=== PATIENT | female | born 1960 | race Caucasian/White ===

== ENCOUNTER 2024-02-11 21:33 | Inpatient (IN) | payer MEDICARE, MEDICAID, SELFPAY ==
--- NOTE | ~2024-02-11 | XR_ITS ---
EXAMINATION: XR HIP, RIGHT CLINICAL INFORMATION: Fall COMPARISON: None available. TECHNIQUE: Two views of the right hip. FINDINGS: Alignment is anatomic. Mild osteoarthritis of the the hips with subchondral sclerosis and marginal osteophytes. No visible fracture. Degenerative changes in the included lower lumbar spine. XR/XR hip RT min 2V IMPRESSION: No visible fracture.
--- NOTE | ~2024-02-11 | MR_ITS ---
EXAMINATION: MR BRAIN WITHOUT AND WITH CONTRAST CLINICAL INFORMATION: Multiple sclerosis flare. COMPARISON: None available. TECHNIQUE: MRI of the brain was obtained using routine sequences without and following the administration of 10 mL of Gadavist intravenous contrast. FINDINGS: No focal restricted diffusion is demonstrated to suggest acute or subacute cerebral ischemia. No evidence of acute or chronic hemorrhagic products on heme-sensitive imaging. There are multiple T2/FLAIR hyperintense lesions consistent with the reported underlying diagnosis of demyelination in the appropriate clinical setting. This includes lesions within the subcortical, deep white matter, periventricular, callosal, and cerebellar distributions. Proportional prominence of the ventricles and sulcal spaces without evidence of obstructive hydrocephalus. No abnormal mass effect. No midline shift. Normal appearance of the pituitary gland. Normal positioning of the cerebellar tonsils. Normal arterial and venous vascular flow voids are present. No abnormal contrast enhancement. Normal, homogeneous marrow signal. Mild mucosal thickening of the paranasal sinuses. No signal abnormalities within the mastoids. MR/MR head/brain wo/w con IMPRESSION: 1. Multiple supratentorial and infratentorial white matter lesions consistent with the reported underlying diagnosis of demyelination in the appropriate clinical setting. No abnormal intracranial enhancement or restricted diffusion to strongly suggest active inflammation/demyelination. 2. No acute intracranial abnormalities. No abnormal intracranial enhancement.
--- NOTE | ~2024-02-11 | CT_ITS ---
EXAMINATION: CT head/brain wo IV con CLINICAL INFORMATION: fall COMPARISON: MRI brain 02/17/2024 TECHNIQUE: Contiguous axial imaging was performed from the skull base to vertex without intravenous contrast. Sagittal and coronal reformatted images were obtained. This CT examination was performed using dose optimization techniques as appropriate, variously including the following: * Automated exposure control * Adjustment of mA and/or kV according to patient size (this includes techniques or standardized protocols for targeted exams where dose is matched to indication/reason for exam; i.e. extremities or head) Use of iterative reconstruction technique DLP: 628.5 mGy-cm FINDINGS: The ventricles and sulci are normal in size and configuration without significant volume loss or hydrocephalus. Moderate burden of predominantly supratentorial white matter disease related to known history of multiple sclerosis, better characterized on recent brain MRI. No territorial loss of collado-white differentiation. No acute intracranial hemorrhage or extra-axial fluid collection. No mass lesion, significant mass effect, or herniation pattern. The orbits are grossly normal. Partially imaged small retention cyst in the right maxillary sinus. Minor degenerative subchondral cyst/sclerosis along the left mandibular condyle head. Osseous structures are intact. CT/CT head/brain wo IV con IMPRESSION: 1. No CT evidence of acute intracranial injury. 2. Moderate burden of predominantly supratentorial white matter disease related to known history of multiple sclerosis, better characterized on recent brain MRI.
[2024-02-11 21:58] VITALS: BP 122/56; PULSE 73; RESP 18; TEMP 36.4; O2SAT 93
[2024-02-11 22:10] VITALS: BMI 40.9
[2024-02-12] MEDS: traZODone HCL 50 MG TABLET PO (01:51)
[2024-02-12] MEDS: hydrOXYzine HCL 50 MG TABLET PO (01:52)
[2024-02-12] MEDS: Melatonin 3 MG TABLET PO ×2 (01:52→21:08)
--- NOTE | 2024-02-12 04:23 | PC.NURSE ---
Patient is a 63 y/o female admitted via stretcher on 12b at 21:48 from [facility]. Patient presented at the emergency department on 02/10/2024 with history of increased agitation, combative behavior and making suicidal gestures. Patient has psychiatric history and is known to [facility] crisis Team. Patient was previously at [facility] in acute rehab for L TKR performed 2 weeks ago. Patient is alert and oriented x 3 upon arrival, calm, pleasant and cooperative, denies any current thoughts of self harm or suicidal ideation, is able to contract for safety. Able to follows commands during physical assessment, skin check is significant for 15 cm surgical wound in L knee area, well approximated and healing, fungal rash under R breast and R abdominal fold. Patient requested to defer mental assessment because fatigued and sleepy. body recall instructor provider Rangel Ramos notified, patient placed on 5 mins checks.
[2024-02-12 07:00] VITALS: BMI 39.4
[2024-02-12 08:08] VITALS: BP 131/66; PULSE 87; RESP 16; TEMP 36.1; O2SAT 92
[2024-02-12] MEDS: Ferrous Sulfate 324 MG TABLET.DR PO (08:10)
[2024-02-12] MEDS: Sennosides 8.6 MG TABLET 17.2 MG PO (08:10)
[2024-02-12] MEDS: modafiniL 100 MG TABLET PO (08:10)
[2024-02-12] MEDS: Baclofen 20 MG TABLET PO ×2 (08:11→21:08)
[2024-02-12] MEDS: Magnesium Oxide 400 MG TABLET PO (08:11)
[2024-02-12] MEDS: Docusate Sodium 100 MG CAPSULE PO ×2 (08:11→21:08)
[2024-02-12] MEDS: Acetaminophen 325 MG TABLET 975 MG PO ×3 (08:11→21:06)
[2024-02-12] MEDS: Celecoxib 200 MG CAPSULE PO (08:11)
[2024-02-12] MEDS: Omeprazole 20 MG CAPSULE.DR PO (08:11)
[2024-02-12] MEDS: Apixaban 2.5 MG TABLET PO ×2 (08:11→21:07)
[2024-02-12] MEDS: Multivitamin TABLET 1 TAB PO (08:11)
[2024-02-12 08:16] LABS: Estimated Average Glucose 94 mg/dL; Hemoglobin A1c % 4.9 % (<6.0)
[2024-02-12 08:27] LABS: Cholesterol 203 mg/dL (<200); HDL Cholesterol 45 mg/dL (>40); LDL Cholesterol Calculated 136 mg/dL (<100); Triglycerides 111 mg/dL (<150)
[2024-02-12] MEDS: LORazepam 1 MG TABLET PO (08:40)
[2024-02-12] MEDS: HaloperidoL 5 MG TABLET PO (08:40)
[2024-02-12 08:41] LABS: Free T4 (Free Thyroxine) 0.93 ng/dL (0.71-1.85); Thyroid Stimulating Hormone 2.41 uIU/mL (0.32-4.0)
[2024-02-12 08:58] LABS: Folate 12.8 ng/mL (> or = 4.0); Vitamin B12 904 pg/mL (200-900)
[2024-02-12] MEDS: Nystatin Powder 15 GM BOTTLE 1 APPL TOPICAL (09:15)
[2024-02-12] MEDS: Nystatin Oral Susp 500,000 UNIT/5 ML ORAL.SUSP 500000 UNIT BUCCAL ×2 (09:16→13:08)
[2024-02-12] MEDS: Calcium Carbonate 750 MG TAB.CHEW PO (11:29)
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
[2024-02-12 13:27] VITALS: BP 131/66; PULSE 87; O2SAT 92
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
--- NOTE | 2024-02-12 18:41 | PC.NURSE ---
Pt. A & O X 3. Poor insight into situation. Pleasant and cooperative in AM, when she was allowed to have breakfast in bed while awaiting OT/PT assmt. for mobility status. Initially she was reporting 8/10 L knee pain, but received scheduled medications, including APAP with good effect. She did report anxiety and requested and received her PRN lorazepam and haldol with good effect. Pt. completed admission assmt.s and signed CASSIA's. updated on her admission by telephone. Pt. cleared to be independent with mobility using a walker. Pt. began ringing her call adamson and demanding food and drink items from staff, for example Get me 2 chocolate milks, and I want them made with whole milk, not low fat. And you have to pour them over ice. Pt. reminded that food and drink would not be served in her room, but in the kitchen area. She was educated on the importance of ambulating for the proper healing of her knee, and that coming out to the milieu for meals was part of her treatment. Fine, then I'm on a hunger strike. Pt. did come to sensory room for visit with and ate several snacks and drank Ensure and coffee. She returned to her room after visit and began to repetitively ring her call adamson. When staff would answer the adamson she would make unreasonable demands that they bring her food to her room and call family members to bring her food. Staff splitting behavior observed, when she was telling one staff that another had said she could eat in her room. Pt. reminded she was free to make phone calls to make requests of her family, and that we had food for her in the kitchen area. She became increasingly verbally abusive and accusatory toward staff that they were abusing her. She also refused 5 PM APAP and nystatin swish and swallow. Pt. during admission asserted she is always continent, but in the evening demanding staff clean up her incontinence while she lays in bed.
[2024-02-12 20:00] VITALS: BP 117/65; PULSE 72; RESP 16; TEMP 36.6; O2SAT 97
[2024-02-12] MEDS: rOPINIRole HCL 1 MG TABLET PO (21:07)
[2024-02-12] MEDS: Sertraline HCL 100 MG TABLET 200 MG PO (21:08)
[2024-02-12] MEDS: Atorvastatin Calcium 10 MG TABLET PO (21:09)
[2024-02-13 08:34] VITALS: BP 144/64; PULSE 71; RESP 18; TEMP 37; O2SAT 96
[2024-02-13] MEDS: Acetaminophen 325 MG TABLET 975 MG PO ×3 (08:42→17:59)
[2024-02-13] MEDS: Ferrous Sulfate 324 MG TABLET.DR PO (08:42)
[2024-02-13] MEDS: Sennosides 8.6 MG TABLET 17.2 MG PO (08:42)
[2024-02-13] MEDS: Nystatin Oral Susp 500,000 UNIT/5 ML ORAL.SUSP 500000 UNIT BUCCAL ×3 (08:42→22:03)
[2024-02-13] MEDS: modafiniL 100 MG TABLET PO (08:42)
[2024-02-13] MEDS: Celecoxib 200 MG CAPSULE PO (08:43)
[2024-02-13] MEDS: Omeprazole 20 MG CAPSULE.DR PO (08:43)
[2024-02-13] MEDS: Multivitamin TABLET 1 TAB PO (08:43)
[2024-02-13] MEDS: Magnesium Oxide 400 MG TABLET PO (08:43)
[2024-02-13] MEDS: Apixaban 2.5 MG TABLET PO ×2 (08:43→22:00)
[2024-02-13] MEDS: Docusate Sodium 100 MG CAPSULE PO ×2 (08:43→22:02)
[2024-02-13] MEDS: Baclofen 20 MG TABLET PO ×2 (08:43→22:01)
[2024-02-13] MEDS: LORazepam 1 MG TABLET PO ×2 (13:11→17:58)
[2024-02-13] MEDS: HaloperidoL 5 MG TABLET PO ×2 (13:11→17:59)
--- NOTE | 2024-02-13 16:29 | HO.PSYCHPN ---
Subjective Subjective Date of Service: 02/13/24 Reason For Visit: Unspecified Schizophrenia Spectrum and other Psych Subjective Notes: Conditional Voluntary and 3 Day Interim History: The nursing staff reported the patient had being attention seeking, recently she had a total knee replacement. Today in the morning, the patient went to the sensory room and she vandalized it, she needed p.r.n. Haldol. On interview the patient was extremely friendly pleasant, inappropriate at times stating that she was hearing voices at times. I offer her Haldol and she stated that she loves it. We will start Haldol 5 mg p.o. t.i.d. to target psychosis. Mental Status Exam Mental Status Exam Patient Appearance: Appropriate Patient Orientation: Person and Situation Level of Consciousness: Awake Patient Behavior: Talkative Affect Description: Labile Patient Cognition Impaired: Yes Ability to Follow Directions: Fair Speech Pattern: Clear Hallucinations: Auditory Delusions: Paranoid Ideation, Thought Insert/Delete and Ideas of Reference Thought Process: Illogical and Slowed Thinking Thought Content: positive for [place] and positive for Poverty of Content Judgement: Poor Diagnostics Vital Signs (24Hr): Vital Signs - 24 hr 02/12/24 20:00 02/13/24 08:34 Temperature 97.9 F 98.6 F Pulse Rate 72 71 Respiratory Rate 16 18 Blood Pressure 117/65 144/64 H Pulse Oximetry 97 96 Oxygen Delivery Method Room Air Room Air BMI result Body Mass Index 39.4 Labs Labs: Laboratory Results - last 48 hr 02/12/24 08:00 Estimat Average Glucose 94 Hemoglobin A1c % 4.9 Triglycerides 111 Cholesterol 203 H LDL Cholesterol, Calc 136 H HDL Cholesterol 45 Vitamin B12 904 H Folate 12.8 TSH 2.41 Free T4 0.93 Medications Medications Current Medications Acetaminophen (Acetaminophen 325 Mg Tablet) 975 mg PO QID [facility] Last Admin: 02/13/24 12:26 Dose: 975 mg Al Hydroxide/Mg Hydroxide (Magnesium Hydrox/Alum Hydrox 30 Ml Oral.Susp) 30 ml PO Q6H PRN PRN Reason: Heartburn/Nausea Apixaban (Apixaban 2.5 Mg Tablet) 2.5 mg PO BID [facility] Stop: 02/27/24 23:59 Last Admin: 02/13/24 08:43 Dose: 2.5 mg Atorvastatin Calcium (Atorvastatin Calcium 10 Mg Tablet) 10 mg PO BEDTIME [facility] Last Admin: 02/12/24 21:09 Dose: 10 mg Baclofen (Baclofen 20 Mg Tablet) 20 mg PO BID [facility] Last Admin: 02/13/24 08:43 Dose: 20 mg Calcium Carbonate (Calcium Carbonate 750 Mg Tab.Chew) 750 mg PO QID PRN PRN Reason: Indigestion Last Admin: 02/12/24 11:29 Dose: 750 mg Celecoxib (Celecoxib 200 Mg Capsule) 200 mg PO DAILY [facility] Last Admin: 02/13/24 08:43 Dose: 200 mg Docusate Sodium (Docusate Sodium 100 Mg Capsule) 100 mg PO BID [facility] Last Admin: 02/13/24 08:43 Dose: 100 mg Ferrous Sulfate (Ferrous Sulfate 324 Mg Tablet.Dr) 324 mg PO DAILY [facility] Last Admin: 02/13/24 08:42 Dose: 324 mg Haloperidol (Haloperidol 5 Mg Tablet) 5 mg PO TID PRN PRN Reason: agitation Last Admin: 02/13/24 13:11 Dose: 5 mg Hydroxyzine HCl (Hydroxyzine Hcl 50 Mg Tablet) 50 mg PO TID PRN PRN Reason: Anxiety Last Admin: 02/12/24 01:52 Dose: 50 mg Lorazepam (Lorazepam 1 Mg Tablet) 1 mg PO TID PRN PRN Reason: agitation Last Admin: 02/13/24 13:11 Dose: 1 mg Magnesium Hydroxide (Milk Of Magnesia 30 Ml Oral.Susp) 30 ml PO DAILY PRN PRN Reason: Constipation Magnesium Oxide (Magnesium Oxide 400 Mg Tablet) 400 mg PO DAILY [facility] Last Admin: 02/13/24 08:43 Dose: 400 mg Melatonin (Melatonin 3 Mg Tablet) 3 mg PO BEDTIME [facility] Last Admin: 02/12/24 21:08 Dose: 3 mg Modafinil (Modafinil 100 Mg Tablet) 100 mg PO DAILY [facility] Last Admin: 02/13/24 08:42 Dose: 100 mg Multivitamins/Vitamin C (Multivitamin Tablet) 1 tab PO DAILY [facility] Last Admin: 02/13/24 08:43 Dose: 1 tab Nicotine Polacrilex (Nicotine Polacrilex 2 Mg Gum) 2 mg BUCCAL Q2H PRN PRN Reason: Nicotine Cravings Nystatin (Nystatin Oral Susp 500,000 Unit/5 Ml Oral.Susp) 500,000 unit BUCCAL QID [facility]; Protocol Stop: 02/19/24 08:59 Last Admin: 02/13/24 12:29 Dose: Not Given Omeprazole (Omeprazole 20 Mg Capsule.Dr) 20 mg PO DAILY [facility] Last Admin: 02/13/24 08:43 Dose: 20 mg Ondansetron HCl (Ondansetron Odt 4 Mg Tab.Rapdis) 4 mg TRANSLINGU Q8H PRN PRN Reason: Nausea And Vomiting Polyethylene Glycol (Polyethylene Glycol 3350 17 Gm Powd.Pack) 17 gm PO DAILY PRN PRN Reason: Constipation Ropinirole HCl (Ropinirole Hcl 1 Mg Tablet) 1 mg PO BEDTIME [facility] Last Admin: 02/12/24 21:07 Dose: 1 mg Senna (Sennosides 8.6 Mg Tablet) 17.2 mg PO DAILY [facility] Last Admin: 02/13/24 08:42 Dose: 17.2 mg Sertraline HCl (Sertraline Hcl 100 Mg Tablet) 200 mg PO BEDTIME [facility] Last Admin: 02/12/24 21:08 Dose: 200 mg Allergies Allergies Allergy/AdvReac Type Severity Reaction Status Date / Time aspirin Allergy Unknown Verified 02/11/24 22:12 citalopram [From Celexa] Allergy Unknown Verified 02/11/24 22:12 lamotrigine [From Lamictal] Allergy Unknown Verified 02/11/24 22:12 Penicillins Allergy Unknown Verified 02/11/24 22:12 Assessment & Plan Assessment & Plan (1) Multiple sclerosis: Status: Acute Code(s): G35 - Multiple sclerosis (2) Unspecified psychosis: Status: Acute Code(s): F29 - Unspecified psychosis not due to a substance or known physiological condition (3) Total knee replacement status: Status: Acute Code(s): Z96.659 - Presence of unspecified artificial knee joint Plan 02/11: continue medications as per at discharge from rehab facility. observe for clearing of mental status. likely delirium related to recent surgery. PT consult placed. 02/12 start Haldol 5 mg p.o. t.i.d. Reason for continued inpatient stay Substantial Risk for: inability to function, rapid decompensation and med/psych decompensation Time Spent With Patient Time: Total time managing care of this patient today __20__ minutes.
[2024-02-13 20:00] VITALS: BP 125/59; PULSE 82; RESP 16; TEMP 36.2; O2SAT 94
[2024-02-13] MEDS: rOPINIRole HCL 1 MG TABLET PO (21:59)
[2024-02-13] MEDS: Melatonin 3 MG TABLET PO (22:00)
[2024-02-13] MEDS: Sertraline HCL 100 MG TABLET 200 MG PO (22:01)
[2024-02-13] MEDS: Atorvastatin Calcium 10 MG TABLET PO (22:02)
[2024-02-13] MEDS: HaloperidoL 1 MG TABLET 2 MG PO (22:03)
--- NOTE | 2024-02-14 | PC.RT ---
RT called to place pt on noc cpap initially no order was put in nurse stated pt was placed on noc cpap yesterday upon review of the pts chart i did not see any orders for cpap or charting from RT that pt was placed on cpap yesterday. when cpap order was in I went down to place the pt on the machine i was told the machine was the same one the pt used yesterday after placing the pt on the machine she stated that she did not wear this machine last night and she does not feel like she can tolerate this mask. I removed the machine from the floor because i am not sure if this machine was initially set up for this specific pt.
[2024-02-14] MEDS: Acetaminophen 325 MG TABLET 975 MG PO ×3 (00:30→22:34)
[2024-02-14] MEDS: Nicotine Polacrilex 2 MG GUM BUCCAL (00:32)
[2024-02-14] MEDS: hydrOXYzine HCL 50 MG TABLET PO ×2 (00:32→20:58)
[2024-02-14] MEDS: Ondansetron ODT 4 MG TAB.RAPDIS TRANSLINGU ×2 (00:33→22:38)
[2024-02-14] MEDS: LORazepam 1 MG TABLET PO ×3 (00:33→22:39)
--- NOTE | 2024-02-14 04:42 | PC.NURSE ---
pt has been demanding/manipulative/labile. she requested to be placed on cpap. resp tx contacted and presented at bedside with cpap which pt promptly refused. pt stated that she wanted nasal cannula. pt is is grossly intact neurologically except offering multiple orthopedic and somatic complaints. resp effort is regular unlabored. sao2 94-96%. there is absolutely no indication for supplemental oxygen. pt is given tylenol for pain which she had refused earlier in the night. she is also given ativan and atarax for anxiety and restlessness. pt is noted to be somnolent and snoring 30 min post ativan/atarax/tylenol administration. resp effort is regular unlabored.
[2024-02-14 08:00] VITALS: BP 137/86; PULSE 84; RESP 18; TEMP 36.8; O2SAT 95
--- NOTE | 2024-02-14 08:10 | HO.PSYCHPN ---
Subjective Subjective Date of Service: 02/14/24 Reason For Visit: Unspecified Schizophrenia Spectrum and other Psych Interim History: nursing staff report patient has been challenging regarding behaviors, verbal outbursts, self care. Patient reports to designer/writer that she is doing great. Has no concerns regarding the care she is receiving. Reports looking forward to discharge back to living with her and grandson. Reports her psychiatric symptoms are at bay for now and my pain is well controlled . Medication Compliance: Yes Side effects from medications: No Attending Groups: No Review of Systems Acute medical concerns: No Review of Systems Review of Systems nothing acute Mental Status Exam Mental Status Exam Patient Appearance: Appropriate Patient Orientation: Person and Situation Level of Consciousness: Awake Patient Behavior: Talkative Mood Description: Calm Affect Description: Withdrawn and Blunted Patient Cognition Impaired: Yes Ability to Follow Directions: Fair Speech Pattern: Clear Diagnostics Vital Signs (24Hr): Vital Signs - 24 hr 02/13/24 08:34 02/13/24 20:00 Temperature 98.6 F 97.2 F Pulse Rate 71 82 Respiratory Rate 18 16 Blood Pressure 144/64 H 125/59 L Pulse Oximetry 96 94 Oxygen Delivery Method Room Air Room Air BMI result Body Mass Index 39.4 Labs Labs: Laboratory Results - last 48 hr 02/12/24 08:00 Estimat Average Glucose 94 Hemoglobin A1c % 4.9 Triglycerides 111 Cholesterol 203 H LDL Cholesterol, Calc 136 H HDL Cholesterol 45 Vitamin B12 904 H Folate 12.8 TSH 2.41 Free T4 0.93 Medications Medications Current Medications Acetaminophen (Acetaminophen 325 Mg Tablet) 975 mg PO QID [facility] Last Admin: 02/14/24 00:30 Dose: 975 mg Al Hydroxide/Mg Hydroxide (Magnesium Hydrox/Alum Hydrox 30 Ml Oral.Susp) 30 ml PO Q6H PRN PRN Reason: Heartburn/Nausea Apixaban (Apixaban 2.5 Mg Tablet) 2.5 mg PO BID [facility] Stop: 02/27/24 23:59 Last Admin: 02/13/24 22:00 Dose: 2.5 mg Atorvastatin Calcium (Atorvastatin Calcium 10 Mg Tablet) 10 mg PO BEDTIME [facility] Last Admin: 02/13/24 22:02 Dose: 10 mg Baclofen (Baclofen 20 Mg Tablet) 20 mg PO BID [facility] Last Admin: 02/13/24 22:01 Dose: 20 mg Calcium Carbonate (Calcium Carbonate 750 Mg Tab.Chew) 750 mg PO QID PRN PRN Reason: Indigestion Last Admin: 02/12/24 11:29 Dose: 750 mg Celecoxib (Celecoxib 200 Mg Capsule) 200 mg PO DAILY [facility] Last Admin: 02/13/24 08:43 Dose: 200 mg Docusate Sodium (Docusate Sodium 100 Mg Capsule) 100 mg PO BID [facility] Last Admin: 02/13/24 22:02 Dose: 100 mg Ferrous Sulfate (Ferrous Sulfate 324 Mg Tablet.) 324 mg PO DAILY [facility] Last Admin: 02/13/24 08:42 Dose: 324 mg Haloperidol (Haloperidol 5 Mg Tablet) 5 mg PO TID PRN PRN Reason: agitation Last Admin: 02/13/24 17:59 Dose: 5 mg Haloperidol (Haloperidol 1 Mg Tablet) 2 mg PO TID [facility] Last Admin: 02/13/24 22:03 Dose: 2 mg Hydroxyzine HCl (Hydroxyzine Hcl 50 Mg Tablet) 50 mg PO TID PRN PRN Reason: Anxiety Last Admin: 02/14/24 00:32 Dose: 50 mg Lorazepam (Lorazepam 1 Mg Tablet) 1 mg PO TID PRN PRN Reason: agitation Last Admin: 02/14/24 00:33 Dose: 1 mg Magnesium Hydroxide (Milk Of Magnesia 30 Ml Oral.Susp) 30 ml PO DAILY PRN PRN Reason: Constipation Magnesium Oxide (Magnesium Oxide 400 Mg Tablet) 400 mg PO DAILY [facility] Last Admin: 02/13/24 08:43 Dose: 400 mg Melatonin (Melatonin 3 Mg Tablet) 3 mg PO BEDTIME [facility] Last Admin: 02/13/24 22:00 Dose: 3 mg Modafinil (Modafinil 100 Mg Tablet) 100 mg PO DAILY [facility] Last Admin: 02/13/24 08:42 Dose: 100 mg Multivitamins/Vitamin C (Multivitamin Tablet) 1 tab PO DAILY [facility] Last Admin: 02/13/24 08:43 Dose: 1 tab Nicotine Polacrilex (Nicotine Polacrilex 2 Mg Gum) 2 mg BUCCAL Q2H PRN PRN Reason: Nicotine Cravings Last Admin: 02/14/24 00:32 Dose: 2 mg Nystatin (Nystatin Oral Susp 500,000 Unit/5 Ml Oral.Susp) 500,000 unit BUCCAL QID [facility]; Protocol Stop: 02/19/24 08:59 Last Admin: 02/13/24 22:03 Dose: 500,000 unit Omeprazole (Omeprazole 20 Mg Capsule.) 20 mg PO DAILY [facility] Last Admin: 02/13/24 08:43 Dose: 20 mg Ondansetron HCl (Ondansetron Odt 4 Mg Tab.Rapdis) 4 mg TRANSLINGU Q8H PRN PRN Reason: Nausea And Vomiting Last Admin: 02/14/24 00:33 Dose: 4 mg Polyethylene Glycol (Polyethylene Glycol 3350 17 Gm Powd.Pack) 17 gm PO DAILY PRN PRN Reason: Constipation Ropinirole HCl (Ropinirole Hcl 1 Mg Tablet) 1 mg PO BEDTIME [facility] Last Admin: 02/13/24 21:59 Dose: 1 mg Senna (Sennosides 8.6 Mg Tablet) 17.2 mg PO DAILY [facility] Last Admin: 02/13/24 08:42 Dose: 17.2 mg Sertraline HCl (Sertraline Hcl 100 Mg Tablet) 200 mg PO BEDTIME [facility] Last Admin: 02/13/24 22:01 Dose: 200 mg Allergies Allergies Allergy/AdvReac Type Severity Reaction Status Date / Time aspirin Allergy Unknown Verified 02/11/24 22:12 citalopram [From Celexa] Allergy Unknown Verified 02/11/24 22:12 lamotrigine [From Lamictal] Allergy Unknown Verified 02/11/24 22:12 Penicillins Allergy Unknown Verified 02/11/24 22:12 Assessment & Plan Assessment & Plan (1) Multiple sclerosis: Status: Acute Code(s): G35 - Multiple sclerosis (2) Unspecified psychosis: Status: Acute Code(s): F29 - Unspecified psychosis not due to a substance or known physiological condition (3) Total knee replacement status: Status: Acute Code(s): Z96.659 - Presence of unspecified artificial knee joint Plan 02/11: continue medications as per at discharge from rehab facility. observe for clearing of mental status. likely delirium related to recent surgery. PT consult placed. 02/12 start Haldol 5 mg p.o. t.i.d. 02/14/2024: No changes as Haldol just started Reason for continued inpatient stay Substantial Risk for: inability to function and rapid decompensation Time Spent With Patient Time: Total time managing care of this patient today ____ minutes.
[2024-02-14] MEDS: Nystatin Oral Susp 500,000 UNIT/5 ML ORAL.SUSP 500000 UNIT BUCCAL ×3 (08:23→20:59)
[2024-02-14] MEDS: Baclofen 20 MG TABLET PO ×2 (08:25→20:58)
[2024-02-14] MEDS: Celecoxib 200 MG CAPSULE PO (08:25)
[2024-02-14] MEDS: Apixaban 2.5 MG TABLET PO ×2 (08:25→20:57)
[2024-02-14] MEDS: HaloperidoL 1 MG TABLET 2 MG PO ×3 (08:25→20:53)
[2024-02-14] MEDS: Omeprazole 20 MG CAPSULE.DR PO (08:25)
[2024-02-14] MEDS: Magnesium Oxide 400 MG TABLET PO (08:25)
[2024-02-14] MEDS: Ferrous Sulfate 324 MG TABLET.DR PO (08:25)
[2024-02-14] MEDS: Sennosides 8.6 MG TABLET 17.2 MG PO (08:25)
[2024-02-14] MEDS: modafiniL 100 MG TABLET PO (08:25)
[2024-02-14] MEDS: Multivitamin TABLET 1 TAB PO (08:25)
[2024-02-14] MEDS: Docusate Sodium 100 MG CAPSULE PO (08:31)
--- NOTE | 2024-02-14 17:26 | HE.PHANOTE ---
RE ACETAMINOPHEN CHANGED HOME DOSE OF 975 MG QID TO TID WITH DR BERNAL PERMISSION BECAUSE NURSING GETTING FLAGS WITH EVERY OTHER DOSE REGARDING EXCEEDING SAFE LIMIT.
[2024-02-14 20:00] VITALS: BP 132/68; PULSE 82; RESP 18; TEMP 36.1; O2SAT 96
[2024-02-14] MEDS: Atorvastatin Calcium 10 MG TABLET PO (20:53)
[2024-02-14] MEDS: Sertraline HCL 100 MG TABLET 200 MG PO (20:56)
[2024-02-14] MEDS: Melatonin 3 MG TABLET PO (20:56)
[2024-02-14] MEDS: rOPINIRole HCL 1 MG TABLET PO (20:57)
[2024-02-14] MEDS: HaloperidoL 5 MG TABLET PO (22:39)
[2024-02-15 07:50] VITALS: BP 120/60; PULSE 75; RESP 18; TEMP 36.6; O2SAT 97
[2024-02-15] MEDS: modafiniL 100 MG TABLET PO (08:00)
[2024-02-15] MEDS: HaloperidoL 1 MG TABLET 2 MG PO ×3 (08:00→21:00)
[2024-02-15] MEDS: Docusate Sodium 100 MG CAPSULE PO ×2 (08:00→21:03)
[2024-02-15] MEDS: Multivitamin TABLET 1 TAB PO (08:00)
[2024-02-15] MEDS: Sennosides 8.6 MG TABLET 17.2 MG PO (08:00)
[2024-02-15] MEDS: Ferrous Sulfate 324 MG TABLET.DR PO (08:00)
[2024-02-15] MEDS: Nystatin Oral Susp 500,000 UNIT/5 ML ORAL.SUSP 500000 UNIT BUCCAL ×3 (08:00→21:00)
[2024-02-15] MEDS: Omeprazole 20 MG CAPSULE.DR PO (08:00)
[2024-02-15] MEDS: Celecoxib 200 MG CAPSULE PO (08:00)
[2024-02-15] MEDS: Acetaminophen 325 MG TABLET 975 MG PO ×2 (08:01→15:30)
[2024-02-15] MEDS: Magnesium Oxide 400 MG TABLET PO (08:01)
[2024-02-15] MEDS: Apixaban 2.5 MG TABLET PO ×2 (08:01→21:03)
[2024-02-15] MEDS: Baclofen 20 MG TABLET PO ×2 (08:01→21:03)
--- NOTE | 2024-02-15 10:26 | HO.PSYCHPN ---
Subjective Subjective Date of Service: 02/15/24 Reason For Visit: Unspecified Schizophrenia Spectrum and other Psych Interim History: nursing staff report patient has been challenging regarding behaviors, verbal outbursts, self care. Patient reports to database report writer that she is doing great but upset around behavioral limitations such as group (endorsed writing on [place]) and directed back to primary team to discus treatment planning. Inappropriate conversation content with peer in open space (sexual in nature). Still looking forward to discharge and 3 day notice. Medication Compliance: Yes Side effects from medications: No Attending Groups: No Review of Systems Acute medical concerns: No Review of Systems Review of Systems nothing acute Mental Status Exam Mental Status Exam Narrative: adequately dressed and groomed in [facility], in day area. some frustration. no PMA/PMR. speech incr in rate, amount. nml loudness, decr latency. thoughts vary from linear and logical in response to some questions and tangential spontaneously. affect flexible, normo-intense, non-labile. mood very good. denies SI/SIBI/HI/AVH. Diagnostics Vital Signs (24Hr): Vital Signs - 24 hr 02/14/24 20:00 02/15/24 07:50 Temperature 96.9 F 97.9 F Pulse Rate 82 75 Respiratory Rate 18 18 Blood Pressure 132/68 120/60 Pulse Oximetry 96 97 Oxygen Delivery Method Room Air Room Air BMI result Body Mass Index 39.4 Medications Medications Current Medications Acetaminophen (Acetaminophen 325 Mg Tablet) 975 mg PO TID [facility] Last Admin: 02/15/24 08:01 Dose: 975 mg Al Hydroxide/Mg Hydroxide (Magnesium Hydrox/Alum Hydrox 30 Ml Oral.Susp) 30 ml PO Q6H PRN PRN Reason: Heartburn/Nausea Apixaban (Apixaban 2.5 Mg Tablet) 2.5 mg PO BID [facility] Stop: 02/27/24 23:59 Last Admin: 02/15/24 08:01 Dose: 2.5 mg Atorvastatin Calcium (Atorvastatin Calcium 10 Mg Tablet) 10 mg PO BEDTIME [facility] Last Admin: 02/14/24 20:53 Dose: 10 mg Baclofen (Baclofen 20 Mg Tablet) 20 mg PO BID [facility] Last Admin: 02/15/24 08:01 Dose: 20 mg Calcium Carbonate (Calcium Carbonate 750 Mg Tab.Chew) 750 mg PO QID PRN PRN Reason: Indigestion Last Admin: 02/12/24 11:29 Dose: 750 mg Celecoxib (Celecoxib 200 Mg Capsule) 200 mg PO DAILY [facility] Last Admin: 02/15/24 08:00 Dose: 200 mg Docusate Sodium (Docusate Sodium 100 Mg Capsule) 100 mg PO BID [facility] Last Admin: 02/15/24 08:00 Dose: 100 mg Ferrous Sulfate (Ferrous Sulfate 324 Mg Tablet.) 324 mg PO DAILY [facility] Last Admin: 02/15/24 08:00 Dose: 324 mg Haloperidol (Haloperidol 5 Mg Tablet) 5 mg PO TID PRN PRN Reason: agitation Last Admin: 02/14/24 22:39 Dose: 5 mg Haloperidol (Haloperidol 1 Mg Tablet) 2 mg PO TID [facility] Last Admin: 02/15/24 08:00 Dose: 2 mg Hydroxyzine HCl (Hydroxyzine Hcl 50 Mg Tablet) 50 mg PO TID PRN PRN Reason: Anxiety Last Admin: 02/14/24 20:58 Dose: 50 mg Lorazepam (Lorazepam 1 Mg Tablet) 1 mg PO TID PRN PRN Reason: agitation Last Admin: 02/14/24 22:39 Dose: 1 mg Magnesium Hydroxide (Milk Of Magnesia 30 Ml Oral.Susp) 30 ml PO DAILY PRN PRN Reason: Constipation Magnesium Oxide (Magnesium Oxide 400 Mg Tablet) 400 mg PO DAILY [facility] Last Admin: 02/15/24 08:01 Dose: 400 mg Melatonin (Melatonin 3 Mg Tablet) 3 mg PO BEDTIME [facility] Last Admin: 02/14/24 20:56 Dose: 3 mg Modafinil (Modafinil 100 Mg Tablet) 100 mg PO DAILY [facility] Last Admin: 02/15/24 08:00 Dose: 100 mg Multivitamins/Vitamin C (Multivitamin Tablet) 1 tab PO DAILY [facility] Last Admin: 02/15/24 08:00 Dose: 1 tab Nicotine Polacrilex (Nicotine Polacrilex 2 Mg Gum) 2 mg BUCCAL Q2H PRN PRN Reason: Nicotine Cravings Last Admin: 02/14/24 00:32 Dose: 2 mg Nystatin (Nystatin Oral Susp 500,000 Unit/5 Ml Oral.Susp) 500,000 unit BUCCAL QID [facility]; Protocol Stop: 02/19/24 08:59 Last Admin: 02/15/24 08:00 Dose: 500,000 unit Omeprazole (Omeprazole 20 Mg Capsule.) 20 mg PO DAILY [facility] Last Admin: 02/15/24 08:00 Dose: 20 mg Ondansetron HCl (Ondansetron Odt 4 Mg Tab.Rapdis) 4 mg TRANSLINGU Q8H PRN PRN Reason: Nausea And Vomiting Last Admin: 02/14/24 22:38 Dose: 4 mg Polyethylene Glycol (Polyethylene Glycol 3350 17 Gm Powd.Pack) 17 gm PO DAILY PRN PRN Reason: Constipation Ropinirole HCl (Ropinirole Hcl 1 Mg Tablet) 1 mg PO BEDTIME [facility] Last Admin: 02/14/24 20:57 Dose: 1 mg Senna (Sennosides 8.6 Mg Tablet) 17.2 mg PO DAILY [facility] Last Admin: 02/15/24 08:00 Dose: 17.2 mg Sertraline HCl (Sertraline Hcl 100 Mg Tablet) 200 mg PO BEDTIME [facility] Last Admin: 02/14/24 20:56 Dose: 200 mg Allergies Allergies Allergy/AdvReac Type Severity Reaction Status Date / Time aspirin Allergy Unknown Verified 02/11/24 22:12 citalopram [From Celexa] Allergy Unknown Verified 02/11/24 22:12 lamotrigine [From Lamictal] Allergy Unknown Verified 02/11/24 22:12 Penicillins Allergy Unknown Verified 02/11/24 22:12 Assessment & Plan Assessment & Plan (1) Multiple sclerosis: Status: Acute Code(s): G35 - Multiple sclerosis (2) Unspecified psychosis: Status: Acute Code(s): F29 - Unspecified psychosis not due to a substance or known physiological condition (3) Total knee replacement status: Status: Acute Code(s): Z96.659 - Presence of unspecified artificial knee joint Plan 02/11: continue medications as per at discharge from rehab facility. observe for clearing of mental status. likely delirium related to recent surgery. PT consult placed. 02/12 start Haldol 5 mg p.o. t.i.d. 02/14/2024: No changes as Haldol just started 02/14: no changes. [address]- exp 02/16 Reason for continued inpatient stay Substantial Risk for: rapid decompensation Time Spent With Patient Time: Total time managing care of this patient today ____ minutes.
[2024-02-15] MEDS: LORazepam 1 MG TABLET PO ×2 (13:01→21:04)
[2024-02-15] MEDS: HaloperidoL 5 MG TABLET PO (13:01)
[2024-02-15 20:00] VITALS: BP 120/75; PULSE 76; RESP 16; TEMP 36.2; O2SAT 95
[2024-02-15] MEDS: Atorvastatin Calcium 10 MG TABLET PO (21:02)
[2024-02-15] MEDS: Sertraline HCL 100 MG TABLET 200 MG PO (21:02)
[2024-02-15] MEDS: rOPINIRole HCL 1 MG TABLET PO (21:04)
[2024-02-15] MEDS: Melatonin 3 MG TABLET PO (21:06)
[2024-02-16 08:06] VITALS: BP 127/72; PULSE 91; RESP 18; TEMP 36.4; O2SAT 96
[2024-02-16] MEDS: Acetaminophen 325 MG TABLET 975 MG PO ×3 (08:08→20:15)
[2024-02-16] MEDS: Multivitamin TABLET 1 TAB PO (08:09)
[2024-02-16] MEDS: Ferrous Sulfate 324 MG TABLET.DR PO (08:09)
[2024-02-16] MEDS: modafiniL 100 MG TABLET PO (08:09)
[2024-02-16] MEDS: Celecoxib 200 MG CAPSULE PO (08:09)
[2024-02-16] MEDS: Docusate Sodium 100 MG CAPSULE PO (08:09)
[2024-02-16] MEDS: HaloperidoL 1 MG TABLET 2 MG PO (08:09)
[2024-02-16] MEDS: Omeprazole 20 MG CAPSULE.DR PO (08:09)
[2024-02-16] MEDS: Sennosides 8.6 MG TABLET 17.2 MG PO (08:09)
[2024-02-16] MEDS: Baclofen 20 MG TABLET PO ×2 (08:09→20:17)
[2024-02-16] MEDS: Apixaban 2.5 MG TABLET PO ×2 (08:09→22:09)
[2024-02-16] MEDS: Magnesium Oxide 400 MG TABLET PO (08:13)
--- NOTE | 2024-02-16 09:58 | HO.PSYCHPN ---
Subjective Subjective Date of Service: 02/16/24 Reason For Visit: Unspecified Schizophrenia Spectrum and other Psych Subjective Notes: 3 Day Interim History: Pt slept about 8 hrs. Pt continues to talk about being a unicorn. 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 They are telling me that I am not an artist! This expert medical writer tried to clarify that problem is writing on the [place] not her artistic nature,which family reports is out of character for her. She does have some insight that for the past two weeks, there has been something off about her behavior but she also states she is fine now. she does agree to take haldol. She denies SI/HI. She states that she hears voices telling her that her name is Radha. Review of Systems Review of Systems nothing acute Diagnostics Vital Signs (24Hr): Vital Signs - 24 hr 02/15/24 20:00 02/16/24 08:06 Temperature 97.1 F 97.6 F Pulse Rate 76 91 Respiratory Rate 16 18 Blood Pressure 120/75 127/72 Pulse Oximetry 95 96 Oxygen Delivery Method Room Air Room Air BMI result Body Mass Index 39.4 Medications Medications Current Medications Acetaminophen (Acetaminophen 325 Mg Tablet) 975 mg PO TID [facility] Last Admin: 02/16/24 08:08 Dose: 975 mg Al Hydroxide/Mg Hydroxide (Magnesium Hydrox/Alum Hydrox 30 Ml Oral.Susp) 30 ml PO Q6H PRN PRN Reason: Heartburn/Nausea Apixaban (Apixaban 2.5 Mg Tablet) 2.5 mg PO BID [facility] Stop: 02/27/24 23:59 Last Admin: 02/16/24 08:09 Dose: 2.5 mg Atorvastatin Calcium (Atorvastatin Calcium 10 Mg Tablet) 10 mg PO BEDTIME [facility] Last Admin: 02/15/24 21:02 Dose: 10 mg Baclofen (Baclofen 20 Mg Tablet) 20 mg PO BID [facility] Last Admin: 02/16/24 08:09 Dose: 20 mg Calcium Carbonate (Calcium Carbonate 750 Mg Tab.Chew) 750 mg PO QID PRN PRN Reason: Indigestion Last Admin: 02/12/24 11:29 Dose: 750 mg Celecoxib (Celecoxib 200 Mg Capsule) 200 mg PO DAILY [facility] Last Admin: 02/16/24 08:09 Dose: 200 mg Docusate Sodium (Docusate Sodium 100 Mg Capsule) 100 mg PO BID [facility] Last Admin: 02/16/24 08:09 Dose: 100 mg Ferrous Sulfate (Ferrous Sulfate 324 Mg Tablet.) 324 mg PO DAILY [facility] Last Admin: 02/16/24 08:09 Dose: 324 mg Haloperidol (Haloperidol 5 Mg Tablet) 5 mg PO TID PRN PRN Reason: agitation Last Admin: 02/15/24 13:01 Dose: 5 mg Haloperidol (Haloperidol 1 Mg Tablet) 2 mg PO TID [facility] Last Admin: 02/16/24 08:09 Dose: 2 mg Hydroxyzine HCl (Hydroxyzine Hcl 50 Mg Tablet) 50 mg PO TID PRN PRN Reason: Anxiety Last Admin: 02/14/24 20:58 Dose: 50 mg Lorazepam (Lorazepam 1 Mg Tablet) 1 mg PO TID PRN PRN Reason: agitation Last Admin: 02/15/24 21:04 Dose: 1 mg Magnesium Hydroxide (Milk Of Magnesia 30 Ml Oral.Susp) 30 ml PO DAILY PRN PRN Reason: Constipation Magnesium Oxide (Magnesium Oxide 400 Mg Tablet) 400 mg PO DAILY [facility] Last Admin: 02/16/24 08:13 Dose: 400 mg Melatonin (Melatonin 3 Mg Tablet) 3 mg PO BEDTIME [facility] Last Admin: 02/15/24 21:06 Dose: 3 mg Modafinil (Modafinil 100 Mg Tablet) 100 mg PO DAILY [facility] Last Admin: 02/16/24 08:09 Dose: 100 mg Multivitamins/Vitamin C (Multivitamin Tablet) 1 tab PO DAILY [facility] Last Admin: 02/16/24 08:09 Dose: 1 tab Nicotine Polacrilex (Nicotine Polacrilex 2 Mg Gum) 2 mg BUCCAL Q2H PRN PRN Reason: Nicotine Cravings Last Admin: 02/14/24 00:32 Dose: 2 mg Nystatin (Nystatin Oral Susp 500,000 Unit/5 Ml Oral.Susp) 500,000 unit BUCCAL QID [facility]; Protocol Stop: 02/19/24 08:59 Last Admin: 02/15/24 21:00 Dose: 500,000 unit Omeprazole (Omeprazole 20 Mg Capsule.) 20 mg PO DAILY [facility] Last Admin: 02/16/24 08:09 Dose: 20 mg Ondansetron HCl (Ondansetron Odt 4 Mg Tab.Rapdis) 4 mg TRANSLINGU Q8H PRN PRN Reason: Nausea And Vomiting Last Admin: 02/14/24 22:38 Dose: 4 mg Polyethylene Glycol (Polyethylene Glycol 3350 17 Gm Powd.Pack) 17 gm PO DAILY PRN PRN Reason: Constipation Ropinirole HCl (Ropinirole Hcl 1 Mg Tablet) 1 mg PO BEDTIME [facility] Last Admin: 02/15/24 21:04 Dose: 1 mg Senna (Sennosides 8.6 Mg Tablet) 17.2 mg PO DAILY [facility] Last Admin: 02/16/24 08:09 Dose: 17.2 mg Sertraline HCl (Sertraline Hcl 100 Mg Tablet) 200 mg PO BEDTIME [facility] Last Admin: 02/15/24 21:02 Dose: 200 mg Allergies Allergies Allergy/AdvReac Type Severity Reaction Status Date / Time aspirin Allergy Unknown Verified 02/11/24 22:12 citalopram [From Celexa] Allergy Unknown Verified 02/11/24 22:12 lamotrigine [From Lamictal] Allergy Unknown Verified 02/11/24 22:12 Penicillins Allergy Unknown Verified 02/11/24 22:12 Assessment & Plan Assessment & Plan (1) Bipolar 1 disorder, manic, moderate: Status: Acute Code(s): F31.12 - Bipolar disorder, current episode manic without psychotic features, moderate (2) Multiple sclerosis: Status: Acute Code(s): G35 - Multiple sclerosis (3) Total knee replacement status: Status: Acute Code(s): Z96.659 - Presence of unspecified artificial knee joint Plan 02/11: continue medications as per at discharge from rehab facility. observe for clearing of mental status. likely delirium related to recent surgery. PT consult placed. 02/12 start Haldol 5 mg p.o. t.i.d. 02/14/2024: No changes as Haldol just started 02/14: no changes. [address]- exp 02/16 02/15- no signs of delirium. Pt with grandiose delusions and psychosis. Calmer, agreed to increase haldol 5mg po BID, lower sertraline to 100mg po daily (will change to day time instead of bedtime to promote sleep) so it wont exacerbate delusions and psychosis. Reason for continued inpatient stay Substantial Risk for: inability to function Time Spent With Patient Time: Total time managing care of this patient today ____ minutes.
[2024-02-16] MEDS: HaloperidoL 5 MG TABLET PO ×2 (16:04→20:17)
[2024-02-16 20:00] VITALS: BP 122/57; PULSE 76; RESP 16; TEMP 36.1; O2SAT 95
[2024-02-16] MEDS: Nystatin Oral Susp 500,000 UNIT/5 ML ORAL.SUSP 500000 UNIT BUCCAL (20:14)
[2024-02-16] MEDS: hydrOXYzine HCL 50 MG TABLET PO (20:16)
[2024-02-16] MEDS: rOPINIRole HCL 1 MG TABLET PO (20:16)
[2024-02-16] MEDS: Ondansetron ODT 4 MG TAB.RAPDIS TRANSLINGU (20:16)
[2024-02-16] MEDS: Melatonin 3 MG TABLET PO (20:17)
[2024-02-16] MEDS: LORazepam 1 MG TABLET PO (20:17)
[2024-02-16] MEDS: Atorvastatin Calcium 10 MG TABLET PO (20:17)
[2024-02-17 08:30] VITALS: BP 130/60; PULSE 84; RESP 18; TEMP 36.2; O2SAT 94
[2024-02-17] MEDS: HaloperidoL 5 MG TABLET PO ×2 (08:36→20:36)
[2024-02-17] MEDS: Sertraline HCL 100 MG TABLET PO (08:36)
[2024-02-17] MEDS: modafiniL 100 MG TABLET PO (08:36)
[2024-02-17] MEDS: Omeprazole 20 MG CAPSULE.DR PO (08:36)
[2024-02-17] MEDS: Sennosides 8.6 MG TABLET 17.2 MG PO (08:36)
[2024-02-17] MEDS: Baclofen 20 MG TABLET PO ×2 (08:37→20:36)
[2024-02-17] MEDS: Acetaminophen 325 MG TABLET 975 MG PO ×3 (08:38→20:36)
[2024-02-17] MEDS: Docusate Sodium 100 MG CAPSULE PO ×2 (08:38→20:36)
[2024-02-17] MEDS: Magnesium Oxide 400 MG TABLET PO (08:38)
[2024-02-17] MEDS: Ferrous Sulfate 324 MG TABLET.DR PO (08:38)
[2024-02-17] MEDS: Apixaban 2.5 MG TABLET PO ×2 (08:38→20:36)
[2024-02-17] MEDS: Multivitamin TABLET 1 TAB PO (08:38)
[2024-02-17] MEDS: Celecoxib 200 MG CAPSULE PO (08:38)
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
--- NOTE | 2024-02-17 16:54 | HO.PSYCHPN ---
Subjective Subjective Date of Service: 02/17/24 Reason For Visit: Unspecified Schizophrenia Spectrum and other Psych Subjective Notes: Conditional Voluntary Interim History: Pt slept 8 hrs. She agreed to retract 3 day notice. consult with neurology re: flare of MS presenting with manic symptoms. Pt less intense about being an artist, or a unicorn. No SI/HI. She is eating well. She does have profuse urinary incontinence. needs significant hands on care for adls. updated about plan. Mental Status Exam Mental Status Exam Narrative: adequately dressed and groomed in [facility], in day area. some frustration. no PMA/PMR. speech incr in rate, amount. nml loudness, decr latency. thoughts vary from linear and logical in response to some questions and tangential spontaneously. affect flexible, normo-intense, non-labile. mood very good. denies SI/HI. Reports hearing voices calling her chris Diagnostics Vital Signs (24Hr): Vital Signs - 24 hr 02/16/24 20:00 02/17/24 08:30 Temperature 97 F 97.2 F Pulse Rate 76 84 Respiratory Rate 16 18 Blood Pressure 122/57 L 130/60 Pulse Oximetry 95 94 Oxygen Delivery Method Room Air Room Air BMI result Body Mass Index 39.4 Medications Medications Current Medications Acetaminophen (Acetaminophen 325 Mg Tablet) 975 mg PO TID [facility] Last Admin: 02/17/24 16:19 Dose: 975 mg Al Hydroxide/Mg Hydroxide (Magnesium Hydrox/Alum Hydrox 30 Ml Oral.Susp) 30 ml PO Q6H PRN PRN Reason: Heartburn/Nausea Apixaban (Apixaban 2.5 Mg Tablet) 2.5 mg PO BID [facility] Stop: 02/27/24 23:59 Last Admin: 02/17/24 08:38 Dose: 2.5 mg Atorvastatin Calcium (Atorvastatin Calcium 10 Mg Tablet) 10 mg PO BEDTIME [facility] Last Admin: 02/16/24 20:17 Dose: 10 mg Baclofen (Baclofen 20 Mg Tablet) 20 mg PO BID [facility] Last Admin: 02/17/24 08:37 Dose: 20 mg Calcium Carbonate (Calcium Carbonate 750 Mg Tab.Chew) 750 mg PO QID PRN PRN Reason: Indigestion Last Admin: 02/12/24 11:29 Dose: 750 mg Celecoxib (Celecoxib 200 Mg Capsule) 200 mg PO DAILY [facility] Last Admin: 02/17/24 08:38 Dose: 200 mg Docusate Sodium (Docusate Sodium 100 Mg Capsule) 100 mg PO BID [facility] Last Admin: 02/17/24 08:38 Dose: 100 mg Ferrous Sulfate (Ferrous Sulfate 324 Mg Tablet.) 324 mg PO DAILY [facility] Last Admin: 02/17/24 08:38 Dose: 324 mg Haloperidol (Haloperidol 5 Mg Tablet) 5 mg PO TID PRN PRN Reason: agitation Last Admin: 02/15/24 13:01 Dose: 5 mg Haloperidol (Haloperidol 5 Mg Tablet) 5 mg PO BID [facility] Last Admin: 02/17/24 08:36 Dose: 5 mg Hydroxyzine HCl (Hydroxyzine Hcl 50 Mg Tablet) 50 mg PO TID PRN PRN Reason: Anxiety Last Admin: 02/16/24 20:16 Dose: 50 mg Lorazepam (Lorazepam 1 Mg Tablet) 1 mg PO TID PRN PRN Reason: agitation Last Admin: 02/16/24 20:17 Dose: 1 mg Magnesium Hydroxide (Milk Of Magnesia 30 Ml Oral.Susp) 30 ml PO DAILY PRN PRN Reason: Constipation Magnesium Oxide (Magnesium Oxide 400 Mg Tablet) 400 mg PO DAILY [facility] Last Admin: 02/17/24 08:38 Dose: 400 mg Melatonin (Melatonin 3 Mg Tablet) 3 mg PO BEDTIME [facility] Last Admin: 02/16/24 20:17 Dose: 3 mg Modafinil (Modafinil 100 Mg Tablet) 100 mg PO DAILY [facility] Last Admin: 02/17/24 08:36 Dose: 100 mg Multivitamins/Vitamin C (Multivitamin Tablet) 1 tab PO DAILY [facility] Last Admin: 02/17/24 08:38 Dose: 1 tab Nicotine Polacrilex (Nicotine Polacrilex 2 Mg Gum) 2 mg BUCCAL Q2H PRN PRN Reason: Nicotine Cravings Last Admin: 02/14/24 00:32 Dose: 2 mg Nystatin (Nystatin Oral Susp 500,000 Unit/5 Ml Oral.Susp) 500,000 unit BUCCAL QID [facility]; Protocol Stop: 02/19/24 08:59 Last Admin: 02/17/24 15:37 Dose: Not Given Omeprazole (Omeprazole 20 Mg Capsule.) 20 mg PO DAILY [facility] Last Admin: 02/17/24 08:36 Dose: 20 mg Ondansetron HCl (Ondansetron Odt 4 Mg Tab.Rapdis) 4 mg TRANSLINGU Q8H PRN PRN Reason: Nausea And Vomiting Last Admin: 02/16/24 20:16 Dose: 4 mg Polyethylene Glycol (Polyethylene Glycol 3350 17 Gm Powd.Pack) 17 gm PO DAILY PRN PRN Reason: Constipation Ropinirole HCl (Ropinirole Hcl 1 Mg Tablet) 1 mg PO BEDTIME [facility] Last Admin: 02/16/24 20:16 Dose: 1 mg Senna (Sennosides 8.6 Mg Tablet) 17.2 mg PO DAILY [facility] Last Admin: 02/17/24 08:36 Dose: 17.2 mg Sertraline HCl (Sertraline Hcl 100 Mg Tablet) 100 mg PO DAILY [facility] Last Admin: 02/17/24 08:36 Dose: 100 mg Allergies Allergies Allergy/AdvReac Type Severity Reaction Status Date / Time aspirin Allergy Unknown Verified 02/11/24 22:12 citalopram [From Celexa] Allergy Unknown Verified 02/11/24 22:12 lamotrigine [From Lamictal] Allergy Unknown Verified 02/11/24 22:12 Penicillins Allergy Unknown Verified 02/11/24 22:12 Assessment & Plan Assessment & Plan (1) Bipolar 1 disorder, manic, moderate: Status: Acute Code(s): F31.12 - Bipolar disorder, current episode manic without psychotic features, moderate (2) Multiple sclerosis: Status: Acute Code(s): G35 - Multiple sclerosis (3) Total knee replacement status: Status: Acute Code(s): Z96.659 - Presence of unspecified artificial knee joint Plan 02/11: continue medications as per at discharge from rehab facility. observe for clearing of mental status. likely delirium related to recent surgery. PT consult placed. 02/12 start Haldol 5 mg p.o. t.i.d. 02/14/2024: No changes as Haldol just started 02/14: no changes. [address]- exp 02/16 02/15- no signs of delirium. Pt with grandiose delusions and psychosis. Calmer, agreed to increase haldol 5mg po BID, lower sertraline to 100mg po daily (will change to day time instead of bedtime to promote sleep) so it wont exacerbate delusions and psychosis. 02/16 continue tx. neurology consult completed, recommend MRI w/wo contrast r/u flare MS. Reason for continued inpatient stay Substantial Risk for: inability to function Time Spent With Patient Time: Total time managing care of this patient today ____ minutes.
[2024-02-17] MEDS: Nystatin Oral Susp 500,000 UNIT/5 ML ORAL.SUSP 500000 UNIT BUCCAL ×2 (17:31→20:36)
[2024-02-17] MEDS: gadobutroL 10 ML VIAL IVPUSH (19:34)
[2024-02-17 20:00] VITALS: BP 140/66; PULSE 66; RESP 18; TEMP 36.6; O2SAT 95
[2024-02-17] MEDS: rOPINIRole HCL 1 MG TABLET PO (20:36)
[2024-02-17] MEDS: Melatonin 3 MG TABLET PO (20:36)
[2024-02-17] MEDS: Atorvastatin Calcium 10 MG TABLET PO (20:36)
[2024-02-18] MEDS: modafiniL 100 MG TABLET PO (08:14)
[2024-02-18] MEDS: Ferrous Sulfate 324 MG TABLET.DR PO (08:14)
[2024-02-18] MEDS: Celecoxib 200 MG CAPSULE PO (08:14)
[2024-02-18] MEDS: Baclofen 20 MG TABLET PO ×2 (08:14→21:13)
[2024-02-18] MEDS: Docusate Sodium 100 MG CAPSULE PO ×2 (08:14→21:13)
[2024-02-18 08:15] VITALS: BP 136/63; PULSE 76; RESP 17; TEMP 36.1; O2SAT 96
[2024-02-18] MEDS: Acetaminophen 325 MG TABLET 975 MG PO ×3 (08:15→21:13)
[2024-02-18] MEDS: Apixaban 2.5 MG TABLET PO ×2 (08:15→21:13)
[2024-02-18] MEDS: Sertraline HCL 100 MG TABLET PO (08:15)
[2024-02-18] MEDS: Multivitamin TABLET 1 TAB PO (08:15)
[2024-02-18] MEDS: Magnesium Oxide 400 MG TABLET PO (08:15)
[2024-02-18] MEDS: Sennosides 8.6 MG TABLET 17.2 MG PO (08:15)
[2024-02-18] MEDS: HaloperidoL 5 MG TABLET PO ×3 (08:15→21:13)
[2024-02-18] MEDS: Omeprazole 20 MG CAPSULE.DR PO (08:15)
[2024-02-18] MEDS: Nystatin Oral Susp 500,000 UNIT/5 ML ORAL.SUSP 500000 UNIT BUCCAL (08:16)
--- NOTE | 2024-02-18 09:06 | PC.RT ---
pt has refused to wear cpap for 3 nights. therefore the order will be dc'd
--- NOTE | 2024-02-18 09:14 | P.PNPSI_ITS ---
Subjective Subjective Date of Service: 02/18/24 Reason For Visit: Unspecified Schizophrenia Spectrum and other Psych Subjective Notes: Conditional Voluntary Interim History: Pt slept through the night. Pt demanding at times especially when she needs assistance with ADLs. 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 MOre organized when you talked with her on a one to one, but some lability still noted. No SI/HI. She was seen by neurology tomorrow- MRI did not strongly show new active inflammation or demyeliation Medication Compliance: Yes Diagnostics Vital Signs (24Hr): Vital Signs - 24 hr 02/17/24 20:00 02/18/24 08:15 Temperature 97.9 F 96.9 F Pulse Rate 66 76 Respiratory Rate 18 17 Blood Pressure 140/66 H 136/63 Pulse Oximetry 95 96 Oxygen Delivery Method Room Air Room Air BMI result Body Mass Index 39.4 Labs 02/18/24 17:25 Imaging Radiology Impressions: ITS Impressions Brain MRI 02/17/24 19:20 IMPRESSION: 1. Multiple supratentorial and infratentorial white matter lesions consistent with the reported underlying diagnosis of demyelination in the appropriate clinical setting. No abnormal intracranial enhancement or restricted diffusion to strongly suggest active inflammation/demyelination. 2. No acute intracranial abnormalities. No abnormal intracranial enhancement. Medications Medications Current Medications Acetaminophen (Acetaminophen 325 Mg Tablet) 975 mg PO TID [facility] Last Admin: 02/18/24 08:15 Dose: 975 mg Al Hydroxide/Mg Hydroxide (Magnesium Hydrox/Alum Hydrox 30 Ml Oral.Susp) 30 ml PO Q6H PRN PRN Reason: Heartburn/Nausea Apixaban (Apixaban 2.5 Mg Tablet) 2.5 mg PO BID [facility] Stop: 02/27/24 23:59 Last Admin: 02/18/24 08:15 Dose: 2.5 mg Atorvastatin Calcium (Atorvastatin Calcium 10 Mg Tablet) 10 mg PO BEDTIME [facility] Last Admin: 02/17/24 20:36 Dose: 10 mg Baclofen (Baclofen 20 Mg Tablet) 20 mg PO BID [facility] Last Admin: 02/18/24 08:14 Dose: 20 mg Calcium Carbonate (Calcium Carbonate 750 Mg Tab.Chew) 750 mg PO QID PRN PRN Reason: Indigestion Last Admin: 02/12/24 11:29 Dose: 750 mg Celecoxib (Celecoxib 200 Mg Capsule) 200 mg PO DAILY [facility] Last Admin: 02/18/24 08:14 Dose: 200 mg Docusate Sodium (Docusate Sodium 100 Mg Capsule) 100 mg PO BID [facility] Last Admin: 02/18/24 08:14 Dose: 100 mg Ferrous Sulfate (Ferrous Sulfate 324 Mg Tablet.) 324 mg PO DAILY [facility] Last Admin: 02/18/24 08:14 Dose: 324 mg Haloperidol (Haloperidol 5 Mg Tablet) 5 mg PO TID PRN PRN Reason: agitation Last Admin: 02/15/24 13:01 Dose: 5 mg Haloperidol (Haloperidol 5 Mg Tablet) 5 mg PO BID [facility] Last Admin: 02/18/24 08:15 Dose: 5 mg Hydroxyzine HCl (Hydroxyzine Hcl 50 Mg Tablet) 50 mg PO TID PRN PRN Reason: Anxiety Last Admin: 02/16/24 20:16 Dose: 50 mg Lorazepam (Lorazepam 1 Mg Tablet) 1 mg PO TID PRN PRN Reason: agitation Last Admin: 02/16/24 20:17 Dose: 1 mg Magnesium Hydroxide (Milk Of Magnesia 30 Ml Oral.Susp) 30 ml PO DAILY PRN PRN Reason: Constipation Magnesium Oxide (Magnesium Oxide 400 Mg Tablet) 400 mg PO DAILY [facility] Last Admin: 02/18/24 08:15 Dose: 400 mg Melatonin (Melatonin 3 Mg Tablet) 3 mg PO BEDTIME [facility] Last Admin: 02/17/24 20:36 Dose: 3 mg Modafinil (Modafinil 100 Mg Tablet) 100 mg PO DAILY [facility] Last Admin: 02/18/24 08:14 Dose: 100 mg Multivitamins/Vitamin C (Multivitamin Tablet) 1 tab PO DAILY [facility] Last Admin: 02/18/24 08:15 Dose: 1 tab Nicotine Polacrilex (Nicotine Polacrilex 2 Mg Gum) 2 mg BUCCAL Q2H PRN PRN Reason: Nicotine Cravings Last Admin: 02/14/24 00:32 Dose: 2 mg Nystatin (Nystatin Oral Susp 500,000 Unit/5 Ml Oral.Susp) 500,000 unit BUCCAL QID [facility]; Protocol Stop: 02/19/24 08:59 Last Admin: 02/18/24 08:16 Dose: 500,000 unit Omeprazole (Omeprazole 20 Mg Capsule.) 20 mg PO DAILY [facility] Last Admin: 02/18/24 08:15 Dose: 20 mg Ondansetron HCl (Ondansetron Odt 4 Mg Tab.Rapdis) 4 mg TRANSLINGU Q8H PRN PRN Reason: Nausea And Vomiting Last Admin: 02/16/24 20:16 Dose: 4 mg Polyethylene Glycol (Polyethylene Glycol 3350 17 Gm Powd.Pack) 17 gm PO DAILY PRN PRN Reason: Constipation Ropinirole HCl (Ropinirole Hcl 1 Mg Tablet) 1 mg PO BEDTIME [facility] Last Admin: 02/17/24 20:36 Dose: 1 mg Senna (Sennosides 8.6 Mg Tablet) 17.2 mg PO DAILY [facility] Last Admin: 02/18/24 08:15 Dose: 17.2 mg Sertraline HCl (Sertraline Hcl 100 Mg Tablet) 100 mg PO DAILY [facility] Last Admin: 02/18/24 08:15 Dose: 100 mg Allergies Allergies Allergy/AdvReac Type Severity Reaction Status Date / Time aspirin Allergy Unknown Verified 02/11/24 22:12 citalopram [From Celexa] Allergy Unknown Verified 02/11/24 22:12 lamotrigine [From Lamictal] Allergy Unknown Verified 02/11/24 22:12 Penicillins Allergy Unknown Verified 02/11/24 22:12 Assessment & Plan Assessment & Plan (1) Bipolar 1 disorder, manic, moderate: Status: Acute Code(s): F31.12 - Bipolar disorder, current episode manic without psychotic features, moderate (2) Multiple sclerosis: Status: Acute Code(s): G35 - Multiple sclerosis (3) Total knee replacement status: Status: Acute Code(s): Z96.659 - Presence of unspecified artificial knee joint Plan 02/11: continue medications as per at discharge from rehab facility. observe for clearing of mental status. likely delirium related to recent surgery. PT consult placed. 02/12 start Haldol 5 mg p.o. t.i.d. 02/14/2024: No changes as Haldol just started 02/14: no changes. [address]- exp 02/16 02/15- no signs of delirium. Pt with grandiose delusions and psychosis. Calmer, agreed to increase haldol 5mg po BID, lower sertraline to 100mg po daily (will change to day time instead of bedtime to promote sleep) so it wont exacerbate delusions and psychosis. 02/16 continue tx. neurology consult completed, recommend MRI w/wo contrast r/u flare MS. 02/17- discussed adding mood stabilizer for labile mood. pt agrees. will check renal function. Reason for continued inpatient stay Substantial Risk for: inability to function Time Spent With Patient Time: Total time managing care of this patient today ____ minutes.
[2024-02-18] MEDS: LORazepam 1 MG TABLET PO (15:21)
--- NOTE | 2024-02-18 17:37 | PC.NURSE ---
Patient was out in the milieu during dinner and was told by staff members that she could not sit in a certain seat due to altercations with another patient at that table. Patient was upset that she couldn't sit where she wanted, so she pushed her walker aside and attempted to pull out her chair which resulted in her throwing her body back and falling onto her bottom. When another nurse asked her what had happened, pt stated It's because they told me I couldn't sit there! . Staff assisted patient to roll over on her knees so a ksenia could be placed behind her, she was then lifted up with the ksenia and placed into a wheelchair. She denies any additional pain other than her typical pain she has in her left knee. Patient did not hit her head, no bruising/injuries noted and vitals that were taken shortly after the fall were stable (137/89, HR86, o2 96%, R17). Patient's notified of the incident via phone call along with patients provider (Marley Perez) via tiger text.
[2024-02-18 17:50] LABS: Alanine Aminotransferase 15 U/L (0-31); Alkaline Phosphatase 91 U/L (39-117); Anion Gap 16 (12-20); Aspartate Amino Transferase 19 U/L (5-31); Bilirubin Total 0.3 mg/dL (0.0-1.0); Blood Urea Nitrogen 15 mg/dL (9-16); Calcium 9.5 mg/dL (8.4-10.2); Carbon Dioxide 20 mmol/L (22-29); Chloride 108 mmol/L (96-108); Creatinine Clr Calc Pharmacy 83.5; Estimated Glomerular Filt Rate > 60; Glucose Random 119 mg/dL (60-115); Potassium 3.7 mmol/L (3.3-5.1); Sodium 140 mmol/L (135-145); Total Protein 6.5 g/dL (6.5-8.0)
[2024-02-18 20:00] VITALS: BP 130/59; PULSE 76; RESP 16; TEMP 36.4; O2SAT 96
[2024-02-18] MEDS: Atorvastatin Calcium 10 MG TABLET PO (21:13)
[2024-02-18] MEDS: rOPINIRole HCL 1 MG TABLET PO (21:13)
[2024-02-18] MEDS: Melatonin 3 MG TABLET PO (21:13)
[2024-02-18] MEDS: hydrOXYzine HCL 50 MG TABLET PO (22:45)
[2024-02-19] MEDS: LORazepam 0.5 MG TABLET PO (01:08)
[2024-02-19] MEDS: HaloperidoL 5 MG TABLET PO ×3 (01:08→21:09)
[2024-02-19 07:00] VITALS: BMI 36.6
[2024-02-19 08:28] VITALS: BP 120/64; PULSE 72; RESP 12; TEMP 36.7; O2SAT 96
[2024-02-19] MEDS: Acetaminophen 325 MG TABLET 975 MG PO ×3 (08:34→21:08)
[2024-02-19] MEDS: Celecoxib 200 MG CAPSULE PO (08:35)
[2024-02-19] MEDS: modafiniL 100 MG TABLET PO (08:35)
[2024-02-19] MEDS: Magnesium Oxide 400 MG TABLET PO (08:36)
[2024-02-19] MEDS: Docusate Sodium 100 MG CAPSULE PO (08:36)
[2024-02-19] MEDS: Omeprazole 20 MG CAPSULE.DR PO (08:36)
[2024-02-19] MEDS: Ferrous Sulfate 324 MG TABLET.DR PO (08:36)
[2024-02-19] MEDS: Sennosides 8.6 MG TABLET 17.2 MG PO (08:37)
[2024-02-19] MEDS: Apixaban 2.5 MG TABLET PO ×2 (08:37→21:09)
[2024-02-19] MEDS: Baclofen 20 MG TABLET PO ×2 (08:38→21:08)
[2024-02-19] MEDS: Multivitamin TABLET 1 TAB PO (08:38)
[2024-02-19] MEDS: Sertraline HCL 100 MG TABLET PO (08:41)
--- NOTE | 2024-02-19 09:54 | P.PNPSI_ITS ---
Subjective Subjective Date of Service: 02/19/24 Reason For Visit: Unspecified Schizophrenia Spectrum and other Psych Subjective Notes: Conditional Voluntary Interim History: Pt slept through the night. Pt presents as less labile, although still at times demanding with staff but to lesser extend. No SI/HI. Taking medications as prescribed. No side effects. reports having migraine- will give sumatriptan Review of Systems Review of Systems nothing acute Mental Status Exam Mental Status Exam Patient Appearance: Appropriate Patient Orientation: Person and Situation Level of Consciousness: Awake Patient Behavior: Talkative Mood Description: Calm Affect Description: Withdrawn and Blunted Patient Cognition Impaired: Yes Ability to Follow Directions: Fair Speech Pattern: Clear Diagnostics Vital Signs (24Hr): Vital Signs - 24 hr 02/18/24 20:00 02/19/24 08:28 Temperature 97.6 F 98.1 F Pulse Rate 76 72 Respiratory Rate 16 12 Blood Pressure 130/59 L 120/64 Pulse Oximetry 96 96 Oxygen Delivery Method Room Air Room Air BMI result Body Mass Index 36.6 Labs 02/18/24 17:25 Labs: Laboratory Results - last 48 hr 02/18/24 17:25 Sodium 140 Potassium 3.7 Chloride 108 Carbon Dioxide 20 L Anion Gap 16 BUN 15 Creatinine 0.84 Estim Creat Clear Calc 83.5 Estimated GFR > 60 Random Glucose 119 H Calcium 9.5 Total Bilirubin 0.3 AST 19 ALT 15 Alkaline Phosphatase 91 Total Protein 6.5 Albumin 4.0 Imaging Radiology Impressions: ITS Impressions Brain MRI 02/17/24 19:20 IMPRESSION: 1. Multiple supratentorial and infratentorial white matter lesions consistent with the reported underlying diagnosis of demyelination in the appropriate clinical setting. No abnormal intracranial enhancement or restricted diffusion to strongly suggest active inflammation/demyelination. 2. No acute intracranial abnormalities. No abnormal intracranial enhancement. Medications Medications Current Medications Acetaminophen (Acetaminophen 325 Mg Tablet) 975 mg PO TID [facility] Last Admin: 02/19/24 08:34 Dose: 975 mg Al Hydroxide/Mg Hydroxide (Magnesium Hydrox/Alum Hydrox 30 Ml Oral.Susp) 30 ml PO Q6H PRN PRN Reason: Heartburn/Nausea Apixaban (Apixaban 2.5 Mg Tablet) 2.5 mg PO BID [facility] Stop: 02/27/24 23:59 Last Admin: 02/19/24 08:37 Dose: 2.5 mg Atorvastatin Calcium (Atorvastatin Calcium 10 Mg Tablet) 10 mg PO BEDTIME [facility] Last Admin: 02/18/24 21:13 Dose: 10 mg Baclofen (Baclofen 20 Mg Tablet) 20 mg PO BID [facility] Last Admin: 02/19/24 08:38 Dose: 20 mg Calcium Carbonate (Calcium Carbonate 750 Mg Tab.Chew) 750 mg PO QID PRN PRN Reason: Indigestion Last Admin: 02/12/24 11:29 Dose: 750 mg Celecoxib (Celecoxib 200 Mg Capsule) 200 mg PO DAILY [facility] Last Admin: 02/19/24 08:35 Dose: 200 mg Docusate Sodium (Docusate Sodium 100 Mg Capsule) 100 mg PO BID [facility] Last Admin: 02/19/24 08:36 Dose: 100 mg Ferrous Sulfate (Ferrous Sulfate 324 Mg Tablet.Dr) 324 mg PO DAILY [facility] Last Admin: 02/19/24 08:36 Dose: 324 mg Haloperidol (Haloperidol 5 Mg Tablet) 5 mg PO TID PRN PRN Reason: agitation Last Admin: 02/19/24 01:08 Dose: 5 mg Haloperidol (Haloperidol 5 Mg Tablet) 5 mg PO BID [facility] Last Admin: 02/19/24 08:36 Dose: 5 mg Hydroxyzine HCl (Hydroxyzine Hcl 50 Mg Tablet) 50 mg PO TID PRN PRN Reason: Anxiety Last Admin: 02/18/24 22:45 Dose: 50 mg Lorazepam (Lorazepam 0.5 Mg Tablet) 0.5 mg PO TID PRN PRN Reason: agitation Last Admin: 02/19/24 01:08 Dose: 0.5 mg Magnesium Hydroxide (Milk Of Magnesia 30 Ml Oral.Susp) 30 ml PO DAILY PRN PRN Reason: Constipation Magnesium Oxide (Magnesium Oxide 400 Mg Tablet) 400 mg PO DAILY [facility] Last Admin: 02/19/24 08:36 Dose: 400 mg Melatonin (Melatonin 3 Mg Tablet) 3 mg PO BEDTIME [facility] Last Admin: 02/18/24 21:13 Dose: 3 mg Modafinil (Modafinil 100 Mg Tablet) 100 mg PO DAILY [facility] Last Admin: 02/19/24 08:35 Dose: 100 mg Multivitamins/Vitamin C (Multivitamin Tablet) 1 tab PO DAILY [facility] Last Admin: 02/19/24 08:38 Dose: 1 tab Nicotine Polacrilex (Nicotine Polacrilex 2 Mg Gum) 2 mg BUCCAL Q2H PRN PRN Reason: Nicotine Cravings Last Admin: 02/14/24 00:32 Dose: 2 mg Omeprazole (Omeprazole 20 Mg Capsule.Dr) 20 mg PO DAILY [facility] Last Admin: 02/19/24 08:36 Dose: 20 mg Ondansetron HCl (Ondansetron Odt 4 Mg Tab.Rapdis) 4 mg TRANSLINGU Q8H PRN PRN Reason: Nausea And Vomiting Last Admin: 02/16/24 20:16 Dose: 4 mg Polyethylene Glycol (Polyethylene Glycol 3350 17 Gm Powd.Pack) 17 gm PO DAILY PRN PRN Reason: Constipation Ropinirole HCl (Ropinirole Hcl 1 Mg Tablet) 1 mg PO BEDTIME [facility] Last Admin: 02/18/24 21:13 Dose: 1 mg Senna (Sennosides 8.6 Mg Tablet) 17.2 mg PO DAILY [facility] Last Admin: 02/19/24 08:37 Dose: 17.2 mg Sertraline HCl (Sertraline Hcl 100 Mg Tablet) 100 mg PO DAILY [facility] Last Admin: 02/19/24 08:41 Dose: 100 mg Allergies Allergies Allergy/AdvReac Type Severity Reaction Status Date / Time aspirin Allergy Unknown Verified 02/11/24 22:12 citalopram [From Celexa] Allergy Unknown Verified 02/11/24 22:12 lamotrigine [From Lamictal] Allergy Unknown Verified 02/11/24 22:12 Penicillins Allergy Unknown Verified 02/11/24 22:12 Assessment & Plan Assessment & Plan (1) Bipolar 1 disorder, manic, moderate: Status: Acute Code(s): F31.12 - Bipolar disorder, current episode manic without psychotic features, moderate (2) Multiple sclerosis: Status: Acute Code(s): G35 - Multiple sclerosis (3) Total knee replacement status: Status: Acute Code(s): Z96.659 - Presence of unspecified artificial knee joint Plan 02/11: continue medications as per at discharge from rehab facility. observe for clearing of mental status. likely delirium related to recent surgery. PT consult placed. 02/12 start Haldol 5 mg p.o. t.i.d. 02/14/2024: No changes as Haldol just started 02/14: no changes. [address]- exp 02/16 02/15- no signs of delirium. Pt with grandiose delusions and psychosis. Calmer, agreed to increase haldol 5mg po BID, lower sertraline to 100mg po daily (will change to day time instead of bedtime to promote sleep) so it wont exacerbate delusions and psychosis. 02/16 continue tx. neurology consult completed, recommend MRI w/wo contrast r/u flare MS. 02/18- start low dose lithium 150mg po BID. Reason for continued inpatient stay Substantial Risk for: inability to function Time Spent With Patient Time: Total time managing care of this patient today ____ minutes.
[2024-02-19] MEDS: Lithium Carbonate 300 MG TABLET 150 MG PO (12:38)
[2024-02-19 20:00] VITALS: BP 145/66; PULSE 68; RESP 18; TEMP 36.7; O2SAT 96
[2024-02-19] MEDS: rOPINIRole HCL 1 MG TABLET PO (21:09)
[2024-02-19] MEDS: Atorvastatin Calcium 10 MG TABLET PO (21:09)
[2024-02-19] MEDS: Melatonin 3 MG TABLET PO (21:09)
[2024-02-20 08:12] VITALS: BP 146/63; PULSE 75; RESP 18; TEMP 36.2; O2SAT 99
[2024-02-20] MEDS: Acetaminophen 325 MG TABLET 975 MG PO ×3 (08:26→21:15)
[2024-02-20] MEDS: Ferrous Sulfate 324 MG TABLET.DR PO (08:28)
[2024-02-20] MEDS: Omeprazole 20 MG CAPSULE.DR PO (08:28)
[2024-02-20] MEDS: Celecoxib 200 MG CAPSULE PO (08:28)
[2024-02-20] MEDS: Lithium Carbonate 300 MG TABLET 150 MG PO (08:28)
[2024-02-20] MEDS: modafiniL 100 MG TABLET PO (08:29)
[2024-02-20] MEDS: Apixaban 2.5 MG TABLET PO ×2 (08:29→21:16)
[2024-02-20] MEDS: HaloperidoL 5 MG TABLET PO ×2 (08:29→21:16)
[2024-02-20] MEDS: Docusate Sodium 100 MG CAPSULE PO ×2 (08:29→21:16)
[2024-02-20] MEDS: Sennosides 8.6 MG TABLET 17.2 MG PO (08:30)
[2024-02-20] MEDS: Multivitamin TABLET 1 TAB PO (08:31)
[2024-02-20] MEDS: Sertraline HCL 100 MG TABLET PO (08:31)
[2024-02-20] MEDS: Baclofen 20 MG TABLET PO ×2 (08:31→21:17)
[2024-02-20] MEDS: Magnesium Oxide 400 MG TABLET PO (08:31)
--- NOTE | 2024-02-20 09:49 | HO.PSYCHPN ---
Subjective Subjective Date of Service: 02/20/24 Reason For Visit: Unspecified Schizophrenia Spectrum and other Psych Subjective Notes: Conditional Voluntary and 3 Day Interim History: Pt slept through the night. Today, reports that she would like to leave. She states she tried lithium but everything smells more. She is more irritable, some insight that if she is agitated family would be concern about her. We discussed again plan she had agreed to dc Friday. Review of Systems Review of Systems nothing acute Mental Status Exam Mental Status Exam Narrative: adequately dressed and groomed in [facility], in day area. some frustration. no PMA/PMR. speech incr in rate, amount. nml loudness, decr latency. thoughts vary from linear and logical in response to some questions and tangential spontaneously. affect flexible, normo-intense, non-labile. mood very good. denies SI/HI. Reports hearing voices calling her chris Diagnostics Vital Signs (24Hr): Vital Signs - 24 hr 02/19/24 20:00 02/20/24 08:12 Temperature 98.1 F 97.1 F Pulse Rate 68 75 Respiratory Rate 18 18 Blood Pressure 145/66 H 146/63 H Pulse Oximetry 96 99 Oxygen Delivery Method Room Air Room Air BMI result Body Mass Index 36.6 Labs 02/18/24 17:25 Labs: Laboratory Results - last 48 hr 02/18/24 17:25 Sodium 140 Potassium 3.7 Chloride 108 Carbon Dioxide 20 L Anion Gap 16 BUN 15 Creatinine 0.84 Estim Creat Clear Calc 83.5 Estimated GFR > 60 Random Glucose 119 H Calcium 9.5 Total Bilirubin 0.3 AST 19 ALT 15 Alkaline Phosphatase 91 Total Protein 6.5 Albumin 4.0 Imaging Radiology Impressions: ITS Impressions Brain MRI 02/17/24 19:20 IMPRESSION: 1. Multiple supratentorial and infratentorial white matter lesions consistent with the reported underlying diagnosis of demyelination in the appropriate clinical setting. No abnormal intracranial enhancement or restricted diffusion to strongly suggest active inflammation/demyelination. 2. No acute intracranial abnormalities. No abnormal intracranial enhancement. Medications Medications Current Medications Acetaminophen (Acetaminophen 325 Mg Tablet) 975 mg PO TID [facility] Last Admin: 02/20/24 08:26 Dose: 975 mg Al Hydroxide/Mg Hydroxide (Magnesium Hydrox/Alum Hydrox 30 Ml Oral.Susp) 30 ml PO Q6H PRN PRN Reason: Heartburn/Nausea Apixaban (Apixaban 2.5 Mg Tablet) 2.5 mg PO BID [facility] Stop: 02/27/24 23:59 Last Admin: 02/20/24 08:29 Dose: 2.5 mg Atorvastatin Calcium (Atorvastatin Calcium 10 Mg Tablet) 10 mg PO BEDTIME [facility] Last Admin: 02/19/24 21:09 Dose: 10 mg Baclofen (Baclofen 20 Mg Tablet) 20 mg PO BID [facility] Last Admin: 02/20/24 08:31 Dose: 20 mg Calcium Carbonate (Calcium Carbonate 750 Mg Tab.Chew) 750 mg PO QID PRN PRN Reason: Indigestion Last Admin: 02/12/24 11:29 Dose: 750 mg Celecoxib (Celecoxib 200 Mg Capsule) 200 mg PO DAILY [facility] Last Admin: 02/20/24 08:28 Dose: 200 mg Docusate Sodium (Docusate Sodium 100 Mg Capsule) 100 mg PO BID [facility] Last Admin: 02/20/24 08:29 Dose: 100 mg Ferrous Sulfate (Ferrous Sulfate 324 Mg Tablet.Dr) 324 mg PO DAILY [facility] Last Admin: 02/20/24 08:28 Dose: 324 mg Haloperidol (Haloperidol 5 Mg Tablet) 5 mg PO TID PRN PRN Reason: agitation Last Admin: 02/19/24 01:08 Dose: 5 mg Haloperidol (Haloperidol 5 Mg Tablet) 5 mg PO BID [facility] Last Admin: 02/20/24 08:29 Dose: 5 mg Hydroxyzine HCl (Hydroxyzine Hcl 50 Mg Tablet) 50 mg PO TID PRN PRN Reason: Anxiety Last Admin: 02/18/24 22:45 Dose: 50 mg [place] Carbonate ([place] Carbonate 300 Mg Tablet) 150 mg PO BID [facility] Last Admin: 02/20/24 08:28 Dose: 150 mg Lorazepam (Lorazepam 0.5 Mg Tablet) 0.5 mg PO TID PRN PRN Reason: agitation Last Admin: 02/19/24 01:08 Dose: 0.5 mg Magnesium Hydroxide (Milk Of Magnesia 30 Ml Oral.Susp) 30 ml PO DAILY PRN PRN Reason: Constipation Magnesium Oxide (Magnesium Oxide 400 Mg Tablet) 400 mg PO DAILY [facility] Last Admin: 02/20/24 08:31 Dose: 400 mg Melatonin (Melatonin 3 Mg Tablet) 3 mg PO BEDTIME [facility] Last Admin: 02/19/24 21:09 Dose: 3 mg Modafinil (Modafinil 100 Mg Tablet) 100 mg PO DAILY [facility] Last Admin: 02/20/24 08:29 Dose: 100 mg Multivitamins/Vitamin C (Multivitamin Tablet) 1 tab PO DAILY [facility] Last Admin: 02/20/24 08:31 Dose: 1 tab Nicotine Polacrilex (Nicotine Polacrilex 2 Mg Gum) 2 mg BUCCAL Q2H PRN PRN Reason: Nicotine Cravings Last Admin: 02/14/24 00:32 Dose: 2 mg Omeprazole (Omeprazole 20 Mg Capsule.Dr) 20 mg PO DAILY [facility] Last Admin: 02/20/24 08:28 Dose: 20 mg Ondansetron HCl (Ondansetron Odt 4 Mg Tab.Rapdis) 4 mg TRANSLINGU Q8H PRN PRN Reason: Nausea And Vomiting Last Admin: 02/16/24 20:16 Dose: 4 mg Polyethylene Glycol (Polyethylene Glycol 3350 17 Gm Powd.Pack) 17 gm PO DAILY PRN PRN Reason: Constipation Ropinirole HCl (Ropinirole Hcl 1 Mg Tablet) 1 mg PO BEDTIME [facility] Last Admin: 02/19/24 21:09 Dose: 1 mg Senna (Sennosides 8.6 Mg Tablet) 17.2 mg PO DAILY [facility] Last Admin: 02/20/24 08:30 Dose: 17.2 mg Sertraline HCl (Sertraline Hcl 100 Mg Tablet) 100 mg PO DAILY [facility] Last Admin: 02/20/24 08:31 Dose: 100 mg Sumatriptan Succinate (Sumatriptan Succinate 50 Mg Tablet) 50 mg PO DAILY PRN PRN Reason: Migraine Headache Allergies Allergies Allergy/AdvReac Type Severity Reaction Status Date / Time aspirin Allergy Unknown Verified 02/11/24 22:12 citalopram [From Celexa] Allergy Unknown Verified 02/11/24 22:12 lamotrigine [From Lamictal] Allergy Unknown Verified 02/11/24 22:12 Penicillins Allergy Unknown Verified 02/11/24 22:12 Assessment & Plan Assessment & Plan (1) Bipolar 1 disorder, manic, moderate: Status: Acute Code(s): F31.12 - Bipolar disorder, current episode manic without psychotic features, moderate (2) Multiple sclerosis: Status: Acute Code(s): G35 - Multiple sclerosis (3) Total knee replacement status: Status: Acute Code(s): Z96.659 - Presence of unspecified artificial knee joint Plan 02/11: continue medications as per at discharge from rehab facility. observe for clearing of mental status. likely delirium related to recent surgery. PT consult placed. 02/12 start Haldol 5 mg p.o. t.i.d. 02/14/2024: No changes as Haldol just started 02/14: no changes. [address]- exp 02/16 02/15- no signs of delirium. Pt with grandiose delusions and psychosis. Calmer, agreed to increase haldol 5mg po BID, lower sertraline to 100mg po daily (will change to day time instead of bedtime to promote sleep) so it wont exacerbate delusions and psychosis. 02/16 continue tx. neurology consult completed, recommend MRI w/wo contrast r/u flare MS. 02/18- start low dose lithium 150mg po BID. 02/19 continue tx. Reason for continued inpatient stay Substantial Risk for: inability to function Time Spent With Patient Time: Total time managing care of this patient today ____ minutes.
--- NOTE | 2024-02-20 11:05 | PC.NURSE ---
The patient signed a 3 day notice today. Marley Perez NP aware.
[2024-02-20] MEDS: hydrOXYzine HCL 50 MG TABLET PO (12:48)
[2024-02-20] MEDS: SUMAtriptan succinate 50 MG TABLET PO (18:03)
--- NOTE | 2024-02-20 19:15 | PC.NURSE ---
Patient complained of increased anxiety, medicated with Atarax 50mg x1 with some effect. Also complained of 9/10 migraine, Imitrex given with effect.
[2024-02-20 20:00] VITALS: BP 130/77; PULSE 77; RESP 16; TEMP 36.4; O2SAT 97
[2024-02-20] MEDS: Melatonin 3 MG TABLET PO (21:16)
[2024-02-20] MEDS: rOPINIRole HCL 1 MG TABLET PO (21:16)
[2024-02-20] MEDS: Atorvastatin Calcium 10 MG TABLET PO (21:17)
[2024-02-21 08:33] VITALS: BP 117/71; PULSE 75; RESP 15; TEMP 36.8; O2SAT 96
[2024-02-21] MEDS: Baclofen 20 MG TABLET PO ×2 (08:35→20:50)
[2024-02-21] MEDS: Sertraline HCL 100 MG TABLET PO (08:35)
[2024-02-21] MEDS: Magnesium Oxide 400 MG TABLET PO (08:37)
[2024-02-21] MEDS: Ferrous Sulfate 324 MG TABLET.DR PO (08:37)
[2024-02-21] MEDS: Docusate Sodium 100 MG CAPSULE PO ×2 (08:37→20:50)
[2024-02-21] MEDS: Omeprazole 20 MG CAPSULE.DR PO (08:37)
[2024-02-21] MEDS: Acetaminophen 325 MG TABLET 975 MG PO ×3 (08:37→20:51)
[2024-02-21] MEDS: HaloperidoL 5 MG TABLET PO ×2 (08:37→20:51)
[2024-02-21] MEDS: Sennosides 8.6 MG TABLET 17.2 MG PO (08:37)
[2024-02-21] MEDS: Multivitamin TABLET 1 TAB PO (08:37)
[2024-02-21] MEDS: Celecoxib 200 MG CAPSULE PO (08:37)
[2024-02-21] MEDS: Apixaban 2.5 MG TABLET PO ×2 (08:37→20:50)
--- NOTE | 2024-02-21 12:11 | P.PNPSI_ITS ---
Subjective Subjective Date of Service: 02/21/24 Reason For Visit: Unspecified Schizophrenia Spectrum and other Psych Subjective Notes: Conditional Voluntary and 3 Day Interim History: Patient was seen and discussed in rounds today. Records and plans were reviewed. It came to the nurses tension that her Provigil was continued beyond expiration date and I will discontinue it today. Eating adequately. Some periods of irritability. No complaints. No other changes were made today Review of Systems Review of Systems Yes all other systems are reviewed and are negative Mental Status Exam Mental Status Exam Narrative: In today's visit she is alert, pleasant and interactive with an her means. Speech is normal. Minimal eye contact. Affect is stable. No acute signs of psychosis but admits to some auditory hallucinations, calling her name. No dangerous behaviors. No SI. No changes reported today Diagnostics Vital Signs (24Hr): Vital Signs - 24 hr 02/20/24 20:00 02/21/24 08:33 Temperature 97.6 F 98.2 F Pulse Rate 77 75 Respiratory Rate 16 15 Blood Pressure 130/77 117/71 Pulse Oximetry 97 96 Oxygen Delivery Method Room Air Room Air BMI result Body Mass Index 36.6 Labs 02/18/24 17:25 Imaging Radiology Impressions: ITS Impressions Brain MRI 02/17/24 19:20 IMPRESSION: 1. Multiple supratentorial and infratentorial white matter lesions consistent with the reported underlying diagnosis of demyelination in the appropriate clinical setting. No abnormal intracranial enhancement or restricted diffusion to strongly suggest active inflammation/demyelination. 2. No acute intracranial abnormalities. No abnormal intracranial enhancement. Medications Medications Current Medications Acetaminophen (Acetaminophen 325 Mg Tablet) 975 mg PO TID [facility] Last Admin: 02/21/24 08:37 Dose: 975 mg Al Hydroxide/Mg Hydroxide (Magnesium Hydrox/Alum Hydrox 30 Ml Oral.Susp) 30 ml PO Q6H PRN PRN Reason: Heartburn/Nausea Apixaban (Apixaban 2.5 Mg Tablet) 2.5 mg PO BID [facility] Stop: 02/27/24 23:59 Last Admin: 02/21/24 08:37 Dose: 2.5 mg Atorvastatin Calcium (Atorvastatin Calcium 10 Mg Tablet) 10 mg PO BEDTIME [facility] Last Admin: 02/20/24 21:17 Dose: 10 mg Baclofen (Baclofen 20 Mg Tablet) 20 mg PO BID [facility] Last Admin: 02/21/24 08:35 Dose: 20 mg Calcium Carbonate (Calcium Carbonate 750 Mg Tab.Chew) 750 mg PO QID PRN PRN Reason: Indigestion Last Admin: 02/12/24 11:29 Dose: 750 mg Celecoxib (Celecoxib 200 Mg Capsule) 200 mg PO DAILY [facility] Last Admin: 02/21/24 08:37 Dose: 200 mg Docusate Sodium (Docusate Sodium 100 Mg Capsule) 100 mg PO BID [facility] Last Admin: 02/21/24 08:37 Dose: 100 mg Ferrous Sulfate (Ferrous Sulfate 324 Mg Tablet.) 324 mg PO DAILY [facility] Last Admin: 02/21/24 08:37 Dose: 324 mg Haloperidol (Haloperidol 5 Mg Tablet) 5 mg PO TID PRN PRN Reason: agitation Last Admin: 02/19/24 01:08 Dose: 5 mg Haloperidol (Haloperidol 5 Mg Tablet) 5 mg PO BID [facility] Last Admin: 02/21/24 08:37 Dose: 5 mg Hydroxyzine HCl (Hydroxyzine Hcl 50 Mg Tablet) 50 mg PO TID PRN PRN Reason: Anxiety Last Admin: 02/20/24 12:48 Dose: 50 mg Rankin Carbonate (Rankin Carbonate 300 Mg Tablet) 150 mg PO BID [facility] Last Admin: 02/21/24 08:38 Dose: Not Given Lorazepam (Lorazepam 0.5 Mg Tablet) 0.5 mg PO TID PRN PRN Reason: agitation Last Admin: 02/19/24 01:08 Dose: 0.5 mg Magnesium Hydroxide (Milk Of Magnesia 30 Ml Oral.Susp) 30 ml PO DAILY PRN PRN Reason: Constipation Magnesium Oxide (Magnesium Oxide 400 Mg Tablet) 400 mg PO DAILY [facility] Last Admin: 02/21/24 08:37 Dose: 400 mg Melatonin (Melatonin 3 Mg Tablet) 3 mg PO BEDTIME [facility] Last Admin: 02/20/24 21:16 Dose: 3 mg Modafinil (Modafinil 100 Mg Tablet) 100 mg PO DAILY [facility] Last Admin: 02/21/24 11:01 Dose: Not Given Multivitamins/Vitamin C (Multivitamin Tablet) 1 tab PO DAILY [facility] Last Admin: 02/21/24 08:37 Dose: 1 tab Nicotine Polacrilex (Nicotine Polacrilex 2 Mg Gum) 2 mg BUCCAL Q2H PRN PRN Reason: Nicotine Cravings Last Admin: 02/14/24 00:32 Dose: 2 mg Omeprazole (Omeprazole 20 Mg Capsule.) 20 mg PO DAILY [facility] Last Admin: 02/21/24 08:37 Dose: 20 mg Ondansetron HCl (Ondansetron Odt 4 Mg Tab.Rapdis) 4 mg TRANSLINGU Q8H PRN PRN Reason: Nausea And Vomiting Last Admin: 02/16/24 20:16 Dose: 4 mg Polyethylene Glycol (Polyethylene Glycol 3350 17 Gm Powd.Pack) 17 gm PO DAILY PRN PRN Reason: Constipation Ropinirole HCl (Ropinirole Hcl 1 Mg Tablet) 1 mg PO BEDTIME [facility] Last Admin: 02/20/24 21:16 Dose: 1 mg Senna (Sennosides 8.6 Mg Tablet) 17.2 mg PO DAILY [facility] Last Admin: 02/21/24 08:37 Dose: 17.2 mg Sertraline HCl (Sertraline Hcl 100 Mg Tablet) 100 mg PO DAILY [facility] Last Admin: 02/21/24 08:35 Dose: 100 mg Sumatriptan Succinate (Sumatriptan Succinate 50 Mg Tablet) 50 mg PO DAILY PRN PRN Reason: Migraine Headache Last Admin: 02/20/24 18:03 Dose: 50 mg Allergies Allergies Allergy/AdvReac Type Severity Reaction Status Date / Time aspirin Allergy Unknown Verified 02/11/24 22:12 citalopram [From Celexa] Allergy Unknown Verified 02/11/24 22:12 lamotrigine [From Lamictal] Allergy Unknown Verified 02/11/24 22:12 Penicillins Allergy Unknown Verified 02/11/24 22:12 Assessment & Plan Assessment & Plan (1) Bipolar 1 disorder, manic, moderate: Status: Acute Code(s): F31.12 - Bipolar disorder, current episode manic without psychotic features, moderate (2) Multiple sclerosis: Status: Acute Code(s): G35 - Multiple sclerosis (3) Total knee replacement status: Status: Acute Code(s): Z96.659 - Presence of unspecified artificial knee joint Plan 02/11: continue medications as per at discharge from rehab facility. observe for clearing of mental status. likely delirium related to recent surgery. PT consult placed. 02/12 start Haldol 5 mg p.o. t.i.d. 02/14/2024: No changes as Haldol just started 02/14: no changes. [address]- exp 02/16 02/15- no signs of delirium. Pt with grandiose delusions and psychosis. Calmer, agreed to increase haldol 5mg po BID, lower sertraline to 100mg po daily (will change to day time instead of bedtime to promote sleep) so it wont exacerbate delusions and psychosis. 02/16 continue tx. neurology consult completed, recommend MRI w/wo contrast r/u flare MS. 02/18- start low dose lithium 150mg po BID. 02/19 continue tx. 02/20: Continue current regimen and plans Reason for continued inpatient stay Substantial Risk for: med/psych decompensation Time Spent With Patient Time: Total time managing care of this patient today ____ minutes.
[2024-02-21 20:00] VITALS: BP 140/68; PULSE 81; RESP 16; TEMP 36.3; O2SAT 96
[2024-02-21] MEDS: rOPINIRole HCL 1 MG TABLET PO (20:50)
[2024-02-21] MEDS: Melatonin 3 MG TABLET PO (20:50)
[2024-02-21] MEDS: Atorvastatin Calcium 10 MG TABLET PO (20:51)
[2024-02-22] MEDS: LORazepam 0.5 MG TABLET PO ×2 (02:23→08:40)
[2024-02-22] MEDS: hydrOXYzine HCL 50 MG TABLET PO (02:23)
[2024-02-22] MEDS: HaloperidoL 5 MG TABLET PO ×4 (02:23→20:44)
[2024-02-22 08:01] VITALS: BP 108/78; PULSE 108; RESP 18; TEMP 36.6; O2SAT 95
[2024-02-22] MEDS: Ferrous Sulfate 324 MG TABLET.DR PO (08:28)
[2024-02-22] MEDS: Magnesium Oxide 400 MG TABLET PO (08:28)
[2024-02-22] MEDS: Celecoxib 200 MG CAPSULE PO (08:28)
[2024-02-22] MEDS: Acetaminophen 325 MG TABLET 975 MG PO ×2 (08:29→20:43)
[2024-02-22] MEDS: Sertraline HCL 100 MG TABLET PO (08:29)
[2024-02-22] MEDS: Multivitamin TABLET 1 TAB PO (08:29)
[2024-02-22] MEDS: Baclofen 20 MG TABLET PO ×2 (08:29→20:44)
[2024-02-22] MEDS: Omeprazole 20 MG CAPSULE.DR PO (08:29)
[2024-02-22] MEDS: Apixaban 2.5 MG TABLET PO ×2 (08:29→20:44)
[2024-02-22] MEDS: Docusate Sodium 100 MG CAPSULE PO ×2 (08:29→20:44)
[2024-02-22] MEDS: Sennosides 8.6 MG TABLET 17.2 MG PO (08:29)
[2024-02-22] MEDS: Calcium Carbonate 750 MG TAB.CHEW PO (08:36)
--- NOTE | 2024-02-22 09:47 | P.PNPSI_ITS ---
Subjective Subjective Date of Service: 02/22/24 Reason For Visit: Unspecified Schizophrenia Spectrum and other Psych Subjective Notes: Conditional Voluntary and 3 Day Interim History: Patient was seen and discussed in rounds today. Records and plans were reviewed. She has been grandiose and hypomanic. She had a good night and slept 8 hours. She is medication compliant except for the lithium. She feels that it is affecting her kidneys where she has a ?scratchy?. No changes were made today Review of Systems Review of Systems Yes all other systems are reviewed and are negative Mental Status Exam Mental Status Exam Narrative: In today's visit she is alert, pleasant and interactive with an her means. Speech is normal. Minimal eye contact. Affect is stable. No acute signs of psychosis but admits to some auditory hallucinations, calling her name. No dangerous behaviors. No SI. No changes reported today Diagnostics Vital Signs (24Hr): Vital Signs - 24 hr 02/21/24 20:00 02/22/24 08:01 Temperature 97.4 F 97.8 F Pulse Rate 81 108 H Respiratory Rate 16 18 Blood Pressure 140/68 H 108/78 Pulse Oximetry 96 95 Oxygen Delivery Method Room Air Room Air BMI result Body Mass Index 36.6 Labs 02/18/24 17:25 Imaging Radiology Impressions: ITS Impressions Brain MRI 02/17/24 19:20 IMPRESSION: 1. Multiple supratentorial and infratentorial white matter lesions consistent with the reported underlying diagnosis of demyelination in the appropriate clinical setting. No abnormal intracranial enhancement or restricted diffusion to strongly suggest active inflammation/demyelination. 2. No acute intracranial abnormalities. No abnormal intracranial enhancement. Medications Medications Current Medications Acetaminophen (Acetaminophen 325 Mg Tablet) 975 mg PO TID [facility] Last Admin: 02/22/24 08:29 Dose: 975 mg Al Hydroxide/Mg Hydroxide (Magnesium Hydrox/Alum Hydrox 30 Ml Oral.Susp) 30 ml PO Q6H PRN PRN Reason: Heartburn/Nausea Apixaban (Apixaban 2.5 Mg Tablet) 2.5 mg PO BID [facility] Stop: 02/27/24 23:59 Last Admin: 02/22/24 08:29 Dose: 2.5 mg Atorvastatin Calcium (Atorvastatin Calcium 10 Mg Tablet) 10 mg PO BEDTIME [facility] Last Admin: 02/21/24 20:51 Dose: 10 mg Baclofen (Baclofen 20 Mg Tablet) 20 mg PO BID [facility] Last Admin: 02/22/24 08:29 Dose: 20 mg Calcium Carbonate (Calcium Carbonate 750 Mg Tab.Chew) 750 mg PO QID PRN PRN Reason: Indigestion Last Admin: 02/22/24 08:36 Dose: 750 mg Celecoxib (Celecoxib 200 Mg Capsule) 200 mg PO DAILY [facility] Last Admin: 02/22/24 08:28 Dose: 200 mg Docusate Sodium (Docusate Sodium 100 Mg Capsule) 100 mg PO BID [facility] Last Admin: 02/22/24 08:29 Dose: 100 mg Ferrous Sulfate (Ferrous Sulfate 324 Mg Tablet.) 324 mg PO DAILY [facility] Last Admin: 02/22/24 08:28 Dose: 324 mg Haloperidol (Haloperidol 5 Mg Tablet) 5 mg PO TID PRN PRN Reason: agitation Last Admin: 02/22/24 08:40 Dose: 5 mg Haloperidol (Haloperidol 5 Mg Tablet) 5 mg PO BID [facility] Last Admin: 02/22/24 08:28 Dose: 5 mg Hydroxyzine HCl (Hydroxyzine Hcl 50 Mg Tablet) 50 mg PO TID PRN PRN Reason: Anxiety Last Admin: 02/22/24 02:23 Dose: 50 mg Burr Carbonate (Burr Carbonate 300 Mg Tablet) 150 mg PO BID [facility] Last Admin: 02/22/24 08:34 Dose: Not Given Lorazepam (Lorazepam 0.5 Mg Tablet) 0.5 mg PO TID PRN PRN Reason: agitation Last Admin: 02/22/24 08:40 Dose: 0.5 mg Magnesium Hydroxide (Milk Of Magnesia 30 Ml Oral.Susp) 30 ml PO DAILY PRN PRN Reason: Constipation Magnesium Oxide (Magnesium Oxide 400 Mg Tablet) 400 mg PO DAILY [facility] Last Admin: 02/22/24 08:28 Dose: 400 mg Melatonin (Melatonin 3 Mg Tablet) 3 mg PO BEDTIME [facility] Last Admin: 02/21/24 20:50 Dose: 3 mg Multivitamins/Vitamin C (Multivitamin Tablet) 1 tab PO DAILY [facility] Last Admin: 02/22/24 08:29 Dose: 1 tab Nicotine Polacrilex (Nicotine Polacrilex 2 Mg Gum) 2 mg BUCCAL Q2H PRN PRN Reason: Nicotine Cravings Last Admin: 02/14/24 00:32 Dose: 2 mg Omeprazole (Omeprazole 20 Mg Capsule.) 20 mg PO DAILY [facility] Last Admin: 02/22/24 08:29 Dose: 20 mg Ondansetron HCl (Ondansetron Odt 4 Mg Tab.Rapdis) 4 mg TRANSLINGU Q8H PRN PRN Reason: Nausea And Vomiting Last Admin: 02/16/24 20:16 Dose: 4 mg Polyethylene Glycol (Polyethylene Glycol 3350 17 Gm Powd.Pack) 17 gm PO DAILY PRN PRN Reason: Constipation Ropinirole HCl (Ropinirole Hcl 1 Mg Tablet) 1 mg PO BEDTIME [facility] Last Admin: 02/21/24 20:50 Dose: 1 mg Senna (Sennosides 8.6 Mg Tablet) 17.2 mg PO DAILY [facility] Last Admin: 02/22/24 08:29 Dose: 17.2 mg Sertraline HCl (Sertraline Hcl 100 Mg Tablet) 100 mg PO DAILY [facility] Last Admin: 02/22/24 08:29 Dose: 100 mg Sumatriptan Succinate (Sumatriptan Succinate 50 Mg Tablet) 50 mg PO DAILY PRN PRN Reason: Migraine Headache Last Admin: 02/20/24 18:03 Dose: 50 mg Allergies Allergies Allergy/AdvReac Type Severity Reaction Status Date / Time aspirin Allergy Unknown Verified 02/11/24 22:12 citalopram [From Celexa] Allergy Unknown Verified 02/11/24 22:12 lamotrigine [From Lamictal] Allergy Unknown Verified 02/11/24 22:12 Penicillins Allergy Unknown Verified 02/11/24 22:12 Assessment & Plan Assessment & Plan (1) Bipolar 1 disorder, manic, moderate: Status: Acute Code(s): F31.12 - Bipolar disorder, current episode manic without psychotic features, moderate (2) Multiple sclerosis: Status: Acute Code(s): G35 - Multiple sclerosis (3) Total knee replacement status: Status: Acute Code(s): Z96.659 - Presence of unspecified artificial knee joint Plan 02/11: continue medications as per at discharge from rehab facility. observe for clearing of mental status. likely delirium related to recent surgery. PT consult placed. 02/12 start Haldol 5 mg p.o. t.i.d. 02/14/2024: No changes as Haldol just started 02/14: no changes. [address]- exp 02/16 02/15- no signs of delirium. Pt with grandiose delusions and psychosis. Calmer, agreed to increase haldol 5mg po BID, lower sertraline to 100mg po daily (will change to day time instead of bedtime to promote sleep) so it wont exacerbate delusions and psychosis. 02/16 continue tx. neurology consult completed, recommend MRI w/wo contrast r/u flare MS. 02/18- start low dose lithium 150mg po BID. 02/19 continue tx. 02/20: Continue current regimen and plans 02/21: Continue current regimen and plans. Reason for continued inpatient stay Substantial Risk for: med/psych decompensation Time Spent With Patient Time: Total time managing care of this patient today ____ minutes.
--- NOTE | 2024-02-22 09:56 | PC.NURSE ---
Rayna declined to take [place] despite education from this consumer loan underwriter and Dr. Craig notified.
[2024-02-22 20:00] VITALS: BP 118/58; PULSE 88; RESP 18; TEMP 36.6; O2SAT 99
[2024-02-22] MEDS: Atorvastatin Calcium 10 MG TABLET PO (20:44)
[2024-02-22] MEDS: rOPINIRole HCL 1 MG TABLET PO (20:44)
[2024-02-22] MEDS: Melatonin 3 MG TABLET PO (20:44)
[2024-02-23 08:59] VITALS: BP 123/60; PULSE 102; RESP 18; TEMP 36.1; O2SAT 97
[2024-02-23] MEDS: Multivitamin TABLET 1 TAB PO (09:13)
[2024-02-23] MEDS: Sennosides 8.6 MG TABLET 17.2 MG PO (09:13)
[2024-02-23] MEDS: Docusate Sodium 100 MG CAPSULE PO ×2 (09:13→20:23)
[2024-02-23] MEDS: Magnesium Oxide 400 MG TABLET PO (09:13)
[2024-02-23] MEDS: Sertraline HCL 100 MG TABLET PO (09:14)
[2024-02-23] MEDS: Omeprazole 20 MG CAPSULE.DR PO (09:14)
[2024-02-23] MEDS: HaloperidoL 5 MG TABLET PO ×2 (09:15→20:23)
[2024-02-23] MEDS: Apixaban 2.5 MG TABLET PO ×2 (09:15→20:23)
[2024-02-23] MEDS: Ferrous Sulfate 324 MG TABLET.DR PO (09:16)
[2024-02-23] MEDS: Baclofen 20 MG TABLET PO ×2 (09:16→20:23)
[2024-02-23] MEDS: Celecoxib 200 MG CAPSULE PO (09:16)
[2024-02-23] MEDS: Acetaminophen 325 MG TABLET 975 MG PO ×3 (09:17→20:23)
--- NOTE | 2024-02-23 11:41 | HO.PSYCHPN ---
Subjective Subjective Date of Service: 02/23/24 Reason For Visit: Unspecified Schizophrenia Spectrum and other Psych Subjective Notes: 3 Day Interim History: Pt slept through the night. Pt presents with expansive and labile mood. she has been making sexualized remarks stating that she was having dreams of lesbian orgies. She denies SI/HI. She declines to take lithium or talk about another mood stabilizer. Family meeting held- concern over labile mood, sexualized comments. She has been more threatening towards and he worries she will be physically assaultive towards him if she returns in this state. MOCA and ACL completed- MOCA with most impairments in visuospatial/executive function, recall. Discussed with family finding of vascular pattern of cognitive decline/impairment. Pt with no insight as to extend of support she needs on a daily basis. expressed concern about his own ability to care for her. Mental Status Exam Mental Status Exam Narrative: adequately dressed and groomed in [facility], in day area. some frustration. no PMA/PMR. speech incr in rate, amount. nml loudness, decr latency. thoughts vary from linear and logical in response to some questions and tangential spontaneously. affect flexible, normo-intense, non-labile, expansive. mood very good. denies SI/HI. Delusions: sexualized behaviors, Diagnostics Vital Signs (24Hr): Vital Signs - 24 hr 02/22/24 20:00 02/23/24 08:59 Temperature 97.9 F 96.9 F Pulse Rate 88 102 H Respiratory Rate 18 18 Blood Pressure 118/58 L 123/60 Pulse Oximetry 99 97 Oxygen Delivery Method Room Air Room Air BMI result Body Mass Index 36.6 Labs 02/18/24 17:25 Imaging Radiology Impressions: ITS Impressions Brain MRI 02/17/24 19:20 IMPRESSION: 1. Multiple supratentorial and infratentorial white matter lesions consistent with the reported underlying diagnosis of demyelination in the appropriate clinical setting. No abnormal intracranial enhancement or restricted diffusion to strongly suggest active inflammation/demyelination. 2. No acute intracranial abnormalities. No abnormal intracranial enhancement. Medications Medications Current Medications Acetaminophen (Acetaminophen 325 Mg Tablet) 975 mg PO TID [facility] Last Admin: 02/23/24 09:17 Dose: 975 mg Al Hydroxide/Mg Hydroxide (Magnesium Hydrox/Alum Hydrox 30 Ml Oral.Susp) 30 ml PO Q6H PRN PRN Reason: Heartburn/Nausea Apixaban (Apixaban 2.5 Mg Tablet) 2.5 mg PO BID [facility] Stop: 02/27/24 23:59 Last Admin: 02/23/24 09:15 Dose: 2.5 mg Atorvastatin Calcium (Atorvastatin Calcium 10 Mg Tablet) 10 mg PO BEDTIME [facility] Last Admin: 02/22/24 20:44 Dose: 10 mg Baclofen (Baclofen 20 Mg Tablet) 20 mg PO BID [facility] Last Admin: 02/23/24 09:16 Dose: 20 mg Calcium Carbonate (Calcium Carbonate 750 Mg Tab.Chew) 750 mg PO QID PRN PRN Reason: Indigestion Last Admin: 02/22/24 08:36 Dose: 750 mg Celecoxib (Celecoxib 200 Mg Capsule) 200 mg PO DAILY [facility] Last Admin: 02/23/24 09:16 Dose: 200 mg Docusate Sodium (Docusate Sodium 100 Mg Capsule) 100 mg PO BID [facility] Last Admin: 02/23/24 09:13 Dose: 100 mg Ferrous Sulfate (Ferrous Sulfate 324 Mg Tablet.) 324 mg PO DAILY [facility] Last Admin: 02/23/24 09:16 Dose: 324 mg Haloperidol (Haloperidol 5 Mg Tablet) 5 mg PO TID PRN PRN Reason: agitation Last Admin: 02/22/24 08:40 Dose: 5 mg Haloperidol (Haloperidol 5 Mg Tablet) 5 mg PO BID [facility] Last Admin: 02/23/24 09:15 Dose: 5 mg Hydroxyzine HCl (Hydroxyzine Hcl 50 Mg Tablet) 50 mg PO TID PRN PRN Reason: Anxiety Last Admin: 02/22/24 02:23 Dose: 50 mg Irwin Carbonate (Irwin Carbonate 300 Mg Tablet) 150 mg PO BID [facility] Last Admin: 02/23/24 09:15 Dose: Not Given Lorazepam (Lorazepam 0.5 Mg Tablet) 0.5 mg PO TID PRN PRN Reason: agitation Last Admin: 02/22/24 08:40 Dose: 0.5 mg Magnesium Hydroxide (Milk Of Magnesia 30 Ml Oral.Susp) 30 ml PO DAILY PRN PRN Reason: Constipation Magnesium Oxide (Magnesium Oxide 400 Mg Tablet) 400 mg PO DAILY [facility] Last Admin: 02/23/24 09:13 Dose: 400 mg Melatonin (Melatonin 3 Mg Tablet) 3 mg PO BEDTIME [facility] Last Admin: 02/22/24 20:44 Dose: 3 mg Multivitamins/Vitamin C (Multivitamin Tablet) 1 tab PO DAILY [facility] Last Admin: 02/23/24 09:13 Dose: 1 tab Nicotine Polacrilex (Nicotine Polacrilex 2 Mg Gum) 2 mg BUCCAL Q2H PRN PRN Reason: Nicotine Cravings Last Admin: 02/14/24 00:32 Dose: 2 mg Omeprazole (Omeprazole 20 Mg Capsule.Dr) 20 mg PO DAILY [facility] Last Admin: 02/23/24 09:14 Dose: 20 mg Ondansetron HCl (Ondansetron Odt 4 Mg Tab.Rapdis) 4 mg TRANSLINGU Q8H PRN PRN Reason: Nausea And Vomiting Last Admin: 02/16/24 20:16 Dose: 4 mg Polyethylene Glycol (Polyethylene Glycol 3350 17 Gm Powd.Pack) 17 gm PO DAILY PRN PRN Reason: Constipation Ropinirole HCl (Ropinirole Hcl 1 Mg Tablet) 1 mg PO BEDTIME [facility] Last Admin: 02/22/24 20:44 Dose: 1 mg Senna (Sennosides 8.6 Mg Tablet) 17.2 mg PO DAILY [facility] Last Admin: 02/23/24 09:13 Dose: 17.2 mg Sertraline HCl (Sertraline Hcl 100 Mg Tablet) 100 mg PO DAILY [facility] Last Admin: 02/23/24 09:14 Dose: 100 mg Sumatriptan Succinate (Sumatriptan Succinate 50 Mg Tablet) 50 mg PO DAILY PRN PRN Reason: Migraine Headache Last Admin: 02/20/24 18:03 Dose: 50 mg Allergies Allergies Allergy/AdvReac Type Severity Reaction Status Date / Time aspirin Allergy Unknown Verified 02/11/24 22:12 citalopram [From Celexa] Allergy Unknown Verified 02/11/24 22:12 lamotrigine [From Lamictal] Allergy Unknown Verified 02/11/24 22:12 Penicillins Allergy Unknown Verified 02/11/24 22:12 Assessment & Plan Assessment & Plan (1) Bipolar 1 disorder, manic, moderate: Status: Acute Code(s): F31.12 - Bipolar disorder, current episode manic without psychotic features, moderate (2) Multiple sclerosis: Status: Acute Code(s): G35 - Multiple sclerosis (3) Total knee replacement status: Status: Acute Code(s): Z96.659 - Presence of unspecified artificial knee joint Plan 02/11: continue medications as per at discharge from rehab facility. observe for clearing of mental status. likely delirium related to recent surgery. PT consult placed. 02/12 start Haldol 5 mg p.o. t.i.d. 02/14/2024: No changes as Haldol just started 02/14: no changes. [address]- exp 02/16 02/15- no signs of delirium. Pt with grandiose delusions and psychosis. Calmer, agreed to increase haldol 5mg po BID, lower sertraline to 100mg po daily (will change to day time instead of bedtime to promote sleep) so it wont exacerbate delusions and psychosis. 02/16 continue tx. neurology consult completed, recommend MRI w/wo contrast r/u flare MS. 02/18- start low dose lithium 150mg po BID. 02/19 continue tx. 02/20: Continue current regimen and plans 02/21: Continue current regimen and plans. 02/22 labile, threatening - concern about retaliation if she returns home without being more stable, on mood stabilizer. Reason for continued inpatient stay Substantial Risk for: inability to function Time Spent With Patient Time: Total time managing care of this patient today ____ minutes.
--- NOTE | 2024-02-23 15:37 | MHC.MBSS ---
MOCA and ACLS patient scored a 20/30 on the MOCA indicating Mild cognitive impairment. Pt has a high level of verbal skills and orientation reflected in this score but with noted deficits in visual spatial and executive function and attention. Pt scored a 4.4 on the [place] Cognitive Level Screen indicating Moderate FUNCTIONAL cognitive impairment and the need for 24 hour supervision, 34% cognitive assistance for daily tasks. Unspecified psychosis not due to a substance or known physiological condition (02/11/24) Bipolar disorder, current episode manic without psychotic features, moderate (02/11/24) Multiple sclerosis (02/11/24) Encounter for general adult medical examination without abnormal findings (02/11/24) Presence of unspecified artificial knee joint (02/11/24)
[2024-02-23 20:00] VITALS: BP 150/61; PULSE 81; RESP 18; TEMP 36.6; O2SAT 96
[2024-02-23] MEDS: rOPINIRole HCL 1 MG TABLET PO (20:23)
[2024-02-23] MEDS: Melatonin 3 MG TABLET PO (20:23)
[2024-02-23] MEDS: Atorvastatin Calcium 10 MG TABLET PO (20:23)
[2024-02-24 08:59] VITALS: BP 120/56; PULSE 69; RESP 18; TEMP 36.1; O2SAT 96
[2024-02-24] MEDS: Omeprazole 20 MG CAPSULE.DR PO (09:02)
[2024-02-24] MEDS: Multivitamin TABLET 1 TAB PO (09:03)
[2024-02-24] MEDS: Celecoxib 200 MG CAPSULE PO (09:03)
[2024-02-24] MEDS: Magnesium Oxide 400 MG TABLET PO (09:03)
[2024-02-24] MEDS: Apixaban 2.5 MG TABLET PO ×2 (09:04→20:58)
[2024-02-24] MEDS: Acetaminophen 325 MG TABLET 975 MG PO ×3 (09:04→20:58)
[2024-02-24] MEDS: Sertraline HCL 50 MG TABLET PO (09:06)
[2024-02-24] MEDS: HaloperidoL 5 MG TABLET PO ×3 (09:06→20:58)
[2024-02-24] MEDS: Ferrous Sulfate 324 MG TABLET.DR PO (09:07)
[2024-02-24] MEDS: Sennosides 8.6 MG TABLET 17.2 MG PO (09:07)
[2024-02-24] MEDS: Baclofen 20 MG TABLET PO ×2 (09:07→20:58)
[2024-02-24] MEDS: Docusate Sodium 100 MG CAPSULE PO ×2 (09:07→20:58)
[2024-02-24] MEDS: hydrOXYzine HCL 50 MG TABLET PO (10:19)
[2024-02-24] MEDS: LORazepam 0.5 MG TABLET PO (10:20)
--- NOTE | 2024-02-24 10:28 | HO.PSYCHPN ---
Subjective Subjective Date of Service: 02/24/24 Reason For Visit: Unspecified Schizophrenia Spectrum and other Psych Subjective Notes: 3 Day Interim History: Pt slept through the night. Pt presents with expansive and labile mood. she has been making sexualized remarks stating that she was having dreams of lesbian orgies. She denies SI/HI. She declines to take lithium or talk about another mood stabilizer. discussed concerns in terms of labile mood, targeting , threats and concerns about harm to family, especially if returns home unstable. discussed with pt that team will file as concern of her being physically assaultive towards family once return. she agreed to try depakote. Review of Systems Review of Systems nothing acute Yes all other systems are reviewed and are negative Mental Status Exam Mental Status Exam Narrative: adequately dressed and groomed in [facility], in day area. some frustration. no PMA/PMR. speech incr in rate, amount. nml loudness, decr latency. thoughts vary from linear and logical in response to some questions and tangential spontaneously. affect flexible, normo-intense, non-labile, expansive. mood very good. denies SI/HI. Delusions: sexualized behaviors, Diagnostics Vital Signs (24Hr): Vital Signs - 24 hr 02/23/24 20:00 02/24/24 08:59 Temperature 97.9 F 96.9 F Pulse Rate 81 69 Respiratory Rate 18 18 Blood Pressure 150/61 H 120/56 L Pulse Oximetry 96 96 Oxygen Delivery Method Room Air Room Air BMI result Body Mass Index 36.6 Labs 02/18/24 17:25 Imaging Radiology Impressions: ITS Impressions Brain MRI 02/17/24 19:20 IMPRESSION: 1. Multiple supratentorial and infratentorial white matter lesions consistent with the reported underlying diagnosis of demyelination in the appropriate clinical setting. No abnormal intracranial enhancement or restricted diffusion to strongly suggest active inflammation/demyelination. 2. No acute intracranial abnormalities. No abnormal intracranial enhancement. Medications Medications Current Medications Acetaminophen (Acetaminophen 325 Mg Tablet) 975 mg PO TID [facility] Last Admin: 02/24/24 09:04 Dose: 975 mg Al Hydroxide/Mg Hydroxide (Magnesium Hydrox/Alum Hydrox 30 Ml Oral.Susp) 30 ml PO Q6H PRN PRN Reason: Heartburn/Nausea Apixaban (Apixaban 2.5 Mg Tablet) 2.5 mg PO BID [facility] Stop: 02/27/24 23:59 Last Admin: 02/24/24 09:04 Dose: 2.5 mg Atorvastatin Calcium (Atorvastatin Calcium 10 Mg Tablet) 10 mg PO BEDTIME [facility] Last Admin: 02/23/24 20:23 Dose: 10 mg Baclofen (Baclofen 20 Mg Tablet) 20 mg PO BID [facility] Last Admin: 02/24/24 09:07 Dose: 20 mg Calcium Carbonate (Calcium Carbonate 750 Mg Tab.Chew) 750 mg PO QID PRN PRN Reason: Indigestion Last Admin: 02/22/24 08:36 Dose: 750 mg Celecoxib (Celecoxib 200 Mg Capsule) 200 mg PO DAILY [facility] Last Admin: 02/24/24 09:03 Dose: 200 mg Docusate Sodium (Docusate Sodium 100 Mg Capsule) 100 mg PO BID [facility] Last Admin: 02/24/24 09:07 Dose: 100 mg Ferrous Sulfate (Ferrous Sulfate 324 Mg Tablet.Dr) 324 mg PO DAILY [facility] Last Admin: 02/24/24 09:07 Dose: 324 mg Haloperidol (Haloperidol 5 Mg Tablet) 5 mg PO TID PRN PRN Reason: agitation Last Admin: 02/24/24 10:20 Dose: 5 mg Haloperidol (Haloperidol 5 Mg Tablet) 5 mg PO BID [facility] Last Admin: 02/24/24 09:06 Dose: 5 mg Hydroxyzine HCl (Hydroxyzine Hcl 50 Mg Tablet) 50 mg PO TID PRN PRN Reason: Anxiety Last Admin: 02/24/24 10:19 Dose: 50 mg Rosenhayn Carbonate (Rosenhayn Carbonate 300 Mg Tablet) 150 mg PO BID [facility] Last Admin: 02/24/24 09:09 Dose: Not Given Lorazepam (Lorazepam 0.5 Mg Tablet) 0.5 mg PO TID PRN PRN Reason: agitation Last Admin: 02/24/24 10:20 Dose: 0.5 mg Magnesium Hydroxide (Milk Of Magnesia 30 Ml Oral.Susp) 30 ml PO DAILY PRN PRN Reason: Constipation Magnesium Oxide (Magnesium Oxide 400 Mg Tablet) 400 mg PO DAILY [facility] Last Admin: 02/24/24 09:03 Dose: 400 mg Melatonin (Melatonin 3 Mg Tablet) 3 mg PO BEDTIME [facility] Last Admin: 02/23/24 20:23 Dose: 3 mg Multivitamins/Vitamin C (Multivitamin Tablet) 1 tab PO DAILY [facility] Last Admin: 02/24/24 09:03 Dose: 1 tab Nicotine Polacrilex (Nicotine Polacrilex 2 Mg Gum) 2 mg BUCCAL Q2H PRN PRN Reason: Nicotine Cravings Last Admin: 02/14/24 00:32 Dose: 2 mg Omeprazole (Omeprazole 20 Mg Capsule.Dr) 20 mg PO DAILY [facility] Last Admin: 02/24/24 09:02 Dose: 20 mg Ondansetron HCl (Ondansetron Odt 4 Mg Tab.Rapdis) 4 mg TRANSLINGU Q8H PRN PRN Reason: Nausea And Vomiting Last Admin: 02/16/24 20:16 Dose: 4 mg Polyethylene Glycol (Polyethylene Glycol 3350 17 Gm Powd.Pack) 17 gm PO DAILY PRN PRN Reason: Constipation Ropinirole HCl (Ropinirole Hcl 1 Mg Tablet) 1 mg PO BEDTIME [facility] Last Admin: 02/23/24 20:23 Dose: 1 mg Senna (Sennosides 8.6 Mg Tablet) 17.2 mg PO DAILY [facility] Last Admin: 02/24/24 09:07 Dose: 17.2 mg Sertraline HCl (Sertraline Hcl 50 Mg Tablet) 50 mg PO DAILY [facility] Last Admin: 02/24/24 09:06 Dose: 50 mg Sumatriptan Succinate (Sumatriptan Succinate 50 Mg Tablet) 50 mg PO DAILY PRN PRN Reason: Migraine Headache Last Admin: 02/20/24 18:03 Dose: 50 mg Allergies Allergies Allergy/AdvReac Type Severity Reaction Status Date / Time aspirin Allergy Unknown Verified 02/11/24 22:12 citalopram [From Celexa] Allergy Unknown Verified 02/11/24 22:12 lamotrigine [From Lamictal] Allergy Unknown Verified 02/11/24 22:12 Penicillins Allergy Unknown Verified 02/11/24 22:12 Assessment & Plan Assessment & Plan (1) Bipolar 1 disorder, manic, moderate: Status: Acute Code(s): F31.12 - Bipolar disorder, current episode manic without psychotic features, moderate (2) Multiple sclerosis: Status: Acute Code(s): G35 - Multiple sclerosis (3) Total knee replacement status: Status: Acute Code(s): Z96.659 - Presence of unspecified artificial knee joint Plan 02/11: continue medications as per at discharge from rehab facility. observe for clearing of mental status. likely delirium related to recent surgery. PT consult placed. 02/12 start Haldol 5 mg p.o. t.i.d. 02/14/2024: No changes as Haldol just started 02/14: no changes. [address]- exp 02/16 02/15- no signs of delirium. Pt with grandiose delusions and psychosis. Calmer, agreed to increase haldol 5mg po BID, lower sertraline to 100mg po daily (will change to day time instead of bedtime to promote sleep) so it wont exacerbate delusions and psychosis. 02/16 continue tx. neurology consult completed, recommend MRI w/wo contrast r/u flare MS. 02/18- start low dose lithium 150mg po BID. 02/19 continue tx. 02/20: Continue current regimen and plans 02/21: Continue current regimen and plans. 02/22 labile, threatening - concern about retaliation if she returns home without being more stable, on mood stabilizer. 02/23 will start depakote for mood stabilization. Reason for continued inpatient stay Substantial Risk for: inability to function Time Spent With Patient Time: Total time managing care of this patient today ____ minutes.
[2024-02-24] MEDS: diazePAM 2 MG TABLET PO ×3 (11:31→20:58)
[2024-02-24] MEDS: Divalproex Sodium 500 MG TABLET.DR PO ×2 (11:31→20:58)
[2024-02-24] MEDS: Nicotine Polacrilex 2 MG GUM BUCCAL ×2 (11:48→20:58)
[2024-02-24 20:00] VITALS: BP 118/65; PULSE 86; RESP 16; TEMP 36.2; O2SAT 94
[2024-02-24] MEDS: Atorvastatin Calcium 10 MG TABLET PO (20:58)
[2024-02-24] MEDS: rOPINIRole HCL 1 MG TABLET PO (20:58)
[2024-02-24] MEDS: Melatonin 3 MG TABLET PO (20:58)
[2024-02-25 00:53] VITALS: PULSE 86; RESP 16; O2SAT 94
[2024-02-25 08:00] VITALS: BP 115/68; PULSE 75; RESP 17; TEMP 36; O2SAT 97
--- NOTE | 2024-02-25 09:26 | HO.PSYCHPN ---
Subjective Subjective Date of Service: 02/25/24 Reason For Visit: Unspecified Schizophrenia Spectrum and other Psych Subjective Notes: Section 7 Interim History: Pt slept through the night. Pt continues to present with expansive and labile mood.She asks for discharge today, reminded about concerns about her labile mood and threats to family, especially . concern about her safety and other if she is discharged and not stable. She denies SI/HI. pt end conversation once discussed dc is not today. Review of Systems Review of Systems nothing acute Yes all other systems are reviewed and are negative Mental Status Exam Mental Status Exam Narrative: adequately dressed and groomed in [facility], in day area. some frustration. no PMA/PMR. speech incr in rate, amount. nml loudness, decr latency. thoughts vary from linear and logical in response to some questions and tangential spontaneously. affect flexible, normo-intense, non-labile, expansive. mood very good. denies SI/HI. Delusions: sexualized behaviors, Patient Appearance: Appropriate Patient Orientation: Person and Situation Level of Consciousness: Awake Patient Behavior: Talkative Mood Description: Calm Affect Description: Withdrawn and Blunted Patient Cognition Impaired: Yes Ability to Follow Directions: Fair Speech Pattern: Clear Diagnostics Vital Signs (24Hr): Vital Signs - 24 hr 02/24/24 20:00 02/25/24 00:53 02/25/24 08:00 Temperature 97.2 F 96.8 F Pulse Rate 86 75 Respiratory Rate 16 16 17 Blood Pressure 118/65 115/68 Pulse Oximetry 94 97 Oxygen Delivery Method Room Air Room Air BMI result Body Mass Index 36.6 Labs 02/18/24 17:25 Imaging Radiology Impressions: ITS Impressions Brain MRI 02/17/24 19:20 IMPRESSION: 1. Multiple supratentorial and infratentorial white matter lesions consistent with the reported underlying diagnosis of demyelination in the appropriate clinical setting. No abnormal intracranial enhancement or restricted diffusion to strongly suggest active inflammation/demyelination. 2. No acute intracranial abnormalities. No abnormal intracranial enhancement. Medications Medications Current Medications Acetaminophen (Acetaminophen 325 Mg Tablet) 975 mg PO TID [facility] Last Admin: 02/24/24 20:58 Dose: 975 mg Al Hydroxide/Mg Hydroxide (Magnesium Hydrox/Alum Hydrox 30 Ml Oral.Susp) 30 ml PO Q6H PRN PRN Reason: Heartburn/Nausea Apixaban (Apixaban 2.5 Mg Tablet) 2.5 mg PO BID [facility] Stop: 02/27/24 23:59 Last Admin: 02/24/24 20:58 Dose: 2.5 mg Atorvastatin Calcium (Atorvastatin Calcium 10 Mg Tablet) 10 mg PO BEDTIME [facility] Last Admin: 02/24/24 20:58 Dose: 10 mg Baclofen (Baclofen 20 Mg Tablet) 20 mg PO BID [facility] Last Admin: 02/24/24 20:58 Dose: 20 mg Calcium Carbonate (Calcium Carbonate 750 Mg Tab.Chew) 750 mg PO QID PRN PRN Reason: Indigestion Last Admin: 02/22/24 08:36 Dose: 750 mg Celecoxib (Celecoxib 200 Mg Capsule) 200 mg PO DAILY [facility] Last Admin: 02/24/24 09:03 Dose: 200 mg Diazepam (Diazepam 2 Mg Tablet) 2 mg PO TID [facility] Last Admin: 02/24/24 20:58 Dose: 2 mg Divalproex Sodium (Divalproex Sodium 500 Mg Tablet.) 500 mg PO BID [facility] Last Admin: 02/24/24 20:58 Dose: 500 mg Docusate Sodium (Docusate Sodium 100 Mg Capsule) 100 mg PO BID [facility] Last Admin: 02/24/24 20:58 Dose: 100 mg Ferrous Sulfate (Ferrous Sulfate 324 Mg Tablet.) 324 mg PO DAILY [facility] Last Admin: 02/24/24 09:07 Dose: 324 mg Haloperidol (Haloperidol 5 Mg Tablet) 5 mg PO TID PRN PRN Reason: agitation Last Admin: 02/24/24 10:20 Dose: 5 mg Haloperidol (Haloperidol 5 Mg Tablet) 5 mg PO BID [facility] Last Admin: 02/24/24 20:58 Dose: 5 mg Hydroxyzine HCl (Hydroxyzine Hcl 50 Mg Tablet) 50 mg PO TID PRN PRN Reason: Anxiety Last Admin: 02/24/24 10:19 Dose: 50 mg Magnesium Hydroxide (Milk Of Magnesia 30 Ml Oral.Susp) 30 ml PO DAILY PRN PRN Reason: Constipation Magnesium Oxide (Magnesium Oxide 400 Mg Tablet) 400 mg PO DAILY [facility] Last Admin: 02/24/24 09:03 Dose: 400 mg Melatonin (Melatonin 3 Mg Tablet) 3 mg PO BEDTIME [facility] Last Admin: 02/24/24 20:58 Dose: 3 mg Multivitamins/Vitamin C (Multivitamin Tablet) 1 tab PO DAILY [facility] Last Admin: 02/24/24 09:03 Dose: 1 tab Nicotine Polacrilex (Nicotine Polacrilex 2 Mg Gum) 2 mg BUCCAL Q2H PRN PRN Reason: Nicotine Cravings Last Admin: 02/24/24 20:58 Dose: 2 mg Omeprazole (Omeprazole 20 Mg Capsule.Dr) 20 mg PO DAILY [facility] Last Admin: 02/24/24 09:02 Dose: 20 mg Ondansetron HCl (Ondansetron Odt 4 Mg Tab.Rapdis) 4 mg TRANSLINGU Q8H PRN PRN Reason: Nausea And Vomiting Last Admin: 02/16/24 20:16 Dose: 4 mg Polyethylene Glycol (Polyethylene Glycol 3350 17 Gm Powd.Pack) 17 gm PO DAILY PRN PRN Reason: Constipation Ropinirole HCl (Ropinirole Hcl 1 Mg Tablet) 1 mg PO BEDTIME [facility] Last Admin: 02/24/24 20:58 Dose: 1 mg Senna (Sennosides 8.6 Mg Tablet) 17.2 mg PO DAILY [facility] Last Admin: 02/24/24 09:07 Dose: 17.2 mg Sertraline HCl (Sertraline Hcl 50 Mg Tablet) 50 mg PO DAILY [facility] Last Admin: 02/24/24 09:06 Dose: 50 mg Sumatriptan Succinate (Sumatriptan Succinate 50 Mg Tablet) 50 mg PO DAILY PRN PRN Reason: Migraine Headache Last Admin: 02/20/24 18:03 Dose: 50 mg Allergies Allergies Allergy/AdvReac Type Severity Reaction Status Date / Time aspirin Allergy Unknown Verified 02/11/24 22:12 citalopram [From Celexa] Allergy Unknown Verified 02/11/24 22:12 lamotrigine [From Lamictal] Allergy Unknown Verified 02/11/24 22:12 Penicillins Allergy Unknown Verified 02/11/24 22:12 Assessment & Plan Assessment & Plan (1) Bipolar 1 disorder, manic, moderate: Status: Acute Code(s): F31.12 - Bipolar disorder, current episode manic without psychotic features, moderate (2) Multiple sclerosis: Status: Acute Code(s): G35 - Multiple sclerosis (3) Total knee replacement status: Status: Acute Code(s): Z96.659 - Presence of unspecified artificial knee joint Plan 02/11: continue medications as per at discharge from rehab facility. observe for clearing of mental status. likely delirium related to recent surgery. PT consult placed. 02/12 start Haldol 5 mg p.o. t.i.d. 02/14/2024: No changes as Haldol just started 02/14: no changes. [address]- exp 02/16 02/15- no signs of delirium. Pt with grandiose delusions and psychosis. Calmer, agreed to increase haldol 5mg po BID, lower sertraline to 100mg po daily (will change to day time instead of bedtime to promote sleep) so it wont exacerbate delusions and psychosis. 02/16 continue tx. neurology consult completed, recommend MRI w/wo contrast r/u flare MS. 02/18- start low dose lithium 150mg po BID. 02/19 continue tx. 02/20: Continue current regimen and plans 02/21: Continue current regimen and plans. 02/22 labile, threatening - concern about retaliation if she returns home without being more stable, on mood stabilizer. 02/23 will start depakote for mood stabilization. 02/24 continue depakote 500mg po BID. and haldol 5mg po BID. Reason for continued inpatient stay Substantial Risk for: inability to function Time Spent With Patient Time: Total time managing care of this patient today ____ minutes.
[2024-02-25] MEDS: diazePAM 2 MG TABLET PO ×3 (09:40→20:31)
[2024-02-25] MEDS: Magnesium Oxide 400 MG TABLET PO (09:40)
[2024-02-25] MEDS: Multivitamin TABLET 1 TAB PO (09:40)
[2024-02-25] MEDS: Apixaban 2.5 MG TABLET PO ×2 (09:40→20:32)
[2024-02-25] MEDS: Acetaminophen 325 MG TABLET 975 MG PO ×3 (09:41→20:31)
[2024-02-25] MEDS: Ferrous Sulfate 324 MG TABLET.DR PO (09:41)
[2024-02-25] MEDS: Sertraline HCL 50 MG TABLET PO (09:41)
[2024-02-25] MEDS: Celecoxib 200 MG CAPSULE PO (09:41)
[2024-02-25] MEDS: Sennosides 8.6 MG TABLET 17.2 MG PO (09:41)
[2024-02-25] MEDS: Divalproex Sodium 500 MG TABLET.DR PO ×2 (09:41→20:32)
[2024-02-25] MEDS: Baclofen 20 MG TABLET PO ×2 (09:41→20:31)
[2024-02-25] MEDS: Docusate Sodium 100 MG CAPSULE PO ×2 (09:41→20:32)
[2024-02-25] MEDS: HaloperidoL 5 MG TABLET PO ×2 (09:41→20:32)
[2024-02-25] MEDS: Omeprazole 20 MG CAPSULE.DR PO (09:41)
[2024-02-25 11:44] VITALS: BMI 46.1
[2024-02-25] MEDS: SUMAtriptan succinate 50 MG TABLET PO (17:14)
[2024-02-25 20:00] VITALS: BP 148/64; PULSE 82; RESP 18; TEMP 36.4; O2SAT 95
[2024-02-25] MEDS: Melatonin 3 MG TABLET PO (20:31)
[2024-02-25] MEDS: Atorvastatin Calcium 10 MG TABLET PO (20:31)
[2024-02-25] MEDS: rOPINIRole HCL 1 MG TABLET PO (20:32)
[2024-02-25] MEDS: hydrOXYzine HCL 50 MG TABLET PO (20:32)
[2024-02-26 07:00] VITALS: BMI 37.8
[2024-02-26 08:00] VITALS: BP 136/66; PULSE 118; RESP 18; TEMP 36.3; O2SAT 96
[2024-02-26] MEDS: diazePAM 2 MG TABLET PO ×3 (08:43→21:23)
[2024-02-26] MEDS: Celecoxib 200 MG CAPSULE PO (08:43)
[2024-02-26] MEDS: Apixaban 2.5 MG TABLET PO ×2 (08:43→21:23)
[2024-02-26] MEDS: Acetaminophen 325 MG TABLET 975 MG PO ×3 (08:43→21:22)
[2024-02-26] MEDS: Baclofen 20 MG TABLET PO ×2 (08:43→21:23)
[2024-02-26] MEDS: Sertraline HCL 50 MG TABLET PO (08:46)
[2024-02-26] MEDS: Ferrous Sulfate 324 MG TABLET.DR PO (08:46)
[2024-02-26] MEDS: Omeprazole 20 MG CAPSULE.DR PO (08:46)
[2024-02-26] MEDS: Divalproex Sodium 500 MG TABLET.DR PO ×2 (08:47→21:24)
[2024-02-26] MEDS: Magnesium Oxide 400 MG TABLET PO (08:47)
[2024-02-26] MEDS: HaloperidoL 5 MG TABLET PO ×2 (08:47→21:24)
[2024-02-26] MEDS: Multivitamin TABLET 1 TAB PO (08:47)
[2024-02-26] MEDS: Sennosides 8.6 MG TABLET 17.2 MG PO (08:47)
--- NOTE | 2024-02-26 09:02 | HO.PSYCHPN ---
Subjective Subjective Date of Service: 02/26/24 Reason For Visit: Unspecified Schizophrenia Spectrum and other Psych Subjective Notes: Section 7 Interim History: Pt slept through the night. Pt continues to present with expansive and labile mood.She asks for discharge today, reminded about concerns about her labile mood and threats to family, especially . concern about her safety and other if she is discharged and not stable. She denies SI/HI. She is taking depakote and haldol. Review of Systems Review of Systems nothing acute Yes all other systems are reviewed and are negative Mental Status Exam Mental Status Exam Patient Appearance: Appropriate Patient Orientation: Person and Situation Level of Consciousness: Awake Patient Behavior: Talkative Mood Description: Calm Affect Description: Withdrawn and Blunted Patient Cognition Impaired: Yes Ability to Follow Directions: Fair Speech Pattern: Clear Diagnostics Vital Signs (24Hr): Vital Signs - 24 hr 02/25/24 20:00 02/26/24 08:00 Temperature 97.5 F 97.4 F Pulse Rate 82 118 H Respiratory Rate 18 18 Blood Pressure 148/64 H 136/66 Pulse Oximetry 95 96 Oxygen Delivery Method Room Air Room Air BMI result Body Mass Index 46.1 Labs 02/18/24 17:25 Imaging Radiology Impressions: ITS Impressions Brain MRI 02/17/24 19:20 IMPRESSION: 1. Multiple supratentorial and infratentorial white matter lesions consistent with the reported underlying diagnosis of demyelination in the appropriate clinical setting. No abnormal intracranial enhancement or restricted diffusion to strongly suggest active inflammation/demyelination. 2. No acute intracranial abnormalities. No abnormal intracranial enhancement. Medications Medications Current Medications Acetaminophen (Acetaminophen 325 Mg Tablet) 975 mg PO TID [facility] Last Admin: 02/26/24 08:43 Dose: 975 mg Al Hydroxide/Mg Hydroxide (Magnesium Hydrox/Alum Hydrox 30 Ml Oral.Susp) 30 ml PO Q6H PRN PRN Reason: Heartburn/Nausea Apixaban (Apixaban 2.5 Mg Tablet) 2.5 mg PO BID [facility] Stop: 02/27/24 23:59 Last Admin: 02/26/24 08:43 Dose: 2.5 mg Atorvastatin Calcium (Atorvastatin Calcium 10 Mg Tablet) 10 mg PO BEDTIME [facility] Last Admin: 02/25/24 20:31 Dose: 10 mg Baclofen (Baclofen 20 Mg Tablet) 20 mg PO BID [facility] Last Admin: 02/26/24 08:43 Dose: 20 mg Calcium Carbonate (Calcium Carbonate 750 Mg Tab.Chew) 750 mg PO QID PRN PRN Reason: Indigestion Last Admin: 02/22/24 08:36 Dose: 750 mg Celecoxib (Celecoxib 200 Mg Capsule) 200 mg PO DAILY [facility] Last Admin: 02/26/24 08:43 Dose: 200 mg Diazepam (Diazepam 2 Mg Tablet) 2 mg PO TID [facility] Last Admin: 02/26/24 08:43 Dose: 2 mg Divalproex Sodium (Divalproex Sodium 500 Mg Tablet.) 500 mg PO BID [facility] Last Admin: 02/26/24 08:47 Dose: 500 mg Docusate Sodium (Docusate Sodium 100 Mg Capsule) 100 mg PO BID [facility] Last Admin: 02/26/24 08:38 Dose: Not Given Ferrous Sulfate (Ferrous Sulfate 324 Mg Tablet.) 324 mg PO DAILY [facility] Last Admin: 02/26/24 08:46 Dose: 324 mg Haloperidol (Haloperidol 5 Mg Tablet) 5 mg PO TID PRN PRN Reason: agitation Last Admin: 02/24/24 10:20 Dose: 5 mg Haloperidol (Haloperidol 5 Mg Tablet) 5 mg PO BID [facility] Last Admin: 02/26/24 08:47 Dose: 5 mg Hydroxyzine HCl (Hydroxyzine Hcl 50 Mg Tablet) 50 mg PO TID PRN PRN Reason: Anxiety Last Admin: 02/25/24 20:32 Dose: 50 mg Magnesium Hydroxide (Milk Of Magnesia 30 Ml Oral.Susp) 30 ml PO DAILY PRN PRN Reason: Constipation Magnesium Oxide (Magnesium Oxide 400 Mg Tablet) 400 mg PO DAILY [facility] Last Admin: 02/26/24 08:47 Dose: 400 mg Melatonin (Melatonin 3 Mg Tablet) 3 mg PO BEDTIME [facility] Last Admin: 02/25/24 20:31 Dose: 3 mg Multivitamins/Vitamin C (Multivitamin Tablet) 1 tab PO DAILY [facility] Last Admin: 02/26/24 08:47 Dose: 1 tab Nicotine Polacrilex (Nicotine Polacrilex 2 Mg Gum) 2 mg BUCCAL Q2H PRN PRN Reason: Nicotine Cravings Last Admin: 02/24/24 20:58 Dose: 2 mg Omeprazole (Omeprazole 20 Mg Capsule.) 20 mg PO DAILY [facility] Last Admin: 02/26/24 08:46 Dose: 20 mg Ondansetron HCl (Ondansetron Odt 4 Mg Tab.Rapdis) 4 mg TRANSLINGU Q8H PRN PRN Reason: Nausea And Vomiting Last Admin: 02/16/24 20:16 Dose: 4 mg Polyethylene Glycol (Polyethylene Glycol 3350 17 Gm Powd.Pack) 17 gm PO DAILY PRN PRN Reason: Constipation Ropinirole HCl (Ropinirole Hcl 1 Mg Tablet) 1 mg PO BEDTIME [facility] Last Admin: 02/25/24 20:32 Dose: 1 mg Senna (Sennosides 8.6 Mg Tablet) 17.2 mg PO DAILY [facility] Last Admin: 02/26/24 08:47 Dose: 17.2 mg Sertraline HCl (Sertraline Hcl 50 Mg Tablet) 50 mg PO DAILY [facility] Last Admin: 02/26/24 08:46 Dose: 50 mg Sumatriptan Succinate (Sumatriptan Succinate 50 Mg Tablet) 50 mg PO DAILY PRN PRN Reason: Migraine Headache Last Admin: 02/25/24 17:14 Dose: 50 mg Allergies Allergies Allergy/AdvReac Type Severity Reaction Status Date / Time aspirin Allergy Unknown Verified 02/11/24 22:12 citalopram [From Celexa] Allergy Unknown Verified 02/11/24 22:12 lamotrigine [From Lamictal] Allergy Unknown Verified 02/11/24 22:12 Penicillins Allergy Unknown Verified 02/11/24 22:12 Assessment & Plan Assessment & Plan (1) Bipolar 1 disorder, manic, moderate: Status: Acute Code(s): F31.12 - Bipolar disorder, current episode manic without psychotic features, moderate (2) Multiple sclerosis: Status: Acute Code(s): G35 - Multiple sclerosis (3) Total knee replacement status: Status: Acute Code(s): Z96.659 - Presence of unspecified artificial knee joint Plan 02/11: continue medications as per at discharge from rehab facility. observe for clearing of mental status. likely delirium related to recent surgery. PT consult placed. 02/12 start Haldol 5 mg p.o. t.i.d. 02/14/2024: No changes as Haldol just started 02/14: no changes. [address]- exp 02/16 02/15- no signs of delirium. Pt with grandiose delusions and psychosis. Calmer, agreed to increase haldol 5mg po BID, lower sertraline to 100mg po daily (will change to day time instead of bedtime to promote sleep) so it wont exacerbate delusions and psychosis. 02/16 continue tx. neurology consult completed, recommend MRI w/wo contrast r/u flare MS. 02/18- start low dose lithium 150mg po BID. 02/19 continue tx. 02/20: Continue current regimen and plans 02/21: Continue current regimen and plans. 02/22 labile, threatening - concern about retaliation if she returns home without being more stable, on mood stabilizer. 02/23 will start depakote for mood stabilization. 02/24 continue depakote 500mg po BID. and haldol 5mg po BID. 02/25 continue tx. Reason for continued inpatient stay Substantial Risk for: inability to function Time Spent With Patient Time: Total time managing care of this patient today ____ minutes.
[2024-02-26] MEDS: Nicotine Polacrilex 2 MG GUM BUCCAL (14:59)
[2024-02-26 17:00] VITALS: BP 133/91; PULSE 123; RESP 18; TEMP 36.6; O2SAT 97
--- NOTE | 2024-02-26 17:58 | PC.NURSE ---
Addendum entered by Miley Vance RN 02/26/24 18:24: Upon reassessment Rayna reported I think it was the sandals I had on, she asked comic book writer to put them in her bin. Original Note: At 1700 Rayna was yelling in her room Can someone help me, [facility] and RN responded, asked for vital signs machine, upon approach she was sitting on the floor she reported that she had fallen on her right side, when asked if she hit her head stated No, I just scraped it with the table, when asked if she had pain stated No, I think I just scraped my right hip. VS obtained, when assessed no redness noted, skin appears intact, when assessing head Rayna reported I hit my head on the side, no redness noted. Dr. Solorzano notified CT of the head ordered as well as x-ray of the right hip, Rayna was taken down for test, results pending. Rayna asked comic book writer if we can notify her , Wily () notified at 1754.
[2024-02-26 18:43] VITALS: BP 122/62; PULSE 78; RESP 18
[2024-02-26 18:44] VITALS: BP 125/61; BP 127/67; PULSE 83; PULSE 97; RESP 18
[2024-02-26 20:00] VITALS: BP 120/75; PULSE 71; RESP 16; TEMP 36.3; O2SAT 100
--- NOTE | 2024-02-26 20:34 | P.EN_ITS ---
Event Note Date of Service: 02/26/24 Event Note: Patient is a 63-year-old female with a PMH significant for MS on octreotide office, GERD, overactive bladder, vitamin-D deficiency, GERD, and recent left TKA on Eliquis who was admitted to [facility] after becoming agitated, threatened, and aggressive toward staff at rehab. Hospitalist consult after unwitnessed fall in room. Patient reports that earlier today she had done ?an awful lot of walking. When she got back to her room her legs felt ?clumsy? and weak, and she fell against the wall and slid down to the floor. Reports hit the side of her head on the corner of the bookcase next to the bed. Reports mild headache after her fall. Also states has left foot and left knee pain and right hip and right foot pain. Physical exam benign: Bilateral hips, knees, ankles, feet nontender to palpation. Patient with preserved and symmetrical ROM and strength of hips, knees, and ankles. Plantar flexion and dorsiflexion preserved and symmetrical bilaterally. CT of head found no evidence of acute intracranial injury, though did show moderate burden of white matter disease related to known history of MS. X-ray of hips/pelvis official read still pending, though quick unofficial scan looks without acute fracture or subluxation. Will await official read from x-ray but in the meantime treat symptomatically with acetaminophen. Time Spent With Patient Time: Total time managing care of this patient today ____ minutes.
[2024-02-26] MEDS: rOPINIRole HCL 1 MG TABLET PO (21:21)
[2024-02-26] MEDS: Atorvastatin Calcium 10 MG TABLET PO (21:23)
[2024-02-26] MEDS: Melatonin 3 MG TABLET PO (21:23)
[2024-02-26] MEDS: Docusate Sodium 100 MG CAPSULE PO (21:23)
[2024-02-27 08:00] VITALS: BP 98/54; PULSE 75; RESP 18; TEMP 36.2; O2SAT 95
[2024-02-27] MEDS: Divalproex Sodium 500 MG TABLET.DR PO ×2 (08:14→20:47)
[2024-02-27] MEDS: Magnesium Oxide 400 MG TABLET PO (08:14)
[2024-02-27] MEDS: Baclofen 20 MG TABLET PO ×2 (08:14→20:47)
[2024-02-27] MEDS: Multivitamin TABLET 1 TAB PO (08:14)
[2024-02-27] MEDS: Sennosides 8.6 MG TABLET 17.2 MG PO (08:15)
[2024-02-27] MEDS: Celecoxib 200 MG CAPSULE PO (08:15)
[2024-02-27] MEDS: Acetaminophen 325 MG TABLET 975 MG PO ×3 (08:15→20:46)
[2024-02-27] MEDS: Sertraline HCL 50 MG TABLET PO (08:15)
[2024-02-27] MEDS: Ferrous Sulfate 324 MG TABLET.DR PO (08:15)
[2024-02-27] MEDS: Docusate Sodium 100 MG CAPSULE PO ×2 (08:15→20:46)
[2024-02-27] MEDS: Omeprazole 20 MG CAPSULE.DR PO (08:15)
[2024-02-27] MEDS: Apixaban 2.5 MG TABLET PO ×2 (08:15→20:47)
[2024-02-27] MEDS: HaloperidoL 5 MG TABLET PO ×2 (08:15→20:47)
[2024-02-27] MEDS: diazePAM 2 MG TABLET PO ×3 (08:15→20:47)
--- NOTE | 2024-02-27 12:12 | P.PNPSI_ITS ---
Subjective Subjective Date of Service: 02/27/24 Reason For Visit: Unspecified Schizophrenia Spectrum and other Psych Subjective Notes: Section 7 Interim History: Pt slept through the night. Pt slightly calmer, asking for discharged, reminded that team has filed, hoping she improves in terms of labile mood prior to court. She is taking medications as prescribed. 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 No SI/HI. Review of Systems Review of Systems nothing acute Yes all other systems are reviewed and are negative Mental Status Exam Mental Status Exam Patient Appearance: Appropriate Patient Orientation: Person and Situation Level of Consciousness: Awake Patient Behavior: Talkative Mood Description: Calm Affect Description: Withdrawn and Blunted Patient Cognition Impaired: Yes Ability to Follow Directions: Fair Speech Pattern: Clear Diagnostics Vital Signs (24Hr): Vital Signs - 24 hr 02/26/24 17:00 02/26/24 18:43 02/26/24 18:44 Temperature 97.8 F Pulse Rate 123 H 78 83 Respiratory Rate 18 18 18 Blood Pressure 133/91 H 122/62 125/61 Pulse Oximetry 97 Oxygen Delivery Method Room Air 02/26/24 18:44 02/26/24 20:00 02/27/24 08:00 Temperature 97.4 F 97.2 F Pulse Rate 97 71 75 Respiratory Rate 18 16 18 Blood Pressure 127/67 120/75 98/54 L Pulse Oximetry 100 95 Oxygen Delivery Method Room Air Room Air BMI result Body Mass Index 37.8 Labs 02/18/24 17:25 Imaging Radiology Impressions: ITS Impressions Brain MRI 02/17/24 19:20 IMPRESSION: 1. Multiple supratentorial and infratentorial white matter lesions consistent with the reported underlying diagnosis of demyelination in the appropriate clinical setting. No abnormal intracranial enhancement or restricted diffusion to strongly suggest active inflammation/demyelination. 2. No acute intracranial abnormalities. No abnormal intracranial enhancement. Head CT 02/26/24 17:37 IMPRESSION: 1. No CT evidence of acute intracranial injury. 2. Moderate burden of predominantly supratentorial white matter disease related to known history of multiple sclerosis, better characterized on recent brain MRI. Hip X-Ray 02/26/24 17:49 IMPRESSION: No visible fracture. Medications Medications Current Medications Acetaminophen (Acetaminophen 325 Mg Tablet) 975 mg PO TID [facility] Last Admin: 02/27/24 08:15 Dose: 975 mg Al Hydroxide/Mg Hydroxide (Magnesium Hydrox/Alum Hydrox 30 Ml Oral.Susp) 30 ml PO Q6H PRN PRN Reason: Heartburn/Nausea Apixaban (Apixaban 2.5 Mg Tablet) 2.5 mg PO BID [facility] Stop: 02/27/24 23:59 Last Admin: 02/27/24 08:15 Dose: 2.5 mg Atorvastatin Calcium (Atorvastatin Calcium 10 Mg Tablet) 10 mg PO BEDTIME [facility] Last Admin: 02/26/24 21:23 Dose: 10 mg Baclofen (Baclofen 20 Mg Tablet) 20 mg PO BID [facility] Last Admin: 02/27/24 08:14 Dose: 20 mg Calcium Carbonate (Calcium Carbonate 750 Mg Tab.Chew) 750 mg PO QID PRN PRN Reason: Indigestion Last Admin: 02/22/24 08:36 Dose: 750 mg Celecoxib (Celecoxib 200 Mg Capsule) 200 mg PO DAILY [facility] Last Admin: 02/27/24 08:15 Dose: 200 mg Diazepam (Diazepam 2 Mg Tablet) 2 mg PO TID [facility] Last Admin: 02/27/24 08:15 Dose: 2 mg Divalproex Sodium (Divalproex Sodium 500 Mg Tablet.) 500 mg PO BID [facility] Last Admin: 02/27/24 08:14 Dose: 500 mg Docusate Sodium (Docusate Sodium 100 Mg Capsule) 100 mg PO BID [facility] Last Admin: 02/27/24 08:15 Dose: 100 mg Ferrous Sulfate (Ferrous Sulfate 324 Mg Tablet.) 324 mg PO DAILY [facility] Last Admin: 02/27/24 08:15 Dose: 324 mg Haloperidol (Haloperidol 5 Mg Tablet) 5 mg PO TID PRN PRN Reason: agitation Last Admin: 02/24/24 10:20 Dose: 5 mg Haloperidol (Haloperidol 5 Mg Tablet) 5 mg PO BID [facility] Last Admin: 02/27/24 08:15 Dose: 5 mg Hydroxyzine HCl (Hydroxyzine Hcl 50 Mg Tablet) 50 mg PO TID PRN PRN Reason: Anxiety Last Admin: 02/25/24 20:32 Dose: 50 mg Magnesium Hydroxide (Milk Of Magnesia 30 Ml Oral.Susp) 30 ml PO DAILY PRN PRN Reason: Constipation Magnesium Oxide (Magnesium Oxide 400 Mg Tablet) 400 mg PO DAILY [facility] Last Admin: 02/27/24 08:14 Dose: 400 mg Melatonin (Melatonin 3 Mg Tablet) 3 mg PO BEDTIME [facility] Last Admin: 02/26/24 21:23 Dose: 3 mg Multivitamins/Vitamin C (Multivitamin Tablet) 1 tab PO DAILY [facility] Last Admin: 02/27/24 08:14 Dose: 1 tab Nicotine Polacrilex (Nicotine Polacrilex 2 Mg Gum) 2 mg BUCCAL Q2H PRN PRN Reason: Nicotine Cravings Last Admin: 02/26/24 14:59 Dose: 2 mg Omeprazole (Omeprazole 20 Mg Capsule.Dr) 20 mg PO DAILY [facility] Last Admin: 02/27/24 08:15 Dose: 20 mg Ondansetron HCl (Ondansetron Odt 4 Mg Tab.Rapdis) 4 mg TRANSLINGU Q8H PRN PRN Reason: Nausea And Vomiting Last Admin: 02/16/24 20:16 Dose: 4 mg Polyethylene Glycol (Polyethylene Glycol 3350 17 Gm Powd.Pack) 17 gm PO DAILY PRN PRN Reason: Constipation Ropinirole HCl (Ropinirole Hcl 1 Mg Tablet) 1 mg PO BEDTIME [facility] Last Admin: 02/26/24 21:21 Dose: 1 mg Senna (Sennosides 8.6 Mg Tablet) 17.2 mg PO DAILY [facility] Last Admin: 02/27/24 08:15 Dose: 17.2 mg Sertraline HCl (Sertraline Hcl 50 Mg Tablet) 50 mg PO DAILY [facility] Last Admin: 02/27/24 08:15 Dose: 50 mg Sumatriptan Succinate (Sumatriptan Succinate 50 Mg Tablet) 50 mg PO DAILY PRN PRN Reason: Migraine Headache Last Admin: 02/25/24 17:14 Dose: 50 mg Allergies Allergies Allergy/AdvReac Type Severity Reaction Status Date / Time aspirin Allergy Unknown Verified 02/11/24 22:12 citalopram [From Celexa] Allergy Unknown Verified 02/11/24 22:12 lamotrigine [From Lamictal] Allergy Unknown Verified 02/11/24 22:12 Penicillins Allergy Unknown Verified 02/11/24 22:12 Assessment & Plan Assessment & Plan (1) Bipolar 1 disorder, manic, moderate: Status: Acute Code(s): F31.12 - Bipolar disorder, current episode manic without psychotic features, moderate (2) Multiple sclerosis: Status: Acute Code(s): G35 - Multiple sclerosis (3) Total knee replacement status: Status: Acute Code(s): Z96.659 - Presence of unspecified artificial knee joint Plan 02/11: continue medications as per at discharge from rehab facility. observe for clearing of mental status. likely delirium related to recent surgery. PT consult placed. 02/12 start Haldol 5 mg p.o. t.i.d. 02/14/2024: No changes as Haldol just started 02/14: no changes. [address]- exp 02/16 02/15- no signs of delirium. Pt with grandiose delusions and psychosis. Calmer, agreed to increase haldol 5mg po BID, lower sertraline to 100mg po daily (will change to day time instead of bedtime to promote sleep) so it wont exacerbate delusions and psychosis. 02/16 continue tx. neurology consult completed, recommend MRI w/wo contrast r/u flare MS. 02/18- start low dose lithium 150mg po BID. 02/19 continue tx. 02/20: Continue current regimen and plans 02/21: Continue current regimen and plans. 02/22 labile, threatening - concern about retaliation if she returns home without being more stable, on mood stabilizer. 02/23 will start depakote for mood stabilization. 02/24 continue depakote 500mg po BID. and haldol 5mg po BID. 02/25 continue tx. 02/26 continue. will check depakote level on 03/01 and lfts and ammonia. Reason for continued inpatient stay Substantial Risk for: inability to function Time Spent With Patient Time: Total time managing care of this patient today ____ minutes.
[2024-02-27 20:00] VITALS: BP 118/73; PULSE 79; RESP 16; TEMP 36.4; O2SAT 95
[2024-02-27] MEDS: rOPINIRole HCL 1 MG TABLET PO (20:46)
[2024-02-27] MEDS: Melatonin 3 MG TABLET PO (20:46)
[2024-02-27] MEDS: Atorvastatin Calcium 10 MG TABLET PO (20:47)
--- NOTE | 2024-02-28 08:25 | P.PNPSI_ITS ---
Subjective Subjective Date of Service: 02/28/24 Reason For Visit: Unspecified Schizophrenia Spectrum and other Psych Subjective Notes: Section 7 Interim History: Pt slept through the night. Pt slightly calmer. Pt reports peer is loud and comes to her door which it is annoying to her. Pt reports missing her family and hoping to go home soon. 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 No SI/HI. Review of Systems Review of Systems nothing acute Yes all other systems are reviewed and are negative Mental Status Exam Mental Status Exam Narrative: adequately dressed and groomed in [facility], in day area. some frustration. no PMA/PMR. speech incr in rate, amount. nml loudness, decr latency. thoughts vary from linear and logical in response to some questions and tangential spontaneously. affect flexible, normo-intense, non-labile, expansive. mood very good. denies SI/HI. Delusions: sexualized behaviors, Diagnostics Vital Signs (24Hr): Vital Signs - 24 hr 02/27/24 20:00 Temperature 97.6 F Pulse Rate 79 Respiratory Rate 16 Blood Pressure 118/73 Pulse Oximetry 95 Oxygen Delivery Method Room Air BMI result Body Mass Index 37.8 Labs 02/18/24 17:25 Imaging Radiology Impressions: ITS Impressions Brain MRI 02/17/24 19:20 IMPRESSION: 1. Multiple supratentorial and infratentorial white matter lesions consistent with the reported underlying diagnosis of demyelination in the appropriate clinical setting. No abnormal intracranial enhancement or restricted diffusion to strongly suggest active inflammation/demyelination. 2. No acute intracranial abnormalities. No abnormal intracranial enhancement. Head CT 02/26/24 17:37 IMPRESSION: 1. No CT evidence of acute intracranial injury. 2. Moderate burden of predominantly supratentorial white matter disease related to known history of multiple sclerosis, better characterized on recent brain MRI. Hip X-Ray 02/26/24 17:49 IMPRESSION: No visible fracture. Medications Medications Current Medications Acetaminophen (Acetaminophen 325 Mg Tablet) 975 mg PO TID [facility] Last Admin: 02/27/24 20:46 Dose: 975 mg Al Hydroxide/Mg Hydroxide (Magnesium Hydrox/Alum Hydrox 30 Ml Oral.Susp) 30 ml PO Q6H PRN PRN Reason: Heartburn/Nausea Atorvastatin Calcium (Atorvastatin Calcium 10 Mg Tablet) 10 mg PO BEDTIME [facility] Last Admin: 02/27/24 20:47 Dose: 10 mg Baclofen (Baclofen 20 Mg Tablet) 20 mg PO BID [facility] Last Admin: 02/27/24 20:47 Dose: 20 mg Calcium Carbonate (Calcium Carbonate 750 Mg Tab.Chew) 750 mg PO QID PRN PRN Reason: Indigestion Last Admin: 02/22/24 08:36 Dose: 750 mg Celecoxib (Celecoxib 200 Mg Capsule) 200 mg PO DAILY [facility] Last Admin: 02/27/24 08:15 Dose: 200 mg Diazepam (Diazepam 2 Mg Tablet) 2 mg PO TID [facility] Last Admin: 02/27/24 20:47 Dose: 2 mg Divalproex Sodium (Divalproex Sodium 500 Mg Tablet.) 500 mg PO BID [facility] Last Admin: 02/27/24 20:47 Dose: 500 mg Docusate Sodium (Docusate Sodium 100 Mg Capsule) 100 mg PO BID [facility] Last Admin: 02/27/24 20:46 Dose: 100 mg Ferrous Sulfate (Ferrous Sulfate 324 Mg Tablet.) 324 mg PO DAILY [facility] Last Admin: 02/27/24 08:15 Dose: 324 mg Haloperidol (Haloperidol 5 Mg Tablet) 5 mg PO TID PRN PRN Reason: agitation Last Admin: 02/24/24 10:20 Dose: 5 mg Haloperidol (Haloperidol 5 Mg Tablet) 5 mg PO BID [facility] Last Admin: 02/27/24 20:47 Dose: 5 mg Hydroxyzine HCl (Hydroxyzine Hcl 50 Mg Tablet) 50 mg PO TID PRN PRN Reason: Anxiety Last Admin: 02/25/24 20:32 Dose: 50 mg Magnesium Hydroxide (Milk Of Magnesia 30 Ml Oral.Susp) 30 ml PO DAILY PRN PRN Reason: Constipation Magnesium Oxide (Magnesium Oxide 400 Mg Tablet) 400 mg PO DAILY [facility] Last Admin: 02/27/24 08:14 Dose: 400 mg Melatonin (Melatonin 3 Mg Tablet) 3 mg PO BEDTIME [facility] Last Admin: 02/27/24 20:46 Dose: 3 mg Multivitamins/Vitamin C (Multivitamin Tablet) 1 tab PO DAILY [facility] Last Admin: 02/27/24 08:14 Dose: 1 tab Nicotine Polacrilex (Nicotine Polacrilex 2 Mg Gum) 2 mg BUCCAL Q2H PRN PRN Reason: Nicotine Cravings Last Admin: 02/26/24 14:59 Dose: 2 mg Omeprazole (Omeprazole 20 Mg Capsule.Dr) 20 mg PO DAILY [facility] Last Admin: 02/27/24 08:15 Dose: 20 mg Ondansetron HCl (Ondansetron Odt 4 Mg Tab.Rapdis) 4 mg TRANSLINGU Q8H PRN PRN Reason: Nausea And Vomiting Last Admin: 02/16/24 20:16 Dose: 4 mg Polyethylene Glycol (Polyethylene Glycol 3350 17 Gm Powd.Pack) 17 gm PO DAILY PRN PRN Reason: Constipation Ropinirole HCl (Ropinirole Hcl 1 Mg Tablet) 1 mg PO BEDTIME [facility] Last Admin: 02/27/24 20:46 Dose: 1 mg Senna (Sennosides 8.6 Mg Tablet) 17.2 mg PO DAILY [facility] Last Admin: 02/27/24 08:15 Dose: 17.2 mg Sertraline HCl (Sertraline Hcl 50 Mg Tablet) 50 mg PO DAILY [facility] Last Admin: 02/27/24 08:15 Dose: 50 mg Sumatriptan Succinate (Sumatriptan Succinate 50 Mg Tablet) 50 mg PO DAILY PRN PRN Reason: Migraine Headache Last Admin: 02/25/24 17:14 Dose: 50 mg Allergies Allergies Allergy/AdvReac Type Severity Reaction Status Date / Time aspirin Allergy Unknown Verified 02/11/24 22:12 citalopram [From Celexa] Allergy Unknown Verified 02/11/24 22:12 lamotrigine [From Lamictal] Allergy Unknown Verified 02/11/24 22:12 Penicillins Allergy Unknown Verified 02/11/24 22:12 Assessment & Plan Assessment & Plan (1) Bipolar 1 disorder, manic, moderate: Status: Acute Code(s): F31.12 - Bipolar disorder, current episode manic without psychotic features, moderate (2) Multiple sclerosis: Status: Acute Code(s): G35 - Multiple sclerosis (3) Total knee replacement status: Status: Acute Code(s): Z96.659 - Presence of unspecified artificial knee joint Plan 02/11: continue medications as per at discharge from rehab facility. observe for clearing of mental status. likely delirium related to recent surgery. PT consult placed. 02/12 start Haldol 5 mg p.o. t.i.d. 02/14/2024: No changes as Haldol just started 7/21: no changes. [address]- exp 02/16 02/15- no signs of delirium. Pt with grandiose delusions and psychosis. Calmer, agreed to increase haldol 5mg po BID, lower sertraline to 100mg po daily (will change to day time instead of bedtime to promote sleep) so it wont exacerbate delusions and psychosis. 02/16 continue tx. neurology consult completed, recommend MRI w/wo contrast r/u flare MS. 02/18- start low dose lithium 150mg po BID. 02/19 continue tx. 02/20: Continue current regimen and plans 02/21: Continue current regimen and plans. 02/22 labile, threatening - concern about retaliation if she returns home without being more stable, on mood stabilizer. 02/23 will start depakote for mood stabilization. 02/24 continue depakote 500mg po BID. and haldol 5mg po BID. 02/25 continue tx. 02/26 continue. will check depakote level on 03/01 and lfts and ammonia. Reason for continued inpatient stay Substantial Risk for: inability to function Time Spent With Patient Time: Total time managing care of this patient today ____ minutes.
[2024-02-28 09:06] VITALS: BP 122/53; PULSE 64; RESP 17; TEMP 36; O2SAT 97
[2024-02-28] MEDS: diazePAM 2 MG TABLET PO ×3 (09:08→21:14)
[2024-02-28] MEDS: Multivitamin TABLET 1 TAB PO (09:08)
[2024-02-28] MEDS: Divalproex Sodium 500 MG TABLET.DR PO ×2 (09:08→21:15)
[2024-02-28] MEDS: Magnesium Oxide 400 MG TABLET PO (09:08)
[2024-02-28] MEDS: Baclofen 20 MG TABLET PO ×2 (09:08→21:14)
[2024-02-28] MEDS: Omeprazole 20 MG CAPSULE.DR PO (09:08)
[2024-02-28] MEDS: Sertraline HCL 50 MG TABLET PO (09:08)
[2024-02-28] MEDS: Sennosides 8.6 MG TABLET 17.2 MG PO (09:08)
[2024-02-28] MEDS: Docusate Sodium 100 MG CAPSULE PO (09:09)
[2024-02-28] MEDS: Ferrous Sulfate 324 MG TABLET.DR PO (09:09)
[2024-02-28] MEDS: Celecoxib 200 MG CAPSULE PO (09:09)
[2024-02-28] MEDS: HaloperidoL 5 MG TABLET PO ×2 (09:09→22:23)
[2024-02-28] MEDS: Acetaminophen 325 MG TABLET 975 MG PO ×3 (09:09→21:11)
--- NOTE | 2024-02-28 15:01 | PC.NURSE ---
This nurse heard yelling this afternoon at 14:45 coming from Rayna's room. Within seconds of running over, another patient was seen walking out of the room while Rayna screamed Get the hell out of here! . When entering the room, Rayna began screaming at this nurse This is the fifth time she's been in my room the past week, I already have a fire alarm repairer I just need to file a restraining order on her! . After expressing her feelings to this nurse, patient was able to calm down, apologized for yelling at this nurse and stated I'm sorry, I understand it's hard for you guys to watch her, she just scares me when she comes in here randomly .
[2024-02-28 20:00] VITALS: BP 134/80; PULSE 103; RESP 16; TEMP 35.9; O2SAT 96
[2024-02-28] MEDS: Melatonin 3 MG TABLET PO (21:13)
[2024-02-28] MEDS: rOPINIRole HCL 1 MG TABLET PO (21:13)
[2024-02-28] MEDS: hydrOXYzine HCL 50 MG TABLET PO (21:14)
[2024-02-28] MEDS: Atorvastatin Calcium 10 MG TABLET PO (21:15)
[2024-02-28 22:53] VITALS: RESP 16
[2024-02-29 09:07] VITALS: BP 121/67; PULSE 64; RESP 17; TEMP 36.1; O2SAT 99
[2024-02-29] MEDS: Sennosides 8.6 MG TABLET 17.2 MG PO (09:18)
[2024-02-29] MEDS: Omeprazole 20 MG CAPSULE.DR PO (09:18)
[2024-02-29] MEDS: diazePAM 2 MG TABLET PO ×3 (09:19→20:51)
[2024-02-29] MEDS: Sertraline HCL 50 MG TABLET PO (09:19)
[2024-02-29] MEDS: Docusate Sodium 100 MG CAPSULE PO ×2 (09:19→20:51)
[2024-02-29] MEDS: Baclofen 20 MG TABLET PO ×2 (09:20→20:51)
[2024-02-29] MEDS: Multivitamin TABLET 1 TAB PO (09:20)
[2024-02-29] MEDS: HaloperidoL 5 MG TABLET PO ×2 (09:21→20:51)
[2024-02-29] MEDS: Acetaminophen 325 MG TABLET 975 MG PO ×3 (09:21→20:51)
[2024-02-29] MEDS: Celecoxib 200 MG CAPSULE PO (09:22)
[2024-02-29] MEDS: Divalproex Sodium 500 MG TABLET.DR PO ×2 (09:22→20:50)
[2024-02-29] MEDS: Magnesium Oxide 400 MG TABLET PO (09:22)
[2024-02-29] MEDS: Ferrous Sulfate 324 MG TABLET.DR PO (09:22)
--- NOTE | 2024-02-29 16:55 | HO.PSYCHPN ---
Subjective Subjective Date of Service: 02/29/24 Reason For Visit: Unspecified Schizophrenia Spectrum and other Psych Interim History: Pt slept through the night. Pt slightly calmer. Pt reports peer is loud and comes to her door which it is annoying to her. Pt reports missing her family and hoping to go home soon. 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 No SI/HI. Review of Systems Review of Systems nothing acute Yes all other systems are reviewed and are negative Mental Status Exam Mental Status Exam Narrative: adequately dressed and groomed in [facility], in day area. some frustration. no PMA/PMR. speech incr in rate, amount. nml loudness, decr latency. thoughts vary from linear and logical in response to some questions and tangential spontaneously. affect flexible, normo-intense, non-labile, expansive. mood very good. denies SI/HI. Delusions: sexualized behaviors, Diagnostics Vital Signs (24Hr): Vital Signs - 24 hr 02/28/24 20:00 02/28/24 22:53 02/29/24 09:07 Temperature 96.6 F L 96.9 F Pulse Rate 103 H 64 Respiratory Rate 16 16 17 Blood Pressure 134/80 121/67 Pulse Oximetry 96 99 Oxygen Delivery Method Room Air Room Air BMI result Body Mass Index 37.8 Labs 02/18/24 17:25 Imaging Radiology Impressions: ITS Impressions Brain MRI 02/17/24 19:20 IMPRESSION: 1. Multiple supratentorial and infratentorial white matter lesions consistent with the reported underlying diagnosis of demyelination in the appropriate clinical setting. No abnormal intracranial enhancement or restricted diffusion to strongly suggest active inflammation/demyelination. 2. No acute intracranial abnormalities. No abnormal intracranial enhancement. Head CT 02/26/24 17:37 IMPRESSION: 1. No CT evidence of acute intracranial injury. 2. Moderate burden of predominantly supratentorial white matter disease related to known history of multiple sclerosis, better characterized on recent brain MRI. Hip X-Ray 02/26/24 17:49 IMPRESSION: No visible fracture. Medications Medications Current Medications Acetaminophen (Acetaminophen 325 Mg Tablet) 975 mg PO TID [facility] Last Admin: 02/29/24 15:15 Dose: 975 mg Al Hydroxide/Mg Hydroxide (Magnesium Hydrox/Alum Hydrox 30 Ml Oral.Susp) 30 ml PO Q6H PRN PRN Reason: Heartburn/Nausea Atorvastatin Calcium (Atorvastatin Calcium 10 Mg Tablet) 10 mg PO BEDTIME [facility] Last Admin: 02/28/24 21:15 Dose: 10 mg Baclofen (Baclofen 20 Mg Tablet) 20 mg PO BID [facility] Last Admin: 02/29/24 09:20 Dose: 20 mg Calcium Carbonate (Calcium Carbonate 750 Mg Tab.Chew) 750 mg PO QID PRN PRN Reason: Indigestion Last Admin: 02/22/24 08:36 Dose: 750 mg Celecoxib (Celecoxib 200 Mg Capsule) 200 mg PO DAILY [facility] Last Admin: 02/29/24 09:22 Dose: 200 mg Clotrimazole (Clotrimazole 1 % Cream 15 Gm Tube) 1 appl TOPICAL BID [facility]; Protocol Last Admin: 02/29/24 12:31 Dose: Not Given Diazepam (Diazepam 2 Mg Tablet) 2 mg PO TID [facility] Last Admin: 02/29/24 15:15 Dose: 2 mg Divalproex Sodium (Divalproex Sodium 500 Mg Tablet.) 500 mg PO BID [facility] Last Admin: 02/29/24 09:22 Dose: 500 mg Docusate Sodium (Docusate Sodium 100 Mg Capsule) 100 mg PO BID [facility] Last Admin: 02/29/24 09:19 Dose: 100 mg Ferrous Sulfate (Ferrous Sulfate 324 Mg Tablet.) 324 mg PO DAILY [facility] Last Admin: 02/29/24 09:22 Dose: 324 mg Haloperidol (Haloperidol 5 Mg Tablet) 5 mg PO TID PRN PRN Reason: agitation Last Admin: 02/24/24 10:20 Dose: 5 mg Haloperidol (Haloperidol 5 Mg Tablet) 5 mg PO BID [facility] Last Admin: 02/29/24 09:21 Dose: 5 mg Hydroxyzine HCl (Hydroxyzine Hcl 50 Mg Tablet) 50 mg PO TID PRN PRN Reason: Anxiety Last Admin: 02/28/24 21:14 Dose: 50 mg Magnesium Hydroxide (Milk Of Magnesia 30 Ml Oral.Susp) 30 ml PO DAILY PRN PRN Reason: Constipation Magnesium Oxide (Magnesium Oxide 400 Mg Tablet) 400 mg PO DAILY [facility] Last Admin: 02/29/24 09:22 Dose: 400 mg Melatonin (Melatonin 3 Mg Tablet) 3 mg PO BEDTIME [facility] Last Admin: 02/28/24 21:13 Dose: 3 mg Multivitamins/Vitamin C (Multivitamin Tablet) 1 tab PO DAILY [facility] Last Admin: 02/29/24 09:20 Dose: 1 tab Nicotine Polacrilex (Nicotine Polacrilex 2 Mg Gum) 2 mg BUCCAL Q2H PRN PRN Reason: Nicotine Cravings Last Admin: 02/26/24 14:59 Dose: 2 mg Omeprazole (Omeprazole 20 Mg Capsule.Dr) 20 mg PO DAILY [facility] Last Admin: 02/29/24 09:18 Dose: 20 mg Ondansetron HCl (Ondansetron Odt 4 Mg Tab.Rapdis) 4 mg TRANSLINGU Q8H PRN PRN Reason: Nausea And Vomiting Last Admin: 02/16/24 20:16 Dose: 4 mg Polyethylene Glycol (Polyethylene Glycol 3350 17 Gm Powd.Pack) 17 gm PO DAILY PRN PRN Reason: Constipation Ropinirole HCl (Ropinirole Hcl 1 Mg Tablet) 1 mg PO BEDTIME [facility] Last Admin: 02/28/24 21:13 Dose: 1 mg Senna (Sennosides 8.6 Mg Tablet) 17.2 mg PO DAILY [facility] Last Admin: 02/29/24 09:18 Dose: 17.2 mg Sertraline HCl (Sertraline Hcl 50 Mg Tablet) 50 mg PO DAILY [facility] Last Admin: 02/29/24 09:19 Dose: 50 mg Sumatriptan Succinate (Sumatriptan Succinate 50 Mg Tablet) 50 mg PO DAILY PRN PRN Reason: Migraine Headache Last Admin: 02/25/24 17:14 Dose: 50 mg Allergies Allergies Allergy/AdvReac Type Severity Reaction Status Date / Time aspirin Allergy Unknown Verified 02/11/24 22:12 citalopram [From Celexa] Allergy Unknown Verified 02/11/24 22:12 lamotrigine [From Lamictal] Allergy Unknown Verified 02/11/24 22:12 Penicillins Allergy Unknown Verified 02/11/24 22:12 Assessment & Plan Assessment & Plan (1) Bipolar 1 disorder, manic, moderate: Status: Acute Code(s): F31.12 - Bipolar disorder, current episode manic without psychotic features, moderate (2) Multiple sclerosis: Status: Acute Code(s): G35 - Multiple sclerosis (3) Total knee replacement status: Status: Acute Code(s): Z96.659 - Presence of unspecified artificial knee joint Plan 02/11: continue medications as per at discharge from rehab facility. observe for clearing of mental status. likely delirium related to recent surgery. PT consult placed. 02/12 start Haldol 5 mg p.o. t.i.d. 02/14/2024: No changes as Haldol just started 02/14: no changes. [address]- exp 02/16 02/15- no signs of delirium. Pt with grandiose delusions and psychosis. Calmer, agreed to increase haldol 5mg po BID, lower sertraline to 100mg po daily (will change to day time instead of bedtime to promote sleep) so it wont exacerbate delusions and psychosis. 02/16 continue tx. neurology consult completed, recommend MRI w/wo contrast r/u flare MS. 02/18- start low dose lithium 150mg po BID. 02/19 continue tx. 02/20: Continue current regimen and plans 02/21: Continue current regimen and plans. 02/22 labile, threatening - concern about retaliation if she returns home without being more stable, on mood stabilizer. 02/23 will start depakote for mood stabilization. 02/24 continue depakote 500mg po BID. and haldol 5mg po BID. 02/25 continue tx. 02/26 continue. will check depakote level on 03/01 and lfts and ammonia. 02/28 continue tx. Reason for continued inpatient stay Substantial Risk for: inability to function Time Spent With Patient Time: Total time managing care of this patient today ____ minutes.
[2024-02-29 20:00] VITALS: BP 115/75; PULSE 78; RESP 16; TEMP 36.2; O2SAT 78
[2024-02-29] MEDS: Atorvastatin Calcium 10 MG TABLET PO (20:50)
[2024-02-29] MEDS: Melatonin 3 MG TABLET PO (20:50)
[2024-02-29] MEDS: rOPINIRole HCL 1 MG TABLET PO (20:51)
[2024-02-29] MEDS: Clotrimazole 1 % Cream 15 GM TUBE 1 APPL TOPICAL (20:52)
[2024-03-01 08:00] VITALS: BP 128/75; PULSE 66; RESP 16; TEMP 36.7; O2SAT 94
[2024-03-01] MEDS: Baclofen 20 MG TABLET PO ×2 (08:14→20:50)
[2024-03-01] MEDS: HaloperidoL 5 MG TABLET PO ×2 (08:14→20:50)
[2024-03-01] MEDS: Multivitamin TABLET 1 TAB PO (08:14)
[2024-03-01] MEDS: Omeprazole 20 MG CAPSULE.DR PO (08:15)
[2024-03-01] MEDS: Ferrous Sulfate 324 MG TABLET.DR PO (08:15)
[2024-03-01] MEDS: Sertraline HCL 50 MG TABLET PO (08:15)
[2024-03-01] MEDS: diazePAM 2 MG TABLET PO ×3 (08:15→20:50)
[2024-03-01] MEDS: Divalproex Sodium 500 MG TABLET.DR PO ×2 (08:15→20:50)
[2024-03-01] MEDS: Celecoxib 200 MG CAPSULE PO (08:15)
[2024-03-01] MEDS: Magnesium Oxide 400 MG TABLET PO (08:15)
[2024-03-01 08:26] LABS: Ammonia 24 umol/L (13-55)
[2024-03-01 08:34] LABS: Valproate 46.9 mcg/mL (50.0-100.0)
[2024-03-01 08:37] LABS: Alanine Aminotransferase 14 U/L (0-31); Albumin Level 3.6 g/dL (3.5-5.0); Alkaline Phosphatase 72 U/L (39-117); Aspartate Amino Transferase 20 U/L (5-31); Bilirubin Direct 0.1 mg/dL (0.0-0.5); Bilirubin Total 0.3 mg/dL (0.0-1.0); Total Protein 5.6 g/dL (6.5-8.0)
[2024-03-01] MEDS: Clotrimazole 1 % Cream 15 GM TUBE 1 APPL TOPICAL (09:18)
--- NOTE | 2024-03-01 09:51 | P.PNPSI_ITS ---
Subjective Subjective Date of Service: 03/01/24 Reason For Visit: Unspecified Schizophrenia Spectrum and other Psych Subjective Notes: Section 7 Interim History: Pt slept through the night. Depakote level this morning 46, ammonia wnl 24. Pt continues to present as less labile, no over psychosis or delusional content reported. No SI/HI. Mostly in her room. No behavioral concerns. Looking forward to return home. Medication Compliance: Yes Diagnostics Vital Signs (24Hr): Vital Signs - 24 hr 02/29/24 20:00 03/01/24 08:00 Temperature 97.1 F 98.1 F Pulse Rate 78 66 Respiratory Rate 16 16 Blood Pressure 115/75 128/75 Pulse Oximetry 78 L 94 Oxygen Delivery Method Room Air Room Air BMI result Body Mass Index 37.8 Labs 02/18/24 17:25 Labs: Laboratory Results - last 48 hr 03/01/24 08:08 Total Bilirubin 0.3 Direct Bilirubin 0.1 AST 20 ALT 14 Alkaline Phosphatase 72 Ammonia 24 Total Protein 5.6 L Albumin 3.6 Valproic Acid 46.9 L Imaging Radiology Impressions: ITS Impressions Brain MRI 02/17/24 19:20 IMPRESSION: 1. Multiple supratentorial and infratentorial white matter lesions consistent with the reported underlying diagnosis of demyelination in the appropriate clinical setting. No abnormal intracranial enhancement or restricted diffusion to strongly suggest active inflammation/demyelination. 2. No acute intracranial abnormalities. No abnormal intracranial enhancement. Head CT 02/26/24 17:37 IMPRESSION: 1. No CT evidence of acute intracranial injury. 2. Moderate burden of predominantly supratentorial white matter disease related to known history of multiple sclerosis, better characterized on recent brain MRI. Hip X-Ray 02/26/24 17:49 IMPRESSION: No visible fracture. Medications Medications Current Medications Acetaminophen (Acetaminophen 325 Mg Tablet) 975 mg PO TID [facility] Last Admin: 03/01/24 08:19 Dose: Not Given Al Hydroxide/Mg Hydroxide (Magnesium Hydrox/Alum Hydrox 30 Ml Oral.Susp) 30 ml PO Q6H PRN PRN Reason: Heartburn/Nausea Atorvastatin Calcium (Atorvastatin Calcium 10 Mg Tablet) 10 mg PO BEDTIME [facility] Last Admin: 02/29/24 20:50 Dose: 10 mg Baclofen (Baclofen 20 Mg Tablet) 20 mg PO BID [facility] Last Admin: 03/01/24 08:14 Dose: 20 mg Calcium Carbonate (Calcium Carbonate 750 Mg Tab.Chew) 750 mg PO QID PRN PRN Reason: Indigestion Last Admin: 02/22/24 08:36 Dose: 750 mg Celecoxib (Celecoxib 200 Mg Capsule) 200 mg PO DAILY [facility] Last Admin: 03/01/24 08:15 Dose: 200 mg Clotrimazole (Clotrimazole 1 % Cream 15 Gm Tube) 1 appl TOPICAL BID [facility]; Protocol Last Admin: 03/01/24 09:18 Dose: 1 appl Diazepam (Diazepam 2 Mg Tablet) 2 mg PO TID [facility] Last Admin: 03/01/24 08:15 Dose: 2 mg Divalproex Sodium (Divalproex Sodium 500 Mg Tablet.) 500 mg PO BID [facility] Last Admin: 03/01/24 08:15 Dose: 500 mg Docusate Sodium (Docusate Sodium 100 Mg Capsule) 100 mg PO BID [facility] Last Admin: 03/01/24 08:21 Dose: Not Given Ferrous Sulfate (Ferrous Sulfate 324 Mg Tablet.) 324 mg PO DAILY [facility] Last Admin: 03/01/24 08:15 Dose: 324 mg Haloperidol (Haloperidol 5 Mg Tablet) 5 mg PO TID PRN PRN Reason: agitation Last Admin: 02/24/24 10:20 Dose: 5 mg Haloperidol (Haloperidol 5 Mg Tablet) 5 mg PO BID [facility] Last Admin: 03/01/24 08:14 Dose: 5 mg Hydroxyzine HCl (Hydroxyzine Hcl 50 Mg Tablet) 50 mg PO TID PRN PRN Reason: Anxiety Last Admin: 02/28/24 21:14 Dose: 50 mg Magnesium Hydroxide (Milk Of Magnesia 30 Ml Oral.Susp) 30 ml PO DAILY PRN PRN Reason: Constipation Magnesium Oxide (Magnesium Oxide 400 Mg Tablet) 400 mg PO DAILY [facility] Last Admin: 03/01/24 08:15 Dose: 400 mg Melatonin (Melatonin 3 Mg Tablet) 3 mg PO BEDTIME [facility] Last Admin: 02/29/24 20:50 Dose: 3 mg Multivitamins/Vitamin C (Multivitamin Tablet) 1 tab PO DAILY [facility] Last Admin: 03/01/24 08:14 Dose: 1 tab Nicotine Polacrilex (Nicotine Polacrilex 2 Mg Gum) 2 mg BUCCAL Q2H PRN PRN Reason: Nicotine Cravings Last Admin: 02/26/24 14:59 Dose: 2 mg Omeprazole (Omeprazole 20 Mg Capsule.) 20 mg PO DAILY [facility] Last Admin: 03/01/24 08:15 Dose: 20 mg Ondansetron HCl (Ondansetron Odt 4 Mg Tab.Rapdis) 4 mg TRANSLINGU Q8H PRN PRN Reason: Nausea And Vomiting Last Admin: 02/16/24 20:16 Dose: 4 mg Polyethylene Glycol (Polyethylene Glycol 3350 17 Gm Powd.Pack) 17 gm PO DAILY PRN PRN Reason: Constipation Ropinirole HCl (Ropinirole Hcl 1 Mg Tablet) 1 mg PO BEDTIME [facility] Last Admin: 02/29/24 20:51 Dose: 1 mg Senna (Sennosides 8.6 Mg Tablet) 17.2 mg PO DAILY [facility] Last Admin: 03/01/24 08:21 Dose: Not Given Sertraline HCl (Sertraline Hcl 50 Mg Tablet) 50 mg PO DAILY [facility] Last Admin: 03/01/24 08:15 Dose: 50 mg Sumatriptan Succinate (Sumatriptan Succinate 50 Mg Tablet) 50 mg PO DAILY PRN PRN Reason: Migraine Headache Last Admin: 02/25/24 17:14 Dose: 50 mg Allergies Allergies Allergy/AdvReac Type Severity Reaction Status Date / Time aspirin Allergy Unknown Verified 02/11/24 22:12 citalopram [From Celexa] Allergy Unknown Verified 02/11/24 22:12 lamotrigine [From Lamictal] Allergy Unknown Verified 02/11/24 22:12 Penicillins Allergy Unknown Verified 02/11/24 22:12 Assessment & Plan Assessment & Plan (1) Bipolar 1 disorder, manic, moderate: Status: Acute Code(s): F31.12 - Bipolar disorder, current episode manic without psychotic features, moderate (2) Multiple sclerosis: Status: Acute Code(s): G35 - Multiple sclerosis (3) Total knee replacement status: Status: Acute Code(s): Z96.659 - Presence of unspecified artificial knee joint Plan 02/11: continue medications as per at discharge from rehab facility. observe for clearing of mental status. likely delirium related to recent surgery. PT consult placed. 02/12 start Haldol 5 mg p.o. t.i.d. 02/14/2024: No changes as Haldol just started 02/14: no changes. [address]- exp 7/23 7/22- no signs of delirium. Pt with grandiose delusions and psychosis. Calmer, agreed to increase haldol 5mg po BID, lower sertraline to 100mg po daily (will change to day time instead of bedtime to promote sleep) so it wont exacerbate delusions and psychosis. 02/16 continue tx. neurology consult completed, recommend MRI w/wo contrast r/u flare MS. 02/18- start low dose lithium 150mg po BID. 02/19 continue tx. 02/20: Continue current regimen and plans 02/21: Continue current regimen and plans. 02/22 labile, threatening - concern about retaliation if she returns home without being more stable, on mood stabilizer. 02/23 will start depakote for mood stabilization. 02/24 continue depakote 500mg po BID. and haldol 5mg po BID. 02/25 continue tx. 02/26 continue. will check depakote level on 03/01 and lfts and ammonia. 02/28 continue tx. 03/01 continue tx dc tomorrow Reason for continued inpatient stay Substantial Risk for: inability to function Time Spent With Patient Time: Total time managing care of this patient today ____ minutes.
--- NOTE | 2024-03-01 16:41 | HO.WOUND ---
Wound Consult: Initial 63yr old female admitted to [facility] on 02/11/24 to the [facility] - See progress notes and H&P for detailed history.? Wound consult placed for Left Knee Incision wound.? Patient agreeable to assessment and photo documentation.? The patient reports she had a Total Knee replacement at [facility] in early January 2024 and has had no complications since. She reports there was a small scab to the superiorportion of the incison that she more recntly had dana picking at. See photo below. Left Knee Incision from Total Knee Replacement Etiology: Dehisced surgical incision Measurements: 0.3cm x 0.2cm x 0.2cm Wound Bed: adherent yellow fibrinous slough Drainage / Odor: dried crusted to wound bed Edges: ? well defined Betsey wound: ? Intact - no erythema noted - No Induration, Fluctuance or Warmth noted Pain: denies Goals of Treatment: ? Moist wound healing with Durafiber AG and foam dressing change every 3 days. May shower and wash with soap and water Recommendations: 1. Left Knee Surgical Incision - Cleanse with routine showers with soap and water or NS moist gauze. Apply skin prep to periwound, cover with Durafiber AG and foam dressing. Change every 3 days. Re-consult wound care Nurse for wound deterioration or wound changes.
[2024-03-01 20:00] VITALS: BP 107/70; PULSE 89; RESP 18; TEMP 36.4; O2SAT 96
[2024-03-01] MEDS: rOPINIRole HCL 1 MG TABLET PO (20:50)
[2024-03-01] MEDS: Atorvastatin Calcium 10 MG TABLET PO (20:50)
[2024-03-01] MEDS: Melatonin 3 MG TABLET PO (20:50)
[2024-03-02 08:30] VITALS: BP 129/67; PULSE 81; RESP 15; TEMP 36.5; O2SAT 98
[2024-03-02] MEDS: Baclofen 20 MG TABLET PO (08:33)
[2024-03-02] MEDS: Magnesium Oxide 400 MG TABLET PO (08:33)
[2024-03-02] MEDS: diazePAM 2 MG TABLET PO (08:33)
[2024-03-02] MEDS: Ferrous Sulfate 324 MG TABLET.DR PO (08:33)
[2024-03-02] MEDS: Sertraline HCL 50 MG TABLET PO (08:33)
[2024-03-02] MEDS: Celecoxib 200 MG CAPSULE PO (08:33)
[2024-03-02] MEDS: Multivitamin TABLET 1 TAB PO (08:33)
[2024-03-02] MEDS: Divalproex Sodium 500 MG TABLET.DR PO (08:33)
[2024-03-02] MEDS: Omeprazole 20 MG CAPSULE.DR PO (08:33)
[2024-03-02] MEDS: HaloperidoL 5 MG TABLET PO (08:33)
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
== END 2024-03-02 11:08 | disposition home or self-care (01) | DRG 885 ==
PROVIDERS: Psychiatry & Neurology Psychiatry; Social Worker; Admitting Provider Psychiatry & Neurology Psychiatry; PCP Internal Medicine; Visit Provider Psychiatry & Neurology Psychiatry
DX: F31.12 Bipolar disorder, current episode manic without psychotic features, moderate (principal); R45.851 Suicidal ideations; B37.0 Candidal stomatitis; F05 Delirium due to known physiological condition; G31.84 Mild cognitive impairment of uncertain or unknown etiology; G35 Multiple sclerosis; K21.9 Gastro-esophageal reflux disease without esophagitis; D64.9 Anemia, unspecified; K59.09 Other constipation; Z96.652 Presence of left artificial knee joint; Z79.899 Other long term (current) drug therapy
CPT/HCPCS: 36415; 70450; 70553; 73502; 80053; 80061; 80076; 80164; 82140; 82607; 82746; 83036; 84439; 84443; 94660; 97110; 97161; 97530; A9585

== ENCOUNTER → 2024-02-11 21:33 | Outpatient (BNV) | payer MEDICARE, MEDICAID, SELFPAY | PROVIDERS: Admitting Provider Psychiatry & Neurology Psychiatry; PCP Internal Medicine; Visit Provider Psychiatry & Neurology Neurology | DX: G35 Multiple sclerosis (principal) | CPT/HCPCS: 99222 ==

== ENCOUNTER → 2024-02-11 21:33 | Outpatient (BNV) | payer MEDICARE, MEDICAID, SELFPAY | PROVIDERS: Admitting Provider Psychiatry & Neurology Psychiatry; PCP Internal Medicine; Visit Provider Psychiatry & Neurology Psychiatry | DX: F31.12 Bipolar disorder, current episode manic without psychotic features, moderate (principal); G35 Multiple sclerosis; Z96.659 Presence of unspecified artificial knee joint | CPT/HCPCS: 90792; 99231; 99232; 99238 ==

== ENCOUNTER → 2024-02-11 21:33 | Outpatient (BNV) | payer MEDICARE, MEDICAID, SELFPAY | PROVIDERS: Admitting Provider Psychiatry & Neurology Psychiatry; PCP Internal Medicine; Visit Provider Physician Assistant | DX: G35 Multiple sclerosis (principal); B37.0 Candidal stomatitis; Z96.652 Presence of left artificial knee joint | CPT/HCPCS: 99222; 99499 ==

== ENCOUNTER 2025-06-09 10:41 | Observation (INO) | payer MEDICARE, MEDICAID, SELFPAY ==
--- NOTE | ~2025-06-09 | XR_ITS ---
EXAMINATION: XR CHEST CLINICAL INFORMATION: SOB COMPARISON: None available. TECHNIQUE: Frontal view of the chest was obtained. FINDINGS: Lungs: Low lung volumes. Hazy patchy opacities in bilateral lower lungs are thought to be atelectasis. Pleura: No pleural effusion or pneumothorax. Heart/Mediastinum: Cardiomediastinal silhouette is within normal limits. Bones: No acute findings. XR/XR chest 1V IMPRESSION: Low lung volumes. Probable subsegmental atelectasis in bilateral lower lungs. Electronically signed by: Russ Baig MD 06/09/2025 11:15 AM DANNA
--- NOTE | ~2025-06-09 | CT_ITS ---
EXAMINATION: CT HEAD WITHOUT CONTRAST CLINICAL INFORMATION: altered mental status COMPARISON: February 26, 2024. TECHNIQUE: Contiguous axial imaging was performed from the skull base to vertex without intravenous administration of contrast. This CT examination was performed using dose optimization techniques as appropriate, variously including the following: *Automated exposure control *Adjustment of mA and/or kV according to patient size (this includes techniques or standardized protocols for targeted exams where dose is matched to indication/reason for exam; i.e. extremities or head) *Use of iterative reconstruction technique DLP: 625 mGy-cm FINDINGS: No acute intracranial hemorrhage, mass effect, midline shift, hydrocephalus or herniation. Bilateral multifocal patchy deep periventricular white matter hypodensities involving centrum semiovale and marcelo radiata. No acute fracture in the bony calvarium. Sellar/suprasellar region demonstrated no gross masses. Craniocervical junction is intact with normal position of the cerebellar tonsils. Prominence of the extra-axial CSF spaces cerebral sulci involving mostly the bifrontal biparietal lobes. No air-fluid levels in the paranasal sinuses. Tympanic cavities and mastoid cells are aerated. Calcified plaques in the cavernous supracavernous segments both ICAs. CT/CT head/brain wo IV con IMPRESSION: No acute intracranial hemorrhage. White matter disease. Consider small vessel occlusive disease versus demyelinating process. Bifrontal biparietal lobes atrophy, moderate. Electronically signed by: Rosendo Stevens MD 06/09/2025 11:27 AM DANNA
[2025-06-09 10:49] VITALS: BP 119/71; PULSE 105; RESP 24; O2SAT 96; BMI 37.1
--- NOTE | 2025-06-09 10:50 | ECG_ITS ---
Test Reason : CHEST PAIN Blood Pressure : */* mmHG Vent. Rate : 92 BPM Atrial Rate : 92 BPM P-R Int : 126 ms QRS Dur : 90 ms QT Int : 394 ms P-R-T Axes : 55 6 28 degrees QTcB Int : 487 ms Normal sinus rhythm Normal ECG No previous ECGs available Referred By: Parish Swanson Electronically Signed By: VLADIMIR BOYD MD
--- NOTE | 2025-06-09 10:53 | ED.AMS ---
HPI - Altered Mental Status General Chief Complaint: Altered Mental Status Stated Complaint: SOB Time Seen by Provider: 06/09/25 10:50 Source: family () Mode of arrival: wheelchair History of Present Illness HPI narrative: 65 years old patient with a history of MS and bipolar disorder was brought by the because of altered mental status, the said she has been more lethargic for the last couple of days. No reported fever no reported vomiting no reported diarrhea. MD complaint: altered mental status and decreased responsiveness Onset (ago): day(s) (2) Timing confirmed by: spouse Severity: moderate Associated symptoms: denies other symptoms Related Data Home Medications ?Medication ?Instructions ?Recorded ?Confirmed calcium carbonate (Tums) 200 mg PO QID PRN Indigestion 02/11/24 06/09/25 biotin 10 mg tablet 10 mg PO DAILY 06/09/25 06/09/25 bupropion HCl 100 mg tablet,12 hr 100 mg PO DAILY 06/09/25 06/09/25 sustained-release cyanocobalamin (vitamin B-12) 1,000 mcg PO DAILY 06/09/25 06/09/25 1,000 mcg tablet furosemide 20 mg tablet 20 mg PO DAILY 06/09/25 06/09/25 melatonin 10 mg tablet 10 mg PO BEDTIME 06/09/25 06/09/25 hssncrzb-khc-PH 0.4 mg-calcium 162 1 tab PO DAILY 06/09/25 06/09/25 mg-iron 18 uo-msnlppj-qasiua tablet rosuvastatin 5 mg tablet 5 mg PO DAILY 06/09/25 06/09/25 sertraline 50 mg tablet 150 mg PO DAILY 06/09/25 06/09/25 tirzepatide (weight loss) 2.5 2.5 mg subcut MO 06/09/25 06/09/25 mg/0.5 mL subcutaneous pen injector (Zepbound) turmeric 400 mg capsule 400 mg PO DAILY 06/09/25 06/09/25 zinc acetate 50 mg (zinc) capsule 50 mg PO DAILY 06/09/25 06/09/25 Previous Rx's ?Medication ?Instructions ?Recorded baclofen 20 mg tablet 20 mg PO BID #60 tabs 03/02/24 diazepam 2 mg tablet 2 mg PO TID #90 tabs 03/02/24 ferrous sulfate 324 mg (65 mg 324 mg PO DAILY #30 tabs 03/02/24 iron) tablet,delayed release ropinirole 1 mg tablet 1 mg PO BEDTIME #60 tabs 03/02/24 sumatriptan succinate 50 mg tablet 50 mg PO DAILY PRN Migraine 03/02/24 Headache #5 tabs Allergies Allergy/AdvReac Type Severity Reaction Status Date / Time aspirin Allergy Unknown Verified 06/09/25 10:52 citalopram (From Celexa) Allergy Unknown Verified 06/09/25 10:52 lamotrigine (From Lamictal) Allergy Unknown Verified 06/09/25 10:52 Penicillins Allergy Unknown Verified 06/09/25 10:52 Review of Systems Review of Systems: Yes Unobtainable due to mental status Cardiovascular: Cardiovascular: Reports no additional cardiovascular complaints PMFSH Past Medical History Attestation statement: The following information was validated with the patient. Medical History (Updated 06/09/25 @ 15:34 by Parish Swanson MD) Bipolar 1 disorder, manic, moderate Overactive bladder GERD (gastroesophageal reflux disease) Multiple sclerosis Social History Social History Household Members: Spouse, Family and Children Household Members Other:: grandson and dog. Housing: House Do you presently have visiting nurse or other home services: No Unable to assess alcohol history related to: Unable to respond Comment: pt on 1 to 1 for equipment observation Patient Tobacco Use Status: Never used Tobacco Second Hand Smoke Exposure: No (n/a) Use of substances other than those prescribed or required for medical reasons: Unknown Substance Use Type: Marijuana Advance Directives: No Advance Directives Information Provided: Yes service: No Sexual orientation: Straight/Heterosexual Physical Exam ED Exam Exam: Patient is lethargic but easily arousable Vital Signs: Vital Signs - 24 hr 06/09/25 10:49 06/09/25 11:25 06/09/25 12:20 Temperature 97.6 F Pulse Rate 105 H 88 89 Respiratory Rate 24 H 28 H 26 H Blood Pressure 119/71 127/72 117/51 L Pulse Oximetry 96 98 98 Oxygen Delivery Method Room Air Room Air Room Air BMI result Body Mass Index 37.1 Const Nutritional Appearance: average body habitus HENMT Other: atraumatic Head: Yes normal to inspection Ears: hearing grossly normal bilaterally General nose exam: Normal external nose present Neck Neck: Yes normal visual inspection and Yes full ROM Chest Chest palpation & inspection: normal inspection of the chest Resp Effort & Inspection: normal respiratory effort Cardio Jugular venous distension: no JVD Rate: regular rate Rhythm: regular rhythm GI Inspection: Yes normal to inspection Palpation (GI): Soft to palpation General: Yes no CVA tenderness Back/Spine/Pelvis Back: no CVA tenderness Skin General skin exam: no rashes or lesions noted and elasticity normal Neuro Other: she is lethargic but she is arousable she has is focal at this time Cranial nerves: Yes CN's II-XII intact bilaterally Course Reevaluation(s) Reevaluation #1: on re-evaluation she is doing much better more awake alert Time: 15:48 Medications Administered Generic Name Dose Route Start Last Admin Trade Name Freq PRN Reason Stop Dose Admin Lactated Ringer's 1,000 mls @ 125 mls/hr 06/09/25 13:15 06/09/25 14:05 Lr IVCONT 125 mls/hr .Q8H CORINA Administration Discontinued Medications Generic Name Dose Route Start Last Admin Trade Name Freq PRN Reason Stop Dose Admin Sodium Chloride 1,000 mls @ 999 mls/hr 06/09/25 11:00 06/09/25 12:27 Ns IVCONT 06/09/25 12:00 Infused .Q1H1M CORINA Infusion Sodium Chloride 1,000 mls @ 999 mls/hr 06/09/25 12:15 06/09/25 14:00 Ns IVCONT 06/09/25 13:15 Infused .Q1H1M CORINA Infusion Medical Decision Making Medical Decision Making [facility] [place] Narrative: patient is here with altered mental status we will check labs UA cat scan care picture consistent with a anion gap metabolic acidosis perhaps secondary to the Zepbound she has a elevated beta hydroxybutyrate, she has a ketonuria, we will hydrate the patient, she will be admitted to the [facility] also troponin is elevated but she does not have any chest pain she has a normal EKG we will follow CN troponin Differential Diagnosis Differential Diagnoses: The differential diagnosis associated with the presentation includes urinary tract infection/ hyponatremia hypernatremia electrolytes abnormality Admission/Observation Consideration of admission/observation: Escalation of care including admission/observation considered Consult Healthcare Provider Management of the patient was discussed with: Athletic Director hospitalist Lab Data [facility] [place] Lab Attestation statement: I reviewed the patient's lab results. 06/09/25 10:58 06/09/25 13:48 Labs: Lab Results 06/09/25 06/09/25 06/09/25 Range/Units 10:46 10:58 11:06 WBC 7.3 (4.8-10.8) X10*3/uL RBC 4.64 (4.20-5.50) X10*6/uL Hgb 13.5 (12.0-16.0) g/dl Hct 40.3 (37.0-47.0) % MCV 86.9 (80.0-98.0) fL MCH 29.1 (27.0-33.0) pg MCHC 33.5 (31.0-35.0) g/dl RDW 15.5 (11.0-16.0) % Plt Count 408 H (160-400) X10*3/uL MPV 9.0 L (9.4-12.3) fL Immature Gran % (Auto) 0.4 (0.0-0.4) % Neut % (Auto) 78.2 H (45-73) % Lymph % (Auto) 13.6 L (20-40) % [place] % (Auto) 7.4 (2-11) % Eos % (Auto) 0.1 (0-4) % Baso % (Auto) 0.3 (0-2) % Lymph # (Auto) 1.0 L (1.2-4.9) X10*3/uL [place] # (Auto) 0.5 (0.1-1.2) X10*3/uL Eos # (Auto) 0.0 (0.0-0.4) X10*3/uL Baso # (Auto) 0.0 (0.0-0.2) X10*3/uL Abs Immat Gran (auto) 0.03 (0.00-0.03) X10*3/uL Absolute Neuts (auto) 5.7 (2.0-8.3) x10*3/uL Absolute Nucleated RBC 0.000 (0.0-0.012) X10*3/uL Nucleated RBC % (auto) 0.0 (0.0-0.2) /100WBC VBG pH 7.53 H (7.32-7.43) VBG pCO2 23 mmHg VBG pO2 138 mmHg VBG HCO3 19 L (22-26) mmol/L VBG O2 Saturation 100.0 % VBG Base Excess -1.2 mmol/L Sodium 144 (135-145) mmol/L Potassium 3.4 (3.3-5.1) mmol/L Chloride 108 (96-108) mmol/L Carbon Dioxide 17 L (22-29) mmol/L Anion Gap 22 H (12-20) BUN 15 (9-16) mg/dL Creatinine 0.73 (0.5-1.4) mg/dL Estim Creat Clear Calc 87.3 Estimated GFR > 60 POC Glucose 108 (60-115) mg/dL Random Glucose 98 (60-115) mg/dL Estimat Average Glucose 88 mg/dL Hemoglobin A1c % 4.7 (<6.0) % Calcium 9.7 (8.4-10.2) mg/dL Total Bilirubin 0.4 (0.0-1.0) mg/dL AST 31 (5-31) U/L ALT 13 (0-31) U/L Alkaline Phosphatase 112 (39-117) U/L Total Creatine Kinase 152 H (26-140) U/L Troponin I High Sens 705.5 H* (<3.5-17.0) ng/L Total Protein 6.9 (6.5-8.0) g/dL Albumin 4.6 (3.5-5.0) g/dL Beta-Hydroxybutyrate 4.42 H (0.02-0.27) mmol/L Urine Color Urine Appearance Urine pH (5.0-9.0) Ur Specific [place] (1.005-1.025) Urine Protein (Neg-Trace) mg/dL Urine Glucose (UA) (Negative) mg/dL Urine Ketones (Negative) mg/dL Urine Blood (Negative) Urine Nitrite (Negative) Ur Leukocyte Esterase (Negative) Urine RBC (0-2) /HPF Urine WBC (0-5) /HPF Ur Squamous Epith Cells (0-2) /HPF Urine Bacteria (None Seen) Hyaline Casts (0-2) /LPF Urine Opiates Screen (Not Detect) Ur Buprenorphine Scrn (Not Detect) ng/mL Ur Oxycodone Screen (Not Detect) ng/mL Urine Methadone Screen (Not Detect) ng/mL Urine Fentanyl Screen (Not Detect) Ur Barbiturates Screen (Not Detect) Ur Phencyclidine Scrn (Not Detect) Ur Amphetamines Screen (Not Detect) U Benzodiazepines Scrn (Not Detect) Urine Cocaine Screen (Not Detect) U Marijuana (THC) Screen (Not Detect) 06/09/25 Range/Units 12:43 WBC (4.8-10.8) X10*3/uL RBC (4.20-5.50) X10*6/uL Hgb (12.0-16.0) g/dl Hct (37.0-47.0) % MCV (80.0-98.0) fL MCH (27.0-33.0) pg MCHC (31.0-35.0) g/dl RDW (11.0-16.0) % Plt Count (160-400) X10*3/uL MPV (9.4-12.3) fL Immature Gran % (Auto) (0.0-0.4) % Neut % (Auto) (45-73) % Lymph % (Auto) (20-40) % [place] % (Auto) (2-11) % Eos % (Auto) (0-4) % Baso % (Auto) (0-2) % Lymph # (Auto) (1.2-4.9) X10*3/uL [place] # (Auto) (0.1-1.2) X10*3/uL Eos # (Auto) (0.0-0.4) X10*3/uL Baso # (Auto) (0.0-0.2) X10*3/uL Abs Immat Gran (auto) (0.00-0.03) X10*3/uL Absolute Neuts (auto) (2.0-8.3) x10*3/uL Absolute Nucleated RBC (0.0-0.012) X10*3/uL Nucleated RBC % (auto) (0.0-0.2) /100WBC VBG pH (7.32-7.43) VBG pCO2 mmHg VBG pO2 mmHg VBG HCO3 (22-26) mmol/L VBG O2 Saturation % VBG Base Excess mmol/L Sodium (135-145) mmol/L Potassium (3.3-5.1) mmol/L Chloride (96-108) mmol/L Carbon Dioxide (22-29) mmol/L Anion Gap (12-20) BUN (9-16) mg/dL Creatinine (0.5-1.4) mg/dL Estim Creat Clear Calc Estimated GFR POC Glucose (60-115) mg/dL Random Glucose (60-115) mg/dL Estimat Average Glucose mg/dL Hemoglobin A1c % (<6.0) % Calcium (8.4-10.2) mg/dL Total Bilirubin (0.0-1.0) mg/dL AST (5-31) U/L ALT (0-31) U/L Alkaline Phosphatase (39-117) U/L Total Creatine Kinase (26-140) U/L Troponin I High Sens (<3.5-17.0) ng/L Total Protein (6.5-8.0) g/dL Albumin (3.5-5.0) g/dL Beta-Hydroxybutyrate (0.02-0.27) mmol/L Urine Color Yellow Urine Appearance Clear Urine pH 6.0 (5.0-9.0) Ur Specific [place] 1.020 (1.005-1.025) Urine Protein Trace (Neg-Trace) mg/dL Urine Glucose (UA) Negative (Negative) mg/dL Urine Ketones >=160 (Negative) mg/dL Urine Blood Negative (Negative) Urine Nitrite Negative (Negative) Ur Leukocyte Esterase Negative (Negative) Urine RBC 0-2 (0-2) /HPF Urine WBC 0-5 (0-5) /HPF Ur Squamous Epith Cells 0-2 (0-2) /HPF Urine Bacteria None Seen (None Seen) Hyaline Casts 0-2 (0-2) /LPF Urine Opiates Screen Not Detected (Not Detect) Ur Buprenorphine Scrn Not Detected (Not Detect) ng/mL Ur Oxycodone Screen Not Detected (Not Detect) ng/mL Urine Methadone Screen Not Detected (Not Detect) ng/mL Urine Fentanyl Screen Not Detected (Not Detect) Ur Barbiturates Screen Not Detected (Not Detect) Ur Phencyclidine Scrn Not Detected (Not Detect) Ur Amphetamines Screen Not Detected (Not Detect) U Benzodiazepines Scrn POSITIVE H (Not Detect) Urine Cocaine Screen Not Detected (Not Detect) U Marijuana (THC) Screen POSITIVE H (Not Detect) Independent Interpretation I performed an independent interpretation of an: EKG Interpretation: EKG reviewed interpreted by me as sinus rhythm no ischemic changes Independent Historian Clinical information obtained from an independent historian. History obtained from or confirmed by: Spouse at bedside External Record Review External record reviewed: Inpatient record Chronic Conditions Patient?s care impacted by: Other (bipolar disorder) Critical Care Time Critical Care Time Critical Care Time: Yes Total Critical Care Time: 60 Attestation: taking care of the patient, speaking in the has been Discharge Plan Discharge Clinical Impression: High anion gap metabolic acidosis, Acute alteration in mental status, Elevated troponin I measurement, Ketonuria Patient Disposition: Admitted As Inpatient Interventions: Admission Worksheet (ED) Last Done: 06/09/25 15:40
[2025-06-09 11:02] LABS: Glucose, Whole Blood 108 mg/dL (60-115)
[2025-06-09 11:04] LABS: MANUAL DIFF FLAG NO
[2025-06-09 11:07] LABS: Hematocrit 40.3 % (37.0-47.0); Hemoglobin 13.5 g/dl (12.0-16.0); Imm Gran Abs Auto 0.03 X10*3/uL (0.00-0.03); Imm Gran Pct Auto 0.4 % (0.0-0.4); Lymphocytes Absolute Auto 1.0 X10*3/uL (1.2-4.9); Mean Corpuscular HGB Conc 33.5 g/dl (31.0-35.0); Mean Corpuscular Hemoglobin 29.1 pg (27.0-33.0); Mean Corpuscular Volume 86.9 fL (80.0-98.0); NRBC Abs Auto 0.000 X10*3/uL (0.0-0.012); NRBC Pct Auto 0.0 /100WBC (0.0-0.2); Platelet Count 408 X10*3/uL (160-400); Red Blood Count 4.64 X10*6/uL (4.20-5.50); White Blood Count 7.3 X10*3/uL (4.8-10.8)
[2025-06-09 11:10] LABS: VBG HCO3 19 mmol/L (22-26); VBG O2 % Saturation 100.0 %
[2025-06-09 11:12] LABS: Venous Blood Gas Refer to POC result
[2025-06-09 11:25] VITALS: BP 127/72; PULSE 88; RESP 28; TEMP 36.4; O2SAT 98
--- NOTE | 2025-06-09 11:26 | PC.NURSE ---
Assumed care of patient at 1100. Patient resting quietly with eyes closed. Respirations even and unlabored. At this time, patient does not answer questions but able to follow commands for oral temperature. Patient wearing yellow socks and in hospital attire.
[2025-06-09 11:28] LABS: Alanine Aminotransferase 13 U/L (0-31); Albumin Level 4.6 g/dL (3.5-5.0); Alkaline Phosphatase 112 U/L (39-117); Anion Gap 22 (12-20); Aspartate Amino Transferase 31 U/L (5-31); Blood Urea Nitrogen 15 mg/dL (9-16); Calcium 9.7 mg/dL (8.4-10.2); Carbon Dioxide 17 mmol/L (22-29); Chloride 108 mmol/L (96-108); Creatinine Clr Calc Pharmacy 87.3; Estimated Glomerular Filt Rate > 60; Potassium 3.4 mmol/L (3.3-5.1); Sodium 144 mmol/L (135-145); Total Protein 6.9 g/dL (6.5-8.0)
[2025-06-09 11:31] LABS: Troponin-I High Sensitivity 705.5 ng/L (<3.5-17.0)
[2025-06-09 12:20] VITALS: BP 117/51; PULSE 89; RESP 26; O2SAT 98
--- NOTE | 2025-06-09 12:21 | PC.NURSE ---
asked for assistance as patient began to stir in bed, RN went to room, patient had eyes shut moving head side to side in bed. patient not following commands, noted to be tachycardic, sats 98%. patient arm held over face/head, remained in air. ED provider made aware
--- NOTE | 2025-06-09 12:49 | PC.NURSE ---
straight cath performed, 300cc output. patient informed that she was going to be straight cathed for urine, patient nodded head and said okay
[2025-06-09 13:01] LABS: Appearance Urine Clear; Glucose Urine UA Negative (Negative); PH 6.0 (5.0-9.0); Specific Gravity - Urine 1.020 (1.005-1.025)
[2025-06-09 13:09] LABS: Cannabinoid Screen Urine POSITIVE (Not Detect)
--- NOTE | 2025-06-09 13:12 | PM.IMHP ---
History of Present Illness Date of Service: 06/09/25 Attending physician on admission: Stephy Bowman Chief Complaint: SOB, not responding this is a 65-year-old female with history of bipolar disorder, multiple sclerosis who was brought to the emergency department for evaluation. History was obtained primarily from the emergency room provider as patient is not answering questions. Per triage note patient was short of breath for a few days, vomited once overnight. Per her since last night she has been staring but not answering questions or following commands. She reportedly had a recent psychiatric admission to adjust her medications. In the emergency department she was noted to be tachypneic And tachycardic on arrival but was not hypoxic. chest x-ray showed atelectasis bilaterally, brain CT showed no acute changes. Lab work was significant for bicarb of 17 and anion gap of 22. When I walked into the room, the patient was resting comfortably with her eyes closed, when I said her name she opened her eyes. She responded to me with hello and said she was doing good. Then she closed her eyes and would not answer any further questions but she did follow all my commands such as lifting all of her extremities. Review of Systems Review of Systems: unable to obtain ROS from patient as she is not answering questions FOR[facility]LY [facility], [facility] Medical History (Updated 06/10/25 @ 13:46 by Shantanu Chong MD) Bipolar 1 disorder, manic, moderate Overactive bladder GERD (gastroesophageal reflux disease) Multiple sclerosis Social History Household Members: Spouse, Family and Children Household Members Other:: grandson and dog. Housing: House Do you presently have visiting nurse or other home services: No Comment: pt on 1 to 1 for equipment observation Patient Tobacco Use Status: Never used Tobacco Second Hand Smoke Exposure: No (n/a) Substance Use Type: Marijuana service: No Sexual orientation: Straight/Heterosexual Meds Allergies Allergy/AdvReac Type Severity Reaction Status Date / Time aspirin Allergy Unknown Verified 06/09/25 10:52 citalopram (From Celexa) Allergy Unknown Verified 06/09/25 10:52 lamotrigine (From Lamictal) Allergy Unknown Verified 06/09/25 10:52 Penicillins Allergy Unknown Verified 06/09/25 10:52 Active Medications: Current Medications Sodium Chloride (Ns) 1,000 mls @ 999 mls/hr IVCONT .Q1H1M CORINA Stop: 06/09/25 13:15 Last Admin: 06/09/25 12:19 Dose: 999 mls/hr Home Medications ?Medication ?Instructions ?Recorded ?Confirmed ?Last Taken ?Type calcium carbonate (Tums) 200 mg PO QID PRN Indigestion 02/11/24 06/09/25 Unknown History biotin 10 mg tablet 10 mg PO DAILY 06/09/25 06/09/25 06/09/25 History bupropion HCl 100 mg tablet,12 hr 100 mg PO DAILY 06/09/25 06/09/25 06/09/25 History sustained-release cyanocobalamin (vitamin B-12) 1,000 mcg PO DAILY 06/09/25 06/09/25 06/09/25 History 1,000 mcg tablet furosemide 20 mg tablet 20 mg PO DAILY 06/09/25 06/09/25 06/09/25 History melatonin 10 mg tablet 10 mg PO BEDTIME 06/09/25 06/09/25 06/08/25 History ecfqapir-dzl-CR 0.4 mg-calcium 162 1 tab PO DAILY 06/09/25 06/09/25 06/09/25 History mg-iron 18 uf-npleeek-lljtcy tablet rosuvastatin 5 mg tablet 5 mg PO DAILY 06/09/25 06/09/25 06/09/25 History sertraline 50 mg tablet 150 mg PO DAILY 06/09/25 06/09/25 06/09/25 History tirzepatide (weight loss) 2.5 2.5 mg subcut MO 06/09/25 06/09/25 05/30/25 History mg/0.5 mL subcutaneous pen injector (Zepbound) turmeric 400 mg capsule 400 mg PO DAILY 06/09/25 06/09/25 06/09/25 History zinc acetate 50 mg (zinc) capsule 50 mg PO DAILY 06/09/25 06/09/25 06/09/25 History Physical Exam Vital Signs and Narrative: Vital Signs: Last Vital Signs Temp 97.6 F 06/09/25 11:25 Pulse 89 06/09/25 12:20 Resp 26 H 06/09/25 12:20 BP 117/51 L 06/09/25 12:20 Pulse Ox 98 06/09/25 12:20 O2 Del Method Room Air 06/09/25 12:20 BMI result Body Mass Index 37.1 Const: General: cooperative, comfortable, no acute distress, alert and awake Nutritional Appearance: obese Results Labs 06/09/25 10:58 06/10/25 09:33 Labs: Laboratory Results - last 24 hr 06/09/25 06/09/25 06/09/25 10:46 10:58 11:06 MCV 86.9 MCH 29.1 MCHC 33.5 RDW 15.5 Plt Count 408 H MPV 9.0 L Immature Gran % (Auto) 0.4 Neut % (Auto) 78.2 H Lymph % (Auto) 13.6 L [place] % (Auto) 7.4 Eos % (Auto) 0.1 Baso % (Auto) 0.3 Lymph # (Auto) 1.0 L [place] # (Auto) 0.5 Eos # (Auto) 0.0 Baso # (Auto) 0.0 Abs Immat Gran (auto) 0.03 Absolute Neuts (auto) 5.7 Absolute Nucleated RBC 0.000 Nucleated RBC % (auto) 0.0 VBG pH 7.53 H VBG pCO2 23 VBG pO2 138 VBG HCO3 19 L VBG O2 Saturation 100.0 VBG Base Excess -1.2 Anion Gap 22 H Estim Creat Clear Calc 87.3 Estimated GFR > 60 POC Glucose 108 Random Glucose 98 Calcium 9.7 Total Bilirubin 0.4 AST 31 ALT 13 Alkaline Phosphatase 112 Total Creatine Kinase 152 H Troponin I High Sens 705.5 H* Total Protein 6.9 Albumin 4.6 Beta-Hydroxybutyrate 4.42 H Urine Color Urine Appearance Urine pH Ur Specific [place] Urine Protein Urine Glucose (UA) Urine Ketones Urine Blood Urine Nitrite Ur Leukocyte Esterase Urine RBC Urine WBC Ur Squamous Epith Cells Urine Bacteria Hyaline Casts Urine Opiates Screen Ur Buprenorphine Scrn Ur Oxycodone Screen Urine Methadone Screen Urine Fentanyl Screen Ur Barbiturates Screen Ur Phencyclidine Scrn Ur Amphetamines Screen U Benzodiazepines Scrn Urine Cocaine Screen U Marijuana (THC) Screen 06/09/25 12:43 MCV MCH MCHC RDW Plt Count MPV Immature Gran % (Auto) Neut % (Auto) Lymph % (Auto) [place] % (Auto) Eos % (Auto) Baso % (Auto) Lymph # (Auto) [place] # (Auto) Eos # (Auto) Baso # (Auto) Abs Immat Gran (auto) Absolute Neuts (auto) Absolute Nucleated RBC Nucleated RBC % (auto) VBG pH VBG pCO2 VBG pO2 VBG HCO3 VBG O2 Saturation VBG Base Excess Anion Gap Estim Creat Clear Calc Estimated GFR POC Glucose Random Glucose Calcium Total Bilirubin AST ALT Alkaline Phosphatase Total Creatine Kinase Troponin I High Sens Total Protein Albumin Beta-Hydroxybutyrate Urine Color Yellow Urine Appearance Clear Urine pH 6.0 Ur Specific [place] 1.020 Urine Protein Trace Urine Glucose (UA) Negative Urine Ketones >=160 Urine Blood Negative Urine Nitrite Negative Ur Leukocyte Esterase Negative Urine RBC 0-2 Urine WBC 0-5 Ur Squamous Epith Cells 0-2 Urine Bacteria None Seen Hyaline Casts 0-2 Urine Opiates Screen Not Detected Ur Buprenorphine Scrn Not Detected Ur Oxycodone Screen Not Detected Urine Methadone Screen Not Detected Urine Fentanyl Screen Not Detected Ur Barbiturates Screen Not Detected Ur Phencyclidine Scrn Not Detected Ur Amphetamines Screen Not Detected U Benzodiazepines Scrn POSITIVE H Urine Cocaine Screen Not Detected U Marijuana (THC) Screen POSITIVE H Imaging Radiologist's Impressions: Impressions Chest X-Ray 06/09/25 11:02 IMPRESSION: Low lung volumes. Probable subsegmental atelectasis in bilateral lower lungs. Electronically signed by: Russ Baig MD 06/09/2025 11:15 AM EST RP Head CT 06/09/25 11:07 IMPRESSION: No acute intracranial hemorrhage. White matter disease. Consider small vessel occlusive disease versus demyelinating process. Bifrontal biparietal lobes atrophy, moderate. Electronically signed by: Rosendo Stevens MD 06/09/2025 11:27 AM EST RP Assessment and Plan (1) High anion gap metabolic acidosis: Status: Acute (2) Elevated troponin I measurement: Status: Acute Plan This is a 65 year old female with history of bipolar disorder, MS who was brought to the ED by her due to reported shortness of breath and staring High anion gap metabolic acidosis seems likely due to startvation ketoacidosis due to zepbound elevated urine ketones, elevated beta hydroxybutyrate no h/o DM, will check Hba1c IVF nephrology consultation repeat BMP now hold lasix tachypnea likely compensatory response to acidosis elevated cardiac enzymes troponin 705, no EKG changes likely due to demand from ketosis/dehydration CPK low will trend trops, if trending up will consult cardiology monitor on telemetry Bipolar disorder selective verbal interaction, possibly behavioral continue bupropion, sertraline hold sedating meds due to concern for oversedation psych consult atelectasis b/l seen on cxr incentive spirometry MS hold baclofen today, resume in am Morbid obesity BMI 37.1 CLAUS CPAP dvt ppx - lovenox Quality Stroke Does the patient have a stroke diagnosis?: No VTE Prior VTE?: No VTE Risk Level:: Medical - moderate - high VTE Device Contraindication: N/A - Device Ordered VTE Drug Contraindication: N/A - Med Ordered
[2025-06-09 13:54] LABS: Ammonia 24 umol/L (13-55)
[2025-06-09] MEDS: Lactated Ringers 1,000 ML 125 ML IVCONT ×2 (14:05→22:42)
[2025-06-09 14:09] LABS: Anion Gap 19 (12-20); Blood Urea Nitrogen 13 mg/dL (9-16); Calcium 8.9 mg/dL (8.4-10.2); Carbon Dioxide 19 mmol/L (22-29); Chloride 113 mmol/L (96-108); Creatinine Clr Calc Pharmacy 101.2; Estimated Glomerular Filt Rate > 60; Potassium 3.7 mmol/L (3.3-5.1); Sodium 147 mmol/L (135-145)
--- NOTE | 2025-06-09 14:14 | PHA.MEDREC ---
Addendum entered by Bay Shha PharmD 06/09/25 14:28: reviewed Original Note: Pharmacy Consult ? Medication Reconciliation Pharmacy has completed the medication reconciliation. Spoke to patients at bedside to confirm med list. had a list of patient medications. states patient is not taking Eliquis 2.5 mg, Divalproex 500 mg, Haloperidol 5 mg, Hydroxyzine 50 mg, Mag Oxide 400 mg, Myrbetriq 25 mg, zonfran 4 mg, Pantoprazole 40 mg, Senna 8.6, and Miralax. confirmed Zepbound 2.5 mg every Friday, and Sertraline is now 150 mg daily. Patient had all her morning medications today.
[2025-06-09 14:48] LABS: Troponin-I High Sensitivity 913.4 ng/L (<3.5-17.0)
--- NOTE | 2025-06-09 14:50 | HO.NURTONUR ---
Rayna is a 65F full code who presented to the ED with increased AMS and lethargy x2 days. hx of MS and BPD patients brought her into the hospital today. patient had a recent psych admission for med adjustment. patient rests quietly in the bed, at times will open eyes when prompted, mostly does not follow commands or have verbal response, unsure if this is behavioral. patient CT head was negative, CXR showed bilat lower lobe atelectasis. patient significant labs include bicarb 17, rahat 22, trop of 705 with a repeat of 913.4 patient has IV access in the right arm, with LR running 125ml/hr at this time. admit for high anion rahat metabolic acidosis ? starvation ketoacidosis r/t zepbound increased in urine ketones nephrology consult. psych consult, possible behavioral component.
[2025-06-09 15:34] LABS: Chlamydia pneumoniae PCR Not Detected (Not Detect.); Coronavirus 229E PCR Not Detected (Not Detect.); Coronavirus HKU1 PCR Not Detected (Not Detect.); Coronavirus NL63 PCR Not Detected (Not Detect.); Coronavirus OC43 PCR Not Detected (Not Detect.); RSV PCR Not Detected (Not Detect.); Rhino/Enterovirus PCR Not Detected (Not Detect.)
[2025-06-09] MEDS: 0.9 % Sodium Chloride Flush 3 ML SYRINGE IVFLUSH (15:46)
--- OUTSIDE RECORDS SUMMARY | 2025-06-09 15:52 | XMS_ITS | Encounter Summary ---
Author Organization [facility] Address [address] [place] [address] Care Team Providers Care Apprentice Lineman Third Step Name Role Phone Festus Multani MD Primary Care Provider [phone] Encounter Details Date Type Department Care Team ([facility] st Contact Info) Description 05/31/2025 Results Follow-Up Bariatric Surgery - [address] [place] [address] Alison Butterfield MD [address] [place] [phone] Social History Tobacco Use Types Packs/Day Years Used Date Smoking Tobacco: Former Cigarettes Smokeless Tobacco: Never Alcohol Use Standard Drinks/Week Comments Not Currently 0 (1 standard drink = 0.6 oz pur e alcohol) Housing Instability Answer Date Recorde d Are you worried that in the next 2 months you may not have stable housing? No 12/14/2024 Food Access & Nutrition Answer Date Rec orded Do you have access to a vari ety of food including fruits and vegetables? Yes 12/14/2024 Access to Healthcare Answer Date Record ed Within the last 3 months, ho w many times did you visit the emergency department for your medical care? 0 12/14/2024 Health Literacy Answer Date Recorded How often do you need to hav e someone help you when you read instructions, pamphlets, or other written material from your doctor or pharmacy? Rarely 12/14/2024 Caregiver: How often do you need to have someone help you when you read instructions, pamphlets, or other written material from your doctor or pharmacy? Not on file 12/14/2024 Financial Risk Answer Date Recorded How hard is it for you to pa y for the very basics like food, housing, medical care, and air conditioning / heating? Very hard 12/14/2024 Transportation Answer Date Recorded Has the lack of transportati on kept you from meetings, work, or from getting things needed for daily living? No Has the lack of transportati on kept you from medical appointments or from getting medications? No 12/14/2024 Social Isolation Answer Date Recorded How often do you feel lonely or isolated from th ose around you? Often 12/14/2024 Food Risk Answer Date Recorded Within the past 12 months we worried whether our food would run out before we got money to buy more. Never true 12/14/2024 Within the past 12 months th e food we bought just didn't last and we didn't have money to get more. Never true 12/14/2024 Dependent Care Answer Date Recorded Do you need help finding or paying for care for your loved ones. For example, child nutrition manager or elderly care for an older adult? No 12/14/2024 Education Answer Date Recorded Do you think completing more education or training, like finishing a GED, going to college, or learning a trade, would be helpful for you? No 12/14/2024 Employment and Income Answer Date Recor ded During the last four weeks, have you been actively looking for work? No 12/14/2024 Living Situation Answer Date Recorded What is your living situation? Unrecognized valu e 12/14/2024 Interpersonal Safety Answer Date Record ed Physical Abuse Unrecognized value 04/14/2025 Verbal Abuse Unrecognized value 04/14/2025 Comments No Sex and Gender Information Value Date Recorded Sex Assigned at Female 02/02/2025 12:43 PM EDT Legal Sex Female 5:53 AM EST Gender Identity Female 02/02/2025 12:43 PM EDT Sexual Orientation Straight 02/02/2025 12 :43 PM EDT documented as of this encounter Plan of Treatment Upcoming Encounters Date Type Department Care Team (Late st Contact Info) Description 06/17/2025 10:30 AM EST Office Visit Internal Medicine - [address] [place] [address] Festus Multani MD [address] [place] [phone] 06/27/2025 10:00 AM EST Appointment [facility] - [address] [phone] 06/27/2025 10:00 AM EST Office Visit [facility] - [address] [phone] Mikala Mauricio PA [address] [place] [phone] 07/04/2025 12:30 PM EST Office Visit Bariatric Surgery - [address] [phone] Alison Butterfield MD [address] [place] [phone] 07/07/2025 10:00 AM EST Appointment [facility] Bone Density [address] [place] [phone] 08/09/2025 1:30 PM EST Nutrition Bariatric Surgery - [address] [phone] Delores Jorgensen, FRANCISCO JAVIER [address] [phone] 09/20/2025 10:00 AM EST Nutrition Bariatric Surgery - [address] [phone] Delores Jorgensen, FRANCISCO JAVIER [address] [phone] 10/06/2025 4:30 PM EDT Office Visit Bariatric Surgery - [address] [phone] Anuel Kaplan MD [address] [place] [phone] 10/26/2025 11:30 AM EDT Office Visit Pulmonology - [place] 175 [facility] [address] [place] [phone] Melquiades Wiseman MD [address] [place] [phone] documented as of this encounter Visit Diagnoses Not on filedocumented in this encounter Additional Health Concerns Assessment Noted Time PHQ-9 Depression Total Score: 22 025 11:35 AM EDT A fall risk assessment has been complete d for the patient 12/14/2024 9:23 AM EDT documented as of this encounter Care Teams Apprentice Lineman Third Step Relationship Specialty Start Date End Date Festus Multani MD 175 [facility] 200 [place] [address] PCP - General Internal Medicine 09/20/24 documented as of this encounter
--- OUTSIDE RECORDS SUMMARY | 2025-06-09 15:52 | XMS_ITS | Encounter Summary ---
Author Organization [facility] Address [address] [place] [address] Care Team Providers Care [employer] Director Name Role Phone Festus Multani MD Primary Care Provider [phone] Encounter Details Date Type Department Care Team ([facility] st Contact Info) Description 06/09/2025 Telephone Internal Medicine - [address] [place] [address] Festus Multani MD [address] [place] [phone] Social History Tobacco Use Types Packs/Day Years [...] for your loved ones. For example, child care sitter or elderly care for an older adult? [...] PM EDT documented as of this encounter Progress Notes * Chinyere Barker RN - 06/09/2025 9:43 AM EST Call to pt Wily # [phone], spoke w/ him. Pt having symptoms for the past 2 days - the pt stares blankly when someone speaks with her, lasts for 10-15 seconds, then looks away Did have one episode vomiting last night and then again this morning Is sleeping right now, seems very tired They already called the psych and then the neurology, was advised to call PCP. Just started Wellbutrin a couple of days ago, unsure if that is related The pt does have psych history, has had episodes similar to this in the past, but the says this is a little different and worse than usual. I told him they should take her to the ER, she needs assessment. Not sure if due to her presentation they will require imaging to rule out other causes, such as stroke. He states understanding, will try and bring the pt to the ER now. Callback as needed. Already has an appt scheduled next week w/ Dr. Multani * Arlet Costa Gil - 06/09/2025 9:32 AM EST Patient has a state of- not speaking - two days of issues -withdrawn Physciatrist requested to contact Contact only - since patient unable to respond. Previous in patient [facility] For psych issues This was reported to neurology And now to PCP per request of her mental health provider documented in this encounter Plan of Treatment Upcoming Encounters Date Type Department Care Team (Late st Contact Info) Description 06/17/2025 10:30 AM EST Office Visit Internal Medicine - [place] 175 [facility] 200 [place] [phone] Festus Multani MD [address] [place] [phone] 06/27/2025 10:00 AM EST Appointment [facility] Out[facility] - [address] [place] [phone] 06/27/2025 10:00 AM EST Office Visit [facility] - [address] [place] [phone] Mikala Mauricio PA [address] [place] [phone] 07/04/2025 12:30 PM EST Office Visit Bariatric Surgery - [address] [phone] Alison Butterfield MD [address] [place] [phone] 07/07/2025 10:00 AM EST Appointment [facility] Bone Density [address] [place] [phone] 08/09/2025 1:30 PM EST Nutrition Bariatric Surgery - [address] [phone] Delores Jorgensen, RD [address] [phone] 09/20/2025 10:00 AM EST Nutrition Bariatric Surgery - [address] [phone] Delores Jorgensen, RD [address] [phone] 10/06/2025 4:30 PM EDT Office Visit Bariatric Surgery [address] [phone] Anuel Kaplan MD [address] [place] [phone] 10/26/2025 11:30 AM EDT Office Visit Pulmonology - [address] [phone] Melquiades Wiseman MD [address] [place] [phone] documented as of this encounter Visit Diagnoses Not on filedocumented in this encounter Additional Health Concerns Assessment Noted Time PHQ-9 Depression Total Score: 22 025 11:35 AM EDT A fall risk assessment has been complete d for the patient 12/14/2024 9:23 AM EDT documented as of this encounter Care Teams [employer] Director Relationship Specialty Start Date End Date Festus Multani MD [address] [place] [address] PCP - General Internal Medicine 09/20/24 documented as of this encounter
--- OUTSIDE RECORDS SUMMARY | 2025-06-09 15:52 | XMS_ITS | Clinical Summary ---
Author Organization [address] [facility] Address [address] [place] [address] Phone Care Team Providers Care Building Construction Inspector Name Role Phone Festus Multani MD Primary Care Provider [phone] Allergies Active Allergy Reactions Criticality Noted Date Comments Aripiprazole GI intolerance 12/19/2023 Aspirin Hives 04/20/2012 Escitalopram GI intolerance 12/19/2023 Lamotrigine GI intolerance 12/19/2023 Pollen Extracts Runny nose 07/07/2024 Risperidone Psychiatric 12/19/2023 on 1 mg PO QHS felt too carefree , letting things go too easily, drowsey, trippy and foggy ; on 0.5 mg PO QHS felt groggy ; see outpatient psych notes by Dr. Gann 02/28/14-05/30/14unspecfied intolerance at doses higher than 1 mg total daily Medications ocrelizumab (OCREVUS) 30 mg/mL solution injection Infuse into a venous catheter. Active sertraline 200 mg capsule Take by mouth 1 (one) time each day. Active biotin 5 mg capsule Take by mouth 1 (one) time each day. Active diazePAM (VALIUM) 2 mg tablet Take by mouth at bedtime. 03/02/20 24 Active medical marijuana TOOTH INSPECTOR med Active cyanocobalamin (VITAMIN B-12) 1,000 mcg tablet Take 1 tablet (1,000 mcg total) by mouth 1 (one) time each day. 30 each 11 10/27/19 25 026 Active Lactobacillus no.46/B.animali s (PROBIOTIC-10 ORAL) Take 375 mg by mouth 1 (one) time each day. Active iron bis-gly/FA/C/B1 2/Ca/succ (IRON 21/7 ORAL) 1 (one) time each day. Active turmeric root extract 500 mg tablet Take 500 mg by mouth 1 (one) time each day. Active ZINC CITRATE ORAL Take 50 mg by mouth 1 (one) time each day. Active magnesium oxide 500 mg magnesium tablet Take 500 mg by mouth 1 (one) time each day. Active cholecalciferol (VITAMIN D-3) 25 mcg (1,000 unit) tablet Take 1 tablet (1,000 Units total) by mouth 1 (one) time each day. Active calcium carbonate 1,500 mg (600 mg elemental calcium) tablet Take 1 tablet (1,500 mg total) by mouth 1 (one) time each day. Active multivitamin with minerals (CENTRUM) tablet Take 1 tablet by mouth 1 (one) time each day. Active DULoxetine (CYMBALTA) [address] capsule Take 1 capsule (20 mg total) by mouth at bedtime. Do not crush or chew. 90 capsule 1 12/15/19 25 Active melatonin 10 mg tablet Take 1 tablet (10 mg total) by mouth at bedtime as needed for sleep. 30 tablet 3 12/15/19 25 Active modafiniL (PROVIGIL) 200 mg tabletIndicatio ns:Multiple sclerosis 1 po in am and 1/2 midday 45 each 5 02/29/20 25 Active calcium citrate-vitamin D (CITRACAL+D) 315 mg-5 mcg (200 unit) per tablet Take 2 tablets by mouth 1 (one) time each day. Active magnesium oxide (MAG-OX) 400 mg magnesium tablet Take 1 tablet (400 mg total) by mouth 1 (one) time each day. Active zoledronic acid (Reclast) 5 mg/100 mL piggyback Infuse 100 mL (5 mg total) into a venous catheter 1 (one) time. 2 X YEARLY Active pantoprazole (PROTONIX) 40 mg EC tablet Take 1 tablet (40 mg total) by mouth 1 (one) time each day before breakfast. Do not crush, chew, or split. 30 each 2 04/06/20 25 025 Active wheat dextrin 3 gram/3.5 gram powder in packet Take 1 packet by mouth 1 (one) time each day. 30 packet 04/06/20 25 Active rosuvastatin (CRESTOR) 5 mg tablet TAKE 1 TABLET BY MOUTH EVERY DAY 90 tablet 1 04/08/20 25 Active Myrbetriq 25 mg 24 hr tablet Take 1 tablet (25 mg total) by mouth 1 (one) time each day. 02/24/20 25 Active hydrOXYzine HCL (ATARAX) 25 mg tablet Take 1 tablet (25 mg total) by mouth 2 (two) times a day. 02/24/20 25 Active saccharomyces boulardii (FLORASTOR) 250 mg capsule Take 1 capsule (250 mg total) by mouth 2 (two) times a day. Active acetaminophen (TYLENOL) 500 mg tablet Take 2 tablets (1,000 mg total) by mouth every 8 (eight) hours. 24 tablet 04/14/20 25 Active docusate sodium (COLACE) 100 mg capsule Take 1 capsule (100 mg total) by mouth 2 (two) times a day. 14 each 04/14/20 25 Active oxyCODONE (ROXICODONE) 5 mg immediate release tabletIndicatio ns:Gastrogastri c fistula Take 1 tablet (5 mg total) by mouth every 6 (six) hours if needed for severe pain. Max Daily Amount: 20 mg 5 tablet 04/14/20 25 Active rOPINIRole (REQUIP) 1 mg tablet Take 1 tablet (1 mg total) by mouth at bedtime. 30 each 2 05/10/20 25 Active baclofen (LIORESAL) 10 mg tablet Take 2 tablets (20 mg total) by mouth 3 (three) times a day. 90 each 5 05/11/20 25 Active SUMAtriptan (IMITREX) 50 mg tablet TAKE 1 TABLET (50 MG TOTAL) BY MOUTH ONCE DIRECTED IF NEEDED FOR MIGRAINE 12 tablet 2 05/16/20 25 Active Gavilax 17 gram/dose oral powder DISSOLVE 17 GRAMS IN 8 OZ OF FLUID LIQUID DRINK DAILY DIRECTED 510 g 05/17/20 25 Active tirzepatide, weight loss, (Zepbound) 2.5 mg/0.5 mL injectionIndica tions:Class 2 obesity due to excess calories with body mass index (BMI) of 39.0 to 39.9 in adult, unspecified whether serious comorbidity present Inject 0.5 mL (2.5 mg total) under the skin every 7 (seven) days. 2 mL 2 05/26/20 25 026 Active furosemide (LASIX) 20 mg tablet TAKE 1 TABLET (20 MG TOTAL) BY MOUTH ONE TIME EACH DAY 90 tablet 1 06/06/20 25 Active furosemide (LASIX) 20 mg tablet Take 1 tablet (20 mg total) by mouth 1 (one) time each day. 30 tablet 3 12/15/19 25 025 Discontinued SUMAtriptan (IMITREX) 50 mg tablet Take 1 tablet (50 mg total) by mouth 1 (one) time if needed for migraine. 9 tablet 2 03/17/20 25 025 Discontinued polyethylene glycol (PEG) 17 gram/dose oral powder DISSOLVE 17 GRAMS IN 8 OZ OF FLUID LIQUID DRINK DAILY DIRECTED 510 g 04/11/20 25 025 Discontinued tirzepatide, weight loss, (Zepbound) 2.5 mg/0.5 mL injection Inject 0.5 mL (2.5 mg total) under the skin every 7 (seven) days. 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 Refills done on Cymbalta for chronic pain and anxiety Orders: CBC and differential; Future Comprehensive metabolic panel; Future Lipid panel with reflex to direct LDL; Future Thyroid stimulating hormone; Future Lipase; Future US Abdomen Complete; Future Paralysis, pseudobulbar ([facility] V24, [facility] V2 8) 02/24/2017 Peripheral vascular insufficiency ([facility] V24) 12/30/2014 Overview (09/01/2022): Dr. Rush Harrison, S/P left EVLT/phlebectomy Actinic keratosis 07/02/2013 Overview (09/01/2022): Sees Dr. Augustine Elizabeth (derm) last seen 06/26/12 Left breast mass 06/17/2013 Overview (09/01/2022): Mammo 06/17/13, mass is stable Hypercholesteremia 07/01/2012 Overview (09/01/2022): Last lipids done 01/22/2010; T chol 242, TG 82, HDL 63, LDL 163 Thyroid nodule 07/01/2012 Overview (09/01/2022): Dr. Chinyere Huddleston, U/S yearly Migraine headache 04/20/2012 Multiple sclerosis 04/20/2012 Overview (09/01/2022): Neuro: initially saw Dr Franklin before seeing Dr Singh. Switched since Dr Franklin cutting back frrom his practice. Went for second opinion with [facility] for MS. she was seen at [facility] on 10/13/[address] Gonzalez and this recommended a full functional evaluation with ED SS assessment, urological consultation and physiatry consultation for spasticity management. Plans for considering Tysabri, YANG virus antibody titer, other labs ordered. Encounters Date Type Department Care Team Description 06/09/2025 Telephone Internal Medicine - [address] [place] [phone] Festus Multani MD 06/09/2025 Telephone [facility] [place] 175 [facility] [address] [place] [phone] Tessie Larkin MD 06/02/2025 1:15 PM EST Office Visit Bariatric Surgery - [address] [place] [phone] Alison Butterfield MD Hx of bariatric surgery (Primary Dx); Obesity, Class II, BMI 35-39.9; Obstructive sleep apnea; Multiple sclerosis 06/01/2025 11:00 AM EST Telemedicine Bariatric Surgery - [address] [phone] Class 2 severe obesity with serious comorbidity and body mass index (BMI) of 39.0 to 39.9 in adult, unspecified obesity type (Primary Dx) 05/31/2025 8:30 AM EST Lab Draw Station - [address] [place] [address] [address] [place] [phone] Low vitamin D level; Vitamin D deficiency 05/31/2025 Results Follow-Up Bariatric Surgery - [address] [phone] Alison Butterfield MD 05/26/2025 2:15 PM EDT Office Visit Bariatric Surgery - [address] [phone] Anuel Kaplan MD Class 2 obesity due to excess calories with body mass index (BMI) of 39.0 to 39.9 in adult, unspecified whether serious comorbidity present (Primary Dx) 05/12/2025 8:30 AM EDT Nutrition Bariatric Surgery - [address] [phone] Delores Jorgensen RD Class 3 severe obesity with serious comorbidity and body mass index (BMI) of 40.0 to 44.9 in adult, unspecified obesity type (CMS/HCC V24, CMS/HCC V28) (Primary Dx) 05/02/2025 Telephone Internal Medicine [address] [phone] Festus Multani MD 05/02/2025 Telephone Internal Medicine [address] [phone] Festus Multani MD 05/02/2025 Telephone Bariatric Surgery [address] [phone] Anuel Kaplan MD 04/28/2025 11:00 AM EDT Office Visit Bariatric Surgery [address] [phone] Alison Butterfield MD Low vitamin D level (Primary Dx); Vitamin D deficiency 04/28/2025 Telephone Bariatric Surgery [address] [phone] Anuel Kaplan MD 04/27/2025 11:30 AM EDT Office Visit Pulmonology [address] [phone] Melquiades Wiseman MD Class 2 severe obesity due to excess calories with serious comorbidity and body mass index (BMI) of 39.0 to 39.9 in adult (Primary Dx); Obstructive sleep apnea; Multiple sclerosis 04/19/2025 Telephone Bariatric Surgery [address] [phone] Alison Butterfield MD 04/19/2025 Telephone Internal Medicine [address] [phone] Festus Multani MD 04/18/2025 Telephone Bariatric Surgery [address] [phone] Anuel Kaplan MD 04/14/2025 12:53 PM EDT Anesthesia Event [facility] Main OR [address] [place] [phone] Rishabh Sheth MD Pierce, Trudy A, CRNA 04/14/2025 12:30 PM EDT - 04/14/2025 3:00 PM EDT Surgery [facility] OR [address] [place] [phone] Alison Butterfield MD DAVINCI EXTENSIVE LYSIS OF ADHESIONS [22188 (CPT )] 04/14/2025 10:51 AM EDT - 04/14/2025 7:47 PM EDT Hospital Encounter [facility] OR [address] [place] [phone] Alison Butterfield MD Gastrogastric fistula (Primary Dx) Discharge Disposition: Home or Self Care 04/07/2025 8:00 AM EDT Office Visit [facility] 175 [facility] [address] [place] [phone] Tessie Larkin MD Multiple sclerosis (CMS/HCC V24, CMS/HCC V28) (Primary Dx); High risk medication use; Mood change; Spasticity; Cognitive changes; Other fatigue 04/06/2025 1:30 PM EDT Consult Bariatric Surgery [address] [phone] Alison Butterfield MD Hx of gastric bypass (Primary Dx); Gastrogastric fistula; Obesity, Class II, BMI 35-39.9 04/06/2025 Telephone Bariatric Surgery [address] [phone] Anuel Kaplan MD 04/04/2025 Telephone Bariatric Surgery [address] [phone] Anuel Kaplan MD 03/31/2025 12:00 PM EDT Nutrition Bariatric Surgery [address] [phone] Delores Jorgensen FRANCISCO JAVIER Class 2 severe obesity with serious comorbidity and body mass index (BMI) of 39.0 to 39.9 in adult, unspecified obesity type ([facility] V24, CMS/HCC V28) (Primary Dx) 03/23/2025 Telephone [facility] [place] [address] [place] [phone] Shelley Bojorquez, [facility] 03/22/2025 Telephone [facility] [place] [address] [facility] [place] [phone] Shelley Bojorquez, JOY OPERATOR HELPER 03/21/2025 Telephone [facility] [place] 175 [facility] [address] [place] [phone] Aniya Bauman [place] 03/18/2025 Telephone Bariatric Surgery - [place] 175 [facility] [address] [place] [phone] Alison Butterfield MD 03/14/2025 8:24 AM EDT - 03/14/2025 11:59 PM EDT Hospital Encounter [facility] Xray [address] [place] [phone] Hx of gastric bypass; Obesity, Class III, BMI 40-49.9 (morbid obesity); Gastric fistula Discharge Disposition: Home or Self Care from Last 3 Months Immunizations Immunization Administration Dates Next Due Pfizer SARS-CoV-2 COVID-19, mRNA, LNP-S, preservative free 06/18/2021,11/18/2020,10/28/2020 Surgical History Surgery Date Site/Laterality Comments BREAST LUMPECTOMY Right PROCEDURE:BREAST LUMPECTOMY TOTAL KNEE ARTHROPLASTY Left COLONOSCOPY UPPER GASTROINTESTINAL ENDOSCOPY EYE SURGERY CATARACT EXTRACTION BARIATRIC SURGERY vertical banded gastroplasty Medical History Medical History Date Comments MS (multiple sclerosis) 06/23/2013 DX:MS (m ultiple sclerosis) ([facility]) Anxiety DX:Anxiety Attention deficit 01/01/2017 DX:Attention d eficit Contracture of muscle 08/31/2018 DX:Contrac ture of muscle Hypercholesteremia DX:Hyperchole steremia Migraine variant, intractable DX :Migraine variant, intractable Mild cognitive impairment, so stated 10/03/2017 DX:Mild cognitive impairment, so stated Vitamin D deficiency DX:Vitamin D deficiency Vitamin B12 deficiency DX:Vitami n B12 deficiency Sleep apnea Depression Arthritis Multiple sclerosis 1982 GERD (gastroesophageal reflux disease) Hiatal hernia Cholelithiasis Fractures Joint pain Adverse effect of anesthesia PONV (postoperative nausea and vomiting) DVT (deep venous thrombosis) ([facility] V24, [facility] V28) LEFT KNEE Dysphagia Disease of thyroid gland Thyroid nodule Motion sickness Hypotension Family History Medical History Relation Name Comments Heart disease Father COPD Mother Multiple sclerosis Neg Hx Relation Name Status Comments Father Mother Social History Tobacco Use Types Packs/Day Years Used Date Smoking Tobacco: Former Cigarettes Smokeless Tobacco: Never Tobacco Cessation:Counseling Given: Not Answered Alcohol Use Standard Drinks/Week Comments Not Currently [...] ed Within the last 3 months, ho lori many times did you visit the emergency [...] for your loved ones. For example, child welfare manager or elderly care for an older [...] Orientation Straight 02/02/2025 12 :43 PM EDT Obstetrics History Last Filed Vital Signs Vital Sign Reading Time Taken Comments Blood Pressure 124/70 06/02/2025 1:14 PM EST Pulse 84 06/02/2025 1:14 PM EST Temperature 36.7 C (98 F) 06/02/2025 1:14 PM EST Respiratory Rate 20 04/27/2025 11:37 AM EDT Oxygen Saturation 95% 04/27/2025 11:37 AM EDT Inhaled Oxygen Concentration - - Weight 102 kg (224 lb) 06/02/2025 1:14 PM EST Height 162.6 cm (5' 4 ) 06/02/2025 1:14 PM EST Body Mass Index 38.45 06/02/2025 1:14 PM EST Plan of Treatment Upcoming Encounters Date Type Department Care Team (Late st Contact Info) Description 06/17/2025 10:30 AM EST Office Visit Internal Medicine - [address] [place] [address] Festus Multani MD [address] [place] [phone] 06/27/2025 10:00 AM EST Appointment [facility] [place] [address] [phone] 06/27/2025 10:00 AM EST Office Visit [facility] - [address] [phone] Mikala Mauricio, PA [address] [place] [phone] 07/04/2025 12:30 PM EST Office Visit Bariatric Surgery - [address] [phone] Alison Butterfield MD [address] [place] [phone] 07/07/2025 10:00 AM EST Appointment [facility] Bone Density [address] [place] [phone] 08/09/2025 1:30 PM EST Nutrition Bariatric Surgery - [address] [phone] Delores Jorgensen, RD [address] [phone] 09/20/2025 10:00 AM EST Nutrition Bariatric Surgery - [address] [phone] Delores Jorgensen, RD [address] [phone] 10/06/2025 4:30 PM EDT Office Visit Bariatric Surgery - [address] [phone] Anuel Kaplan MD [address] [place] [phone] 10/26/2025 11:30 AM EDT Office Visit Pulmonology - [address] [place] [phone] Melquiades Wiseman MD [address] [place] [phone] Health Maintenance Due Date Last Done Comments Breast Cancer Screening 1960 Cervical Cancer Screening: Pap Smear 1981 Hepatitis C Screening 07/04/2022 Osteoporosis Screening (Bone Density Screening) 07/04/2022 COVID-19 Vaccine (9 - Pfizer risk 2024- season) 2025 04/25/2025, 12/09/2024, 04/21/2024, Additional history exists Medicare Annual Wellness Visit 12/14/2025 12/14/2024 Social Influencers of Health Screening 12/14/2025 12/14/2024 Falls Risk Assessment 04/14/2026 04/14/2025 , 12/14/2024, 12/14/2024 Cholesterol Screening (Lipid Panel) 01/31/2030 01/31/2025, 12/16/2024 Colorectal Cancer Screening: Colonoscopy 02/02/2030 02/02/2025 DTaP,Tdap,and Td Vaccines (4 - Td or Tdap) 04/21/2034 04/21/2024, 03/05/2021, 04/20/2012 Zoster Vaccines Completed 09/13/2022, 05/28, 05/10/2022 Pneumococcal Vaccine: 50+ Years Completed 05/29/2023, 05/22/2016 RSV Immunization Adult Patients Completed 05/29/2023 Depression Screening Completed 12/14/2024 Influenza Vaccine Completed 04/25/2025, , 04/18/2023, Additional history exists HIB Vaccines Aged Out No longer eligi ble based on patient's age to complete this topic HPV Vaccines Aged Out No longer eligi ble based on patient's age to complete this topic Hepatitis A Vaccines Aged Out No long er eligible based on patient's age to complete this topic Hepatitis B Vaccines Aged Out No long er eligible based on patient's age to complete this topic IPV Vaccines Aged Out No longer eligi ble based on patient's age to complete this topic MMR Vaccines Aged Out No longer eligi ble based on patient's age to complete this topic Meningococcal ACWY Vaccine Aged Out N o longer eligible based on patient's age to complete this topic Meningococcal B Vaccine Aged Out No l onger eligible based on patient's age to complete this topic RSV Immunization Patients Under 20 months Aged Out No longer eligible based on patient's age to complete this topic Varicella Vaccines Aged Out No longer eligible based on patient's age to complete this topic Procedures Procedure Name Priority Date/Time Associated Diagnosis Comments VITAMIN D 25 HYDROXY Routine 05/31/2025 8:28 AM EST Low vitamin D level Vitamin D deficiency TH AN ENDOTRACHEAL(NO CHARGE) Routine 04/14/2025 1:37 PM EDT [place] LAPAROSCOPY SURGICAL ENTEROLYSIS FREEING OF INTESTINAL ADHESION 04/14/2025 12:53 PM EDT Gastrogastric fistula CBC WITH AUTO DIFFERENTIAL Routine 03/30/2025 9:37 AM EDT PROTHROMBIN TIME WITH INR Routine 03/30/2025 9:37 AM EDT COMPREHENSIVE METABOLIC PANEL Routine 03/30/2025 9:37 AM EDT CBC AND DIFFERENTIAL Routine 03/30/2025 9:37 AM EDT XR UGI W SINGLE CONTRAST STAT 03/14/2025 9:42 AM EDT Hx of gastric bypass Obesity, Class III, BMI 40-49.9 (morbid obesity) Gastric fistula EXTERNAL COLONOSCOPY REPORT Routine 02/02/2025 10:30 AM EDT LIPID PANEL WITH REFLEX TO DIRECT LDL Routine 01/31/2025 1:18 PM EDT Multiple sclerosis (CMS/HCC V24, CMS/HCC V28) Hypercholesteremia Anxiety and depression Osteoporosis, unspecified osteoporosis type, unspecified pathological fracture presence from Last 3 Months or Most Recently Relevant to Health Maintenance Results * Vitamin D 25 hydroxy (05/31/2025 8:28 AM EST) Vit D, 25-Hydroxy 51.2 30.0 - 80.0 ng/mL LAB CHEMISTRY METHOD 05/31/2025 10:27 AM EST [facility] Blood Venous blood specimen / Unknown Venipuncture / Unknown 05/31/2025 8:28 AM EST 05/31/2025 8:28 AM EST Alison Butterfield MD LAB BLOOD ORDERABLES Fi nal Result [facility] [address] [place] [address], [place] [phone] * TH AN ENDOTRACHEAL(NO CHARGE) (04/14/2025 1:37 PM EDT) Narrative Julia Villegas CRNA - 04/14/2025 1:37 PM EDT Julia Villegas CRNA 04/14/2025 1:38 PM General Information and Staff Patient location during procedure: OR Performed by: Julia Villegas CRNA Authorized by: Josie Montalvo MD Intubation Additional Comments Gauze bite blk Airway not difficult Urgency: elective Final Airway Details Successful airway: ETT Cuffed: yes Successful intubation technique: direct laryngoscopy Blade: Francis Blade size: #3 ETT size (mm): 7.0 Cormack-Lehane Classification: grade I - full view of glottis Placement verified by: chest auscultation Measured from: lips ETT to lips (cm): 20 Number of attempts at approach: 1Final airway type: endotracheal airway Indications and Patient Condition Indications for airway management: anesthesia Preoxygenated: yes Soft Tissue Damage: No Dentition Unchanged: Yes Patient position: neutral Mask difficulty assessment: 1 - vent by mask Josie Montalvo MD ANESTHESIA ORDERABLES Final Resu lt * (ABNORMAL) CBC auto differential (03/30/2025 9:37 AM EDT) WBC 5.7 4.8 - 10.8 K/mcL LAB HEMETOLOGY METHOD 03/30/2025 11:13 AM [facility] RBC 4.90(H) 3.80 - 4.80 M/mcL LAB HEMETOLOGY METHOD 03/30/2025 11:13 AM [facility] Hemoglobin 13.5 11.5 - 16.0 g/dL LAB HEMETOLOGY METHOD 03/30/2025 11:13 AM [facility] Hematocrit 42.2 35.0 - 47.0 % LAB HEMETOLOGY METHOD 03/30/2025 11:13 AM [facility] MCV 85.9 79.0 - 98.0 FL LAB HEMETOLOGY METHOD 03/30/2025 11:13 AM [facility] MCH 27.5 27.0 - 32.0 pcg LAB HEMETOLOGY METHOD 03/30/2025 11:13 AM [facility] MCHC 32.0 32.0 - 37.0 g/dL LAB HEMETOLOGY METHOD 03/30/2025 11:13 AM [facility] RDW 14.5 11.0 - 15.0 % LAB HEMETOLOGY METHOD 03/30/2025 11:13 AM [facility] Platelets 368 130 - 400 K/mcL LAB HEMETOLOGY METHOD 03/30/2025 11:13 AM [facility] MPV 9.2 7.0 - 11.0 FL LAB HEMETOLOGY METHOD 03/30/2025 11:13 AM [facility] NRBC 0.0 <1.0 % LAB HEMETOLOGY METHOD 03/30/2025 11:13 AM [facility] NRBC Absolute 0.00 <0.10 K/mcL LAB HEMETOLOGY METHOD 03/30/2025 11:13 AM [facility] Neutrophils Relative 64.7 % LAB HEMETOLOGY METHOD 03/30/2025 11:13 AM [facility] Lymphocytes Relative 15.0 % LAB HEMETOLOGY METHOD 03/30/2025 11:13 AM [facility] Monocytes Relative 13.6 % LAB HEMETOLOGY METHOD 03/30/2025 11:13 AM [facility] Eosinophils Relative 5.3 % LAB HEMETOLOGY METHOD 03/30/2025 11:13 AM [facility] Basophils Relative 0.7 % LAB HEMETOLOGY METHOD 03/30/2025 11:13 AM [facility] Immature Granulocytes Relative 0.7 % LAB HEMETOLOGY METHOD 03/30/2025 11:13 AM [facility] Neutrophils Absolute 3.65 1.50 - 7.00 K/mcL LAB HEMETOLOGY METHOD 03/30/2025 11:13 AM [facility] Lymphocytes Absolute 0.85(L) 1.00 - 5.00 K/mcL LAB HEMETOLOGY METHOD 03/30/2025 11:13 AM [facility] Monocytes Absolute 0.77 0.20 - 1.00 K/mcL LAB HEMETOLOGY METHOD 03/30/2025 11:13 AM [facility] Eosinophils Absolute 0.30 0.00 - 0.50 K/mcL LAB HEMETOLOGY METHOD 03/30/2025 11:13 AM [facility] Basophils Absolute 0.04 0.00 - 0.20 K/mcL LAB HEMETOLOGY METHOD 03/30/2025 11:13 AM [facility] Immature Granulocytes Absolute 0.04(H) 0.00 - 0.03 K/mcL LAB HEMETOLOGY METHOD 03/30/2025 11:13 AM [facility] Blood Venous blood specimen / Unknown Venipuncture / Unknown 03/30/2025 9:37 AM EDT 03/30/2025 11:01 AM EDT us Alison Butterfield MD LAB BLOOD ORDERABLES Fi nal Result Performing Organization Address City/[facility] [address]/ZIP Co de Phone Number [facility] [address] [place] [address], [place] [phone] * Prothrombin time with INR (03/30/2025 9:37 AM EDT) [facility] Protime 12.4 10.6 - 13.9 sec LAB COAGULATION METHOD 03/30/2025 11:19 AM EDT [facility] INR 1.0 LAB COAGULATION METHOD 03/30/2025 11:19 AM EDT [facility] Blood Venous blood specimen / Unknown Venipuncture / Unknown 03/30/2025 9:37 AM EDT 03/30/2025 11:01 AM EDT us Alison Butterfield MD LAB BLOOD ORDERABLES Fi nal Result Performing Organization Address City/[facility] [address]/ZIP Co de Phone Number [facility] [address] [place] [address], [place] [phone] * (ABNORMAL) Comprehensive metabolic panel (03/30/2025 9:37 AM EDT) [facility] Sodium 140 133 - 145 mmol/L LAB CHEMISTRY METHOD 03/30/2025 12:42 PM EDT [facility] Potassium 3.3(L) 3.5 - 5.5 mmol/L LAB CHEMISTRY METHOD 03/30/2025 12:[facility] Chloride 102 96 - 110 mmol/L LAB CHEMISTRY METHOD 03/30/2025 12:42 PM T [facility] CO2 30 21 - 32 mmol/L LAB CHEMISTRY METHOD 03/30/2025 12:42 PM EDT [facility] Anion Gap 8 3 - 11 LAB CHEMISTRY METHOD 03/30/2025 12:42 PM [facility] Glucose 90 70 - 100 mg/dL LAB CHEMISTRY METHOD 03/30/2025 12:42 PM [facility] BUN 10 5 - 25 mg/dL LAB CHEMISTRY METHOD 03/30/2025 12:42 PM [facility] Creatinine 0.82 0.50 - 1.10 mg/dL LAB CHEMISTRY METHOD 03/30/2025 12:42 PM [facility] eGFR 80 >=60 mL/min/1. 73m2 LAB CHEMISTRY METHOD 03/30/2025 12:42 PM [facility] Comment:Calculation based on the Chronic Kidney Disease Epidemiology Collaboration (CKD-EPI) equation refit without adjustment for race. BUN/Creatinine Ratio 12.2 LAB CHEMISTRY METHOD 03/30/2025 12:42 PM [facility] Calcium 9.6 8.5 - 10.5 mg/dL LAB CHEMISTRY METHOD 03/30/2025 12:42 PM [facility] AST (SGOT) 14 10 - 42 unit/L LAB CHEMISTRY METHOD 03/30/2025 12:42 PM [facility] ALT (SGPT) 17 10 - 60 unit/L LAB CHEMISTRY METHOD 03/30/2025 12:42 PM [facility] Alkaline Phosphatase 98 42 - 121 unit/L LAB CHEMISTRY METHOD 03/30/2025 12:42 PM [facility] Total Protein 5.9(L) 6.0 - 8.0 g/dL LAB CHEMISTRY METHOD 03/30/2025 12:42 PM [facility] Albumin 3.5 3.2 - 5.0 g/dL LAB CHEMISTRY METHOD 03/30/2025 12:42 PM [facility] Total Bilirubin 0.3 0.0 - 1.4 mg/dL LAB CHEMISTRY METHOD 03/30/2025 12:42 PM [facility] Blood Venous blood specimen / Unknown Venipuncture / Unknown 03/30/2025 9:37 AM EDT 03/30/2025 11:01 AM EDT Alison Butterfield MD LAB BLOOD ORDERABLES Fi nal Result [facility] [address] [place] [address], * XR UGI w Single Contrast (03/14/2025 9:42 AM EDT) Anatomical Region Laterality Modality Body Radiographic Scarlett ging 03/14/2025 3:21 PM EDT Impressions 03/17/2025 3:21 PM EDT 1.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 2.Question second fistulous communication vs developing sinus tract between gastric pouch and pylorus of remnant stomach. 3.No evidence of contrast leak or extravasation into surrounding peritoneum. -------- FINAL REPORT -------- Dictated By: Sandra Suarez Dictated Date: 03/14/2025 15:21 ET Assigned Physician: Santiago Arzola Reviewed and Electronically Signed By: Santiago Arzola Signed Date: 03/17/2025 15:21 ET Workstation ID: [id number] Transcribed By: Self Edit Transcribed Date: 03/14/2025 15:50 ET Resident/PA/CARBONATION EQUIPMENT TENDER: Sandra Suarez Narrative 03/17/2025 3:21 PM EDT FINDINGS: Double contrast UGI performed. COMPARISON: No significant prior imaging at this facility. HISTORY: Patient is a 64-year-old female with history of gastric bypass in 1993. Weight gain. Question gastric gastric fistula. LOGISTICS SUPPLY OFFICER radiographs: Umbrella Tipper Machine AP radiograph of the abdomen obtained. Bowel gas pattern is nonobstructive. Visualized lung bases appear clear. Surgical suture chain noted to the left upper quadrant, consistent with history of no gastric bypass. There is a 9 mm, rounded, radiopaque opacity overlying the left superior pubic rami, bony island versus phlebolith versus calcified granuloma. There is moderate levoscoliosis noted of the lumbar spine. FINDINGS: Thin barium was administered orally under fluoroscopic control. The thoracic esophagus demonstrates normal distensibility and mucosal pattern. There is no evidence of obstruction or hiatal hernia. The stomach is well distended with contrast. There is a large fistulous communication between the fundus of the remnant stomach and the gastric pouch with majority of contrast filling the remnant stomach. There is additionally an area of trailing contrast distal to the gastric pouch toward the pylorus of the remnant stomach which may represent a second fistulous communication vs developing sinus tract. There is no evidence of contrast leak or extravasation into the peritoneum. Air kerma: 89.63 mGy Procedure Note Santiago Arzola MD - 03/17/2025 FINDINGS: Double contrast UGI performed. COMPARISON: No significant prior imaging at this facility. HISTORY: Patient is a 64-year-old female with history of gastric bypass [id number]. Weight gain. Question gastric gastric fistula. LOGISTICS SUPPLY OFFICER radiographs: Umbrella Tipper Machine AP radiograph of the abdomen obtained. Bowel gaspattern is nonobstructive. Visualized lung bases appear clear. Surgicalsuture chain noted to the left upper quadrant, consistent with history ofno gastric bypass. There is a 9 mm, rounded, radiopaque opacity overlyingthe left superior pubic rami, bony island versus phlebolith versuscalcified granuloma. There is moderate levoscoliosis noted of the lumbarspine. FINDINGS: Thin barium was administered orally under fluoroscopic control. The thoracic esophagus demonstrates normal distensibility and mucosalpattern. There is no evidence of obstruction or hiatal hernia. The stomach is well distended with contrast. There is a large fistulouscommunication between the fundus of the remnant stomach and the gastricpouch with majority of contrast filling the remnant stomach. There isadditionally an area of trailing contrast distal to the gastric pouchtoward the pylorus of the remnant stomach which may represent a secondfistulous communication vs developing sinus tract. There is no evidence ofcontrast leak or extravasation into the peritoneum. Air kerma: 89.63 mGy IMPRESSION: 1.Fistulous communication between the gastric pouch and fundus of theremnant stomach. 2.Question second fistulous communication vs developing sinus tractbetween gastric pouch and pylorus of remnant stomach. 3.No evidence of contrast leak or extravasation into surroundingperitoneum. -------- FINAL REPORT -------- Dictated By: Sandra Suarez Dictated Date: 03/14/2025 15:21 ET Assigned Physician: Santiago Arzola Reviewed and Electronically Signed By: Santiago Arzola Signed Date: 03/17/2025 15:21 ET Workstation ID: [id number] Transcribed By: Self Edit Transcribed Date: 03/14/2025 15:50 ET Resident/PA/CARBONATION EQUIPMENT TENDER: Sandra Suarez Alison Butterfield MD IMG FLUOROSCOPY PROCEDU RES Final Result * External Colonoscopy Report (02/02/2025 10:30 AM EDT) Anatomical Region Laterality Modality Endoscopy Historical Provider GI~PROCEDURE ORDERABLES F inal Result * (ABNORMAL) Lipid panel with reflex to direct LDL (01/31/2025 1:18 PM EDT) Cholesterol 201(H) 0 - 200 mg/dL LAB CHEMISTRY METHOD 01/31/2025 3:59 PM EDT [facility] Triglycerides 158(H) 0 - 150 mg/dL LAB CHEMISTRY METHOD 01/31/2025 3:59 PM EDT [facility] HDL 61 >=40 mg/dL LAB CHEMISTRY METHOD 01/31/2025 3:59 PM EDT [facility] LDL Calculated 108(H) 0 - 100 mg/dL LAB CHEMISTRY METHOD 01/31/2025 3:59 PM EDT [facility] VLDL Cholesterol Todd 31.6 mg/dL LAB CHEMISTRY METHOD 01/31/2025 3:59 PM EDT [facility] Non HDL Chol. (LDL+VLDL) 140 <145 mg/dL LAB CHEMISTRY METHOD 01/31/2025 3:59 PM EDT [facility] Chol/HDL Ratio 3.3 0.0 - 4.4 LAB CHEMISTRY METHOD 01/31/2025 3:59 PM T [facility] Blood Venous blood specimen / Unknown Venipuncture / Unknown 01/31/2025 1:18 PM EDT 01/31/2025 1:18 PM EDT us Festus Multani MD LAB BLOOD ORDERABLES Final Resul t [facility] [address] [place] [address], from Last 3 Months or Most Recently Relevant to Health Maintenance Insurance MEDICARE MEDICAID - [place] Advance Directives Documents on File Type Date Recorded Patient Medical Billing Manager Expl anation Power of Remote Sensing Specialist 04/14/2025 12:21 PM [facility] [employer] PROXY * Full Code - Default (Latest Code Status on File) Date Activated Date Inactivated Comments 04/14/2025 11:01 AM 04/14/2025 9:52 PM This is ord er is used when code status has not been discussed with the patient, or code status is otherwise unknown/unconfirmed To update the patient's code status, place a code status order. Do not modify or discontinue any currently active code status orders. Care Teams Building Construction Inspector Relationship Specialty Start Date End Date Festus Multani MD [address] [place] [address] PCP - General Internal Medicine 09/20/24
--- OUTSIDE RECORDS SUMMARY | 2025-06-09 15:52 | XMS_ITS | Patient Health Record ---
Author Organization [facility] Address [address] [place] [address] Support Name Relationship Address Phone OANH GONZALEZ Guarantor Unknown [phone] Reason For Referral No Information Medications Medication SIG (Take, Route, Fr equency, Duration) Notes Start Date End Date Status Wellbutrin XL 300MG 1 ORAL daily; Duration: -3 Moncho-MJ Active Detrol 2MG 1 ORAL twice daily; Duration: -3 Moncho-MJ 05/20/2011 Active LaMICtal 200MG 1 ORAL daily; Duration: -3 Moncho-MJ 05/20/20 11 Active Provigil 200MG 1 ORAL daily; Duration: -3 Moncho-MJ 05/20/20 11 Active Amerge 2.5 MG ORAL; Duration: -3 Moncho-MJ 05/20/2011 Active Problems Problem Type SNOMED Code ICD Code Onset Dates Problem Status W/U Status Risk Notes Problem Hyperlipidemia (84437403) Other and unspecified hyperlipidemia (272.4) Active confirmed Major Problem Obesity (260917809) Obesity, unspecified (278.00) Active confirmed Major Problem Anxiety state (582914923) Anxiety state, unspecified (300.00) Active confirmed Major Problem Migraine (disorder) (41702704) Migraine, unspecified without mention of intractable migraine without mention of status migrainosus (346.90) Active confirmed Major Problem General examination of patient (867689439) Routine general medical examination at health care facility (V70.0) Active confirmed Diag Plan Of Treatment No Information Insurance Providers Payer Name Payer Address Payer Phone Subscriber Number Group Number Insured Name Patient Relationship to Insured Coverage Start Date Coverage End Date [facility] [address] YULIYA LOZA [id number] YRN ADEN Spouse - patient is the spouse of the insured
--- OUTSIDE RECORDS SUMMARY | 2025-06-09 15:52 | XMS_ITS | Encounter Summary ---
Author Organization [facility] Address [address] [place] [address] Care Team Providers Care It Coordinator Name Role Phone Festus Multani MD Primary Care Provider [phone] Encounter Details Date Type Department Care Team (Late st Contact Info) Description 01/27/2025 Lab Requisition [facility] [address] [facility] [place] [phone] Piper Rodas, SAND BUFFER [address] [facility] [address] [place] [address] Frequency of micturition Social History Tobacco Use Types Packs/Day Years Used Date Smoking Tobacco: Never Smokeless Tobacco: Never Alcohol Use Standard Drinks/Week Comments Yes 0 (1 standard drink = 0.6 oz [...] for your loved ones. For example, child protective services specialist or elderly care for an older adult? [...] your living situation? Unrecognized valu e 12/14/2024 Comments Unknown Sex and Gender Information Value Date Recorded [...] AM EST Office Visit Internal Medicine - [address] [place] [address] Festus Multani MD [address] [place] [address] 06/27/2025 10:00 AM EST Appointment [facility] - [place] [address] [phone] 06/27/2025 10:00 AM EST Office Visit [facility] [place] [address] [phone] Mikala Mauricio PA [address] [place] [phone] 07/04/2025 12:30 PM EST Office Visit Bariatric Surgery - [address] [phone] Alison Butterfield MD [address] [place] [phone] 07/07/2025 10:00 AM EST Appointment [facility] Density [address] [place] [phone] 08/09/2025 1:30 PM EST Nutrition Bariatric Surgery - [address] [phone] Delores Jorgensen, RD [address] [phone] 09/20/2025 10:00 AM EST Nutrition Bariatric Surgery - [place] [address] [phone] Delores Jorgensen, RD [address] [phone] 10/06/2025 4:30 PM EDT Office Visit Bariatric Surgery - [address] [phone] Anuel Kaplan MD [address] [place] [phone] 10/26/2025 11:30 AM EDT Office Visit Pulmonology - [place] [address] [place] [address] Melquiades Wiseman MD [address] [place] [phone] documented as of this encounter Procedures Procedure Name Priority Date/Time Associated Diagnosis Comments BACTERIAL IDENTIFICATION AND SUSCEPTIBILITY, AEROBIC Routine 01/26/2025 12:00 AM EDT Frequency of micturition documented in this encounter Results * (ABNORMAL) Bacterial identification and susceptibility, aerobic (01/26/2025 12:00 AM EDT) Culture, Bacterial ID and Sensitivity Light Growth Escherichia coli(A) OSWALDO 01/28/2025 9:32 AM EDT [facility] Comment: This is an edited result. Previous organism was Gram negative bacilli on 01/27/2025 at 1106 EDT. Other Urine specimen from urethra / Unknown 01/26/2025 01/27/2025 10:16 AM EDT Narrative [facility] - 01/28/2025 9:32 AM EDT Additional colony types present in insignificant amounts. Organism Antibiotic Method Susceptibility Escherichia coli Amoxicillin/Clavulanate OSWALDO <=2 ug/ml: Susceptible Escherichia coli Ampicillin/Sulbactam OSWALDO <=2 ug/ml: Susceptible Escherichia coli Piperacillin/Tazobactam OSWALDO <=4 ug/ml: Susceptible Escherichia coli Cefazolin (Urine) OSWALDO <=1 ug/ml: Susceptible Escherichia coli Cefoxitin OSWALDO <=4 ug/ml: Susceptible Escherichia coli Ceftazidime OSWALDO <=0.5 ug/ml: Susceptible Escherichia coli Ceftriaxone OSWALDO <=0.25 ug/ml: Susceptible Escherichia coli Cefepime OSWALDO <=0.12 ug/ml: Susceptible Escherichia coli Meropenem OSWALDO <=0.25 ug/ml: Susceptible Escherichia coli Amikacin OSWALDO 2 ug/ml: Susceptible Escherichia coli Gentamicin OSWALDO <=1 ug/ml: Susceptible Escherichia coli Ciprofloxacin OSWALDO <=0.06 ug/ml: Susceptible Escherichia coli Levofloxacin OSWALDO <=0.12 ug/ml: Susceptible Escherichia coli Nitrofurantoin OSWALDO <=16 ug/ml: Susceptible Escherichia coli Trimethoprim/Sulfamethoxazole OSWALDO <=20 ug/ml: Susceptible us Piper Rodas SAND BUFFER LAB MICROBIOLOGY - GENERA L ORDERABLES Final Result [facility] [address] [place] [address], documented in this encounter Visit Diagnoses Diagnosis Frequency of micturition Urinary frequency documented in this encounter Additional Health Concerns Infection Onset Date Last Indicated Resolved Time Measles Rule-Out 01/31/2025 01/31/2025 02/24/2025 7:04 PM EDT Assessment Noted Time PHQ-9 Depression Total Score: 22 025 11:35 AM EDT A fall risk assessment has been complete d for the patient 12/14/2024 9:23 AM EDT documented as of this encounter Care Teams It Coordinator Relationship Specialty Start Date End Date Festus Multani MD [address] [address] PCP - General Internal Medicine 09/20/24 documented as of this encounter
--- OUTSIDE RECORDS SUMMARY | 2025-06-09 15:52 | XMS_ITS | Encounter Summary ---
Author Organization [facility] Address [address] [place] [address] Care Team Providers Care Development Writer Name Role Phone Festus Multani MD Primary Care Provider [phone] Reason for Visit * Reason Onset Date Comments SYMPTOM 06/09/2025 Encounter Details Date Type Department Care Team ([facility] st Contact Info) Description 06/09/[address] [facility] [address] [facility] [address] [place] [address] Tessie Larkin MD 175 [place] [address] Social History Tobacco Use Types Packs/Day Years [...] care for your loved ones. For example, children's institution attendant or elderly care for an older adult? [...] as of this encounter Progress Notes * Tessie Larkin MD - 06/09/2025 9:46 AM EST This is a complete psychiatry problem I do not see the MS or headaches can cause the symptoms, I would definitely advise to go to the ER and communicate again with the psychiatry team she had multiple hospital presentation with mental health problems there is nothing we can help or do in that situation from the clinic perspective * Ami Schroeder - 06/09/2025 9:28 AM EST Patients daughter called this morning stating her mom is experiencing a psychiatric crisis. Daughter describes the patient in a catatonic state and speaking only in the past. The daughter says the patient is unable to complete the movements that her mind wants her to do. The family reached out to ps ychiatry who told them to reach out to neurology and PCP. The daughter called us and the was calling PCP. I did inform the daughter we may not be able to help as we see the patient for MS andmigraines. Are we able to put in a gen neuro referral for the patient to see Dr Belcher? Or if theproviders have any other suggestions for the family they would greatly appreciate it. They are trying to avoid an ER trip but if needed they will do it. documented in this encounter Plan of Treatment Upcoming Encounters Date Type Department Care Team (Late st Contact Info) Description 06/17/2025 10:30 AM EST Office Visit Internal Medicine - [place] 175 [facility] [address] [place] [phone] Festus Multani MD [address] [place] [phone] 06/27/2025 10:00 AM EST Appointment [facility] - [place] 175 [facility] [address] [place] [phone] 06/27/2025 10:00 AM EST Office Visit [facility] [place] 175 [facility] [address] [place] [phone] Mikala Mauricio PA [address] [place] [phone] 07/04/2025 12:30 PM EST Office Visit Bariatric Surgery - [place] [address] [phone] Alison Butterfield MD [address] [place] [address] 07/07/2025 10:00 AM EST Appointment [facility] Bone Density [address] [place] [phone] 08/09/2025 1:30 PM EST Nutrition Bariatric Surgery - [place] [address] [phone] Delores Jorgensen, RD [address] [phone] 09/20/2025 10:00 AM EST Nutrition Bariatric Surgery - [address] [phone] DelaneyOra Mengah, RD [address] [phone] 10/06/2025 4:30 PM EDT Office Visit Bariatric Surgery - [address] [phone] Anuel Kaplan MD [address] [place] [address] 10/26/2025 11:30 AM EDT Office Visit Pulmonology - [address] [phone] Melquiades Wiseman MD [address] [place] [address] documented as of this encounter Visit Diagnoses Not on filedocumented in this encounter Additional Health Concerns Assessment Noted Time PHQ-9 Depression Total Score: 22 025 11:35 AM EDT A fall risk assessment has been complete d for the patient 12/14/2024 9:23 AM EDT documented as of this encounter Care Teams Development Writer Relationship Specialty Start Date End Date Festus Multani MD [address] [address] PCP - General Internal Medicine 09/20/24 documented as of this encounter
--- OUTSIDE RECORDS SUMMARY | 2025-06-09 15:52 | XMS_ITS | Data Portability ---
Author Organization [place] [facility], Allergy Address [address] [address] Assessment Encounter Date Assessment Date Assessment LastModified by Organization Details LastModified Time 11/26/2024 11/26/2024 64yo female with history of epistaxis presents for evaluation of left epistaxis. Nasal examination today identified a prominent bleeding source on the anterior left septum. This site was cauterized with silver nitrate. Basic epistaxis precautions were discussed including avoidance of nose blowing, nose picking, straining, bending forward, exertion, heavy lifting, steamy showers, and sneezing with the mouth open for two weeks. Recommend local wound care with saline nasal spray 4-6 times daily, nasal saline gel at night, Afrin with episodes of bleeding and packing the nose with Bleed Cease (available OTC) if any additional bleeding. May use Ponaris Nasal Emollient 1/2 dropper twice daily as needed with dryness. Return to office as needed or go to emergency room with severe episodes. Recommend considering an [id number] CPAP mask instead of intranasal cannula, as her epistaxis started after using the machine. [email or web address] Not available 11/26/2024 17:42:30 Plan of Treatment Reminders Order Date Submit Date Provider Last Modified By Organization Details Last Modified Time Details Appointments None recorded. Lab None recorded. Referral None recorded. Procedures None recorded. Surgeries None recorded. Imaging None recorded. Medication Orders Saline Mist 0.65 % nasal spray aerosol 025 025 [facility]acy #[id number], [address] [facility], [place], [address], 16:09:44 Austin Saline nasal gel 025 025 [facility]/Pharmacy #[id number], [address] [facility], [place], [address], 5 16:09:44 Patient TargetsNo targets recorded. Patient InstructionsNo instructions recorded. Reason for Referral None Reported. Problems Name Problem SNOMED Code Status Onset Date Resolution Date Notes Provider Name and Address Organization Details Recorded Time Epistaxis Active 2013 Epistaxis ; Note: Date Diagnosed : 4 12:27 PM (784.7) Not Available [facility] 4 03:20:01 Bleeding from nose 162034457 Active 2017 Epistaxis ; Note: Date Diagnosed : 8 12:53 PM (R04.0) Not Available [facility] 4 03:20:01 Bilateral tinnitus 72160113591 02 Active 2022 Tinnitus, bilateral ; Note: Date Diagnosed : 02/27/2023 2:15 PM (H93.13) Not Available [facility] 4 03:20:01 Impacted cerumen in right ear 18149199712 03223 Active 2022 Impacted cerumen, right ear; Note: Date Diagnosed : 02/27/2023 2:15 PM (H61.21) Not Available [facility] 4 03:20:01 Abnormal auditory perceptio n 11917903 Active 2022 Other abnormal auditory perceptio ns, bilateral ; Note: Date Diagnosed : 03/19/2023 10:52 AM (H93.293) Not Available [facility] 4 03:20:00 Anterior epistaxis 144787185 Active 2024 GABI ZAMORA PA-C [address] [place] [address],[place] [address], [place], [address] , [facility] 5 16:09:25 Problem Notes None recorded. Procedures Surgical History Date Name Laterality Status Provider Name and Address Organization Details Recorded Time 5 Epistaxis Simple Nasal Cautery Left completed GABI ZAMORA PA-C [address] [facility],[place] [address], [place], [address], [facility] - [facility] 11/26/2024 17:41:53 Imaging Results None recorded. Procedure Notes None recorded. Medical Equipment None Reported. Allergies Allergen ID Allergen Name Allergen Category Reaction Reaction Severity Criticality Documentation Date Start Date Code Code System Note Provider Name and Address Organization Details Recorded Time 832613 aspirin Not available other Not available Not available 12/09/2023 1191 RxNorm React ion: unkno wn, unspe cifie d;; Not Available [facility] 4 01:24:08 933651 penicilli n V potassium medicatio n other Not available Not available 12/09/2023 07096 5 RxNorm React ion: unkno wn, unspe cifie d;; Not Available [facility] 4 01:24:09 Medications Name Sig Start Date Stop Date Status Note LastModified by Organization Details LastModified Time Santyl 250 unit/gram topical ointment APPLY TO CLEANSED AFFECTED AREA BY TOPICAL ROUTE ONCE DAILY active Not Available Not Available No t Available lamotrigi ne 200 mg tablet 2017 active Medicati on ID: [id number] D uration Value: 90 Brand Name: lamotrig ine Send Method: E-Prescr ibed Sub s Allowed: subs OK Medic ationGen ericName : lamotrig ine Not Available Not Available Not Available ropinirol e 1 mg tablet TAKE 1 TABLET BY MOUTH EVERY DAY active Not Available Not Available No t Available haloperid ol 5 mg tablet TAKE 1/2 TABLET DAILY IN THE MORNING & TAKE 1 AND 1/2 TABLETS DAILY AT BEDTIME BY MOUTH active Not Available Not Available No t Available cyanocoba yoko (vit B-12) 100 mcg tablet TAKE 1/2 TABLET (50 MCG TOTAL) BY MOUTH 1 (ONE) TIME EACH DAY. active Not Available Not Available No t Available atorvasta tin 10 mg tablet TAKE 1 TABLE BY MOUTH AT BEDTIME active Not Available Not Available No t Available ibuprofen 800 mg tablet TAKE 1 TABLET BY MOUTH THREE TIMES A DAY FOR 30 DAYS active Not Available Not Available No t Available meloxicam 15 mg tablet TAKE 1 TABLET BY MOUTH EVERY DAY active Not Available Not Available No t Available ondansetr on HCl 4 mg tablet TAKE 1 TABLET BY MOUTH EVERY 8 HOURS NEEDED FOR NAUSEA AND VOMITING active Not Available Not Available No t Available dextroamp hetamine- amphetami ne 10 mg tablet 2017 active Medicati on ID: [id number] D uration Value: 30 Brand Name: dextroam phetamin e-amphet amine Se nd Method: E-Prescr ibed Sub s Allowed: subs OK Medic ationGen ericName : dextroam phetamin e-amphet amine Not Available Not Available Not Available sertralin e 100 mg tablet TAKE 1 TABLET BY MOUTH EVERY DAY active Not Available Not Available No t Available sumatript an 50 mg tablet TAKE 1 TABLET ORALLY DAILY NEEDED FOR MIGRAINE HEADACHE active Not Available Not Available No t Available cyanocoba yoko (vit B-12) 1,000 mcg tablet TAKE 1 TABLET (1,000 MCG TOTAL) BY MOUTH ONCE DAILY active Not Available Not Available No t Available hydroxyzi ne pamoate 50 mg capsule TAKE 1 CAPSULE BY MOUTH TWICE A DAY NEEDED active Not Available Not Available No t Available topiramat e 25 mg tablet 2017 active Medicati on ID: [id number] D uration Value: 90 Brand Name: topirama te Send Method: E-Prescr ibed Sub s Allowed: subs OK [facility]ama [facility] Not Available Not Available Not Available Amerge 1 mg tablet 07/13 completed Medicati on ID: [id number] Re ason: () Brand Name: Amerge S end Method: E-Prescr ibed Sub s Allowed: subs OK [facility] : Amerge Not Available Not Available Not Available melatonin 3 mg tablet TAKE 1 TO 2 TABLETS BY MOUTH EVERY EVENING active Not Available Not Available No t Available divalproe x 500 mg tablet,de layed release TAKE 1 TABLET BY MOUTH TWICE A DAY active Not Available Not Available No t Available baclofen 20 mg tablet TAKE 1 TABLET BY MOUTH TWICE A DAY active Not Available Not Available No t Available cefadroxi l 500 mg capsule TAKE 1 CAPSULE BY MOUTH EVERY 12 HOURS FOR 10 DAYS active Not Available Not Available No t Available Austin Saline nasal gel TAKE 1 APPLICAT ION EVERY DAY BY NASAL ROUTE AT BEDTIME FOR 14 DAYS, FOR NOSEBLEE D PREVENTI ON. active Not Available Not Available No t Available magnesium oxide 400 mg (241.3 mg magnesium ) tablet TAKE 1 TABLET BY MOUTH AT BEDTIME active Not Available Not Available No t Available modafinil 200 mg tablet TAKE 1 TABLET BY MOUTH EVERY MORNING AND 1/2 TABLET MIDDAY active Not Available Not Available No t Available trazodone 100 mg tablet TAKE 1 TABLET BY MOUTH EVERY DAY AT BEDTIME NEEDED active Not Available Not Available No t Available diazepam 2 mg tablet TAKE 1 TABLET BY MOUTH TWICE A DAY NEEDED active Not Available Not Available No t Available baclofen 10 mg tablet TAKE 2 TABLETS BY MOUTH 3 TIMES A DAY. active Not Available Not Available No t Available pantopraz ole 40 mg tablet,de layed release TAKE 1 TABLET BY MOUTH EVERY DAY active Not Available Not Available No t Available trazodone 150 mg tablet 07/13 completed Medicati on ID: [id number] Du ration Value: 30 Reason: () Brand Name: trazodon e Send Method: E-Prescr ibed Sub s Allowed: subs OK Speci al Instruct ion: TAKE 2 TABLETS BY MOUTH AT BEDTIME Medicati onGeneri cName: trazodon e Not Available Not Available Not Available divalproe x ER 500 mg tablet,ex tended release 24 hr TAKE 1 TABLET BY MOUTH EVERYDAY AT BEDTIME active Not Available Not Available No t Available oxybutyni n chloride ER 5 mg tablet,ex tended release 24 hr 2017 active Medicati on ID: [id number] D uration Value: 30 Brand Name: oxybutyn in chloride Send Method: E-Prescr ibed Sub s Allowed: subs OK Medic ationGen ericName : oxybutyn in chloride Not Available Not Available Not Available gabapenti n 300 mg capsule TAKE 1 CAPSULE BY MOUTH NIGHTLY active Not Available Not Available No t Available hydroxyzi ne HCl 25 mg tablet TAKE TWO-THRE E (2-3) TABLETS BY MOUTH TWICE A DAY, NEEDED active Not Available Not Available No t Available tolnaftat e 1 % topical powder APPLY TOPICALL Y 2 TIMES DAILY FOR 30 DAYS TO BOTH FEET active Not Available Not Available No t Available lorazepam 1 mg tablet 2013 active Medicati on ID: [id number] Du ration Value: 30 Brand Name: lorazepa m Send Method: E-Prescr ibed Sub s Allowed: subs OK Pepper al Instruct ion: TAKE 1 TABLET BY MOUTH EVERY DAY NEEDED FOR ANXIETY Medicati onGeneri cName: lorazepa m Not Available Not Available Not Available Vitamin D2 1,250 mcg (50,000 unit) capsule 2017 active Medicati on ID: [id number] D uration Value: 90 Brand Name: Vitamin D2 Send Method: E-Prescr ibed Sub s Allowed: subs OK Medic ationGen ericName : Vitamin D2 Not Available Not Available Not Available clotrimaz ole 1 % topical cream APPLY TO SKIN AND TOENAILS DAILY FOR 12 WEEKS active Not Available Not Available No t Available sertralin e 50 mg tablet TAKE ONE AND ONE HALF (1.5) TABLETS BY MOUTH DAILY active Not Available Not Available No t Available oxycodone 5 mg tablet TAKE 1 TO 2 TABLETS BY MOUTH EVERY 4 HOURS NEEDED FOR SEVERE PAIN active Not Available Not Available No t Available Botox 100 unit injection 2017 active Medicati on ID: [id number] D uration Value: 30 Brand Name: Botox Se nd Method: E-Prescr ibed Sub s Allowed: subs OK Medic ationGen ericName : Botox Not Available Not Available Not Available aripipraz ole 10 mg tablet 2017 active Medicati on ID: [id number] D uration Value: 90 Brand Name: aripipra zole Sen d Method: E-Prescr ibed Sub s Allowed: subs OK Medic ationGen ericName : aripipra zole Not Available Not Available Not Available aripipraz ole 5 mg tablet 07/13 completed Medicati on ID: [id number] Du ration Value: 30 Reason: () Brand Name: aripipra zole Sen d Method: E-Prescr ibed Sub s Allowed: subs OK Speci al Instruct ion: TAKE 1 TABLET BY MOUTH EVERY DAY Medi cationGe nericNam e: aripipra zole Not Available Not Available Not Available rosuvasta tin 5 mg tablet TAKE 1 TABLET BY MOUTH EVERY DAY active Not Available Not Available No t Available escitalop dawson 5 mg tablet 2017 active Medicati on ID: [id number] D uration Value: 90 Brand Name: escitalo pram oxalate Send Method: E-Prescr ibed Sub s Allowed: subs OK Medic ationGen ericName : escitalo pram oxalate Not Available Not Available Not Available Austin Saline 0.65 % nasal spray aerosol TAKE 6 SPRAYS EVERY DAY BY NASAL ROUTE AROUND THE CLOCK FOR 14 DAYS, FOR NOSEBLEE D PREVENTI ON. active Not Available Not Available No t Available duloxetin e 20 mg capsule,d elayed release TAKE 1 CAPSULE BY MOUTH TWICE A DAY active Not Available Not Available No t Available Lamictal XR 300 mg tablet,ex tended release 2013 active Medicati on ID: [id number] Br and Name: Lamictal XR Send Method: E-Prescr ibed Sub s Allowed: subs OK Medic ationGen ericName : Lamictal XR Not Available Not Available Not Available Myrbetriq 25 mg tablet,ex tended release TAKE 1 TABLET BY MOUTH EVERY DAY active Not Available Not Available No t Available Eliquis 2.5 mg tablet TAKE 1 TABLET BY MOUTH TWO TIMES A DAY 11/26 completed Not Available Not Available Not Available melatonin 10 mg capsule TAKE 1 CAPSULE BY MOUTH EVERYDAY AT BEDTIME active Not Available Not Available No t Available Tecfidera 240 mg capsule,d elayed release 2017 active Medicati on ID: [id number] D uration Value: 30 Brand Name: Tecfider a Send Method: E-Prescr ibed Sub s Allowed: subs OK Medic ationGen ericName : Tecfider a Not Available Not Available Not Available Copaxone 20 mg/mL subcutane ous syringe 12/23 completed Medicati on ID: [id number] Re ason: () Brand Name: Copaxone Send Method: E-Prescr ibed Sub s Allowed: subs OK Medic ationGen ericName : Copaxone Not Available Not Available Not Available Vraylar 1.5 mg capsule TAKE 1 CAPSULE BY MOUTH EVERY DAY IN THE MORNING active Not Available Not Available No t Available Vraylar 3 mg capsule TAKE 1 CAPSULE BY MOUTH EVERYDAY AT BEDTIME active Not Available Not Available No t Available Gemtesa 75 mg tablet TAKE 1 TABLET BY MOUTH EVERY DAY active Not Available Not Available No t Available Vitals Date Recorded Body height Body mass index (BMI) Body weight Provider Name and Address Organization Details Last Updated DateTime 11/26/2024 162.56 cm 41.9 kg/m2 808823.54 g Seble Patel [place] [facility] 11/26/2024 15:43:21 Social History None recorded. Functional Status None recorded. Mental Status None recorded. Family History Nothing Reported. Medical History No medical history recorded. Gynecological HistoryNo gynecological history recorded. Obstetrics History GPAL:G 0 P 0 0 0 0 Past Encounters Encounter ID Performer Location Encounter Start Date Encounter Closed Date Diagnosis/Indication Diagnosis SNOMED-CT Code Diagnosis ICD10 Code Diagnosis IMO Codes Diagnosis Note [id number] GABI ZAMORA PA-C [facility] [address] [place] [address] 11/26/2024 15:40:09 11/29/2024 08:49:40 Anterior epistaxis 781300284 R04.0 left Health Concerns Section Related Observation LastModified by Organization Detai ls LastModified Time None Recorded Concern Status LastModified by Organization Details LastModified Time None Recorded Advance Directives Directive None Recorded Payers Insurance Date Sequence Insurance Name Policy Number Policy [place] Covered Member ID Lina[place] Member ID Guarantor Name 11/26/2024 2 [place] [facility] Isaiah Aguilar [id number] Rayna Mehdi Aguilar 11/26/2024 1 [place] [employer] Rayna Mehdi Aguilar [id number] [facility]3] Mehdi Aguilar Notes Date Note Type Note Provider Name and Address Organization Details Recorded Time 11/26/2024 text/html ROS as noted in the HPI 64yo female with history of epistaxis presents for evaluation of left recurrent nosebleeds. She reports left nosebleeds restarted about 1 year ago after she started using a CPAP machine. Episodes occur every other day and last minutes. The nosebleeds drip down her throat and make her nauseous. She has been cauterized in the past. She has seasonal allergies and frequently sneezes and blows her nose. She has no longer on a blood thinner. She is prone to blood clots. She has an uncle with hemophilia. AURELIA ANAYA MD [address], [address], [place] [facility] 11/28/2024 10:17:36 OBGyn Episode No OBEpisode recorded.
--- OUTSIDE RECORDS SUMMARY | 2025-06-09 15:52 | XMS_ITS | Clinical Summary ---
Author Organization [facility] Address [address] [place] [address] Care Team Providers Care Rn Transplant Name Role Phone Felicitas Lester DO Primary Care Provider [phone] Allergies Active Allergy Reactions Criticality Noted Date Comments Aripiprazole 12/19/2023 GI intolerance, not verified/specified GI intolerance, not verified/specified GI intolerance, not verified/specified Escitalopram 12/19/2023 GI intolerance, not verified/specified GI intolerance, not verified/specified Lamotrigine 12/19/2023 GI intolerance, not verified/specified GI intolerance, not verified/specified Risperidone 12/19/2023 on 1 mg PO QHS felt too carefree , letting things go too easily, drowsey, trippy and foggy ; on 0.5 mg PO QHS felt groggy ; see outpatient psych notes by Dr. Gann 02/28/14-05/30/14unspecfied intolerance at doses higher than 1 mg total daily Medications Medication Sig Dispensed Refills Start Date End Date Status ocrelizumab (OCREVUS) 300 MG/10ML SOLN Inject into the vein. 0 Active sertraline (ZOLOFT) 100 MG tablet Take 1 tablet (100 mg total) by mouth daily. 0 Active melatonin 3 MG TABS tablet Take by mouth every night at bedtime. 0 Active SUMAtriptan (IMITREX) 50 MG tablet Take 1 tablet (50 mg total) by mouth every 2 (two) hours as needed for migraine. 10 tablet 0 03/24/2023 Active apixaban (Eliquis) 2.5 MG TABS tablet Take 1 tablet (2.5 mg total) by mouth. 0 01/29/2024 Active atorvastatin (LIPITOR) tablet 10 mg TAKE 1 TABLE BY MOUTH AT BEDTIME 0 03/02/2024 Active baclofen (LIORESAL) 20 MG tablet Take 1 tablet (20 mg total) by mouth 2 (two) times a day. 0 03/03/2024 Active clotrimazole (LOTRIMIN) 1 % cream APPLY TO AFFECTED AREA TWICE A DAY 0 03/02/2024 Active diazePAM (VALIUM) 2 MG tablet Take 1 tablet (2 mg total) by mouth 3 (three) times a day. 0 03/02/2024 Active divalproex (DEPAKOTE) [address] tablet Take 1 tablet (500 mg total) by mouth 2 (two) times a day. 0 03/02/2024 Active magnesium oxide 400 (240 Mg) MG TABS tablet Take 1 tablet (400 mg total) by mouth every night at bedtime. 0 03/02/2024 Active rOPINIRole (REQUIP) 1 MG tablet Take 1 tablet (1 mg total) by mouth daily. 0 03/02/2024 Active senna (SENOKOT) 8.6 MG tablet Take 1 tablet (8.6 mg total) by mouth. 0 01/28/2024 Active haloperidol (HALDOL) 5 MG tablet Take 1 tablet (5 mg total) by mouth 2 (two) times a day. 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 Family History Medical History Relation Name Comments Heart disease Father COPD Mother Multiple sclerosis Neg Hx Relation Name Status Comments Father Mother Social History Tobacco Use Types Packs/Day Years Used Date Smoking Tobacco: Never Smokeless Tobacco: Never Tobacco Cessation:Counseling Given: Not Answered Alcohol Use Standard Drinks/Week Comments Yes 0 (1 standard drink = 0.6 oz pur e alcohol) Sex and Gender Information Value Date Recorded Sex Assigned at Female 02/06/2022 8:45 AM EDT Gender Identity Not on file Sexual Orientation Not on file Job Start Date Occupation Industry Not on file Not on file Not on file Last Filed Vital Signs Vital Sign Reading Time Taken Comments Blood Pressure 106/70 04/05/2024 10:10 AM EDT Pulse 86 04/05/2024 10:10 AM EDT Temperature 35.9 C (96.7 F) 04/05/2024 10:10 AM EDT Respiratory Rate 18 01/09/2024 1:06 PM EDT Oxygen Saturation 94% 03/15/2024 9:36 AM EDT Inhaled Oxygen Concentration - - Weight 108.3 kg (238 lb 12.8 oz) 01/07/2024 8:08 AM EDT Height 162.6 cm (5' 4 ) 12/19/2023 1:58 PM EDT Body Mass Index 40.99 12/19/2023 1:58 PM EDT Plan of Treatment Health Maintenance Due Date Last Done Comments Hepatitis C Screening 1960 Depression Screening 1972 BMI Counseling 1978 Preventative Health Evaluation 1978 Cervical Cancer Screening (Pap Smear) 1981 Colon Cancer Screening (Colonoscopy) 2005 Breast Cancer Screening (Mammogram) 2010 COVID-19 Vaccine ( season) 2025 05/13/2022, 06/18/2021, 11/18/2020, Additional history exists Influenza Vaccine (#1) 2025 , 05/25/2020, 05/22/2018, Additional history exists Fall Risk Assessment 2025 Osteoporosis Screening (DEXA Scan) 2025 Pneumococcal Vaccine (2 of 2 - PCV) 2025 05/22/2016 DTap / Tdap / Td (3 - Td or Tdap) 03/05/2031 03/05/2021, 04/20/2012 RSV Adult > 60+ Yrs or (1 - 1-dose 75+ series) 2035 Pneumococcal Vaccine Aged Out 05/22/2016 No long er eligible based on patient's age to complete this topic Shingrix-Zoster Vaccine Completed 06/14/2022, 05/10 Hepatitis B Vaccines Aged Out No long er eligible based on patient's age to complete this topic RSV Ped < 20 months Aged Out No longe r eligible based on patient's age to complete this topic Care Teams Rn Transplant Relationship Specialty Start Date End Date Felicitas Lester DO [address] [place] [address] PCP - General Family Medicine 03/19/23
--- OUTSIDE RECORDS SUMMARY | 2025-06-09 15:53 | XMS_ITS | Encounter Summary ---
Author Organization [facility] Address [address] [place] [address] Care Team Providers Care Engineer Chief Name Role Phone Festus Multani MD Primary Care Provider [phone] Encounter Details Date Type Department Care Team (Late Contact Info) Description 08/03/2024 Lab Requisition [facility] Lab [address] [facility] [place] [phone] Florencia Wood, PA [address] [facility] [address] [place] [address] Reflex neuropathic bladder, not elsewhere classified Social History Tobacco Use Types Packs/Day Years Used Date Smoking Tobacco: Never Smokeless Tobacco: Never Alcohol Use Standard Drinks/Week Comments Yes 0 (1 standard drink = 0.6 oz pur e alcohol) Comments Unknown Sex and Gender Information Value Date Recorded Sex Assigned at Female 02/02/2025 12:43 PM EDT Legal Sex Female 5:53 AM EST Gender Identity Female 02/02/2025 12:43 PM EDT Sexual Orientation Straight 02/02/2025 12 :43 PM EDT documented as of this encounter Plan of Treatment Upcoming Encounters Date Type Department Care Team (Late Contact Info) Description 06/17/2025 10:30 AM EST Office Visit Internal Medicine - [place] [address] [facility] [address] [place] [phone] Festus Multani MD [address] [place] [phone] 06/27/2025 10:00 AM EST Appointment [facility] Outpatient [facility]habilititation - [place] [address] [phone] 06/27/2025 10:00 AM EST Office Visit [facility] - [address] [phone] Mikala Mauricio PA [address] [place] [phone] 07/04/2025 12:30 PM EST Office Visit Bariatric Surgery - [address] [phone] Alison Butterfield MD [address] [place] [phone] 07/07/2025 10:00 AM EST Appointment [facility] [address] [place] [phone] 08/09/2025 1:30 PM EST Nutrition Bariatric Surgery - [address] [phone] Delores Jorgensen, FRANCISCO JAVIER [address] [phone] 09/20/2025 10:00 AM EST Nutrition Bariatric Surgery - [address] [phone] Delores Jorgensen, RD [address] [phone] 10/06/2025 4:30 PM EDT Office Visit Bariatric Surgery - [address] [phone] Anuel Kaplan MD [address] [place] [phone] 10/26/2025 11:30 AM EDT Office Visit Pulmonology - [place] [address] [facility] [address] [place] [phone] Melquiades Wiseman MD [address] [place] [phone] documented as of this encounter Procedures Procedure Name Priority Date/Time Associated Diagnosis Comments BACTERIAL IDENTIFICATION AND SUSCEPTIBILITY, AEROBIC Routine 08/02/2024 12:00 AM EST Reflex neuropathic bladder, not elsewhere classified documented in this encounter Results * Bacterial identification and susceptibility, aerobic (08/02/2024 12:00 AM EST) Culture, Bacterial ID and Sensitivity No growth 08/03/2024 12:40 PM EST [facility] Other Urine specimen from urinary conduit / Unknown 08/02/2024 08/03/2024 10:11 AM EST us Fl[facility] MICROBIOLOGY - GENERAL ORDER MATIAS Final Result [facility] [address] [place] [address], documented in this encounter Visit Diagnoses Diagnosis Reflex neuropathic bladder, not elsewhere classified documented in this encounter Additional Health Concerns Infection Onset Date Last Indicated Resolved Time Measles Rule-Out 01/31/2025 01/31/2025 02/24/2025 7:04 PM EDT documented as of this encounter Care Teams Engineer Chief Relationship Specialty Start Date End Date Festus Multani MD [address] [facility] [address] [place] [address] PCP - General Internal Medicine 09/20/24 documented as of this encounter
--- OUTSIDE RECORDS SUMMARY | 2025-06-09 15:53 | XMS_ITS | Encounter Summary ---
Author Organization [facility] Address [address] [place] [address] Care Team Providers Care Chinese Language Professor Name Role Phone Festus Multani MD Primary Care Provider [phone] Encounter Details Date Type Department Care Team (Late Contact Info) Description 09/01/[address] [facility] Lab [address] [facility] [place] [phone] Baljinder Dennison PA [address] [facility] [address] [place] [address] Pyuria Social History Tobacco Use Types Packs/Day Years [...] AM EST Office Visit Internal Medicine - [place] [address] [facility] [address] [place] [phone] Festus Multani MD 230 [place] [phone] 06/27/2025 10:00 AM EST Appointment [facility] - [place] [address] [phone] 06/27/2025 10:00 AM EST Office Visit [facility] [place] [address] [phone] Mikala Mauricio PA 230 [place] [phone] 07/04/2025 12:30 PM EST Office Visit Bariatric Surgery - [address] [phone] Alison Butterfield MD [address] [place] [phone] 07/07/2025 10:00 AM EST Appointment [facility] [address] [place] [phone] 08/09/2025 1:30 PM EST Nutrition Bariatric Surgery - [address] [phone] Delores Jorgensen, FRANCISCO JAVIER [address] [phone] 09/20/2025 10:00 AM EST Nutrition Bariatric Surgery - [address] [phone] Delores Jorgensen, FRANCISCO JAVIER [address] [phone] 10/06/2025 4:30 PM EDT Office Visit Bariatric Surgery - [address] [phone] Anuel Kaplan MD [address] [place] [phone] 10/26/2025 11:30 AM EDT Office Visit Pulmonology - [place] 175 [facility] 200 [place] [phone] Melquiades Wiseman MD [address] [place] [phone] documented as of this encounter Procedures Procedure Name Priority Date/Time Associated Diagnosis Comments BACTERIAL IDENTIFICATION AND SUSCEPTIBILITY, AEROBIC Routine 08/31/2024 12:00 AM EST Pyuria documented in this encounter Results * Bacterial identification and susceptibility, aerobic (08/31/2024 12:00 AM EST) Culture, Bacterial ID and Sensitivity Multiple bacterial morphotypes present consistent with either contamination or urogenital reddy. Suggest repeat specimen, if clinically indicated. 09/01/2024 10:55 AM EST [facility] Other Urine specimen from urethra / Unknown 08/31/2024 09/01/2024 10:18 AM EST us Baljinder ST[facility] MICROBIOLOGY - GENERAL ORDER MATIAS Final Result [facility] [address] [place] [address], documented in this encounter Visit Diagnoses Diagnosis Pyuria Other nonspecific finding on examination of urine documented in this encounter Additional Health Concerns Infection Onset Date Last Indicated Resolved Time Measles Rule-Out 01/31/2025 01/31/2025 02/24/2025 7:04 PM EDT documented as of this encounter Care Teams Chinese Language Professor Relationship Specialty Start Date End Date Festus Multani MD 175 [facility] 200 [place] [address] PCP - General Internal Medicine 09/20/24 documented as of this encounter
[2025-06-09 16:06] LABS: SARS-CoV-2 PCR Not Detected (Not Detect.)
[2025-06-09 16:07] LABS: Influenza A H1 PCR Not Detected (Not Detect.); Influenza A H1-2009 PCR Not Detected (Not Detect.); Influenza A H3 PCR Not Detected (Not Detect.)
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
--- NOTE | 2025-06-09 16:38 | P.CONNP_ITS ---
History of Present Illness Reason for Consult Consult date: 06/09/25 Chief Complaint Chief complaint: AMS History of Present Illness Narrative: 65-year-old lady with PMH of multiple sclerosis on Zepbound his presented to the ED with altered mental status. Labs suggestive of bicarb 17 that improved to 19, anion gap 19 with ketones. So nephrology is consulted for the management of acidosis. Patient is drowsy but answers few questions with one-word answer. Patient also has significant psychiatric history. Apparently she has been having poor oral intake along with nausea for some days now leading to starvation ketoacidosis Review of Systems Review of Systems Unable to obtain due to altered sensorium PMFSH Past Medical History Medical History (Updated 06/09/25 @ 16:43 by Dimitris Perla MD) Bipolar 1 disorder, manic, moderate Overactive bladder GERD (gastroesophageal reflux disease) Multiple sclerosis Social History Social History Household Members: Spouse, Family and Children Household Members Other:: grandson and dog. Housing: House Do you presently have visiting nurse or other home services: No Unable to assess alcohol history related to: Unable to respond Comment: pt on 1 to 1 for equipment observation Patient Tobacco Use Status: Never used Tobacco Second Hand Smoke Exposure: No (n/a) Use of substances other than those prescribed or required for medical reasons: Unknown Substance Use Type: Marijuana Advance Directives: No Advance Directives Information Provided: Yes service: No Sexual orientation: Straight/Heterosexual Meds Allergies Allergy/AdvReac Type Severity Reaction Status Date / Time aspirin Allergy Unknown Verified 06/09/25 10:52 citalopram (From Celexa) Allergy Unknown Verified 06/09/25 10:52 lamotrigine (From Lamictal) Allergy Unknown Verified 06/09/25 10:52 Penicillins Allergy Unknown Verified 06/09/25 10:52 Active Medications: Current Medications Acetaminophen (Acetaminophen 325 Mg Tablet) 650 mg PO Q6H PRN PRN Reason: Pain, Mild 1-3,fever,headache Atorvastatin Calcium (Atorvastatin Calcium 20 Mg Tablet) 20 mg PO DAILY [facility] Baclofen (Baclofen 20 Mg Tablet) 20 mg PO BID [facility] Bupropion HCl (Bupropion Hcl 100 Mg Tablet) 100 mg PO DAILY [place] Calcium Carbonate (Calcium Carbonate 750 Mg Tab.Chew) 750 mg PO Q4H PRN PRN Reason: Heartburn Cyanocobalamin (Cyanocobalamin (Vitamin B-12) 1,000 Mcg Tablet) 1,000 mcg PO DAILY [facility] Diazepam (Diazepam 2 Mg Tablet) 2 mg PO TID [facility] Enoxaparin Sodium (Enoxaparin Sodium 40 Mg/0.4 Ml Syringe) 40 mg SUBCUT Q24H [facility] Last Admin: 06/09/25 15:45 Dose: 40 mg Ferrous Sulfate (Ferrous Sulfate 324 Mg Tablet.Dr) 324 mg PO DAILY [facility] Lactated Ringer's (Lr) 1,000 mls @ 125 mls/hr IVCONT .Q8H [facility] Last Admin: 06/09/25 14:05 Dose: 125 mls/hr Polyethylene Glycol (Polyethylene Glycol 3350 17 Gm Powd.Pack) 17 gm PO DAILY PRN PRN Reason: Constipation Ropinirole HCl (Ropinirole Hcl 1 Mg Tablet) 1 mg PO BEDTIME [facility] Sertraline HCl (Sertraline Hcl 50 Mg Tablet) 150 mg PO DAILY [facility] Sodium Chloride (0.9 % Sodium Chloride Flush 3 Ml Syringe) 3 ml IVFLUSH QSHIFT [facility] Last Admin: 06/09/25 15:46 Dose: 3 ml Home Medications ?Medication ?Instructions ?Recorded ?Confirmed ?Last Taken ?Type calcium carbonate (Tums) 200 mg PO QID PRN Indigestio n 02/11/24 06/09/25 Unknown History biotin 10 mg tablet 10 mg PO DAILY 06/09/2505/2806/09/25 History bupropion HCl 100 mg tablet,12 hr 100 mg PO DAILY 05/2806/09/25 06/09/25 History sustained-release cyanocobalamin (vitamin B-12) 1,000 mcg PO DAILY 06/0906/09/25 06/09/25 History 1,000 mcg tablet furosemide 20 mg tablet 20 mg PO DAILY 06/09/2505/2806/09/25 History melatonin 10 mg tablet 10 mg PO BEDTIME 06/09/2506/08/25 History [id number]-[id number] 0.4 mg-calcium 162 1 tab PO DAILY 05/2806/09/25 06/09/25 History mg-iron 18 [id number] tablet rosuvastatin 5 mg tablet 5 mg PO DAILY 06/09/2506/0906/09/25 History sertraline 50 mg tablet 150 mg PO DAILY 06/09/2506/09/25 History tirzepatide (weight loss) 2.5 2.5 mg subcut MO 5 06/09/25 05/30/25 History mg/0.5 mL subcutaneous pen injector (Zepbound) turmeric 400 mg capsule 400 mg PO DAILY 06/09/2506/09/25 History zinc acetate 50 mg (zinc) capsule 50 mg PO DAILY 06/0906/09/25 06/09/25 History Physical Exam Vital Signs: Last Vital Signs Temp 97.6 F 06/09/25 11: Pulse 89 06/09/25 12:20 Resp 26 H 06/09/25 12:20 BP 117/51 L 06/09/25 12:20 Pulse Ox 98 06/09/25 12:20 O2 Del Method Room Air 06/09/25 12:20 BMI result Body Mass Index 37.1 General: not in any acute distress, comfortably sleeping Nutritional Appearance: well nourished and overweight Eyes: appearance normal, both eyes and all related structures; Alignment and Position: alignment normal and position normal Neck: No lymphadenopathy, no thyromegaly Resp: bilateral air entry equal, no added sounds present Cardio: Regular rate, regular rhythm; Heart sounds: S1 normal heart sound present and S2 normal heart sound present GI: soft, nontender, no guarding, no hepatosplenomegaly : bladder normal to inspection, bladder normal to palpation, no renal angle tenderness Skin: no rashes or lesions noted and elasticity normal Neuro: Drowsy but easily arousable, no focal deficits, moves all extremities Results Lab Results 06/09/25 10:58 06/09/25 13:48 Lab results: Chemistry 06/09/25 06/09/25 10:58 13:48 Sodium 144 147 H Potassium 3.4 3.7 Carbon Dioxide 17 L 19 L BUN 15 13 Creatinine 0.73 0.63 Calcium 9.7 8.9 D Hematology 06/09/25 10:58 WBC 7.3 Hgb 13.5 Plt Count 408 H Urinalysis 06/09/25 12:43 Urine Color Yellow Urine Appearance Clear Urine pH 6.0 Ur Specific [place] 1.020 Urine Protein Trace Urine Glucose (UA) Negative Urine Ketones >=160 Urine Blood Negative Urine Nitrite Negative Ur Leukocyte Esterase Negative Urine RBC 0-2 Urine WBC 0-5 Ur Squamous Epith Cells 0-2 Hyaline Casts 0-2 Assessment and Plan (1) Starvation ketoacidosis: Status: Acute (2) Metabolic alkalosis: Status: Acute (3) High anion gap metabolic acidosis: Status: Acute Plan Acid-base disorder: Patient has a VBG with pH of 7.53, pCO2 23, bicarb 17, anion gap 22 This patient has a complex acid-base disorder primarily driven by respiratory alkalosis, with high anion gap metabolic acidosis along with metabolic alkalosis. Overall the patient is alkalotic with a pH of 7.53 mainly driven by respiratory alkalosis. Patient has significant psychiatric history, respiratory alkalosis is possibly caused by psychiatric illness. The high anion gap metabolic acidosis is secondary to starvation ketoacidosis from poor oral intake and nausea from Zepbound. Continue LR at 0125 cc/hour, also recommend giving her 2 L of normal saline bolus. Procedures Date of Service Date of Service: 06/09/25
[2025-06-09 16:56] VITALS: BP 127/68; PULSE 109; RESP 27; TEMP 36.3; O2SAT 93
[2025-06-09 17:04] VITALS: BMI 39.2
[2025-06-09 17:30] VITALS: BP 138/92; PULSE 94; TEMP 37.8; O2SAT 96
[2025-06-09 19:51] VITALS: BP 125/77; PULSE 84; RESP 16; TEMP 36.3; O2SAT 97
[2025-06-09 21:53] LABS: Anion Gap 22 (12-20); Blood Urea Nitrogen 12 mg/dL (9-16); Calcium 9.2 mg/dL (8.4-10.2); Carbon Dioxide 15 mmol/L (22-29); Chloride 114 mmol/L (96-108); Creatinine Clr Calc Pharmacy 101.1; Estimated Glomerular Filt Rate > 60; Potassium 3.6 mmol/L (3.3-5.1); Sodium 147 mmol/L (135-145)
[2025-06-10] VITALS (8 sets, daily range): BP systolic 107–144; BP diastolic 58–77; PULSE 75–96; RESP 16–24; TEMP 36.4–36.8; O2SAT 92–98
--- NOTE | 2025-06-10 | EEG_ITS ---
Reason for Exam: encephalopathy G93.40 History: Bipolar, GERD, multiple sclerosis - She was brought to hospital after she was noted to be unresponsive while was trying to communicate with her. He said that it was intermittent and she would become unresponsive now and then. There was no sign of any convulsion, fever, or injury. Medication: acetaminophen, atorvastatin, baclofen, bupropion, calcium carbonate, clopidogrel bisulfate, cyanocobalamin, diazepam, enoxaparin, ferrous sulfate, melatonin, multivitamin, nystatin, polyethylene glycol, ropinirole, sertraline, sodium chloride Technical description Photic stimulation: completed Hyperventilation:?omitted Behavioral state: pleasant State of Consciousness: awake Skull defect: none Sedation: none Handedness: right Duration of study:?25 min 24? sec Description: This is a 16 channel EEG with an EKG lead. Patient is reported awake during the tracing. Background EEG rhythm is mostly low amplitude fast with frequent lead and muscle artifacts. Photic stimulation does not produce any significant driving. Hyperventilation is not performed. Cardiac lead does not reveal any significant abnormality. No sharp wave spikes or paroxysmal tendency noted. Impression: No significant abnormality noted on this EEG. MTDD
[2025-06-10] MEDS: Dextrose 5 % and 0.45 % NaCl 1,000 ML 125 ML IVCONT (05:18)
--- NOTE | 2025-06-10 07:00 | CA_ITS ---
Transthoracic Echocardiogram Patient (Last, First, Middle): Rayna Gorman, Gender: Female Date of : 1960 Age: 65 Procedure Date: 06/10/2025 Procedure Type: Transthoracic Echocardiogram Location: [facility] Height: 162.56 cm Weight: 97.98 kg BSA: 2.02 m2 Heart Rate: 101 bpm BP: 117 / 51 mmHg Health Promotion Coordinator: Referring MD: Emelyn STILES Symptoms: elevated trops; eval for wma Study Quality: Adequate ECG Rhythm: Tachycardia Conclusions: - 1. Normal LV ejection fraction 55-60% with grade 1 diastolic dysfunction with wall motion in the apical segment which should suggest stress-induced cardiomyopathy. LAD territory ischemia can not be ruled out 2. Normal cardiac valvular Dopplers 3. Normal RV systolic pressure 4. No gross pericardial effusion Findings Procedure Information Contrast agent, definity, is being given per protocol without apparent complications. Left Ventricle Normal left ventricular size, thickness, and systolic function. The visually estimated ejection fraction is between 55-60%. Spectral Doppler is indicative of an impaired relaxation filling pattern. E/E prime ratio is <8, consistent with normal filling pressures. Evidence suggests grade I (mild) diastolic dysfunction. Wall Motion Rest Echo Findings The entire apex is akinetic. The mid anterior, mid inferior, mid anterolateral, mid inferoseptal, mid anteroseptal, and mid inferolateral segments are hyperkinetic. All other scored wall segments showed normal motion. Right Ventricle Normal right ventricular cavity size and systolic function. Atria Both atria are normal in size. There is no evidence of interatrial shunt. Aortic Valve Normal aortic valve structure and function. There is no aortic valve stenosis. There is no aortic valve regurgitation. Mitral Valve Normal mitral valve structure and function. There is trace mitral valve regurgitation. There is no mitral valve stenosis. Pulmonic Valve The pulmonic valve is likely normal. Tricuspid Valve Normal tricuspid valve structure. There is trace tricuspid valve regurgitation. The right ventricular systolic pressure is 27 mmHg. Normal right atrial pressure. There is no evidence of pulmonary hypertension. Great Vessels All visible segments of the aorta are normal in size. The pulmonary artery was not well visualized. Venous The inferior vena cava is normal in size and collapses greater than 50% with inspiration. Pericardium/Pleural There is no evidence of pericardial effusion. Prior Study Comparison No prior study available for comparison. Measurements 2D Linear Measurements IVSd: 0.89 0.6-0.9/0.6-1.0 cm LVIDd: 4.74 3.9-5.3/4.2-5.9 cm LVIDd Index: 2.35 2.4-3.2/2.2-3.1 cm/m2 LVIDs: 3.23 2.0-3.6 cm LVPWd: 0.87 0.7-1.1 cm Ao Root: 3.10 2.1-3.5 cm LA Diam: 3.90 2.7-3.8/3.0-4.0 cm LAIDs Index: 1.93 1.5-2.3 cm/m2 LV Mass: 173.93 67-162/88-224 g LV Mass Index: 86.10 43-95/49-115 g/m2 LVOT Diam: 2.20 3.0+(-)1.3 cm 2D Systolic Function EF 4C: 60.20 >55% EF 2C: 41.70 >55% EF BiP: 54.80 >55% Mitral Valve MV VTI: 0.23 MV Pk Flaquito: 1.28 MV Mn Flaquito: 0.69 MV Pk Grad: 7.00 MV Mn Grad: 2.00 MV Pk E: 0.80 MV PK A: 1.16 MV Decel Time: 80.00 E/A: 0.70 E'Lateral: 7.62 E'Medial: 5.55 E/E' Med: 14.30 E/E' Lat: 10.40 PHT: 23.00 MVA PHT: 9.57 MVA Continuity: 4.58 Decel Banner: 9.97 Aortic Valve AoV Pk Flaquito: 1.67 AoV Mn Flaquito: 1.00 AoV VTI: 0.32 AoV Pk Grad: 11.00 Aov Mn Grad: 5.00 GINNY Cont.VTI: 3.25 LVOT LVOT Pk Flaquito: 1.10 LVOT Mn Flaquito: 0.66 LVOT VTI: 0.27 LVOT Pk Grad: 5.00 LVOT Mn Grad: 2.00 LVOT Diam: 2.20 LVOT Area: 3.80 Diastolic Function MV Pk E: 0.80 MV Pk A: 1.16 E/A: 0.70 E'Medial: 5.55 E/E' Med: 14.30 E' Laterial: 7.62 E/E' Lat: 10.40 Right Ventricle TAPSE (mm): 25.20 TVS' Flaquito: 17.00 Tricuspid Valve TR Pk Flaquito: 2.47 TR Pk Grad: 24.00 RA Press: 3.00 RVSP: 27.00 Great Vessels Aorta Ao Root-2D: 3.10 2.0-3.7 cm Ao Asc: 3.40 2.1-3.4 cm Ao Arch: 3.50 Pulmonary Valve PV Pk Flaquito: 1.10 Peak PV Grad: 5.00 Updated in Other Vendor System with Status of Final Shantanu Chong MD electronically signed on 06/10/2025 11:56:55 AM with status of Final
[2025-06-10 07:03] LABS: Blood Urea Nitrogen 10 mg/dL (9-16); Calcium 8.5 mg/dL (8.4-10.2); Creatinine Clr Calc Pharmacy 119.4; Estimated Glomerular Filt Rate > 60
[2025-06-10 07:12] LABS: Anion Gap 17 (12-20); Carbon Dioxide 14 mmol/L (22-29); Chloride 112 mmol/L (96-108); Potassium 3.0 mmol/L (3.3-5.1); Sodium 140 mmol/L (135-145)
--- NOTE | 2025-06-10 09:44 | MHC.CM.PN ---
Meghann 06/10/25, Pt. lives with her , dtr and grand son. She has [employer] care, her dtr and another person, through [facility]. Pt.'s is HCP, he answered questions, pt. not answering. Pt. was in psych unit here last year for a month or so. She uses a walker. Family to transport home at [place], DCP: home, family care. CM to follow for DC needs.
[2025-06-10] MEDS: Potassium Chloride ER 20 MEQ TAB.ER.PRT 40 MEQ PO (09:45)
[2025-06-10] MEDS: Ferrous Sulfate 324 MG TABLET.DR PO (09:46)
[2025-06-10 10:10] LABS: Anion Gap 17 (12-20); Blood Urea Nitrogen 8 mg/dL (9-16); Calcium 8.9 mg/dL (8.4-10.2); Carbon Dioxide 15 mmol/L (22-29); Chloride 111 mmol/L (96-108); Creatinine Clr Calc Pharmacy 113.2; Estimated Glomerular Filt Rate > 60; Potassium 2.9 mmol/L (3.3-5.1); Sodium 140 mmol/L (135-145)
[2025-06-10] MEDS: Metoprolol Tartrate 12.5 MG HALFTAB PO ×3 (13:03→20:16)
[2025-06-10] MEDS: Lactated Ringers 1,000 ML 150 ML IVCONT ×2 (13:05→19:32)
--- NOTE | 2025-06-10 13:43 | PM.CNCAR ---
History of Present Illness History of Present Illness Date of Service: 06/10/25 Requesting physician: Stephy Bowman Consult reason: troponin elevation Chief complaint: AMS Narrative: I was consulted to see Rayna in cardiology consultation today for elevated troponins. Patient is a 65-year-old female with prior history of psychiatric disorder, multiple sclerosis with limited activity level, hyperlipidemia, leg edema for which she is on Lasix at home. Came to the hospital with altered mental status. is the 1 who provides history. Patient is laying comfortably in bed and opens her eyes when we call her name but does not then respond to usual verbal cues. She response to other verbal commands and also responds appropriately to some of the 's comments but then she closes her eyes and does not respond to other questions. She is brought in because of this altered mental status. While I was at patient's bedside she continued to have grimaces in his face and arching her back. She had no focal neurologic deficits. Troponin was drawn because of her presentation and this is elevated. No repeat follow-up troponins has been done. EKGs normal. There was no reports of any chest pain. I did specifically ask patient about chest pain and she would not respond to me but then to her she said no. Review of Systems Review of Systems: Yes Unobtainable due to mental status PMFSH Past Medical History Medical History (Updated 06/10/25 @ 13:46 by Shantanu Chong MD) Bipolar 1 disorder, manic, moderate Overactive bladder GERD (gastroesophageal reflux disease) Multiple sclerosis Social History Social History Household Members: Spouse, Family and Children Household Members Other:: grandson and dog. Housing: House Do you presently have visiting nurse or other home services: No Comment: pt on 1 to 1 for equipment observation Patient Tobacco Use Status: Never used Tobacco Second Hand Smoke Exposure: No (n/a) Substance Use Type: Marijuana service: No Sexual orientation: Straight/Heterosexual Meds Allergies Allergy/AdvReac Type Severity Reaction Status Date / Time aspirin Allergy Unknown Verified 06/09/25 10:52 citalopram (From Celexa) Allergy Unknown Verified 06/09/25 10:52 lamotrigine (From Lamictal) Allergy Unknown Verified 06/09/25 10:52 Penicillins Allergy Unknown Verified 06/09/25 10:52 Active Medications: Current Medications Acetaminophen (Acetaminophen 325 Mg Tablet) 650 mg PO Q6H PRN PRN Reason: Pain, Mild 1-3,fever,headache Atorvastatin Calcium (Atorvastatin Calcium 20 Mg Tablet) 20 mg PO DAILY [facility] Last Admin: 06/10/25 09:46 Dose: 20 mg Baclofen (Baclofen 20 Mg Tablet) 20 mg PO BID [facility] Last Admin: 06/10/25 09:42 Dose: 20 mg Bupropion HCl (Bupropion Hcl 100 Mg Tablet) 100 mg PO DAILY [facility] Last Admin: 06/10/25 09:45 Dose: 100 mg Calcium Carbonate (Calcium Carbonate 750 Mg Tab.Chew) 750 mg PO Q4H PRN PRN Reason: Heartburn Clopidogrel Bisulfate (Clopidogrel Bisulfate 75 Mg Tablet) 75 mg PO DAILY [facility] Last Admin: 06/10/25 13:03 Dose: 75 mg Cyanocobalamin (Cyanocobalamin (Vitamin B-12) 1,000 Mcg Tablet) 1,000 mcg PO DAILY [facility] Last Admin: 06/10/25 09:45 Dose: 1,000 mcg Diazepam (Diazepam 2 Mg Tablet) 2 mg PO TID [facility] Last Admin: 06/10/25 09:55 Dose: Not Given Enoxaparin Sodium (Enoxaparin Sodium 40 Mg/0.4 Ml Syringe) 40 mg SUBCUT Q24H [facility] Last Admin: 06/09/25 15:45 Dose: 40 mg Ferrous Sulfate (Ferrous Sulfate 324 Mg Tablet.Dr) 324 mg PO DAILY [facility] Last Admin: 06/10/25 09:46 Dose: 324 mg Lactated Ringer's (Lr) 1,000 mls @ 150 mls/hr IVCONT .Q6H40M [facility] Last Admin: 06/10/25 13:05 Dose: 150 mls/hr Melatonin (Melatonin 3 Mg Tablet) 9 mg PO BEDTIME [facility] Metoprolol Tartrate (Metoprolol Tartrate 12.5 Mg Halftab) 12.5 mg PO QID [facility]; Protocol Last Admin: 06/10/25 13:03 Dose: 12.5 mg Multivitamins/Vitamin C (Multivitamin Tablet) 1 tab PO DAILY [facility] Nystatin (Nystatin Powder 15 Gm Bottle) 1 appl TOPICAL BID [facility]; Protocol Last Admin: 06/10/25 09:41 Dose: 1 appl Polyethylene Glycol (Polyethylene Glycol 3350 17 Gm Powd.Pack) 17 gm PO DAILY PRN PRN Reason: Constipation Ropinirole HCl (Ropinirole Hcl 1 Mg Tablet) 1 mg PO BEDTIME [facility] Last Admin: 06/09/25 22:41 Dose: 1 mg Sertraline HCl (Sertraline Hcl 50 Mg Tablet) 150 mg PO DAILY [facility] Last Admin: 06/10/25 09:46 Dose: 150 mg Sodium Chloride (0.9 % Sodium Chloride Flush 3 Ml Syringe) 3 ml IVFLUSH QSHIFT [facility] Last Admin: 06/10/25 09:54 Dose: Not Given Home Medications ?Medication ?Instructions ?Recorded ?Confirmed ?Last Taken ?Type calcium carbonate (Tums) 200 mg PO QID PRN Indigestion 02/11/24 06/09/25 Unknown History biotin 10 mg tablet 10 mg PO DAILY 06/09/25 06/09/25 06/09/25 History bupropion HCl 100 mg tablet,12 hr 100 mg PO DAILY 06/09/25 06/09/25 06/09/25 History sustained-release cyanocobalamin (vitamin B-12) 1,000 mcg PO DAILY 06/09/25 06/09/25 06/09/25 History 1,000 mcg tablet furosemide 20 mg tablet 20 mg PO DAILY 06/09/25 06/09/25 06/09/25 History melatonin 10 mg tablet 10 mg PO BEDTIME 06/09/25 06/09/25 06/08/25 History [id number]-QP 0.4 mg-calcium 162 1 tab PO DAILY 06/09/25 06/09/25 06/09/25 History mg-iron 18 xj-ejjdgpn-zujrid tablet rosuvastatin 5 mg tablet 5 mg PO DAILY 06/09/25 06/09/25 06/09/25 History sertraline 50 mg tablet 150 mg PO DAILY 06/09/25 06/09/25 06/09/25 History tirzepatide (weight loss) 2.5 2.5 mg subcut MO 06/09/25 06/09/25 05/30/25 History mg/0.5 mL subcutaneous pen injector (Zepbound) turmeric 400 mg capsule 400 mg PO DAILY 06/09/25 06/09/25 06/09/25 History zinc acetate 50 mg (zinc) capsule 50 mg PO DAILY 06/09/25 06/09/25 06/09/25 History Physical Exam Vital Signs: Vital Signs: Last Vital Signs Temp 98.2 F 06/10/25 11:30 Pulse 89 06/10/25 13:04 Resp 24 H 06/10/25 11:30 BP 120/67 06/10/25 13:04 Pulse Ox 92 06/10/25 11:30 O2 Del Method Room Air 06/10/25 11:30 BMI result Body Mass Index 39.2 Const: General: comfortable, no acute distress and other (Arousable) Nutritional Appearance: obese HEENT: Head: Yes normocephalic and Yes atraumatic Neck: Neck: Yes trachea midline, Yes supple and Yes no JVD Resp: Effort & Inspection: normal respiratory effort Auscultation: clear to auscultation bilaterally Cardio: Jugular venous distension: no JVD Rate: regular rate Rhythm: regular rhythm Heart sounds: S1 normal heart sound present, S2 normal heart sound present, no click, no gallops, no murmurs and no rubs GI: Auscultation: normal bowel sounds Skin: General skin exam: no rashes or lesions noted Neuro: General: moves all extremities Extrem: General: Yes no clubbing, cyanosis or edema Objective Labs and Meds 06/09/25 10:58 06/10/25 09:33 Lab results: Laboratory Results - last 24 hr 06/09/25 06/09/25 06/09/25 10:58 13:05 13:48 Hold Purple Top Sodium 147 H Potassium 3.7 Chloride 113 H Carbon Dioxide 19 L Anion Gap 19 BUN 13 Creatinine 0.63 Estim Creat Clear Calc 101.2 Estimated GFR > 60 Random Glucose 75 Estimat Average Glucose 88 Hemoglobin A1c % 4.7 Calcium 8.9 D Ammonia 24 Troponin I High Sens 913.4 H* Respiratory Panel Castellanos Adenovirus (Rapid PCR) B.pert (TEM-PCR) B.parapertussis DNA PCR C. pneumoniae DNA (PCR) Coronavirus OC43 (PCR) Coronavirus HKU1 (PCR) Coronavirus 229E (PCR) Coronavirus NL63 (PCR) Human Metapneumovir PCR Influenza A (RT-PCR) Influenza A (H1) PCR Influ A (H1/09) PCR Influenza A (H3) PCR Influenza B (RT-PCR) M. pneumoniae (PCR) Parainfluenza 1 (PCR) Parainfluenza 2 (PCR) Parainfluenza 3 (PCR) Parainfluenza 4 (PCR) RSV (PCR) Entero/Rhino (PCR) SARS-CoV-2 RNA (RT-PCR) 06/09/25 06/09/25 06/10/25 14:14 21:15 06:19 Hold Purple Top SEE NOTE Sodium 147 H 140 Potassium 3.6 3.0 L Chloride 114 H 112 H Carbon Dioxide 15 L 14 L Anion Gap 22 H 17 BUN 12 10 Creatinine 0.65 0.55 Estim Creat Clear Calc 101.1 119.4 Estimated GFR > 60 > 60 Random Glucose 76 75 Estimat Average Glucose Hemoglobin A1c % Calcium 9.2 8.5 D Ammonia Troponin I High Sens Respiratory Panel Castellanos See Note Adenovirus (Rapid PCR) Not Detected B.pert (TEM-PCR) Not Detected B.parapertussis DNA PCR Not Detected C. pneumoniae DNA (PCR) Not Detected Coronavirus OC43 (PCR) Not Detected Coronavirus HKU1 (PCR) Not Detected Coronavirus 229E (PCR) Not Detected Coronavirus NL63 (PCR) Not Detected Human Metapneumovir PCR Not Detected Influenza A (RT-PCR) Not Detected Influenza A (H1) PCR Not Detected Influ A (H1/09) PCR Not Detected Influenza A (H3) PCR Not Detected Influenza B (RT-PCR) Not Detected M. pneumoniae (PCR) Not Detected Parainfluenza 1 (PCR) Not Detected Parainfluenza 2 (PCR) Not Detected Parainfluenza 3 (PCR) Not Detected Parainfluenza 4 (PCR) Not Detected RSV (PCR) Not Detected Entero/Rhino (PCR) Not Detected SARS-CoV-2 RNA (RT-PCR) Not Detected 06/10/25 09:33 Hold Purple Top Sodium 140 Potassium 2.9 L* Chloride 111 H Carbon Dioxide 15 L Anion Gap 17 BUN 8 L Creatinine 0.58 Estim Creat Clear Calc 113.2 Estimated GFR > 60 Random Glucose 73 Estimat Average Glucose Hemoglobin A1c % Calcium 8.9 Ammonia Troponin I High Sens Respiratory Panel Castellanos Adenovirus (Rapid PCR) B.pert (TEM-PCR) B.parapertussis DNA PCR C. pneumoniae DNA (PCR) Coronavirus OC43 (PCR) Coronavirus HKU1 (PCR) Coronavirus 229E (PCR) Coronavirus NL63 (PCR) Human Metapneumovir PCR Influenza A (RT-PCR) Influenza A (H1) PCR Influ A (H1/09) PCR Influenza A (H3) PCR Influenza B (RT-PCR) M. pneumoniae (PCR) Parainfluenza 1 (PCR) Parainfluenza 2 (PCR) Parainfluenza 3 (PCR) Parainfluenza 4 (PCR) RSV (PCR) Entero/Rhino (PCR) SARS-CoV-2 RNA (RT-PCR) Conclusions: - 1. Normal LV ejection fraction 55-60% with grade 1 diastolic dysfunction with wall motion in the apical segment which should suggest stress-induced cardiomyopathy. LAD territory ischemia can not be ruled out 2. Normal cardiac valvular Dopplers 3. Normal RV systolic pressure 4. No gross pericardial effusion Assessment and Plan (1) Takotsubo cardiomyopathy: Status: Acute Patient is overall findings consistent with takotsubo cardiomyopathy less likely acute coronary syndrome. She has no cardiac symptoms at this point time. Hemodynamically stable without evidence of congestive heart failure. Discussed the findings with patient's at bedside and said overall stress-induced cardiomyopathy is a reversible condition and will eventually normalized LV ejection fraction. Meanwhile I would treat her with aspirin, statins and metoprolol time. She will need a limited echocardiogram in 10-14 days to assess for improvement in LV ejection fraction. Treatment of underlying neurologic/altered mental status as per the primary team. Will sign of the case. Thank you for allowing me to partake in her care Procedures Date of Service Date of Service: 06/10/25
--- NOTE | 2025-06-10 13:59 | PC.NURSE ---
pt too sleep to participate in care. naomie de león MD made aware.
--- NOTE | 2025-06-10 14:23 | P.CNNE_ITS ---
History of Present Illness Data of Consult Service Date: 06/10/25 Primary Care Provider: So De Souza MD HPI Reason for consult: unresponsiveness 65 years old woman who seems to have chronic multiple sclerosis as I would noted on her MRI of brain done in 2023. She also suffered from depression/ bipolar disorder and according to her was very depressed. She was brought to hospital after she was noted to be unresponsive while was trying to communicate with her. He said that it was intermittent and she would become unresponsive now and then. There was no sign of any convulsion, fever, or injury. He was noted to have some metabolic abnormalities on admission, which were thought to be due to recent addition of Zepbound. Review of Systems 2 Review of Systems: Limited as she was not responding to questions PMFSH Past Medical History Medical History (Updated 06/10/25 @ 13:46 by Shantanu Chong MD) Bipolar 1 disorder, manic, moderate Overactive bladder GERD (gastroesophageal reflux disease) Multiple sclerosis Social History Social History Household Members: Spouse, Family and Children Household Members Other:: grandson and dog. Housing: House Do you presently have visiting nurse or other home services: No Comment: pt on 1 to 1 for equipment observation Patient Tobacco Use Status: Never used Tobacco Second Hand Smoke Exposure: No (n/a) Substance Use Type: Marijuana service: No Sexual orientation: Straight/Heterosexual Meds Allergies Allergy/AdvReac Type Severity Reaction Status Date / Time aspirin Allergy Unknown Verified 06/09/25 10:52 citalopram (From Celexa) Allergy Unknown Verified 06/09/25 10:52 lamotrigine (From Lamictal) Allergy Unknown Verified 06/09/25 10:52 Penicillins Allergy Unknown Verified 06/09/25 10:52 Active Medications: Current Medications Acetaminophen (Acetaminophen 325 Mg Tablet) 650 mg PO Q6H PRN PRN Reason: Pain, Mild 1-3,fever,headache Atorvastatin Calcium (Atorvastatin Calcium 20 Mg Tablet) 20 mg PO DAILY [facility] Last Admin: 06/10/25 09:46 Dose: 20 mg Baclofen (Baclofen 20 Mg Tablet) 20 mg PO BID [facility] Last Admin: 06/10/25 09:42 Dose: 20 mg Bupropion HCl (Bupropion Hcl 100 Mg Tablet) 100 mg PO DAILY [facility] Last Admin: 06/10/25 09:45 Dose: 100 mg Calcium Carbonate (Calcium Carbonate 750 Mg Tab.Chew) 750 mg PO Q4H PRN PRN Reason: Heartburn Clopidogrel Bisulfate (Clopidogrel Bisulfate 75 Mg Tablet) 75 mg PO DAILY [facility] Last Admin: 06/10/25 13:03 Dose: 75 mg Cyanocobalamin (Cyanocobalamin (Vitamin B-12) 1,000 Mcg Tablet) 1,000 mcg PO DAILY [facility] Last Admin: 06/10/25 09:45 Dose: 1,000 mcg Diazepam (Diazepam 2 Mg Tablet) 2 mg PO TID [facility] Last Admin: 06/10/25 13:59 Dose: Not Given Enoxaparin Sodium (Enoxaparin Sodium 40 Mg/0.4 Ml Syringe) 40 mg SUBCUT Q24H [facility] Last Admin: 06/09/25 15:45 Dose: 40 mg Ferrous Sulfate (Ferrous Sulfate 324 Mg Tablet.Dr) 324 mg PO DAILY [facility] Last Admin: 06/10/25 09:46 Dose: 324 mg Lactated Ringer's (Lr) 1,000 mls @ 150 mls/hr IVCONT .Q6H40M [facility] Last Admin: 06/10/25 13:05 Dose: 150 mls/hr Melatonin (Melatonin 3 Mg Tablet) 9 mg PO BEDTIME [facility] Metoprolol Tartrate (Metoprolol Tartrate 12.5 Mg Halftab) 12.5 mg PO QID [facility]; Protocol Last Admin: 06/10/25 13:03 Dose: 12.5 mg Multivitamins/Vitamin C (Multivitamin Tablet) 1 tab PO DAILY [facility] Nystatin (Nystatin Powder 15 Gm Bottle) 1 appl TOPICAL BID [facility]; Protocol Last Admin: 06/10/25 09:41 Dose: 1 appl Polyethylene Glycol (Polyethylene Glycol 3350 17 Gm Powd.Pack) 17 gm PO DAILY PRN PRN Reason: Constipation Ropinirole HCl (Ropinirole Hcl 1 Mg Tablet) 1 mg PO BEDTIME [facility] Last Admin: 06/09/25 22:41 Dose: 1 mg Sertraline HCl (Sertraline Hcl 50 Mg Tablet) 150 mg PO DAILY [facility] Last Admin: 06/10/25 09:46 Dose: 150 mg Sodium Chloride (0.9 % Sodium Chloride Flush 3 Ml Syringe) 3 ml IVFLUSH QSHIFT [facility] Last Admin: 06/10/25 09:54 Dose: Not Given Home Medications ?Medication ?Instructions ?Recorded ?Confirmed ?Last Taken ?Type calcium carbonate (Tums) 200 mg PO QID PRN Indigestio n 02/11/24 06/09/25 Unknown History biotin 10 mg tablet 10 mg PO DAILY 06/09/2505/2806/09/25 History bupropion HCl 100 mg tablet,12 hr 100 mg PO DAILY 05/2806/09/25 06/09/25 History sustained-release cyanocobalamin (vitamin B-12) 1,000 mcg PO DAILY 06/0906/09/25 06/09/25 History 1,000 mcg tablet furosemide 20 mg tablet 20 mg PO DAILY 06/09/2505/2806/09/25 History melatonin 10 mg tablet 10 mg PO BEDTIME 06/09/2506/08/25 History fkipnomk-fcb-LY 0.4 mg-calcium 162 1 tab PO DAILY 05/2806/09/25 06/09/25 History mg-iron 18 me-jdfwqmd-gcdmvr tablet rosuvastatin 5 mg tablet 5 mg PO DAILY 06/09/2506/0906/09/25 History sertraline 50 mg tablet 150 mg PO DAILY 06/09/2506/09/25 History tirzepatide (weight loss) 2.5 2.5 mg subcut MO 5 06/09/25 05/30/25 History mg/0.5 mL subcutaneous pen injector (Zepbound) turmeric 400 mg capsule 400 mg PO DAILY 06/09/2506/09/25 History zinc acetate 50 mg (zinc) capsule 50 mg PO DAILY 06/0906/09/25 06/09/25 History Physical Exam 2 Vital Signs: Vital Signs: Last Vital Signs Temp 98.2 F 06/10/25 11:30 Pulse 89 06/10/25 13:04 Resp 24 H 06/10/25 11:30 BP 120/67 06/10/25 13:04 Pulse Ox 92 06/10/25 11:30 O2 Del Method Room Air 06/10/25 11:30 BMI result Body Mass Index 39.2 Neuro: Other: when I came to the room, she was alert with open eyes. When I asked her questions she closed her eyes in would not respond. Face seems symmetrical. There was no gaze deviation. There was no obvious focal arm or leg weakness. Exam was limited. Results Labs 06/09/25 10:58 06/10/25 09:33 Labs: BMP 06/09/25 06/10/25 06/10/25 21:15 06:19 09:33 Sodium 147 H 140 140 Potassium 3.6 3.0 L 2.9 L* Chloride 114 H 112 H 111 H Carbon Dioxide 15 L 14 L 15 L BUN 12 10 8 L Creatinine 0.65 0.55 0.58 Calcium 9[address] HEAD WITHOUT CONTRAST CLINICAL INFORMATION: altered mental status COMPARISON: February 26, 2024. TECHNIQUE: Contiguous axial imaging was performed from the skull base to vertex without intravenous administration of contrast. This CT examination was performed using dose optimization techniques as appropriate, variously including the following: *Automated exposure control *Adjustment of mA and/or kV according to patient size (this includes techniques or standardized protocols for targeted exams where dose is matched to indication/reason for exam; i.e. extremities or head) *Use of iterative reconstruction technique DLP: 625 mGy-cm FINDINGS: No acute intracranial hemorrhage, mass effect, midline shift, hydrocephalus or herniation. Bilateral multifocal patchy deep periventricular white matter hypodensities involving centrum semiovale and marcelo radiata. No acute fracture in the bony calvarium. Sellar/suprasellar region demonstrated no gross masses. Craniocervical junction is intact with normal position of the cerebellar tonsils. Prominence of the extra-axial CSF spaces cerebral sulci involving mostly the bifrontal biparietal lobes. No air-fluid levels in the paranasal sinuses. Tympanic cavities and mastoid cells are aerated. Calcified plaques in the cavernous supracavernous segments both ICAs. CT/CT head/brain wo IV con IMPRESSION: No acute intracranial hemorrhage. White matter disease. Consider small vessel occlusive disease versus demyelinating process. Bifrontal biparietal lobes atrophy, moderate. EXAMINATION: MR BRAIN WITHOUT AND WITH CONTRAST CLINICAL INFORMATION: Multiple sclerosis flare. COMPARISON: None available. TECHNIQUE: MRI of the brain was obtained using routine sequences without and following the administration of 10 mL of Gadavist intravenous contrast. FINDINGS: No focal restricted diffusion is demonstrated to suggest acute or subacute cerebral ischemia. No evidence of acute or chronic hemorrhagic products on heme-sensitive imaging. There are multiple T2/FLAIR hyperintense lesions consistent with the reported underlying diagnosis of demyelination in the appropriate clinical setting. This includes lesions within the subcortical, deep white matter, periventricular, callosal, and cerebellar distributions. Proportional prominence of the ventricles and sulcal spaces without evidence of obstructive hydrocephalus. No abnormal mass effect. No midline shift. Normal appearance of the pituitary gland. Normal positioning of the cerebellar tonsils. Normal arterial and venous vascular flow voids are present. No abnormal contrast enhancement. Normal, homogeneous marrow signal. Mild mucosal thickening of the paranasal sinuses. No signal abnormalities within the mastoids. MR/MR head/brain wo/w con IMPRESSION: 1. Multiple supratentorial and infratentorial white matter lesions consistent with the reported underlying diagnosis of demyelination in the appropriate clinical setting. No abnormal intracranial enhancement or restricted diffusion to strongly suggest active inflammation/demyelination. 2. No acute intracranial abnormalities. No abnormal intracranial enhancement. Assessment and Plan (1) Acute alteration in mental status: Status: Acute 65 years old woman who suffered from chronic multiple sclerosis and depression. Her present presentation is suggestive more of psychological disease than related to MS. Metabolic abnormalities are not severe enough to explain unresponsiveness. Other consideration would be seizure disorder and for that I would recommend a routine EEG. Otherwise, mainstay of management is counseling, therapy, and treatment of underlying psychological disease. Procedures Date of Service Date of Service: 06/10/25
--- NOTE | 2025-06-10 14:35 | HO.WOUND ---
Wound Consult: Initial 65 yr old female admitted [place] [facility] [place] See progress notes and H&P for detailed history. Wound consult placed for buttocks and legs. Patient agreeable to assessment and photo documentation. Patient with limited responses, answering with yes and no appropriately. able to follow commands and assist with turning in bed. Bilateral legs with scattered rash, multiple areas of round pink lesions with defined borders, central area of dry scaly skin. at bedside reports that she has had these and more have popped up. he reports she had a dermatology appointment a couple weeks ago with no new treamtent orders. Rash appears fungal - will TT primary team to consider antifungal cream. Left leg rash Right leg rash Coccyx and right buttock- right buttock with previous thin dry scabbed area that flaked off revealing healed skin that is intact pink/red and blanching. coccyx intact blanching- may use protective foam bilateral heels intact and blanching. Recommendations: 1. Turn and Reposition every 2 hours and as needed for patient comfort. Use pillows or wedges to support off loading positions. 2. Off Load all bony prominences with use of pillows and heel boots if needed. Apply Preventative foams where needed. 3. Monitor for incontinence and moisture control, use barrier creams when needed for prevention and treatment. 4. Provide adequate and supplemental nutrition. 5. Order or Continue low air loss mattress. 6. When applicable maintain blood glucose levels per Providers order. Re-consult wound care Nurse for wound deterioration or wound changes.
--- NOTE | 2025-06-10 15:16 | P.PNNP_ITS ---
Subjective Subjective Date of Service: 06/10/25 Interval history: States she has a depressed mood Has been eating breakfast and having some liquids Bicarb remains at 15, patient was on D5 half NS this morning Physical Exam 2 Vital Signs: Vital Signs: Last Vital Signs Temp 98.2 F 06/10/25 11:30 Pulse 89 06/10/25 13:04 Resp 24 H 06/10/25 11:30 BP 120/67 06/10/25 13:04 Pulse Ox 92 06/10/25 11:30 O2 Del Method Room Air 06/10/25 11:30 BMI result Body Mass Index 39.2 General: not in any acute distress, ill appearing Nutritional Appearance: well nourished and overweight Eyes: appearance normal, both eyes and all related structures; Alignment and Position: alignment normal and position normal Neck: No lymphadenopathy, no thyromegaly Resp: bilateral air entry equal, no added sounds present Cardio: Regular rate, regular rhythm; Heart sounds: S1 normal heart sound present and S2 normal heart sound present GI: soft, nontender, no guarding, no hepatosplenomegaly : bladder normal to inspection, bladder normal to palpation, no renal angle tenderness Skin: no rashes or lesions noted and elasticity normal Neuro: alert, oriented x 3, moves all extremities Objective Data Labs 06/09/25 10:58 06/10/25 09:33 Labs: Laboratory Results - last 24 hr 06/09/25 06/09/25 06/10/25 14:14 21:15 06:19 Hold Purple Top SEE NOTE Sodium 147 H 140 Potassium 3.6 3.0 L Chloride 114 H 112 H Carbon Dioxide 15 L 14 L Anion Gap 22 H 17 BUN 12 10 Creatinine 0.65 0.55 Estim Creat Clear Calc 101.1 119.4 Estimated GFR > 60 > 60 Random Glucose 76 75 Calcium 9.2 8.5 D Respiratory Panel Castellanos See Note Adenovirus (Rapid PCR) Not Detected B.pert (TEM-PCR) Not Detected B.parapertussis DNA PCR Not Detected C. pneumoniae DNA (PCR) Not Detected Coronavirus OC43 (PCR) Not Detected Coronavirus HKU1 (PCR) Not Detected Coronavirus 229E (PCR) Not Detected Coronavirus NL63 (PCR) Not Detected Human Metapneumovir PCR Not Detected Influenza A (RT-PCR) Not Detected Influenza A (H1) PCR Not Detected Influ A (H1/09) PCR Not Detected Influenza A (H3) PCR Not Detected Influenza B (RT-PCR) Not Detected M. pneumoniae (PCR) Not Detected Parainfluenza 1 (PCR) Not Detected Parainfluenza 2 (PCR) Not Detected Parainfluenza 3 (PCR) Not Detected Parainfluenza 4 (PCR) Not Detected RSV (PCR) Not Detected Entero/Rhino (PCR) Not Detected SARS-CoV-2 RNA (RT-PCR) Not Detected 06/10/25 09:33 Hold Purple Top Sodium 140 Potassium 2.9 L* Chloride 111 H Carbon Dioxide 15 L Anion Gap 17 BUN 8 L Creatinine 0.58 Estim Creat Clear Calc 113.2 Estimated GFR > 60 Random Glucose 73 Calcium 8.9 Respiratory Panel Castellanos Adenovirus (Rapid PCR) B.pert (TEM-PCR) B.parapertussis DNA PCR C. pneumoniae DNA (PCR) Coronavirus OC43 (PCR) Coronavirus HKU1 (PCR) Coronavirus 229E (PCR) Coronavirus NL63 (PCR) Human Metapneumovir PCR Influenza A (RT-PCR) Influenza A (H1) PCR Influ A () PCR Influenza A (H3) PCR Influenza B (RT-PCR) M. pneumoniae (PCR) Parainfluenza 1 (PCR) Parainfluenza 2 (PCR) Parainfluenza 3 (PCR) Parainfluenza 4 (PCR) RSV (PCR) Entero/Rhino (PCR) SARS-CoV-2 RNA (RT-PCR) Procedures Date of Service Date of Service: 06/10/25 Assessment & Plan Assessment and plan (1) High anion gap metabolic acidosis: Status: Acute (2) Starvation ketoacidosis: Status: Acute (3) Metabolic alkalosis: Status: Acute Plan Acid-base disorder: Patient's bicarb remains at 15, gap down to 17. Bicarb is still low because patient is getting D5 half NS, we will switch the fluids to LR which would help correcting the acidosis as well as hypokalemia. The high anion gap metabolic acidosis is secondary to starvation ketoacidosis from poor oral intake and nausea from Zepbound. Hypokalemia: Due to dextrose infusion, we will switch to LR Replace potassium as per protocol Time Spent With Patient Time: Total time managing care of this patient today ____ minutes. Progress Note: Quality Stroke Does the patient have a stroke diagnosis?: No
--- NOTE | 2025-06-10 15:47 | HO.PM.IMPN ---
Subjective Subjective Date of Service: 06/10/25 Interval History: ? Metabolic encepahlopathy. Review of Systems She was somewhat sleepy this morning, selective speaking In the afternoon was more awake , at the bedside Feels depressed Review of Systems: Yes all other systems are reviewed and are negative Physical Exam Exam: Exam: Appearance: Alert.? Oriented , more awake cvs: [id number], [id number] . res: clear to auscultation ,no rhonchii or wheezing abd: no rebound or guarding ,nt, bs present. ext pulses present , no cyanosis . neuro: axo3 , nonfocal. Vital Signs: Vital Signs: Last Vital Signs Temp 97.6 F 06/10/25 15:38 Pulse 75 06/10/25 15:38 Resp 18 06/10/25 15:38 BP 144/77 H 06/10/25 15:38 Pulse Ox 93 06/10/25 15:38 O2 Del Method Room Air 06/10/25 15:38 BMI result Body Mass Index 39.2 Objective Data Active Medications Acetaminophen (Acetaminophen 325 Mg Tablet) 650 mg PO Q6H PRN PRN Reason: Pain, Mild 1-3,fever,headache Atorvastatin Calcium (Atorvastatin Calcium 20 Mg Tablet) 20 mg PO DAILY [facility] Last Admin: 06/10/25 09:46 Dose: 20 mg Documented By: CONNIE Baclofen (Baclofen 20 Mg Tablet) 20 mg PO BID [facility] Last Admin: 06/10/25 09:42 Dose: 20 mg Documented By: CONNIE Bupropion HCl (Bupropion Hcl 100 Mg Tablet) 100 mg PO DAILY [facility] Last Admin: 06/10/25 09:45 Dose: 100 mg Documented By: CONNIE Calcium Carbonate (Calcium Carbonate 750 Mg Tab.Chew) 750 mg PO Q4H PRN PRN Reason: Heartburn Clopidogrel Bisulfate (Clopidogrel Bisulfate 75 Mg Tablet) 75 mg PO DAILY [facility] Last Admin: 06/10/25 13:03 Dose: 75 mg Documented By: CONNIE Cyanocobalamin (Cyanocobalamin (Vitamin B-12) 1,000 Mcg Tablet) 1,000 mcg PO DAILY [facility] Last Admin: 06/10/25 09:45 Dose: 1,000 mcg Documented By: CONNIE Diazepam (Diazepam 2 Mg Tablet) 2 mg PO TID [facility] Last Admin: 06/10/25 13:59 Dose: Not Given Documented By: CONNIE Non-Admin Reason: See Note Enoxaparin Sodium (Enoxaparin Sodium 40 Mg/0.4 Ml Syringe) 40 mg SUBCUT Q24H [facility] Last Admin: 06/09/25 15:45 Dose: 40 mg Documented By: ASYA Ferrous Sulfate (Ferrous Sulfate 324 Mg Tablet.Dr) 324 mg PO DAILY [facility] Last Admin: 06/10/25 09:46 Dose: 324 mg Documented By: CONNIE Lactated Ringer's (Lr) 1,000 mls @ 150 mls/hr IVCONT .Q6H40M [facility] Last Admin: 06/10/25 13:05 Dose: 150 mls/hr Documented By: CONNIE Melatonin (Melatonin 3 Mg Tablet) 9 mg PO BEDTIME [facility] Metoprolol Tartrate (Metoprolol Tartrate 12.5 Mg Halftab) 12.5 mg PO QID [facility]; Protocol Last Admin: 06/10/25 13:03 Dose: 12.5 mg Documented By: CONNIE Multivitamins/Vitamin C (Multivitamin Tablet) 1 tab PO DAILY [facility] Nystatin (Nystatin Powder 15 Gm Bottle) 1 appl TOPICAL BID [facility]; Protocol Last Admin: 06/10/25 09:41 Dose: 1 appl Documented By: CONNIE Polyethylene Glycol (Polyethylene Glycol 3350 17 Gm Powd.Pack) 17 gm PO DAILY PRN PRN Reason: Constipation Ropinirole HCl (Ropinirole Hcl 1 Mg Tablet) 1 mg PO BEDTIME [facility] Last Admin: 06/09/25 22:41 Dose: 1 mg Documented By: DARSHANA Sertraline HCl (Sertraline Hcl 50 Mg Tablet) 150 mg PO DAILY [facility] Last Admin: 06/10/25 09:46 Dose: 150 mg Documented By: CONNIE Sodium Chloride (0.9 % Sodium Chloride Flush 3 Ml Syringe) 3 ml IVFLUSH QSHIFT [facility] Last Admin: 06/10/25 09:54 Dose: Not Given Documented By: CONNIE Non-Admin Reason: IV Running Labs 06/09/25 10:58 06/10/25 09:33 Labs: Laboratory Results - last 24 hr 06/09/25 06/09/25 06/10/25 14:14 21:15 06:19 Hold Purple Top SEE NOTE Anion Gap 22 H 17 Estim Creat Clear Calc 101.1 119.4 Estimated GFR > 60 > 60 Random Glucose 76 75 Calcium 9.2 8.5 D Respiratory Panel Castellanos See Note Adenovirus (Rapid PCR) Not Detected B.pert (TEM-PCR) Not Detected B.parapertussis DNA PCR Not Detected C. pneumoniae DNA (PCR) Not Detected Coronavirus OC43 (PCR) Not Detected Coronavirus HKU1 (PCR) Not Detected Coronavirus 229E (PCR) Not Detected Coronavirus NL63 (PCR) Not Detected Human Metapneumovir PCR Not Detected Influenza A (RT-PCR) Not Detected Influenza A (H1) PCR Not Detected Influ A () PCR Not Detected Influenza A (H3) PCR Not Detected Influenza B (RT-PCR) Not Detected M. pneumoniae (PCR) Not Detected Parainfluenza 1 (PCR) Not Detected Parainfluenza 2 (PCR) Not Detected Parainfluenza 3 (PCR) Not Detected Parainfluenza 4 (PCR) Not Detected RSV (PCR) Not Detected Entero/Rhino (PCR) Not Detected SARS-CoV-2 RNA (RT-PCR) Not Detected 06/10/25 09:33 Hold Purple Top Anion Gap 17 Estim Creat Clear Calc 113.2 Estimated GFR > 60 Random Glucose 73 Calcium 8.9 Respiratory Panel Castellanos Adenovirus (Rapid PCR) B.pert (TEM-PCR) B.parapertussis DNA PCR C. pneumoniae DNA (PCR) Coronavirus OC43 (PCR) Coronavirus HKU1 (PCR) Coronavirus 229E (PCR) Coronavirus NL63 (PCR) Human Metapneumovir PCR Influenza A (RT-PCR) Influenza A (H1) PCR Influ A () PCR Influenza A (H3) PCR Influenza B (RT-PCR) M. pneumoniae (PCR) Parainfluenza 1 (PCR) Parainfluenza 2 (PCR) Parainfluenza 3 (PCR) Parainfluenza 4 (PCR) RSV (PCR) Entero/Rhino (PCR) SARS-CoV-2 RNA (RT-PCR) Assessment and Plan (1) Takotsubo cardiomyopathy: Status: Acute (2) High anion gap metabolic acidosis: Status: Acute Plan 65 year old female with history of bipolar disorder, MS who was brought to the ED by her due to reported shortness of breath and staring Possible metabolic encephalopathy secondary to High anion gap metabolic acidosis-seems likely due to startvation ketoacidosis due to zepbound , psych meds. elevated urine ketones, elevated beta hydroxybutyrate check Hba1c 4.7 plan: Mental status seems to be improved significantly Probably due to above starvation ketosis/zepbound IV fluid changed to LR. Neurology consulted-recommended EEG. Acute Hypokalemia: Repleted added magnesium levels tachypnea Seems to be improved, elevated cardiac enzymes troponin 705-900, no EKG changes likely due to demand from ketosis/dehydration CPK low monitor on telemetry cardiology: bb , patient refuses aspirin says she has allergy, added Plavix, statin. Monitor on tele, echo pending Bipolar disorder selective verbal interaction, possibly behavioral Feels depressed-she said that this episode also due to contribution of depression On bupropion new, sertraline hold sedating meds due to concern for oversedation psych consult -psych consult for depression and bipolar disorder and medication adjustment atelectasis b/l seen on cxr incentive spirometry MS hold baclofen today, resume in am Morbid obesity BMI 37.1 CLAUS CPAP dvt ppx - lovenox ongoing need for stay: Multifactorial issues as above-encephalopathy, electrolytic abnormalities, elevated cardiac enzymes-cardiac workup pending as well as need aggressive electrolyte monitoring and IV fluids, psych evaluation and cardio follow-up. Quality Stroke Does the patient have a stroke diagnosis?: No VTE Prior VTE?: No VTE Risk Level:: Medical - moderate - high VTE Device Contraindication: N/A - Device Ordered VTE Drug Contraindication: N/A - Med Ordered
[2025-06-10 16:30] LABS: Magnesium 1.8 mg/dL (1.6-2.6)
[2025-06-10 16:38] LABS: Anion Gap 14 (12-20); Blood Urea Nitrogen 7 mg/dL (9-16); Calcium 9.0 mg/dL (8.4-10.2); Carbon Dioxide 19 mmol/L (22-29); Chloride 111 mmol/L (96-108); Creatinine Clr Calc Pharmacy 113.2; Estimated Glomerular Filt Rate > 60; Potassium 3.6 mmol/L (3.3-5.1); Sodium 140 mmol/L (135-145)
[2025-06-11] VITALS (9 sets, daily range): BP systolic 111–148; BP diastolic 63–97; PULSE 62–107; RESP 16–18; TEMP 36.2–37.2; O2SAT 92–98
[2025-06-11] MEDS: Lactated Ringers 1,000 ML 150 ML IVCONT (01:56)
[2025-06-11] MEDS: Metoprolol Tartrate 12.5 MG HALFTAB PO ×4 (08:35→21:52)
[2025-06-11] MEDS: Ferrous Sulfate 324 MG TABLET.DR PO (08:35)
[2025-06-11 09:50] LABS: Anion Gap 17 (12-20); Blood Urea Nitrogen 7 mg/dL (9-16); Calcium 9.3 mg/dL (8.4-10.2); Carbon Dioxide 20 mmol/L (22-29); Chloride 110 mmol/L (96-108); Creatinine Clr Calc Pharmacy 105.9; Estimated Glomerular Filt Rate > 60; Potassium 3.3 mmol/L (3.3-5.1); Sodium 144 mmol/L (135-145)
--- NOTE | 2025-06-11 16:09 | HO.PSYCHPN ---
Subjective Subjective Date of Service: 06/11/25 Reason For Visit: AMS Interim History: Patient seen in follow up per Dr. Bowman's request. Reportedly patient was more communicative today when was around. Earlier in the day had an agitated episode where she was shouting and talking to herself. Patient selectively answers. When this service writer advisor went in, patient was watching tv, she greeted the service writer advisor back and said hello. When I introduced myself patient's attitude changed. Patient wouldn't respond to questions. She was alert and fully awake. She would acknowledge her name being called, would look at this examiner then start looking at the TV and not answer any questions. She has been eating and drinking OK per RN. Review of Systems Review of Systems She was somewhat sleepy this morning, selective speaking In the afternoon was more awake , at the bedside Feels depressed Yes all other systems are reviewed and are negative and Unobtainable due to mental status Cardiovascular: Reports no additional cardiovascular complaints Diagnostics Vital Signs (24Hr): Vital Signs - 24 hr 06/10/25 20:18 06/11/25 00:00 06/11/25 04:34 Temperature 98.9 F 98.7 F Pulse Rate 88 76 70 Respiratory Rate 20 18 18 Blood Pressure 130/65 142/63 H 132/71 Pulse Oximetry 96 95 97 Oxygen Delivery Method Room Air CPAP CPAP 06/11/25 08:00 06/11/25 11:10 06/11/25 12:05 Temperature 98.4 F 98.1 F Pulse Rate 107 H 75 80 Respiratory Rate 18 16 Blood Pressure 142/80 H 111/67 Pulse Oximetry 98 96 94 Oxygen Delivery Method CPAP Room Air BMI result Body Mass Index 39.2 Labs 06/09/25 10:58 06/11/25 08:55 Labs: Laboratory Results - last 48 hr 06/09/25 06/10/25 06/10/25 21:15 06:19 09:33 Hold Purple Top SEE NOTE Sodium 147 H 140 140 Potassium 3.6 3.0 L 2.9 L* Chloride 114 H 112 H 111 H Carbon Dioxide 15 L 14 L 15 L Anion Gap 22 H 17 17 BUN 12 10 8 L Creatinine 0.65 0.55 0.58 Estim Creat Clear Calc 101.1 119.4 113.2 Estimated GFR > 60 > 60 > 60 Random Glucose 76 75 73 Calcium 9.2 8.5 D 8.9 Magnesium 1.8 06/10/25 06/11/25 16:13 08:55 Hold Purple Top Sodium 140 144 Potassium 3.6 D 3.3 Chloride 111 H 110 H Carbon Dioxide 19 L 20 L Anion Gap 14 17 BUN 7 L 7 L Creatinine 0.58 0.62 Estim Creat Clear Calc 113.2 105.9 Estimated GFR > 60 > 60 Random Glucose 83 87 Calcium 9.0 9.3 Magnesium Imaging Radiology Impressions: ITS Impressions Chest X-Ray 06/09/25 11:02 IMPRESSION: Low lung volumes. Probable subsegmental atelectasis in bilateral lower lungs. Electronically signed by: Russ Baig MD 06/09/2025 11:15 AM EST RP Head CT 06/09/25 11:07 IMPRESSION: No acute intracranial hemorrhage. White matter disease. Consider small vessel occlusive disease versus demyelinating process. Bifrontal biparietal lobes atrophy, moderate. Electronically signed by: Rosendo Stevens MD 06/09/2025 11:27 AM EST RP Medications Medications Current Medications Acetaminophen (Acetaminophen 325 Mg Tablet) 650 mg PO Q6H PRN PRN Reason: Pain, Mild 1-3,fever,headache Atorvastatin Calcium (Atorvastatin Calcium 20 Mg Tablet) 20 mg PO DAILY [facility] Last Admin: 06/11/25 08:35 Dose: 20 mg Baclofen (Baclofen 20 Mg Tablet) 20 mg PO BID [facility] Last Admin: 06/11/25 08:35 Dose: 20 mg Bupropion HCl (Bupropion Hcl 100 Mg Tablet) 100 mg PO DAILY [facility] Last Admin: 06/11/25 08:35 Dose: 100 mg Calcium Carbonate (Calcium Carbonate 750 Mg Tab.Chew) 750 mg PO Q4H PRN PRN Reason: Heartburn Clopidogrel Bisulfate (Clopidogrel Bisulfate 75 Mg Tablet) 75 mg PO DAILY [facility] Last Admin: 06/11/25 08:35 Dose: 75 mg Clotrimazole (Clotrimazole 1 % Cream 15 Gm Tube) 1 appl TOPICAL BID [facility]; Protocol Last Admin: 06/11/25 08:38 Dose: Not Given Cyanocobalamin (Cyanocobalamin (Vitamin B-12) 1,000 Mcg Tablet) 1,000 mcg PO DAILY [facility] Last Admin: 06/11/25 08:35 Dose: 1,000 mcg Diazepam (Diazepam 2 Mg Tablet) 2 mg PO TID [facility] Last Admin: 06/11/25 14:16 Dose: 2 mg Enoxaparin Sodium (Enoxaparin Sodium 40 Mg/0.4 Ml Syringe) 40 mg SUBCUT Q24H [facility] Last Admin: 06/11/25 14:16 Dose: 40 mg Ferrous Sulfate (Ferrous Sulfate 324 Mg Tablet.Dr) 324 mg PO DAILY [facility] Last Admin: 06/11/25 08:35 Dose: 324 mg Lactated Ringer's (Lr) 1,000 mls @ 150 mls/hr IVCONT .Q6H40M [facility] On Hold: 06/11/25 07:55 Last Infusion: 06/11/25 15:50 Dose: Infused Melatonin (Melatonin 3 Mg Tablet) 9 mg PO BEDTIME [facility] Last Admin: 06/10/25 20:16 Dose: 9 mg Metoprolol Tartrate (Metoprolol Tartrate 12.5 Mg Halftab) 12.5 mg PO QID [facility]; Protocol Last Admin: 06/11/25 14:16 Dose: 12.5 mg Multivitamins/Vitamin C (Multivitamin Tablet) 1 tab PO DAILY [facility] Last Admin: 06/11/25 08:35 Dose: 1 tab Nystatin (Nystatin Powder 15 Gm Bottle) 1 appl TOPICAL BID [facility]; Protocol Last Admin: 06/11/25 08:37 Dose: 1 appl Polyethylene Glycol (Polyethylene Glycol 3350 17 Gm Powd.Pack) 17 gm PO DAILY PRN PRN Reason: Constipation Ropinirole HCl (Ropinirole Hcl 1 Mg Tablet) 1 mg PO BEDTIME [facility] Last Admin: 06/10/25 20:16 Dose: 1 mg Sertraline HCl (Sertraline Hcl 50 Mg Tablet) 150 mg PO DAILY [facility] Last Admin: 06/11/25 08:35 Dose: 150 mg Sodium Chloride (0.9 % Sodium Chloride Flush 3 Ml Syringe) 3 ml IVFLUSH QSHIFT [facility] Last Admin: 06/11/25 15:51 Dose: Not Given Allergies Allergies Allergy/AdvReac Type Severity Reaction Status Date / Time aspirin Allergy Unknown Verified 06/09/25 10:52 citalopram (From Celexa) Allergy Unknown Verified 06/09/25 10:52 lamotrigine (From Lamictal) Allergy Unknown Verified 06/09/25 10:52 Penicillins Allergy Unknown Verified 06/09/25 10:52 Assessment & Plan Assessment & Plan (1) Takotsubo cardiomyopathy: Status: Acute Code(s): I51.81 - Takotsubo syndrome (2) High anion gap metabolic acidosis: Status: Acute Code(s): E87.29 - Other acidosis Plan Bipolar disorder selective verbal interaction Feels depressed-she said that this episode also due to contribution of depression On bupropion new, sertraline hold sedating meds due to concern for oversedation psych consult -psych consult for depression and bipolar disorder and medication adjustment 06/11: Not back to baseline. Would hold Wellbutrin. Monitor mental status. May need inpatient psychiatric admission if workup non-revealing for other mental status change reasons. No evidence of withdrawal or intoxication. ?psychotic decompensation. Reason for continued inpatient stay Substantial Risk for: inability to function and rapid decompensation Time Spent With Patient Time: Total time managing care of this patient today ____ minutes.
--- NOTE | 2025-06-11 17:05 | P.PNIM_ITS ---
Subjective Subjective Date of Service: 06/11/25 Interval History: Encephalopathy Review of Systems Has some period of when she speaks and then sometimes she speak less. She was talking to the Review of Systems: Yes all other systems are reviewed and are negative Physical Exam 2 Exam: Exam: Appearance: Alert.? Oriented , more awake cvs: [id number], [id number] . res: clear to auscultation ,no rhonchii or wheezing abd: no rebound or guarding ,nt, bs present. ext pulses present , no cyanosis . neuro: axo3 , nonfocal. Vital Signs: Vital Signs: Last Vital Signs Temp 97.2 F 06/11/25 16:00 Pulse 79 06/11/25 16:00 Resp 18 06/11/25 16:00 BP 130/97 H 06/11/25 16:00 Pulse Ox 92 06/11/25 16:00 O2 Del Method Room Air 06/11/25 16:00 BMI result Body Mass Index 39.2 Objective Data Active Medications Acetaminophen (Acetaminophen 325 Mg Tablet) 650 mg PO Q6H PRN PRN Reason: Pain, Mild 1-3,fever,headache Atorvastatin Calcium (Atorvastatin Calcium 20 Mg Tablet) 20 mg PO DAILY [facility] Last Admin: 06/11/25 08:35 Dose: 20 mg Documented By: EDU Baclofen (Baclofen 20 Mg Tablet) 20 mg PO BID [facility] Last Admin: 06/11/25 08:35 Dose: 20 mg Documented By: EDU Bupropion HCl (Bupropion Hcl 100 Mg Tablet) 100 mg PO DAILY [facility] Last Admin: 06/11/25 08:35 Dose: 100 mg Documented By: EDU Calcium Carbonate (Calcium Carbonate 750 Mg Tab.Chew) 750 mg PO Q4H PRN PRN Reason: Heartburn Clopidogrel Bisulfate (Clopidogrel Bisulfate 75 Mg Tablet) 75 mg PO DAILY [facility] Last Admin: 06/11/25 08:35 Dose: 75 mg Documented By: EDU Clotrimazole (Clotrimazole 1 % Cream 15 Gm Tube) 1 appl TOPICAL BID [facility]; Protocol Last Admin: 06/11/25 08:38 Dose: Not Given Documented By: EDU Non-Admin Reason: Patient Refused Cyanocobalamin (Cyanocobalamin (Vitamin B-12) 1,000 Mcg Tablet) 1,000 mcg PO DAILY [facility] Last Admin: 06/11/25 08:35 Dose: 1,000 mcg Documented By: EDU Diazepam (Diazepam 2 Mg Tablet) 2 mg PO TID [facility] Last Admin: 06/11/25 14:16 Dose: 2 mg Documented By: EDU Enoxaparin Sodium (Enoxaparin Sodium 40 Mg/0.4 Ml Syringe) 40 mg SUBCUT Q24H [facility] Last Admin: 06/11/25 14:16 Dose: 40 mg Documented By: EDU Ferrous Sulfate (Ferrous Sulfate 324 Mg Tablet.Dr) 324 mg PO DAILY [facility] Last Admin: 06/11/25 08:35 Dose: 324 mg Documented By: EDU Lactated Ringer's (Lr) 1,000 mls @ 150 mls/hr IVCONT .Q6H40M [facility] On Hold: 06/11/25 07:55 Last Infusion: 06/11/25 15:50 Dose: Infused Documented By: EDU Melatonin (Melatonin 3 Mg Tablet) 9 mg PO BEDTIME [facility] Last Admin: 06/10/25 20:16 Dose: 9 mg Documented By: MAYA Metoprolol Tartrate (Metoprolol Tartrate 12.5 Mg Halftab) 12.5 mg PO QID [facility]; Protocol Last Admin: 06/11/25 16:49 Dose: 12.5 mg Documented By: EDU Multivitamins/Vitamin C (Multivitamin Tablet) 1 tab PO DAILY [facility] Last Admin: 06/11/25 08:35 Dose: 1 tab Documented By: EDU Nystatin (Nystatin Powder 15 Gm Bottle) 1 appl TOPICAL BID [facility]; Protocol Last Admin: 06/11/25 08:37 Dose: 1 appl Documented By: EDU Polyethylene Glycol (Polyethylene Glycol 3350 17 Gm Powd.Pack) 17 gm PO DAILY PRN PRN Reason: Constipation Ropinirole HCl (Ropinirole Hcl 1 Mg Tablet) 1 mg PO BEDTIME [facility] Last Admin: 06/10/25 20:16 Dose: 1 mg Documented By: MAYA Sertraline HCl (Sertraline Hcl 50 Mg Tablet) 150 mg PO DAILY [facility] Last Admin: 06/11/25 08:35 Dose: 150 mg Documented By: EDU Sodium Chloride (0.9 % Sodium Chloride Flush 3 Ml Syringe) 3 ml IVFLUSH QSHIFT [facility] Last Admin: 06/11/25 15:51 Dose: Not Given Documented By: EDU Non-Admin Reason: Previously Administered Labs 06/09/25 10:58 06/11/25 08:55 Labs: Laboratory Results - last 24 hr 06/11/25 08:55 Anion Gap 17 Estim Creat Clear Calc 105.9 Estimated GFR > 60 Random Glucose 87 Calcium 9.3 Assessment and Plan (1) Takotsubo cardiomyopathy: Status: Acute (2) High anion gap metabolic acidosis: Status: Acute Plan 65 year old female with history of bipolar disorder, MS who was brought to the ED by her due to reported shortness of breath and staring Possible metabolic encephalopathy secondary to High anion gap metabolic acidosis-seems likely due to startvation ketoacidosis due to zepbound , psych meds. elevated urine ketones, elevated beta hydroxybutyrate check Hba1c 4.7 plan: Mental status seems to be improved significantly Probably due to above starvation ketosis/zepbound IV fluid changed to LR. Neurology consulted-recommended EEG. Acute Hypokalemia: Repleted added magnesium levels tachypnea Seems to be improved, elevated cardiac enzymes troponin 705-900, no EKG changes likely due to demand from ketosis/dehydration CPK low monitor on telemetry cardiology: bb , patient refuses aspirin says she has allergy, added Plavix, statin. Monitor on tele, echo pending Bipolar disorder selective verbal interaction, possibly behavioral Feels depressed-she said that this episode also due to contribution of depression On bupropion new, sertraline hold sedating meds due to concern for oversedation psych consult -psych consult for depression and bipolar disorder and medication adjustment atelectasis b/l seen on cxr incentive spirometry MS hold baclofen today, resume in am Morbid obesity BMI 37.1 CLAUS CPAP dvt ppx - lovenox ongoing need for stay: Multifactorial issues as above-encephalopathy, electrolytic abnormalities, elevated cardiac enzymes-cardiac workup pending as well as need aggressive electrolyte monitoring and IV fluids, psych evaluation and cardio follow-up. Quality Stroke Does the patient have a stroke diagnosis?: No VTE Prior VTE?: No VTE Risk Level:: Medical - moderate - high VTE Device Contraindication: N/A - Device Ordered VTE Drug Contraindication: N/A - Med Ordered
[2025-06-11] MEDS: 0.9 % Sodium Chloride Flush 3 ML SYRINGE IVFLUSH (21:59)
[2025-06-12] VITALS (7 sets, daily range): BP systolic 110–142; BP diastolic 58–90; PULSE 76–106; RESP 16–18; TEMP 36.2–37.1; O2SAT 93–98
[2025-06-12] MEDS: 0.9 % Sodium Chloride Flush 3 ML SYRINGE IVFLUSH ×2 (08:31→20:59)
[2025-06-12] MEDS: Ferrous Sulfate 324 MG TABLET.DR PO (08:31)
[2025-06-12] MEDS: Metoprolol Tartrate 12.5 MG HALFTAB PO ×4 (08:31→20:59)
[2025-06-12] MEDS: diazePAM 10 MG/2 ML CARTRIDGE 2.5 MG IVPUSH (08:55)
--- NOTE | 2025-06-12 13:17 | P.PNPSI_ITS ---
Subjective Subjective Date of Service: 06/12/25 Reason For Visit: AMS Interim History: Patient seen in follow up. discussed with RN Patient was shouting earlier today saying she wants a suicide pill and that she killed her family. Patient's EEG was within normal limits. Was telling the DIGITAL IMAGING SPECIALIST I just killed my entire family . This comic writer went into the room, she responded with mary kate. She then blurted out I solved it . When asked to clarify she just looks down and becomes mute. Then after a minute or 2 would say I solved it. Appears internally preoccupied. Was agitated this morning and shouting and received Valium. She has been eating and drinking OK per RN. On review of chart, patient was haldol and depakote in the past during her admission in 2023. Review of Systems Review of Systems She was somewhat sleepy this morning, selective speaking In the afternoon was more awake , at the bedside Feels depressed Yes all other systems are reviewed and are negative and Unobtainable due to mental status Cardiovascular: Reports no additional cardiovascular complaints Mental Status Exam Mental Status Exam Patient Appearance: Bizarre Level of Consciousness: Awake, Appropriate and Restless Patient Behavior: Restless, Avoidant, Distractible, Confused and Uncooperative Mood Description: Suspicious and Anxious Affect Description: Suspicious and Anxious Ability to Follow Directions: Poor Speech Pattern: Clear, Perseverating, Delayed and Long Pauses Hallucinations: None (possible) Delusions: Paranoid Ideation, Grandiose and Bizarre Thought Process: Incoherent, Illogical, Distracted and Confusion Thought Content: positive for Perseveration, positive for Thought Blocking, positive for Tangential and positive for Disorganized Diagnostics Vital Signs (24Hr): Vital Signs - 24 hr 06/11/25 16:00 06/11/25 20:00 06/11/25 22:35 Temperature 97.2 F 97.8 F Pulse Rate 79 69 Respiratory Rate 18 18 18 Blood Pressure 130/97 H 148/81 H Pulse Oximetry 92 96 Oxygen Delivery Method Room Air Room Air 06/11/25 23:45 06/12/25 03:40 06/12/25 07:51 Temperature 98.8 F 98.8 F 97.8 F Pulse Rate 62 76 88 Respiratory Rate 18 18 16 Blood Pressure 118/65 126/71 133/63 Pulse Oximetry 96 95 98 Oxygen Delivery Method BiPAP BiPAP CPAP 06/12/25 11:28 Temperature 97.9 F Pulse Rate 95 Respiratory Rate 16 Blood Pressure 111/74 Pulse Oximetry 93 Oxygen Delivery Method Room Air BMI result Body Mass Index 39.2 Labs 06/09/25 10:58 06/11/25 08:55 Labs: Laboratory Results - last 48 hr 06/10/25 06/10/25 06/11/25 09:33 16:13 08:55 Sodium 140 144 Potassium 3.6 D 3.3 Chloride 111 H 110 H Carbon Dioxide 19 L 20 L Anion Gap 14 17 BUN 7 L 7 L Creatinine 0.58 0.62 Estim Creat Clear Calc 113.2 105.9 Estimated GFR > 60 > 60 Random Glucose 83 87 Calcium 9.0 9.3 Magnesium 1.8 Imaging Radiology Impressions: ITS Impressions Chest X-Ray 06/09/25 11:02 IMPRESSION: Low lung volumes. Probable subsegmental atelectasis in bilateral lower lungs. Electronically signed by: Russ Baig MD 06/09/2025 11:15 AM EST RP Head CT 06/09/25 11:07 IMPRESSION: No acute intracranial hemorrhage. White matter disease. Consider small vessel occlusive disease versus demyelinating process. Bifrontal biparietal lobes atrophy, moderate. Electronically signed by: Rosendo Stevens MD 06/09/2025 11:27 AM EST RP Medications Medications Current Medications Acetaminophen (Acetaminophen 325 Mg Tablet) 650 mg PO Q6H PRN PRN Reason: Pain, Mild 1-3,fever,headache Atorvastatin Calcium (Atorvastatin Calcium 20 Mg Tablet) 20 mg PO DAILY [facility] Last Admin: 06/12/25 08:31 Dose: 20 mg Baclofen (Baclofen 20 Mg Tablet) 20 mg PO BID [facility] Last Admin: 06/12/25 08:31 Dose: 20 mg Bupropion HCl (Bupropion Hcl 100 Mg Tablet) 100 mg PO DAILY [facility] Last Admin: 06/12/25 08:50 Dose: Not Given Calcium Carbonate (Calcium Carbonate 750 Mg Tab.Chew) 750 mg PO Q4H PRN PRN Reason: Heartburn Clopidogrel Bisulfate (Clopidogrel Bisulfate 75 Mg Tablet) 75 mg PO DAILY [facility] Last Admin: 06/12/25 08:31 Dose: 75 mg Clotrimazole (Clotrimazole 1 % Cream 15 Gm Tube) 1 appl TOPICAL BID [facility]; Protocol Last Admin: 06/12/25 08:27 Dose: Not Given Cyanocobalamin (Cyanocobalamin (Vitamin B-12) 1,000 Mcg Tablet) 1,000 mcg PO DAILY [facility] Last Admin: 06/12/25 08:31 Dose: 1,000 mcg Diazepam (Diazepam 2 Mg Tablet) 2 mg PO TID [facility] Last Admin: 06/12/25 08:31 Dose: 2 mg Enoxaparin Sodium (Enoxaparin Sodium 40 Mg/0.4 Ml Syringe) 40 mg SUBCUT Q24H [facility] Last Admin: 06/11/25 14:16 Dose: 40 mg Ferrous Sulfate (Ferrous Sulfate 324 Mg Tablet.Dr) 324 mg PO DAILY [facility] Last Admin: 06/12/25 08:31 Dose: 324 mg Lactated Ringer's (Lr) 1,000 mls @ 150 mls/hr IVCONT .Q6H40M [facility] On Hold: 06/11/25 07:55 Last Infusion: 06/11/25 15:50 Dose: Infused Melatonin (Melatonin 3 Mg Tablet) 9 mg PO BEDTIME [facility] Last Admin: 06/11/25 21:50 Dose: 9 mg Metoprolol Tartrate (Metoprolol Tartrate 12.5 Mg Halftab) 12.5 mg PO QID [facility]; Protocol Last Admin: 06/12/25 12:57 Dose: 12.5 mg Multivitamins/Vitamin C (Multivitamin Tablet) 1 tab PO DAILY [facility] Last Admin: 06/12/25 08:31 Dose: 1 tab Nystatin (Nystatin Powder 15 Gm Bottle) 1 appl TOPICAL BID [facility]; Protocol Last Admin: 06/12/25 09:00 Dose: Not Given Polyethylene Glycol (Polyethylene Glycol 3350 17 Gm Powd.Pack) 17 gm PO DAILY PRN PRN Reason: Constipation Ropinirole HCl (Ropinirole Hcl 1 Mg Tablet) 1 mg PO BEDTIME [facility] Last Admin: 06/11/25 21:50 Dose: 1 mg Sertraline HCl (Sertraline Hcl 50 Mg Tablet) 150 mg PO DAILY [facility] Last Admin: 06/12/25 08:31 Dose: 150 mg Sodium Chloride (0.9 % Sodium Chloride Flush 3 Ml Syringe) 3 ml IVFLUSH QSHIFT [facility] Last Admin: 06/12/25 08:31 Dose: 3 ml Allergies Allergies Allergy/AdvReac Type Severity Reaction Status Date / Time aspirin Allergy Unknown Verified 06/09/25 10:52 citalopram (From Celexa) Allergy Unknown Verified 06/09/25 10:52 lamotrigine (From Lamictal) Allergy Unknown Verified 06/09/25 10:52 Penicillins Allergy Unknown Verified 06/09/25 10:52 Assessment & Plan Assessment & Plan (1) Takotsubo cardiomyopathy: Status: Acute Code(s): I51.81 - Takotsubo syndrome (2) High anion gap metabolic acidosis: Status: Acute Code(s): E87.29 - Other acidosis (3) Bipolar 1 disorder, manic, moderate: Status: Acute Code(s): F31.12 - Bipolar disorder, current episode manic without psychotic features, moderate (4) Bipolar affective, manic, severe w/ psych: Status: Acute Code(s): F31.2 - Bipolar disorder, current episode manic severe with psychotic features Plan Bipolar disorder selective verbal interaction Feels depressed-she said that this episode also due to contribution of depression On bupropion new, sertraline hold sedating meds due to concern for oversedation psych consult -psych consult for depression and bipolar disorder and medication adjustment 06/11: Not back to baseline. Would hold Wellbutrin. Monitor mental status. May need inpatient psychiatric admission if workup non-revealing for other mental status change reasons. No evidence of withdrawal or intoxication. ?psychotic decompensation. 06/12: No reversible causes for mental status change are evident. Recommend transfer to inpatient psychiatry for continued management. Reason for continued inpatient stay Substantial Risk for: inability to function and rapid decompensation Time Spent With Patient Time: Total time managing care of this patient today ____ minutes.
--- NOTE | 2025-06-12 14:38 | HO.PM.IMPN ---
Subjective Subjective Date of Service: 06/12/25 Interval History: mood dis /behaviour agiatation Review of Systems seems similar /yelling Physical Exam Exam: Exam: Appearance: Alert.? Oriented , more awake cvs: rrr, [id number] . res: clear to auscultation ,no rhonchii or wheezing abd: no rebound or guarding ,nt, bs present. ext pulses present , no cyanosis . neuro: axo3 , nonfocal. Vital Signs: Vital Signs: Last Vital Signs Temp 97.9 F 06/12/25 11:28 Pulse 95 06/12/25 11:28 Resp 16 06/12/25 11:28 BP 111/74 06/12/25 11:28 Pulse Ox 93 06/12/25 11:28 O2 Del Method Room Air 06/12/25 11:28 BMI result Body Mass Index 39.2 Objective Data Active Medications Acetaminophen (Acetaminophen 325 Mg Tablet) 650 mg PO Q6H PRN PRN Reason: Pain, Mild 1-3,fever,headache Atorvastatin Calcium (Atorvastatin Calcium 20 Mg Tablet) 20 mg PO DAILY [facility] Last Admin: 06/12/25 08:31 Dose: 20 mg Documented By: EDU Baclofen (Baclofen 20 Mg Tablet) 20 mg PO BID [facility] Last Admin: 06/12/25 08:31 Dose: 20 mg Documented By: EDU Bupropion HCl (Bupropion Hcl 100 Mg Tablet) 100 mg PO DAILY [facility] Last Admin: 06/12/25 08:50 Dose: Not Given Documented By: EDU Non-Admin Reason: Physician Held Med Calcium Carbonate (Calcium Carbonate 750 Mg Tab.Chew) 750 mg PO Q4H PRN PRN Reason: Heartburn Clopidogrel Bisulfate (Clopidogrel Bisulfate 75 Mg Tablet) 75 mg PO DAILY [facility] Last Admin: 06/12/25 08:31 Dose: 75 mg Documented By: EDU Clotrimazole (Clotrimazole 1 % Cream 15 Gm Tube) 1 appl TOPICAL BID [facility]; Protocol Last Admin: 06/12/25 08:27 Dose: Not Given Documented By: EDU Non-Admin Reason: Patient Refused Cyanocobalamin (Cyanocobalamin (Vitamin B-12) 1,000 Mcg Tablet) 1,000 mcg PO DAILY [facility] Last Admin: 06/12/25 08:31 Dose: 1,000 mcg Documented By: EDU Diazepam (Diazepam 2 Mg Tablet) 2 mg PO TID [facility] Last Admin: 06/12/25 08:31 Dose: 2 mg Documented By: EDU Enoxaparin Sodium (Enoxaparin Sodium 40 Mg/0.4 Ml Syringe) 40 mg SUBCUT Q24H [facility] Last Admin: 06/11/25 14:16 Dose: 40 mg Documented By: EDU Ferrous Sulfate (Ferrous Sulfate 324 Mg Tablet.Dr) 324 mg PO DAILY [facility] Last Admin: 06/12/25 08:31 Dose: 324 mg Documented By: EDU Lactated Ringer's (Lr) 1,000 mls @ 150 mls/hr IVCONT .Q6H40M [facility] On Hold: 06/11/25 07:55 Last Infusion: 06/11/25 15:50 Dose: Infused Documented By: EDU Melatonin (Melatonin 3 Mg Tablet) 9 mg PO BEDTIME [facility] Last Admin: 06/11/25 21:50 Dose: 9 mg Documented By: SHELDON Metoprolol Tartrate (Metoprolol Tartrate 12.5 Mg Halftab) 12.5 mg PO QID [facility]; Protocol Last Admin: 06/12/25 12:57 Dose: 12.5 mg Documented By: EDU Multivitamins/Vitamin C (Multivitamin Tablet) 1 tab PO DAILY [facility] Last Admin: 06/12/25 08:31 Dose: 1 tab Documented By: EDU Nystatin (Nystatin Powder 15 Gm Bottle) 1 appl TOPICAL BID [facility]; Protocol Last Admin: 06/12/25 09:00 Dose: Not Given Documented By: EDU Non-Admin Reason: Patient Refused Polyethylene Glycol (Polyethylene Glycol 3350 17 Gm Powd.Pack) 17 gm PO DAILY PRN PRN Reason: Constipation Ropinirole HCl (Ropinirole Hcl 1 Mg Tablet) 1 mg PO BEDTIME [facility] Last Admin: 06/11/25 21:50 Dose: 1 mg Documented By: SHELDON Sertraline HCl (Sertraline Hcl 50 Mg Tablet) 150 mg PO DAILY [facility] Last Admin: 06/12/25 08:31 Dose: 150 mg Documented By: EDU Sodium Chloride (0.9 % Sodium Chloride Flush 3 Ml Syringe) 3 ml IVFLUSH QSHIFT [facility] Last Admin: 06/12/25 08:31 Dose: 3 ml Documented By: COOPEEA Labs 06/09/25 10:58 06/11/25 08:55 Assessment and Plan (1) Takotsubo cardiomyopathy: Status: Acute (2) High anion gap metabolic acidosis: Status: Acute Plan 65 year old female with history of bipolar disorder, MS who was brought to the ED by her due to reported shortness of breath and staring Possible metabolic encephalopathy secondary to High anion gap metabolic acidosis-seems likely due to startvation ketoacidosis due to zepbound , psych meds. elevated urine ketones, elevated beta hydroxybutyrate check Hba1c 4.7 plan: Mental status seems to be improved significantly Probably due to above starvation ketosis/zepbound metabolic abnormalities improved. Neurology consulted- EEG fine . Acute Hypokalemia: Repleted and resolved. tachypnea Seems to be improved. elevated cardiac enzymes troponin [id number], no EKG changes likely due to demand from ketosis/dehydration CPK low monitor on ladle pourer on tele, echo :Normal LV ejection fraction 55-60% with grade 1 diastolic dysfunction with wall motion in the apical segment which should suggest stress-induced cardiomyopathy. LAD territory ischemia can not be ruled out. 2. Normal cardiac valvular Dopplers.3. Normal RV systolic pressure .4. No gross pericardial effusion seen by cardio: overall stress-induced cardiomyopathy is a reversible condition and will eventually normalized LV ejection fraction. need a limited echocardiogram in 10-14 days to assess for improvement in LV ejection fraction. bb , patient refuses aspirin says she has allergy, added Plavix, statin. Bipolar disorder selective verbal interaction, possibly behavioral Feels depressed-she said that this episode also due to contribution of depression hold bupropion new, sertraline. psych consult -mood dis -with frequent behaviour agiatations- seen by psych need inpatient psych , care team eval added. atelectasis b/l seen on cxr incentive spirometry MS hold baclofen today, resume in am Morbid obesity BMI 37.1 CLAUS CPAP dvt ppx - lovenox ongoing need for stay: mood dis -with frequent behaviour agiatations- seen by psych need inpatient psych , care team eval /psych -rec inpatient psych. Quality Stroke Does the patient have a stroke diagnosis?: No VTE Prior VTE?: No VTE Risk Level:: Medical - moderate - high VTE Device Contraindication: N/A - Device Ordered VTE Drug Contraindication: N/A - Med Ordered
[2025-06-12] MEDS: diazePAM 10 MG/2 ML CARTRIDGE 7.5 MG IVPUSH (20:59)
[2025-06-13 03:22] VITALS: BP 127/72; PULSE 80; RESP 18; TEMP 36.4; O2SAT 96
--- NOTE | 2025-06-13 06:08 | PC.NURSE ---
pt more calm this morning , no extra anxiety medications since 2058 Valium and Haldol given . She is helpful with turning and cleaning up.
[2025-06-13 07:58] VITALS: BP 131/63; PULSE 87; RESP 20; TEMP 37.2; O2SAT 95
--- NOTE | 2025-06-13 08:45 | MHC.CM.PN ---
Addendum entered by Caroline Nava 06/13/25 12:46: DC ORDER IN, PT AWAITING TRANSFER TO INPT PSYCH Original Note: PT MEDICALLY CLEARED AND REFERRED TO CARE TEAM FOR ASSESSMENT. PER CARE TEAM NOTE, PT WAS DEEMED APPROPRIATE FOR IPLOC AND A BED SEARCH HAS BEEN INITIATED. CM FOLLOWING FOR CHANGING DISPO NEEDS
--- NOTE | 2025-06-13 08:47 | P.DS_ITS ---
DS: Providers Provider Date of Service: 06/13/25 Date of admission: 06/09/25 12:49 Date of discharge: 06/13/25 Primary care physician: So De Souza MD Consults: 06/09/25 13:40 Consult to Nephrology Routine Consulting Provider: [facility] Reason for consultation: metabolic acidosis Has provider been notified: No 06/09/25 13:46 Consult to Psychiatry Routine Consulting Provider: [facility] Psych Covering Reason for consultation: bipolar disorder;awake but not responding verbally ?psych ?med adjustment Has provider been notified: No 06/09/25 15:09 Consult to Cardiology Routine Consulting Provider: [facility] Reason for consultation: elevated cardiac enzymes Has provider been notified: Yes 06/09/25 17:37 Consult to Wound Care Routine Consulting Provider: [facility] Reason for consultation: ? PI to coccyx/abrasion R buttocks/Rash to bilat. ankles 06/10/25 09:17 Consult to Neurology Routine Consulting Provider: [facility] Reason for consultation: Speech abnormal/encephalopathy Has provider been notified: No 06/12/25 13:51 Inpt CARE Team Crisis Consult Routine Comment: Reason for consultation: medically clear-per psych need inpatient Attending physician on discharge: Stephy Bowman Discharging clinician: Stephy Bowman DS: Diagnosis Discharge Diagnosis (1) Takotsubo cardiomyopathy: Status: Acute (2) High anion gap metabolic acidosis: Status: Acute DS: Summary Hospital Course Hospital Course: HPI:65-year-old female with history of bipolar disorder, multiple sclerosis who was brought to the emergency department for evaluation. History was obtained primarily from the emergency room provider as patient is not answering questions. Per triage note patient was short of breath for a few days, vomited once overnight. Per her since last night she has been staring but not answering questions or following commands. She reportedly had a recent psychiatric admission to adjust her medications. In the emergency department she was noted to be tachypneic And tachycardic on arrival but was not hypoxic. chest x-ray showed atelectasis bilaterally, brain CT showed no acute changes. Lab work was significant for bicarb of 17 and anion gap of 22. When I walked into the room, the patient was resting comfortably with her eyes closed, when I said her name she opened her eyes. She responded to me with hello and said she was doing good. Then she closed her eyes and would not answer any further questions but she did follow all my commands such as lifting all of her extremities. Hospital course: Metabolic encephalopathy secondary to Anion gap metabolic ac idosis secondary to starvation ketosis: Improved with the hydration, monitor Bmp . Encouraged for p.o. hydration and intake. Mental status seems to be improved significantly to the baseline, CTA head and negative, EKG negative, seen by Neurology her clinical picture is unlikely to be due to MS exacerbation. It is likely behavioral in nature. MS also causes dementia that is likely contributing to her situation. MRI of brain is not contraindicated but unlikely to provide a clinically useful information Elevated troponin Possible secondary to Takotsubo cardiomyopathy: Seen by Cardiology-added Plavix(patient refused aspirin says she has allergy), beta- scottie, continue statin, repeat echo in 2 weeks, needs to follow up outpatient with Cardiology. echo :Normal LV ejection fraction 55-60% with grade 1 diastolic dysfunction with wall motion in the apical segment which should suggest stress-induced cardiomyopathy. LAD territory ischemia can not be ruled out. 2. Normal cardiac valvular Dopplers.3. Normal RV systolic pressure .4. No gross pericardial effusion Please see detail results of echo below in imaging section. Acute hypokalemia repleted and resolved. atelectasis :b/l seen on cxr incentive spirometry MS: no new symptoms continue baclofen , follow up with Neurology outpatient Bipolar disorder: Patient is still having frequent behavioral outbursts, recently her sertraline dosing changed from 200 to150 mg, also bupropion was added: Patient seen by Psychiatry during this admission recommended to hold bupropion-further management per psych. Considering possible psychiatric decompensation-psych recommended to to have her inpatient level of psych care. Patient will be going to to be transferred to psych. plan: Monitor BMP closely Encouraged for p.o. intake and hydration Currently on Plavix, metoprolol, statin, repeat echo in 2 weeks and follow up with Cardiology Hold bupropion Further management per psych team. Patient family(patient, her and her daughter) updated in detail, they understand and in agreement with the above plan, time spent 50 minutes. Time Attestation Total time managing care of this patient today: 50 mintues. Discharge Coordination Time (in mins): 50 minute Quality: Safe Use of Opioids Does Pt have an Active Cancer Diagnosis on the Problem List?: No Quality: Stroke Does the patient have a stroke diagnosis?: No Physical Exam Exam: Exam: Appearance: Alert.? Oriented X3.? cvs: rrr, [id number] , no murmur res: clear to auscultation ,no rhonchii or wheezing abd: no rebound or guarding ,nt, bs present. ext pulses present , no cyanosis . neuro: axo3 , nonfocal. Vital Signs: Vital Signs: Last Vital Signs Temp 98.9 F 06/13/25 07:58 Pulse 87 06/13/25 07:58 Resp 20 06/13/25 07:58 BP 131/63 06/13/25 07:58 Pulse Ox 95 06/13/25 07:58 O2 Del Method Nasal Cannula 06/13/25 07:58 O2 Flow Rate 1 06/13/25 07:58 BMI result Body Mass Index 39.2 DS: Data Additional Comments Additional comments: head: No acute intracranial hemorrhage. White matter disease. Consider small vessel occlusive disease versus demyelinating process.Bifrontal biparietal lobes atrophy, moderate. XR/XR chest 1V IMPRESSION: Low lung volumes. Probable subsegmental atelectasis in bilateral lower lungs. echo: Conclusions: - 1. Normal LV ejection fraction 55-60% with grade 1 diastolic dysfunction with wall motion in the apical segment which should suggest stress-induced cardiomyopathy. LAD territory ischemia can not be ruled out 2. Normal cardiac valvular Dopplers 3. Normal RV systolic pressure 4. No gross pericardial effusion Findings Procedure Information Contrast agent, definity, is being given per protocol without apparent complications. Left Ventricle Normal left ventricular size, thickness, and systolic function. The visually estimated ejection fraction is between 55-60%. Spectral Doppler is indicative of an impaired relaxation filling pattern. E/E prime ratio is <8, consistent with normal filling pressures. Evidence suggests grade I (mild) diastolic dysfunction. Wall Motion Rest Echo Findings The entire apex is akinetic. The mid anterior, mid inferior, mid anterolateral, mid inferoseptal, mid anteroseptal, and mid inferolateral segments are hyperkinetic. All other scored wall segments showed normal motion. Right Ventricle Normal right ventricular cavity size and systolic function. Atria Both atria are normal in size. There is no evidence of interatrial shunt. Aortic Valve Normal aortic valve structure and function. There is no aortic valve stenosis. There is no aortic valve regurgitation. Mitral Valve Normal mitral valve structure and function. There is trace mitral valve regurgitation. There is no mitral valve stenosis. Pulmonic Valve The pulmonic valve is likely normal. Tricuspid Valve Normal tricuspid valve structure. There is trace tricuspid valve regurgitation. The right ventricular systolic pressure is 27 mmHg. Normal right atrial pressure. There is no evidence of pulmonary hypertension. Great Vessels All visible segments of the aorta are normal in size. The pulmonary artery was not well visualized. Venous The inferior vena cava is normal in size and collapses greater than 50% with inspiration. Pericardium/Pleural There is no evidence of pericardial effusion. Prior Study Comparison No prior study available for comparison. Discharge Plan Discharge Anticipated Discharge Date/Time: 06/13/25 08:26 Patient Disposition: Xfer Psychiatric Hosp Discharge Diagnosis: mood disorder Referrals: So Rivera MD [Primary Care Provider, Internal Medicine] - 1 Week Discharge Medications: New clopidogrel 75 mg Tablet 75 mg PO DAILY Qty: 1 0RF nystatin [Nyamyc] 100,000 unit/gram Powder 1 appl topical BID Qty: 1 0RF Protocol: Apply to: Apply to: Intertriginous area clotrimazole 1 % Cream 1 appl topical BID Qty: 1 0RF Protocol: Apply to: Apply to: affected area metoprolol tartrate 25 mg Tablet 25 mg PO BID Qty: 1 0RF Protocol: Hold for SBP/HR < HOLD for SBP < : 90 HOLD for HR < : 60 Continued calcium carbonate [Tums] 200 mg calcium (500 mg) Tablet,Chewable 200 mg PO QID PRN (Reason: Indigestion) baclofen 20 mg Tablet 20 mg PO BID Qty: 60 0RF ferrous sulfate 324 mg (65 mg iron) Tablet,Delayed Release (Dr/Ec) 324 mg PO DAILY Qty: 30 0RF ropinirole 1 mg Tablet 1 mg PO BEDTIME Qty: 60 0RF sumatriptan succinate 50 mg Tablet 50 mg PO DAILY PRN (Reason: Migraine Headache) Qty: 5 0RF diazepam 2 mg Tablet 2 mg PO TID Qty: 90 0RF cyanocobalamin (vitamin B-12) 1,000 mcg tablet 1,000 mcg PO DAILY furosemide 20 mg tablet 20 mg PO DAILY sertraline 50 mg tablet 150 mg PO DAILY rosuvastatin 5 mg tablet 5 mg PO DAILY biotin 10 mg Tablet 10 mg PO DAILY zinc acetate 50 mg (zinc) Capsule 50 mg PO DAILY [id number]-VC-Bf-Ds-tohcbww-lutein 0.4-162-18 mg Tablet 1 tab PO DAILY melatonin 10 mg Tablet 10 mg PO BEDTIME turmeric 400 mg Capsule 400 mg PO DAILY Held bupropion HCl 100 mg tablet sustained-release 12 hr 100 mg PO DAILY Hold Instructions: Resume on 06/28/25. Zepbound 2.5 mg/0.5 mL pen injector 2.5 mg subcut MO Hold Instructions: Resume on 07/01/25. Discharge Orders: Discharge Order (Routine); Ordered 06/13/25 Ordered By: Stephy Bowman Diet: Advance to usual diet Activity on Discharge: As tolerated Stand Alone Forms: Patient Portal Discharge page Print Language: Swedish Care Plan Goals: as below. Health Concerns: Monitor BMP closely Encouraged for p.o. intake and hydration Currently on Plavix 75 mg p.o. daily, metoprolol 25 mg p.o. b.i.d., statin, repeat echo in 2 weeks and follow up with Cardiology Hold bupropion Further management per psych team. Plan of Treatment: As above.
[2025-06-13] MEDS: Ferrous Sulfate 324 MG TABLET.DR PO (09:19)
[2025-06-13] MEDS: 0.9 % Sodium Chloride Flush 3 ML SYRINGE IVFLUSH (09:20)
[2025-06-13] MEDS: Clotrimazole 1 % Cream 15 GM TUBE 1 APPL TOPICAL (09:33)
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
[2025-06-14 09:27] LABS: MANUAL DIFF FLAG NO
[2025-06-14 09:30] LABS: Hematocrit 37.8 % (37.0-47.0); Hemoglobin 12.6 g/dl (12.0-16.0); Imm Gran Abs Auto 0.03 X10*3/uL (0.00-0.03); Imm Gran Pct Auto 0.4 % (0.0-0.4); Lymphocytes Absolute Auto 0.3 X10*3/uL (1.2-4.9); Mean Corpuscular HGB Conc 33.3 g/dl (31.0-35.0); Mean Corpuscular Hemoglobin 28.8 pg (27.0-33.0); Mean Corpuscular Volume 86.5 fL (80.0-98.0); NRBC Abs Auto 0.000 X10*3/uL (0.0-0.012); NRBC Pct Auto 0.0 /100WBC (0.0-0.2); Platelet Count 266 X10*3/uL (160-400); Red Blood Count 4.37 X10*6/uL (4.20-5.50); White Blood Count 7.0 X10*3/uL (4.8-10.8)
== END 2025-06-13 13:20 ==
LOC: HO.ED 12:45 → HO.EDOVER 12:50 → HO.IMC 15:18
PROVIDERS: Psychiatry & Neurology Forensic Psychiatry; Admitting Provider Physician Assistant Medical; Emergency Provider Emergency Medicine; PCP Internal Medicine; Visit Provider Internal Medicine
DX: F31.2 Bipolar disorder, current episode manic severe with psychotic features (principal); I51.81 Takotsubo syndrome; E87.21 Acute metabolic acidosis; R41.82 Altered mental status, unspecified; E87.3 Alkalosis; E87.6 Hypokalemia; R06.02 Shortness of breath; G35.D Multiple sclerosis, unspecified; K21.9 Gastro-esophageal reflux disease without esophagitis; R82.4 Acetonuria; R53.83 Other fatigue; N32.81 Overactive bladder; R79.89 Other specified abnormal findings of blood chemistry; Z03.818 Encounter for observation for suspected exposure to other biological agents ruled out; Z79.899 Other long term (current) drug therapy
CPT/HCPCS: 36415; 70450; 71045; 80048; 80053; 80307; 81001; 82010; 82140; 82550; 82803; 82947; 83036; 83735; 84484; 85025; 87633; 93005; 93306; 95816; 97162; 99222; 99285; J1630; J1650; J3360; J7120; Q9957; S9485

== ENCOUNTER → 2025-06-09 10:50 | Outpatient (BNV) | payer MEDICARE, MEDICAID, SELFPAY | PROVIDERS: Admitting Provider Physician Assistant Medical; Emergency Provider Emergency Medicine; PCP Internal Medicine; Visit Provider Internal Medicine Cardiovascular Disease | DX: R07.9 Chest pain, unspecified (principal) | CPT/HCPCS: 93010 ==

== ENCOUNTER → 2025-06-09 10:50 | Outpatient (BNV) | payer MEDICARE, MEDICAID, SELFPAY | PROVIDERS: Emergency Provider Emergency Medicine; Visit Provider Radiology Diagnostic Radiology | DX: R90.82 White matter disease, unspecified (principal); G31.9 Degenerative disease of nervous system, unspecified; J98.4 Other disorders of lung | CPT/HCPCS: 70450; 71045 ==

== ENCOUNTER 2025-06-09 12:49 | Outpatient (BNV) | payer MEDICARE, MEDICAID, SELFPAY | END 2025-06-10 16:00 | PROVIDERS: Admitting Provider Physician Assistant Medical; Emergency Provider Emergency Medicine; PCP Internal Medicine; Visit Provider Psychiatry & Neurology Neurology | DX: G93.40 Encephalopathy, unspecified (principal) | CPT/HCPCS: 95816 ==

== ENCOUNTER 2025-06-09 12:49 | Outpatient (BNV) | payer MEDICARE, MEDICAID, SELFPAY | END 2025-06-10 07:00 | PROVIDERS: Admitting Provider Physician Assistant Medical; Emergency Provider Emergency Medicine; PCP Internal Medicine; Visit Provider Internal Medicine Cardiovascular Disease | DX: I42.8 Other cardiomyopathies (principal) | CPT/HCPCS: 93306 ==

== ENCOUNTER → 2025-06-09 12:49 | Outpatient (BNV) | payer MEDICARE, MEDICAID, SELFPAY | PROVIDERS: Admitting Provider Physician Assistant Medical; Emergency Provider Emergency Medicine; PCP Internal Medicine; Visit Provider Psychiatry & Neurology Neurology | DX: R41.82 Altered mental status, unspecified (principal) | CPT/HCPCS: 99222 ==

== ENCOUNTER → 2025-06-09 12:49 | Outpatient (BNV) | payer MEDICARE, MEDICAID, SELFPAY | PROVIDERS: Admitting Provider Physician Assistant Medical; Emergency Provider Emergency Medicine; PCP Internal Medicine; Visit Provider Internal Medicine Critical Care Medicine | DX: E87.29 Other acidosis (principal); E87.3 Alkalosis; T73.0XXA Starvation, initial encounter | CPT/HCPCS: 99222; 99233 ==

== ENCOUNTER → 2025-06-09 12:49 | Outpatient (BNV) | payer MEDICARE, MEDICAID, SELFPAY | PROVIDERS: Admitting Provider Physician Assistant Medical; Emergency Provider Emergency Medicine; PCP Internal Medicine; Visit Provider Physician Assistant Medical | DX: I51.81 Takotsubo syndrome (principal); E87.29 Other acidosis | CPT/HCPCS: 99223; 99231; 99232; 99239 ==

== ENCOUNTER → 2025-06-09 12:49 | Outpatient (BNV) | payer MEDICARE, MEDICAID, SELFPAY | PROVIDERS: Admitting Provider Physician Assistant Medical; Emergency Provider Emergency Medicine; PCP Internal Medicine; Visit Provider Internal Medicine Cardiovascular Disease | DX: I51.81 Takotsubo syndrome (principal) | CPT/HCPCS: 99222 ==

== ENCOUNTER → 2025-06-09 12:49 | Outpatient (BNV) | payer MEDICARE, MEDICAID, SELFPAY | PROVIDERS: Admitting Provider Physician Assistant Medical; Emergency Provider Emergency Medicine; PCP Internal Medicine; Visit Provider Nurse Practitioner Family | DX: F31.9 Bipolar disorder, unspecified (principal); I51.81 Takotsubo syndrome; E87.29 Other acidosis | CPT/HCPCS: 99232 ==

== ENCOUNTER 2025-06-13 14:03 | Inpatient (IN) | payer MEDICARE, MEDICAID, SELFPAY ==
[2025-06-13 14:00] VITALS: BP 145/70; PULSE 80; RESP 18; TEMP 37.1; O2SAT 94
[2025-06-13 14:21] VITALS: BMI 39.2
--- NOTE | 2025-06-13 14:42 | HO.PM.IMCN ---
History of Present Illness Data of Consult Service Date: 06/13/25 Primary Care Provider: Unknown Physician HPI Reason for consult: Medical consult 65-year-old female with a past medical history of bipolar disorder, multiple sclerosis, was brought to the emergency department for mental status changes. Patient was tachypneic and tachycardic on arrival to the ED, her chest x-ray demonstrated atelectasis, her brain CT was with no acute changes she was found to have metabolic encephalopathy secondary to anion gap metabolic acidosis secondary to starvation ketosis. She was treated with IV fluids, her mental status was improved. Her EKG was negative, she had a CTA of her head that was negative, she was seen by Neurology and felt that her presentation was unlikely due to an MS exacerbation. Possibly dementia related to the MS. An MRI was not done due to likelihood that it would not provide clinically useful information. She was seen by Cardiology due to elevated troponin, who added Plavix, beta-scottie and continue the statin. Patient continued with behavioral outbursts, now [facility] for [facility] care and treatment. Review of Systems Review of Systems: Patient has no acute medical complaints at this time All systems are reviewed and are negative [facility] Medical History (Updated 06/12/25 @ 13:43 by Rohith Levin MD) Bipolar 1 disorder, manic, moderate Overactive bladder GERD (gastroesophageal reflux disease) Multiple sclerosis Social History Household Members: Spouse, Family and Children Household Members Other:: grandson and dog. Housing: House Do you presently have visiting nurse or other home services: No Comment: pt on 1 to 1 for equipment observation Patient Tobacco Use Status: Never used Tobacco Second Hand Smoke Exposure: No (n/a) Substance Use Type: Marijuana Advance Directives: Yes Advance Directives on File: Yes Advance Directives Date on File: 03/03/24 service: No Sexual orientation: Straight/Heterosexual Meds Allergies Allergy/AdvReac Type Severity Reaction Status Date / Time aspirin Allergy Unknown Verified 06/09/25 10:52 citalopram (From Celexa) Allergy Unknown Verified 06/09/25 10:52 lamotrigine (From Lamictal) Allergy Unknown Verified 06/09/25 10:52 Penicillins Allergy Unknown Verified 06/09/25 10:52 Active Medications: Current Medications Acetaminophen (Acetaminophen 325 Mg Tablet) 650 mg PO Q6H PRN PRN Reason: Headache/Pain, Scale 1-10 Al Hydroxide/Mg Hydroxide (Magnesium Hydrox/Alum Hydrox 30 Ml Oral.Susp) 30 ml PO Q6H PRN PRN Reason: Heartburn/Nausea Hydroxyzine HCl (Hydroxyzine Hcl 25 Mg Tablet) 25 mg PO Q6H PRN PRN Reason: mild anxiety Magnesium Hydroxide (Milk Of Magnesia 30 Ml Oral.Susp) 30 ml PO DAILY PRN PRN Reason: Constipation Trazodone HCl (Trazodone Hcl 50 Mg Tablet) 50 mg PO BEDTIME MRX1 PRN PRN Reason: Insomnia Home Medications ?Medication ?Instructions ?Recorded ?Confirmed ?Last Taken ?Type calcium carbonate (Tums) 200 mg PO QID PRN Indigestion 02/11/24 06/13/25 Unknown History biotin 10 mg tablet 10 mg PO DAILY 06/09/25 06/13/25 06/09/25 History bupropion HCl 100 mg tablet,12 hr 100 mg PO DAILY 06/09/25 06/09/25 06/09/25 History sustained-release Held on 06/13/25. Instructions: Resume on 06/28/25. cyanocobalamin (vitamin B-12) 1,000 mcg PO DAILY 06/09/25 06/13/25 06/13/25 09:19 History 1,000 mcg tablet 1000 mcg furosemide 20 mg tablet 20 mg PO DAILY 06/09/25 06/13/25 06/09/25 History melatonin 10 mg tablet 10 mg PO BEDTIME 06/09/25 06/13/25 06/12/25 20:59 History 9 mg qtthnpzo-wxa-ZM 0.4 mg-calcium 162 1 tab PO DAILY 06/09/25 06/13/25 06/13/25 09:19 History mg-iron 18 dk-aszmucg-scpscs tablet 1 tab rosuvastatin 5 mg tablet 5 mg PO DAILY 06/09/25 06/13/25 06/13/25 09:19 History 20 mg sertraline 50 mg tablet 150 mg PO DAILY 06/09/25 06/13/25 06/13/25 09:19 History 150 mg tirzepatide (weight loss) 2.5 2.5 mg subcut MO 06/09/25 06/09/25 05/30/25 History mg/0.5 mL subcutaneous pen injector (Zepbound) Held on 06/13/25. Instructions: Resume on 07/01/25. turmeric 400 mg capsule 400 mg PO DAILY 06/09/25 06/13/25 06/09/25 History zinc acetate 50 mg (zinc) capsule 50 mg PO DAILY 06/09/25 06/13/25 06/09/25 History Physical Exam Vital Signs and Narrative: Vital Signs: Last Vital Signs Temp 98.8 F 06/13/25 14:00 Pulse 80 06/13/25 14:00 Resp 18 06/13/25 14:00 BP 145/70 H 06/13/25 14:00 Pulse Ox 94 06/13/25 14:00 O2 Del Method Room Air 06/13/25 14:00 BMI result Body Mass Index 39.2 Alert and oriented X3, calm and cooperative. Answers questions. Eyes closed during assessment Neuro: CN II-X11 intact, no deficits, visual acuity intact EYES: PERRLA, EOM intact ENT: Hearing intact, MMM Cardiac: S1 S2 RRR, No ectopy Pulmonary: lungs clear to auscultation, No increased WOB. Abdominal: BS active in all 4 quadrants, no guarding or tenderness MSK: Strength 5/5 upper and lower extremities : Deferred Extremities: No edema in lower extremities Psych: Mood stable, Quiet and cooperative. Skin: Warm and dry, Intact Assessment and Plan (1) Multiple sclerosis: Status: Acute Plan 65-year-old female with a past medical history as listed below admitted to the emergency department with mental status changes. She is medically cleared and now admitted to inpatient psych for further care and treatment. Bipolar disorder with behavioral outbursts/Depression Her pre program was held, sertraline dose was decreased She is admitted to inpatient psychiatry for further treatment. Multiple sclerosis Recent imaging and neurological eval not felt that she was having a MS flare Continue baclofen 20 b.i.d., ropinirole, Valium TID Takotsubo cardiomyopathy/elevated troponins Seen by Cardiology-added Plavix(patient refused aspirin says she has allergy), metoprolol, continue statin, Lasix Will need repeat echo in 2 weeks, needs to follow up outpatient with Cardiology. LVEF 55-60% Loose stools We will check stool to rule out C diff Denies any abdominal pain, abdominal exam benign If stool negative Imodium. Deconditioning Consider PT evaluation, patient is now at wheelchair level. Thank you for allowing me to participate in the care of this patient. Will follow with you, please notify medical provider with any changes in condition or concerns.
--- NOTE | 2025-06-13 15:03 | PM.PSYDC ---
DS: Providers Provider Date of admission: 06/13/25 14:03 Primary care physician: Unknown Physician DS: Medications Discharge Medications Home Medications: Home Medications ?Medication ?Instructions ?Recorded ?Confirmed calcium carbonate (Tums) 200 mg PO QID PRN Indigestion 02/11/24 06/09/25 biotin 10 mg tablet 10 mg PO DAILY 06/09/25 06/09/25 bupropion HCl 100 mg tablet,12 hr 100 mg PO DAILY 06/09/25 06/09/25 sustained-release Held on 06/13/25. Instructions: Resume on 06/28/25. cyanocobalamin (vitamin B-12) 1,000 mcg PO DAILY 06/09/25 06/09/25 1,000 mcg tablet furosemide 20 mg tablet 20 mg PO DAILY 06/09/25 06/09/25 melatonin 10 mg tablet 10 mg PO BEDTIME 06/09/25 06/09/25 gylqcbqs-uja-VU 0.4 mg-calcium 162 1 tab PO DAILY 06/09/25 06/09/25 mg-iron 18 vv-sizqqzp-avewhm tablet rosuvastatin 5 mg tablet 5 mg PO DAILY 06/09/25 06/09/25 sertraline 50 mg tablet 150 mg PO DAILY 06/09/25 06/09/25 tirzepatide (weight loss) 2.5 2.5 mg subcut MO 06/09/25 06/09/25 mg/0.5 mL subcutaneous pen injector (Zepbound) Held on 06/13/25. Instructions: Resume on 07/01/25. turmeric 400 mg capsule 400 mg PO DAILY 06/09/25 06/09/25 zinc acetate 50 mg (zinc) capsule 50 mg PO DAILY 06/09/25 06/09/25 Previous Rx's ?Medication ?Instructions ?Recorded baclofen 20 mg tablet 20 mg PO BID #60 tabs 03/02/24 diazepam 2 mg tablet 2 mg PO TID #90 tabs 03/02/24 ferrous sulfate 324 mg (65 mg 324 mg PO DAILY #30 tabs 03/02/24 iron) tablet,delayed release ropinirole 1 mg tablet 1 mg PO BEDTIME #60 tabs 03/02/24 sumatriptan succinate 50 mg tablet 50 mg PO DAILY PRN Migraine 03/02/24 Headache #5 tabs clopidogrel 75 mg tablet 75 mg PO DAILY #1 tab 06/13/25 clotrimazole 1 % topical cream 1 appl topical BID #1 g 06/13/25 metoprolol tartrate 25 mg tablet 25 mg PO BID #1 tab 06/13/25 nystatin 100,000 unit/gram topical 1 appl topical BID #1 g 06/13/25 powder (Nyamyc) DS: Summary Time Spent with Patient Time attestation: Total time managing care of this patient today ____ minutes. Discharge Plan Discharge Referrals: Physician,Unknown J [Primary Care Provider, Medical] - 1 Week Discharge Medications: No Action calcium carbonate [Tums] 200 mg calcium (500 mg) Tablet,Chewable 200 mg PO QID PRN (Reason: Indigestion) baclofen 20 mg Tablet 20 mg PO BID Qty: 60 0RF ferrous sulfate 324 mg (65 mg iron) Tablet,Delayed Release (Dr/Ec) 324 mg PO DAILY Qty: 30 0RF ropinirole 1 mg Tablet 1 mg PO BEDTIME Qty: 60 0RF sumatriptan succinate 50 mg Tablet 50 mg PO DAILY PRN (Reason: Migraine Headache) Qty: 5 0RF diazepam 2 mg Tablet 2 mg PO TID Qty: 90 0RF cyanocobalamin (vitamin B-12) 1,000 mcg tablet 1,000 mcg PO DAILY bupropion HCl 100 mg tablet sustained-release 12 hr 100 mg PO DAILY furosemide 20 mg tablet 20 mg PO DAILY sertraline 50 mg tablet 150 mg PO DAILY rosuvastatin 5 mg tablet 5 mg PO DAILY Zepbound 2.5 mg/0.5 mL pen injector 2.5 mg subcut MO biotin 10 mg Tablet 10 mg PO DAILY zinc acetate 50 mg (zinc) Capsule 50 mg PO DAILY mq-tdf-PS-Dq-Ym-eorzpzo-lutein 0.4-162-18 mg Tablet 1 tab PO DAILY melatonin 10 mg Tablet 10 mg PO BEDTIME turmeric 400 mg Capsule 400 mg PO DAILY clopidogrel 75 mg Tablet 75 mg PO DAILY Qty: 1 0RF nystatin [Nyamyc] 100,000 unit/gram Powder 1 appl topical BID Qty: 1 0RF Protocol: Apply to: Apply to: Intertriginous area clotrimazole 1 % Cream 1 appl topical BID Qty: 1 0RF Protocol: Apply to: Apply to: affected area metoprolol tartrate 25 mg Tablet 25 mg PO BID Qty: 1 0RF Protocol: Hold for SBP/HR < HOLD for SBP < : 90 HOLD for HR < : 60 Print Language: Portuguese
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
[2025-06-13 20:00] VITALS: BP 148/71; PULSE 82; RESP 16; TEMP 38.4; O2SAT 92
[2025-06-13 21:49] VITALS: BP 142/69; PULSE 102
[2025-06-13 22:10] VITALS: TEMP 37.4
[2025-06-14 01:40] LABS: CDiff Gene PCR POSITIVE (Negative)
[2025-06-14 02:35] LABS: CDIFF Internal ctrl Dots and bkg OK (V)
[2025-06-14 02:41] LABS: CDiff Toxin Positive (Negative)
--- NOTE | 2025-06-14 02:41 | PC.NURSE ---
Blas text sent to Dr. Tom Chen for critical lab c-diff positive stool.
--- NOTE | 2025-06-14 05:14 | PC.NURSE ---
Pt declined to use her CPAP during the shift.
[2025-06-14 08:00] VITALS: BP 163/75; PULSE 93; RESP 18; TEMP 37.2; O2SAT 97
[2025-06-14 08:31] LABS: Alanine Aminotransferase 20 U/L (0-31); Albumin Level 3.8 g/dL (3.5-5.0); Alkaline Phosphatase 88 U/L (39-117); Anion Gap 14 (12-20); Aspartate Amino Transferase 34 U/L (5-31); Blood Urea Nitrogen 10 mg/dL (9-16); Calcium 8.4 mg/dL (8.4-10.2); Carbon Dioxide 20 mmol/L (22-29); Chloride 108 mmol/L (96-108); Cholesterol 165 mg/dL (<200); Creatinine Clr Calc Pharmacy 117.3; Estimated Glomerular Filt Rate > 60; HDL Cholesterol 37 mg/dL (>40); Sodium 140 mmol/L (135-145); Total Protein 5.9 g/dL (6.5-8.0); Triglycerides 93 mg/dL (<150)
[2025-06-14 08:32] LABS: Potassium 2.4 mmol/L (3.3-5.1)
[2025-06-14 08:45] LABS: Thyroid Stimulating Hormone 0.59 uIU/mL (0.32-4.0)
[2025-06-14] MEDS: Ferrous Sulfate 324 MG TABLET.DR PO (08:56)
[2025-06-14 08:58] LABS: Folate 14.4 ng/mL (> or = 4.0); Vitamin B12 > 2000 pg/mL (200-900)
--- NOTE | 2025-06-14 08:58 | P.PNPSI_ITS ---
Subjective Subjective Date of Service: 06/14/25 Reason For Visit: Bipolar do manic/mixed w/ psychotic features; Subjective Notes: Hernandez Warning and Conditional Voluntary Medical Problems Affecting Mental Status: Yes Interim History: Had tested (+) for cdiff overnight has fecal and urinary incontinence per pt report This AM received labs with critical low K Seen and d/w medical PA and given orders Reccommendation by medicine to transfer to medical floor for management, orders, transfer reconciliation completed before 10 am but patient not transferred until afternoon Review of Systems Acute medical concerns: Yes Pt indicated yesterday she has urinary and fecal incontinence. She tested (+) for CDiff last night Low K this am and need for medical management Per RN, patient had reported difficulty swallowing and ordered bedside swallowing evaluation Review of Systems: as noted---please refet to transfer note/summary Review of Systems Review of Systems Per HPI Diagnostics Vital Signs (24Hr): Vital Signs - 24 hr 06/13/25 14:00 06/13/25 20:00 06/13/25 21:49 Temperature 98.8 F 101.1 F H Pulse Rate 80 82 102 H Respiratory Rate 18 16 Blood Pressure 145/70 H 148/71 H 142/69 H Pulse Oximetry 94 92 Oxygen Delivery Method Room Air Room Air 06/13/25 22:10 Temperature 99.3 F Pulse Rate Respiratory Rate Blood Pressure Pulse Oximetry Oxygen Delivery Method BMI result Body Mass Index 39.2 Labs 06/14/25 07:35 Labs: Laboratory Results - last 48 hr 06/14/25 06/14/25 00:28 07:35 Sodium 140 Potassium 2.4 L* D Chloride 108 Carbon Dioxide 20 L Anion Gap 14 BUN 10 Creatinine 0.56 Estim Creat Clear Calc 117.3 Estimated GFR > 60 Random Glucose 102 Estimat Average Glucose 85 Hemoglobin A1c % 4.6 Calcium 8.4 D Total Bilirubin 0.2 AST 34 H ALT 20 Alkaline Phosphatase 88 Total Protein 5.9 L Albumin 3.8 Triglycerides 93 Cholesterol 165 LDL Cholesterol, Calc 110 H HDL Cholesterol 37 L TSH 0.59 C. difficile Tox B Gene POSITIVE A* C. difficile Toxin A&B Positive A* C. difficile Interpret SEE NOTE Medications Medications Current Medications Acetaminophen (Acetaminophen 325 Mg Tablet) 650 mg PO Q6H PRN PRN Reason: Headache/Pain, Scale 1-10 Last Admin: 06/13/25 21:02 Dose: 650 mg Al Hydroxide/Mg Hydroxide (Magnesium Hydrox/Alum Hydrox 30 Ml Oral.Susp) 30 ml PO Q6H PRN PRN Reason: Heartburn/Nausea Atorvastatin Calcium (Atorvastatin Calcium 20 Mg Tablet) 20 mg PO DAILY [facility] Baclofen (Baclofen 20 Mg Tablet) 20 mg PO BID [facility] Last Admin: 06/13/25 21:50 Dose: 20 mg Calcium Carbonate (Calcium Carbonate 750 Mg Tab.Chew) 750 mg PO QID PRN PRN Reason: Indigestion Clopidogrel Bisulfate (Clopidogrel Bisulfate 75 Mg Tablet) 75 mg PO DAILY [facility] Clotrimazole (Clotrimazole 1 % Cream 15 Gm Tube) 1 appl TOPICAL BID [place]; Protocol Last Admin: 06/13/25 21:54 Dose: Not Given Cyanocobalamin (Cyanocobalamin (Vitamin B-12) 1,000 Mcg Tablet) 1,000 mcg PO DAILY [facility] Diazepam (Diazepam 2 Mg Tablet) 2 mg PO TID [facility] Last Admin: 06/13/25 21:51 Dose: 2 mg Ferrous Sulfate (Ferrous Sulfate 324 Mg Tablet.Dr) 324 mg PO DAILY [facility] Furosemide (Furosemide 20 Mg Tablet) 20 mg PO DAILY [facility]; Protocol Hydroxyzine HCl (Hydroxyzine Hcl 25 Mg Tablet) 25 mg PO Q6H PRN PRN Reason: mild anxiety Magnesium Hydroxide (Milk Of Magnesia 30 Ml Oral.Susp) 30 ml PO DAILY PRN PRN Reason: Constipation Melatonin (Melatonin 3 Mg Tablet) 9 mg PO BEDTIME [facility] Last Admin: 06/13/25 21:49 Dose: 9 mg Metoprolol Tartrate (Metoprolol Tartrate 25 Mg Tablet) 25 mg PO BID [facility]; Protocol Last Admin: 06/13/25 21:49 Dose: 25 mg Multivitamins/Vitamin C (Multivitamin Tablet) 1 tab PO DAILY [facility] Nystatin (Nystatin Powder 15 Gm Bottle) 1 appl TOPICAL BID [facility]; Protocol Last Admin: 06/13/25 21:54 Dose: Not Given Ropinirole HCl (Ropinirole Hcl 1 Mg Tablet) 1 mg PO BEDTIME [facility] Last Admin: 06/13/25 21:50 Dose: 1 mg Sertraline HCl (Sertraline Hcl 50 Mg Tablet) 150 mg PO DAILY [facility] Sumatriptan Succinate (Sumatriptan Succinate 50 Mg Tablet) 50 mg PO DAILY PRN PRN Reason: Migraine Headache Trazodone HCl (Trazodone Hcl 50 Mg Tablet) 50 mg PO BEDTIME MRX1 PRN PRN Reason: Insomnia Allergies Allergies Allergy/AdvReac Type Severity Reaction Status Date / Time aspirin Allergy Unknown Verified 06/09/25 10:52 citalopram (From Celexa) Allergy Unknown Verified 06/09/25 10:52 lamotrigine (From Lamictal) Allergy Unknown Verified 06/09/25 10:52 Penicillins Allergy Unknown Verified 06/09/25 10:52 Assessment & Plan Assessment & Plan (1) Bipolar affective, manic, severe w/ psych: Status: Acute Code(s): F31.2 - Bipolar disorder, current episode manic severe with psychotic features (2) Takotsubo cardiomyopathy: Status: Acute Code(s): I51.81 - Takotsubo syndrome (3) Self-injurious behavior: Status: Acute Code(s): Z72.89 - Other problems related to lifestyle (4) Multiple sclerosis: Status: Acute Code(s): G35 - Multiple sclerosis (5) Starvation ketoacidosis: Status: Acute Code(s): T73.0XXA - Starvation, initial encounter; E87.29 - Other acidosis (6) Obesity: Status: Acute Code(s): E66.9 - Obesity, unspecified (7) Ketonuria: Status: Acute Code(s): R82.4 - Acetonuria (8) Metabolic alkalosis: Status: Acute Code(s): E87.3 - Alkalosis (9) Total knee replacement status: Status: Acute Code(s): Z96.659 - Presence of unspecified artificial knee joint (10) Hypokalemia due to excessive gastrointestinal loss of potassium: Status: Acute Code(s): E87.6 - Hypokalemia (11) Hypokalemia: Status: Acute Code(s): E87.6 - Hypokalemia Plan Transfer to medical floor documentation/orders ready Reason for continued inpatient stay Substantial Risk for: inability to function, rapid decompensation and med/psych decompensation Time Spent With Patient Time: Total time managing care of this patient today _NA___ minutes.
--- NOTE | 2025-06-14 10:00 | PM.EVENT ---
Event Note Date of Service: 06/14/25 Event Note: Notified by nursing that patient C diff is positive, and potassium is 2.4. Plan to admit to medicine. Time Spent With Patient Time: Total time managing care of this patient today ____ minutes.
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
[2025-06-14 10:06] LABS: Magnesium 1.9 mg/dL (1.6-2.6)
[2025-06-14] MEDS: Potassium Chloride ER 20 MEQ TAB.ER.PRT 60 MEQ PO (10:18)
== END 2025-06-14 14:45 | disposition short-term general hospital (02) | DRG 885 ==
PROVIDERS: Nurse Practitioner Family; Admitting Provider Social Worker; Visit Provider Social Worker
DX: F31.2 Bipolar disorder, current episode manic severe with psychotic features (principal); E87.29 Other acidosis; A04.72 Enterocolitis due to Clostridium difficile, not specified as recurrent; I51.81 Takotsubo syndrome; R45.851 Suicidal ideations; R53.81 Other malaise; E66.9 Obesity, unspecified; Z68.39 Body mass index [BMI] 39.0-39.9, adult; Z91.51 Personal history of suicidal behavior; Z87.891 Personal history of nicotine dependence; Z79.02 Long term (current) use of antithrombotics/antiplatelets; Z79.899 Other long term (current) drug therapy
CPT/HCPCS: 36415; 80048; 80053; 80061; 82607; 82746; 83036; 83735; 84443; 85025; 87324; 87493; 93306; 95816; 97162; 99222; J1630; J1650; J3360; J7120; Q9957; S9485

== ENCOUNTER → 2025-06-13 14:03 | Outpatient (BNV) | payer MEDICARE, MEDICAID, SELFPAY | PROVIDERS: Admitting Provider Social Worker; Visit Provider Nurse Practitioner Family | DX: G35.D Multiple sclerosis, unspecified (principal) | CPT/HCPCS: 99221; 99499 ==

== ENCOUNTER 2025-06-14 15:13 | Outpatient (BNV) | payer MEDICARE, MEDICAID, SELFPAY | END 2025-06-21 16:00 | PROVIDERS: Admitting Provider Nurse Practitioner Acute Care; PCP Internal Medicine; Visit Provider Psychiatry & Neurology Neurology | DX: R41.82 Altered mental status, unspecified (principal) | CPT/HCPCS: 95816 ==

== ENCOUNTER 2025-06-14 15:13 | Outpatient (BNV) | payer MEDICARE, MEDICAID, SELFPAY | END 2025-06-27 13:28 | PROVIDERS: Admitting Provider Nurse Practitioner Acute Care; PCP Internal Medicine; Visit Provider Internal Medicine | DX: R00.0 Tachycardia, unspecified (principal) | CPT/HCPCS: 93010 ==

== ENCOUNTER 2025-06-14 15:13 | Outpatient (BNV) | payer MEDICARE, MEDICAID, SELFPAY | END 2025-06-21 18:50 | PROVIDERS: Admitting Provider Nurse Practitioner Acute Care; PCP Internal Medicine; Visit Provider Radiology Diagnostic Radiology | DX: R41.82 Altered mental status, unspecified (principal) | CPT/HCPCS: 70553 ==

== ENCOUNTER 2025-06-14 15:13 | Outpatient (BNV) | payer MEDICARE, MEDICAID, SELFPAY | END 2025-06-14 16:30 | PROVIDERS: Admitting Provider Nurse Practitioner Acute Care; Visit Provider Radiology Diagnostic Radiology | DX: A04.72 Enterocolitis due to Clostridium difficile, not specified as recurrent (principal); K51.00 Ulcerative (chronic) pancolitis without complications; R05.9 Cough, unspecified; J98.11 Atelectasis | CPT/HCPCS: 74176 ==

== ENCOUNTER 2025-06-14 15:13 | Outpatient (BNV) | payer MEDICARE, MEDICAID, SELFPAY | END 2025-06-26 21:07 | PROVIDERS: Admitting Provider Nurse Practitioner Acute Care; PCP Internal Medicine; Visit Provider Internal Medicine | DX: R00.0 Tachycardia, unspecified (principal) | CPT/HCPCS: 93010 ==

== ENCOUNTER 2025-06-14 15:13 | Inpatient (IN) | payer MEDICARE, MEDICAID, SELFPAY ==
--- NOTE | ~2025-06-14 | XR_ITS ---
CLINICAL HISTORY: Hypoxia 1 view chest x-ray Comparison: CT/SR - CT ANGIO CHEST PE PROTOCOL - 06/27/25 00:13 EST CR - XR CHEST 1V - 06/25/25 00:58 EST Findings: Mild bibasilar reticular opacities, similar to prior. Heart size is normal. No acute fracture. IMPRESSION: Mild bibasilar reticular opacities which could be atelectasis, infection or aspiration. Similar to prior. This document has been electronically signed by: Roe Hernandez MD on 06/28/2025 19:55:10
--- NOTE | ~2025-06-14 | XR_ITS ---
CLINICAL HISTORY: crackles --- Additional Notes or Special Instructions: portable 1 view chest x-ray Comparison: CR/SR - XR CHEST 1 VIEW - 06/14/25 16:30 EST Findings: Patchy basilar opacities or infiltrates, igjkm-mvksmia-fzwi-left. Heart size is normal. No acute fracture. IMPRESSION: Patchy basilar opacities or infiltrates, viser-xonlnuq-akza-left. This document has been electronically signed by: Vu Lorenzo MD, PHD on 06/25/2025 01:24:13
--- NOTE | ~2025-06-14 | MR_ITS ---
CLINICAL HISTORY: AMS, uncertain etiology, h/o MS MR of the brain with and without contrast Comparison: CT/SR - CT HEAD/BRAIN WO IV CON - 06/21/25 12:[address]/REG/SR - CT HEAD WITHOUT IV CONTRAST - 06/09/25 11:[address]/REG/SR - CT HEAD WITHOUT IV CONTRAST - 02/26/24 17:24 EDT MR/SR - MR BRAIN WITHOUT THEN WITH IV CONTRAST - 02/17/24 18:48 EDT Findings: No acute infarction, hemorrhage, mass-effect or herniation. No abnormal enhancement. No hydrocephalus. Prominence of the ventricles and extra-axial spaces due to atrophy of the brain parenchyma. There is a moderate amount of signal abnormality in the white matter on the FLAIR/T2 weighted images with Mccloud fingers. The amount and distribution is similar to the prior MR allowing for differences in technique. No extra-axial fluid collection or mass. Unremarkable sella. Intact flow voids. Normal orbits. Mucosal thickening in the alveolar recesses. Trace mucosal thickening in bilateral ethmoid air cells. Otherwise clear paranasal sinuses . Trace amount of fluid signal in bilateral mastoid air cells. Unremarkable osseous structures. Impression: Stable examination. Findings consistent with the given history of multiple sclerosis. No active plaques. This document has been electronically signed by: Anjali Cheng MD on 06/21/2025 20:23:32
--- NOTE | ~2025-06-14 | CT_ITS ---
CLINICAL HISTORY: [facility] CT ABDOMEN AND PELVIS WITHOUT CONTRAST Comparison: None provided Findings: Bilateral lower lobe atelectasis and/or scarring. No basilar consolidation or pleural effusion. Trace pericardial effusion. No acute abnormalities in the unenhanced solid organs. No renal or ureteral calculus. Probable small cysts in the liver, left kidney and spleen. Limited evaluation of the solid organs without IV contrast. 1.4 cm splenic lesion with rim calcifications may be sequelae of remote trauma or inflammation/infection. No large calcified gallstone. No AAA. No bowel obstruction, pneumoperitoneum, or pneumatosis. There is csab-as-fvrypzdl diffuse fluid distention of the colon associated with mild paracolic fat stranding especially in the descending colon. No ascites, organized fluid collection or significant mesenteric edema. The appendix is identified. No acute appendicitis. Atrophic uterus. Urinary bladder unremarkable. Multiple pelvic phleboliths. The bones are intact. IMPRESSION: 1. Mild pancolitis. No evidence for toxic megacolon or perforation. 2. No bowel obstruction, ascites or peritoneal abscess. 3. No acute obstructive uropathy or urolithiasis. This document has been electronically signed by: Shikha Peterson DO on 06/14/2025 18:11:58
--- NOTE | ~2025-06-14 | XR_ITS ---
EXAMINATION: XR CHEST CLINICAL INFORMATION: cough /has atelactasis COMPARISON: 06/09/2025 TECHNIQUE: Frontal view of the chest was obtained. FINDINGS: No significant abnormality is noted involving the heart, lungs, mediastinum, bony thorax or soft tissues. XR/XR chest 1V IMPRESSION: No acute disease. Electronically signed by: Ty Obregon MD 06/14/2025 04:42 PM EST
--- NOTE | ~2025-06-14 | CT_ITS ---
CLINICAL HISTORY: hypoxia, tachycardia CT angiography chest with contrast. 3D Postprocessing. Comparison: None Findings: Motion artifact degrades some of the provided images limiting interpretation. The heart size is normal. RV/LV ratio is normal. The thoracic aorta is normal caliber. No central or proximal segmental pulmonary embolism. The visualized thyroid and mediastinum are unremarkable. Incidentally noted left breast nodule measures 1.2 cm diameter. Dependent changes are present within the lungs bilaterally. Bilateral reticular opacities, interstitial edema or infiltrate versus chronic interstitial lung change. The visualized upper abdomen is unremarkable. The bones are intact. IMPRESSION: 1. Bilateral reticular opacities, interstitial edema or infiltrate versus chronic interstitial lung change. 2. Patchy bilateral ground-glass opacities are present, possible infiltrates. 3. Limited pulmonary angiogram. No central or proximal segmental pulmonary embolism. 4. Incidentally noted left breast nodule. Dedicated nonemergent follow-up diagnostic mammographic evaluation may be helpful for further characterization if clinically indicated. This document has been electronically signed by: Vu Lorenzo MD, PHD on 06/27/2025 01:27:26
--- NOTE | 2025-06-14 10:51 | P.HPHOSP_ITS ---
History of Present Illness Date of Service: 06/14/25 Attending physician on admission: Stephy Bowman Chief Complaint: Hypokalemia, C diff 65-year-old female with a past medical history of bipolar disorder, multiple sclerosis, recently brought to the emergency department for mental status changes. Patient was tachypneic and tachycardic on arrival to the ED, her chest x-ray demonstrated atelectasis, her brain CT was with no acute changes she was found to have metabolic encephalopathy secondary to anion gap metabolic acidosis secondary to starvation ketosis. She was treated with IV fluids, her mental status was improved. Her EKG was negative, she had a CTA of her head that was negative, she was seen by Neurology and felt that her presentation was unlikely due to an MS exacerbation. Possibly dementia related to the MS. An MRI was not done due to likelihood that it would not provide clinically useful information. She was seen by Cardiology due to elevated troponin, who added Plavix, beta- scottie and continue the statin. Patient continued with behavioral outbursts, subsequently admitted inpatient [facility] for further care and treatment. Upon admission to [facility] patient reportedly multiple loose stools, stool specimen revealed a positive C diff infection. Labs revealed potassium level of 2.4. On exam patient denies any discomfort, her abdominal exam is benign. Review of Systems 2 Review of Systems: Denies any shortness of breath, chest pain, abdominal pain,, headaches, dizziness, nausea. [facility] Medical History (Updated 06/14/25 @ 14:00 by Kristie Salazar DNP) Obesity Bipolar 1 disorder, manic, moderate Overactive bladder GERD (gastroesophageal reflux disease) Multiple sclerosis Social History Household Members: Significant Other and Other Household Members Other:: daughter Housing: House Do you presently have visiting nurse or other home services: No Comment: 5 minute checks Patient Tobacco Use Status: Never used Tobacco e-Cigarette/Vaping Use: Currently Using Second Hand Smoke Exposure: No (n/a) Substance Use Type: Marijuana Advance Directives Date on File: 03/03/24 service: No Sexual orientation: Straight/Heterosexual Meds Allergies Allergy/AdvReac Type Severity Reaction Status Date / Time aspirin Allergy Unknown Verified 06/09/25 10:52 citalopram (From Celexa) Allergy Unknown Verified 06/09/25 10:52 lamotrigine (From Lamictal) Allergy Unknown Verified 06/09/25 10:52 Penicillins Allergy Unknown Verified 06/09/25 10:52 Active Medications: Current Medications Acetaminophen (Acetaminophen Supp 650 Mg Supp.Rect) 650 mg UT Q6H PRN PRN Reason: Pain, Mild 1-3,fever,headache Acetaminophen (Acetaminophen 325 Mg Tablet) 650 mg PO Q6H PRN PRN Reason: Pain, Mild 1-3,fever,headache Calcium Carbonate (Calcium Carbonate 750 Mg Tab.Chew) 750 mg PO Q4H PRN PRN Reason: Heartburn Docusate Sodium (Docusate Sodium 100 Mg Capsule) 100 mg PO BID [facility] Potassium Chloride (Potassium Chloride/H20) 10 meq in 100 mls @ 100 mls/hr IV Q1H [facility] Stop: 06/14/25 12:59 Magnesium Hydroxide (Milk Of Magnesia 30 Ml Oral.Susp) 30 ml PO DAILY PRN PRN Reason: Constipation Ondansetron HCl (Ondansetron Hcl 4 Mg/2 Ml Vial) 4 mg IVPUSH Q8H PRN PRN Reason: Nausea and Vomiting Polyethylene Glycol (Polyethylene Glycol 3350 17 Gm Powd.Pack) 17 gm PO DAILY PRN PRN Reason: Constipation Sodium Chloride (0.9 % Sodium Chloride Flush 3 Ml Syringe) 3 ml IVFLUSH QSHIFT [facility] Home Medications ?Medication ?Instructions ?Recorded ?Confirmed ?Last Taken ?Type tirzepatide (weight loss) 2.5 2.5 mg subcut MO 5 06/09/25 05/30/25 History mg/0.5 mL subcutaneous pen injector (Zepbound) Physical Exam 2 Vital Signs and Narrative: Vital Signs: Last Vital Signs Temp 98.8 F 06/13/25 14:00 Pulse 80 06/13/25 14:00 Resp 18 06/13/25 14:00 BP 145/70 H 06/13/25 14:00 Pulse Ox 94 06/13/25 14:00 O2 Del Method Room Air 06/13/25 14:00 BMI result Body Mass Index 39.2 Alert and oriented X3, calm and cooperative. Answers questions. Eyes closed during assessment Neuro: CN II-X11 intact, no deficits, visual acuity intact EYES: PERRLA, EOM intact ENT: Hearing intact, MMM Cardiac: S1 S2 RRR, No ectopy Pulmonary: lungs clear to auscultation, No increased WOB. Abdominal: BS active in all 4 quadrants, no guarding or tenderness MSK: Strength 5/5 upper and lower extremities : Deferred Extremities: No edema in lower extremities. Weak Psych: Mood stable, Quiet and cooperative. Skin: Warm and dry, Intact Results Labs 06/14/25 13:36 Assessment and Plan (1) Hypokalemia due to excessive gastrointestinal loss of potassium: Status: Acute (2) C. difficile colitis: Status: Acute Plan 65-year-old female with a past medical history of bipolar disorder, MS, who was transferred from [facility] with C diff and hypokalemia. Hypokalemia Likely due to GI loss/diuretics Potassium 2.4 this am. Magnesium 1.9 60 MeQ + Magnesium 800 mgs po given Potssium 10 Meq times 4 bags. Recheck at 20:00 + CDIFF Vancomycin 125mgs QID. C diff/Contact precautions Abdominal exam benign, no GI symptoms aside from frequent loose stools. Bipolar disorder with behavioral outbursts/Depression Continue Valium 2 mg t.i.d., sertraline Will need CARE team eval once stable Multiple sclerosis Recent imaging and neurological eval not felt related to MS flare Continue baclofen 20 b.i.d., ropinirole, Valium TID Takotsubo cardiomyopathy/elevated troponins Seen by Cardiology-added Plavix(patient refused aspirin says she has allergy), metoprolol, continue statin, Lasix Will need repeat echo in 2 weeks, needs to follow up outpatient with Cardiology. LVEF 55-60% Deconditioning Consider PT evaluation, patient is now at wheelchair level. Will likely need rehab placement CLAUS CPAP CODE STATUS: FULL CODE VTE Prophylaxis Lovenox Quality Stroke Does the patient have a stroke diagnosis?: No VTE Prior VTE?: No VTE Risk Level:: Medical - moderate - high VTE Device Contraindication: Treatment Not Indicated VTE Drug Contraindication: N/A - Med Ordered
[2025-06-14 14:08] LABS: Potassium 2.8 mmol/L (3.3-5.1)
[2025-06-14 15:51] VITALS: BMI 37.9
[2025-06-14] MEDS: Potassium Chloride ER 20 MEQ TAB.ER.PRT 40 MEQ PO (15:58)
[2025-06-14 16:00] VITALS: BP 122/65; PULSE 83; RESP 18; TEMP 40.1; O2SAT 92
[2025-06-14] MEDS: Lactated Ringers 1,000 ML 100 ML IVCONT (16:06)
[2025-06-14] MEDS: Potassium Chloride/H20 10 MEQ/100 ML PIGGYBACK 100 MEQ IV (16:12)
[2025-06-14 17:30] VITALS: TEMP 38.8
[2025-06-14] MEDS: 0.9 % Sodium Chloride Flush 3 ML SYRINGE IVFLUSH ×2 (17:58→23:22)
[2025-06-14] MEDS: metroNIDAZOLE/NS 500 MG/100 ML PIGGYBACK 100 MG IV ×2 (18:01→23:21)
[2025-06-14] MEDS: Albuterol/Iprat 2.5/0.5MG 3 ML AMPUL.NEB INHALE (19:38)
[2025-06-14 19:39] VITALS: PULSE 88; RESP 16; O2SAT 93
[2025-06-14 20:00] VITALS: BP 128/64; PULSE 81; RESP 20; TEMP 36.7; O2SAT 95
--- NOTE | 2025-06-14 20:19 | PC.NURSE ---
pt came up from [facility] with bedside report from , Pt soon after noted to be febrile 104.2 rectal. MD aware and abx, fluids, apap, xray, ct scan etc as noted. Potassium given for critical low K. Blood thinner orders and IV K orders clarified with MD and last 3 doses not given per Dr. Bowman pending repeat labs. temp down to 101.9. Dr. Bowman aware and Ibuprofen given as ordered. plan of care ongoing....
[2025-06-14 20:22] LABS: Anion Gap 14 (12-20); Blood Urea Nitrogen 10 mg/dL (9-16); Calcium 8.5 mg/dL (8.4-10.2); Carbon Dioxide 20 mmol/L (22-29); Chloride 107 mmol/L (96-108); Creatinine Clr Calc Pharmacy 107.5; Estimated Glomerular Filt Rate > 60; Potassium 3.3 mmol/L (3.3-5.1); Sodium 138 mmol/L (135-145)
[2025-06-14 20:45] LABS: Magnesium 1.8 mg/dL (1.6-2.6)
[2025-06-14 23:22] VITALS: BP 140/67; PULSE 87; RESP 18; TEMP 36.8; O2SAT 93
[2025-06-15] VITALS (10 sets, daily range): BP systolic 117–129; BP diastolic 59–73; PULSE 80–96; RESP 17–20; TEMP 36.3–39.4; O2SAT 90–95
[2025-06-15] MEDS: Lactated Ringers 1,000 ML 100 ML IVCONT ×2 (04:36→13:15)
[2025-06-15 07:11] LABS: MANUAL DIFF FLAG NO
[2025-06-15 07:36] LABS: Magnesium 1.9 mg/dL (1.6-2.6)
[2025-06-15 07:40] LABS: Alanine Aminotransferase 26 U/L (0-31); Albumin Level 3.5 g/dL (3.5-5.0); Alkaline Phosphatase 77 U/L (39-117); Anion Gap 12 (12-20); Aspartate Amino Transferase 47 U/L (5-31); Blood Urea Nitrogen 11 mg/dL (9-16); Calcium 8.2 mg/dL (8.4-10.2); Carbon Dioxide 23 mmol/L (22-29); Chloride 107 mmol/L (96-108); Creatinine Clr Calc Pharmacy 115.3; Estimated Glomerular Filt Rate > 60; Potassium 2.8 mmol/L (3.3-5.1); Sodium 139 mmol/L (135-145); Total Protein 5.4 g/dL (6.5-8.0)
[2025-06-15] MEDS: metroNIDAZOLE/NS 500 MG/100 ML PIGGYBACK 100 MG IV (07:43)
[2025-06-15 07:45] LABS: Hematocrit 38.3 % (37.0-47.0); Hemoglobin 12.8 g/dl (12.0-16.0); Imm Gran Abs Auto 0.05 X10*3/uL (0.00-0.03); Imm Gran Pct Auto 0.7 % (0.0-0.4); Lymphocytes Absolute Auto 0.5 X10*3/uL (1.2-4.9); Mean Corpuscular HGB Conc 33.4 g/dl (31.0-35.0); Mean Corpuscular Hemoglobin 29.4 pg (27.0-33.0); Mean Corpuscular Volume 87.8 fL (80.0-98.0); NRBC Abs Auto 0.000 X10*3/uL (0.0-0.012); NRBC Pct Auto 0.0 /100WBC (0.0-0.2); Platelet Count 234 X10*3/uL (160-400); Red Blood Count 4.36 X10*6/uL (4.20-5.50); White Blood Count 7.1 X10*3/uL (4.8-10.8)
[2025-06-15] MEDS: Albuterol/Iprat 2.5/0.5MG 3 ML AMPUL.NEB INHALE ×2 (08:18→11:12)
--- NOTE | 2025-06-15 08:38 | PHA.MEDREC ---
Pharmacy Consult ? Medication Reconciliation Pharmacy has completed the medication reconciliation. med rec done by previous pharmacist
[2025-06-15] MEDS: Potassium Chloride ER 20 MEQ TAB.ER.PRT 40 MEQ PO ×2 (08:51→17:04)
[2025-06-15] MEDS: Magnesium Sulfate/H2O 2 GM/50 ML PIGGYBACK IV (08:52)
[2025-06-15] MEDS: Ferrous Sulfate 324 MG TABLET.DR PO (08:53)
[2025-06-15 10:48] LABS: Chlamydia pneumoniae PCR Not Detected (Not Detect.); Coronavirus 229E PCR Not Detected (Not Detect.); Coronavirus HKU1 PCR Not Detected (Not Detect.); Coronavirus NL63 PCR Not Detected (Not Detect.); Coronavirus OC43 PCR Not Detected (Not Detect.); Influenza A H1-2009 PCR Detected (Not Detect.); RSV PCR Not Detected (Not Detect.); Rhino/Enterovirus PCR Not Detected (Not Detect.)
[2025-06-15 11:31] LABS: SARS-CoV-2 PCR Not Detected (Not Detect.)
[2025-06-15 11:32] LABS: Influenza A H1 PCR Not Detected (Not Detect.); Influenza A H3 PCR Not Detected (Not Detect.)
--- NOTE | 2025-06-15 11:54 | P.PNIM_ITS ---
Subjective Subjective Date of Service: 06/15/25 Interval History: Ongoing weakness, diarrhea Physical Exam 2 Exam: Exam: Appearance: Alert.? Oriented X3.? cvs: rrr, [id number] , no murmur res: clear to auscultation ,no rhonchii or wheezing abd: no rebound or guarding ,nt, bs present. ext pulses present , no cyanosis . neuro: axo3 , nonfocal. Vital Signs: Vital Signs: Last Vital Signs Temp 99.4 F 06/15/25 07:43 Pulse 92 06/15/25 11:15 Resp 18 06/15/25 11:15 BP 129/64 06/15/25 07:43 Pulse Ox 92 06/15/25 07:43 O2 Del Method Room Air 06/15/25 07:43 BMI result Body Mass Index 37.9 Objective Data Active Medications Acetaminophen (Acetaminophen Supp 650 Mg Supp.Rect) 650 mg [place] Q6H PRN PRN Reason: Pain, Mild 1-3,fever,headache Acetaminophen (Acetaminophen 325 Mg Tablet) 650 mg PO Q6H PRN PRN Reason: Pain, Mild 1-3,fever,headache Last Admin: 06/14/25 23:24 Dose: 650 mg Documented By: JANEEN Albuterol/Ipratropium (Albuterol/Iprat 2.5/0.5mg 3 Ml Ampul.Neb) 3 ml INHALE RQ4H WHILE AWAKE COUNT INCLUDES [facility] Last Admin: 06/15/25 11:12 Dose: 3 ml Documented By: CLAUDIA Baclofen (Baclofen 20 Mg Tablet) 20 mg PO BID [facility]CLUD[facility] Last Admin: 06/15/25 08:53 Dose: 20 mg Documented By: CONNIE Calcium Carbonate (Calcium Carbonate 750 Mg Tab.Chew) 750 mg PO Q4H PRN PRN Reason: Heartburn Clopidogrel Bisulfate (Clopidogrel Bisulfate 75 Mg Tablet) 75 mg PO DAILY [facility]CLUD[facility] Last Admin: 06/15/25 08:52 Dose: 75 mg Documented By: CONNIE Cyanocobalamin (Cyanocobalamin (Vitamin B-12) 1,000 Mcg Tablet) 1,000 mcg PO DAILY [facility]CLUDES [facility] Last Admin: 06/15/25 08:52 Dose: 1,000 mcg Documented By: CONNIE Diazepam (Diazepam 2 Mg Tablet) 2 mg PO TID COUNT [facility]CLUDES [facility] Last Admin: 06/15/25 08:53 Dose: Not Given Documented By: CONNIE Non-Admin Reason: See Note Docusate Sodium (Docusate Sodium 100 Mg Capsule) 100 mg PO BID COUNT [facility]CLUD[facility] Last Admin: 06/15/25 07:43 Dose: Not Given Documented By: CONNIE Non-Admin Reason: See Note Enoxaparin Sodium (Enoxaparin Sodium 40 Mg/0.4 Ml Syringe) 40 mg SUBCUT Q24H COUNT [facility]CLUDES [facility] Last Admin: 06/14/25 18:01 Dose: 40 mg Documented By: BARRERA Ferrous Sulfate (Ferrous Sulfate 324 Mg Tablet.Dr) 324 mg PO DAILY COUNT [facility] Last Admin: 06/15/25 08:53 Dose: 324 mg Documented By: CONNIE Metronidazole (Flagyl) 500 mg in 100 mls @ 100 mls/hr IV Q8H COUNT INCLUDES [facility] Last Infusion: 06/15/25 08:58 Dose: Infused Documented By: CONNIE Lactated Ringer's (Lr) 1,000 mls @ 100 mls/hr IVCONT .Q10H COUNT [facility]CLUDES [facility] Last Admin: 06/15/25 04:36 Dose: 100 mls/hr Documented By: JANEEN Magnesium Hydroxide (Milk Of Magnesia 30 Ml Oral.Susp) 30 ml PO DAILY PRN PRN Reason: Constipation Metoprolol Tartrate (Metoprolol Tartrate 25 Mg Tablet) 25 mg PO BID [facility]; Protocol Last Admin: 06/15/25 08:52 Dose: 25 mg Documented By: CONNIE Multivitamins/Vitamin C (Multivitamin Tablet) 1 tab PO DAILY COUNT [facility]ES [facility] Last Admin: 06/15/25 08:53 Dose: 1 tab Documented By: CONNIE Ondansetron HCl (Ondansetron Hcl 4 Mg/2 Ml Vial) 4 mg IVPUSH Q8H PRN PRN Reason: Nausea and Vomiting Oseltamivir Phosphate (Oseltamivir Phosphate 75 Mg Capsule) 75 mg PO Q12H COUNT [facility]CLUDES [facility] Stop: 06/20/25 00:01 Polyethylene Glycol (Polyethylene Glycol 3350 17 Gm Powd.Pack) 17 gm PO DAILY PRN PRN Reason: Constipation Potassium Chloride (Potassium Chloride Er 20 Meq Tab.Er.Prt) 40 meq PO ONCE ONE Stop: 06/15/25 17:34 Ropinirole HCl (Ropinirole Hcl 1 Mg Tablet) 1 mg PO BEDTIME COUNT INCLUDES [facility] Sertraline HCl (Sertraline Hcl 50 Mg Tablet) 150 mg PO DAILY COUNT [facility]CLUDES [facility] Last Admin: 06/15/25 08:52 Dose: 150 mg Documented By: CONNIE Sodium Chloride (0.9 % Sodium Chloride Flush 3 Ml Syringe) 3 ml IVFLUSH QSHIFT COUNT INCLUDES [facility] Last Admin: 06/15/25 07:43 Dose: Not Given Documented By: CONNIE Non-Admin Reason: IV Running Vancomycin HCl (Vancomycin Hcl 125 Mg Capsule) 125 mg PO Q6H COUNT [facility]CLUDES [facility] Last Admin: 06/15/25 05:46 Dose: 125 mg Documented By: JANEEN Labs 06/15/25 07:01 06/15/25 07:01 Labs: Laboratory Results - last 24 hr 06/14/25 06/14/25 06/14/25 13:36 16:31 19:45 MCV MCH MCHC RDW Plt Count MPV Immature Gran % (Auto) Neut % (Auto) Lymph % (Auto) [place] % (Auto) Eos % (Auto) Baso % (Auto) Lymph # (Auto) [place] # (Auto) Eos # (Auto) Baso # (Auto) Abs Immat Gran (auto) Absolute Neuts (auto) Absolute Nucleated RBC Nucleated RBC % (auto) Anion Gap 14 Estim Creat Clear Calc 107.5 Estimated GFR > 60 Random Glucose 105 Lactic Acid 1.1 Calcium 8.5 Magnesium 1.8 Total Bilirubin AST ALT Alkaline Phosphatase Total Protein Albumin Respiratory Panel Castellanos Adenovirus (Rapid PCR) B.pert (TEM-PCR) B.parapertussis DNA PCR C. pneumoniae DNA (PCR) Coronavirus OC43 (PCR) Coronavirus HKU1 (PCR) Coronavirus 229E (PCR) Coronavirus NL63 (PCR) Human Metapneumovir PCR Influenza A (RT-PCR) Influenza A (H1) PCR Influ A (H1/09) PCR Influenza A (H3) PCR Influenza B (RT-PCR) M. pneumoniae (PCR) Parainfluenza 1 (PCR) Parainfluenza 2 (PCR) Parainfluenza 3 (PCR) Parainfluenza 4 (PCR) RSV (PCR) Entero/Rhino (PCR) SARS-CoV-2 RNA (RT-PCR) 06/14/25 06/15/25 23:34 07:01 MCV 87.8 MCH 29.4 MCHC 33.4 RDW 15.5 Plt Count 234 MPV 9.3 L Immature Gran % (Auto) 0.7 H Neut % (Auto) 87.1 H Lymph % (Auto) 7.5 L [place] % (Auto) 4.5 Eos % (Auto) 0.1 Baso % (Auto) 0.1 Lymph # (Auto) 0.5 L [place] # (Auto) 0.3 Eos # (Auto) 0.0 Baso # (Auto) 0.0 Abs Immat Gran (auto) 0.05 H Absolute Neuts (auto) 6.2 Absolute Nucleated RBC 0.000 Nucleated RBC % (auto) 0.0 Anion Gap 12 Estim Creat Clear Calc 115.3 Estimated GFR > 60 Random Glucose 86 Lactic Acid Calcium 8.2 L Magnesium 1.9 Total Bilirubin 0.3 AST 47 H ALT 26 Alkaline Phosphatase 77 Total Protein 5.4 L Albumin 3.5 Respiratory Panel Castellanos See Note Adenovirus (Rapid PCR) Not Detected B.pert (TEM-PCR) Not Detected B.parapertussis DNA PCR Not Detected C. pneumoniae DNA (PCR) Not Detected Coronavirus OC43 (PCR) Not Detected Coronavirus HKU1 (PCR) Not Detected Coronavirus 229E (PCR) Not Detected Coronavirus NL63 (PCR) Not Detected Human Metapneumovir PCR Not Detected Influenza A (RT-PCR) Detected A Influenza A (H1) PCR Not Detected Influ A (H1/09) PCR Detected A Influenza A (H3) PCR Not Detected Influenza B (RT-PCR) Not Detected M. pneumoniae (PCR) Not Detected Parainfluenza 1 (PCR) Not Detected Parainfluenza 2 (PCR) Not Detected Parainfluenza 3 (PCR) Not Detected Parainfluenza 4 (PCR) Not Detected RSV (PCR) Not Detected Entero/Rhino (PCR) Not Detected SARS-CoV-2 RNA (RT-PCR) Not Detected Assessment and Plan (1) Takotsubo cardiomyopathy: Status: Acute Plan 65F PMH bipolar disorder, multiple sclerosis admitted from inpatient psychiatry for fevers, multiple loose stools found to be positive C diff and potassium of 2.4 sepsis ( not severe) due to C diff colitis and flu A p.o. vancomycin, can DC IV Flagyl, start Tamiflu day 1 severe acute hypokalemia replace and monitor hypomagnesemia replace and monitor bipolar continue sertraline, diazepam multiple sclerosis continue baclofen takotsubo cardiomyopathy continue metoprolol, outpatient follow up with Cardiology CLAUS CPAP at night DVT prophylaxis with Lovenox full code reason for continued hospitalization: hypokalemia Quality Stroke Does the patient have a stroke diagnosis?: No VTE Prior VTE?: No VTE Risk Level:: Medical - moderate - high VTE Device Contraindication: Treatment Not Indicated VTE Drug Contraindication: N/A - Med Ordered
--- NOTE | 2025-06-15 15:38 | MHC.CM.PN ---
IMM 06/15/25, EMR REVIEWED, [facility], IMM DELIVERED TO PT'S YRN [phone] D/T PT UNABLE TO ANSWER QUESTIONS. YRN REPORTS PT USES A WALKER AT BASELINE, HAS GRAB BARS IN BR AND A SHOWER BENCH, PT'S DTR KISHOR IS PT'S LEARNING SUPPORT TEACHER AND PT IS STANDBY ASSIST W/SHOWERS, PT DOES MAJORITY OF CARE HERSELF, YRN REPORTS FAMILY MEETS ALL OF PT'S NEEDS. YRN UNABLE TO GIVE CM GOAL FOR DC AT THIS TIME. PT'S POA/HCP VERIFIED AND ON FILE. YRN VERIFIES PCP IS NESHA ZULETA MD W/[employer]. CONTACT #'S: YRN/HCP [phone], DTR/LEARNING SUPPORT TEACHER KISHOR [phone], YRN WOULD LIKE MEDICAL CALLS TO GO TO DTR KISHOR. PT HAS [facility] AT [facility] LOCATION. PSYCHIATRIST DR. HAYES AND THERAPIST IS MARIJA ANTONY.
--- NOTE | 2025-06-15 17:07 | PC.NURSE ---
Addendum entered by Rema Chester RN 06/15/25 18:33: at 1820 rechecked pt temp for 102.6. MD made aware. continue to monitor per MD. Original Note: Pt feeling warm while being repositioned. rectal temp 103. PO tylenol given will reassess temp.
--- NOTE | 2025-06-15 17:25 | W.PM.IDCN ---
History of Present Illness Data of Consult Service Date: 06/15/25 Requesting physician: Valentin [place] Primary Care Provider: Unknown Physician HPI Reason for consult: Cdiff,flu A,encephalopathy She was brought in for confusion last two days. She has temperature 104 and pulse 102. She has influenza A and diarrhea. Review of Systems Review of Systems: Yes all other systems are reviewed and are negative [facility] Past Medical History Medical History (Updated 06/15/25 @ 17:27 by Emma Ramírez MD) Influenza A Obesity Bipolar 1 disorder, manic, moderate Overactive bladder GERD (gastroesophageal reflux disease) Multiple sclerosis Family History Family history: reviewed and not pertinent Social History Social History Household Members: Family Household Members Other:: daughter Housing: House Do you presently have visiting nurse or other home services: Yes ([facility]) Comment: 5 minute checks Patient Tobacco Use Status: Former Tobacco user e-Cigarette/Vaping Use: Currently Using Second Hand Smoke Exposure: No (n/a) Substance Use Type: Marijuana Advance Directives Date on File: 03/03/24 service: No Sexual orientation: Straight/Heterosexual Meds Allergies Allergy/AdvReac Type Severity Reaction Status Date / Time aspirin Allergy Unknown Verified 06/09/25 10:52 citalopram (From Celexa) Allergy Unknown Verified 06/09/25 10:52 lamotrigine (From Lamictal) Allergy Unknown Verified 06/09/25 10:52 Penicillins Allergy Unknown Verified 06/09/25 10:52 Active Medications: Current Medications Acetaminophen (Acetaminophen Supp 650 Mg Supp.Rect) 650 mg [place] Q6H PRN PRN Reason: Pain, Mild 1-3,fever,headache Acetaminophen (Acetaminophen 325 Mg Tablet) 650 mg PO Q6H PRN PRN Reason: Pain, Mild 1-3,fever,headache Last Admin: 06/15/25 17:05 Dose: 650 mg Albuterol/Ipratropium (Albuterol/Iprat 2.5/0.5mg 3 Ml Ampul.Neb) 3 ml INHALE RQ4H WHILE AWAKE PRN PRN Reason: sob Baclofen (Baclofen 20 Mg Tablet) 20 mg PO BID [place] Last Admin: 06/15/25 08:53 Dose: 20 mg Calcium Carbonate (Calcium Carbonate 750 Mg Tab.Chew) 750 mg PO Q4H PRN PRN Reason: Heartburn Clopidogrel Bisulfate (Clopidogrel Bisulfate 75 Mg Tablet) 75 mg PO DAILY [facility] Last Admin: 06/15/25 08:52 Dose: 75 mg Cyanocobalamin (Cyanocobalamin (Vitamin B-12) 1,000 Mcg Tablet) 1,000 mcg PO DAILY [facility] Last Admin: 06/15/25 08:52 Dose: 1,000 mcg Diazepam (Diazepam 2 Mg Tablet) 2 mg PO TID [facility] Last Admin: 06/15/25 14:27 Dose: Not Given Docusate Sodium (Docusate Sodium 100 Mg Capsule) 100 mg PO BID [facility] Last Admin: 06/15/25 07:43 Dose: Not Given Enoxaparin Sodium (Enoxaparin Sodium 40 Mg/0.4 Ml Syringe) 40 mg SUBCUT Q24H [facility] Last Admin: 06/15/25 13:15 Dose: 40 mg Ferrous Sulfate (Ferrous Sulfate 324 Mg Tablet.Dr) 324 mg PO DAILY [facility] Last Admin: 06/15/25 08:53 Dose: 324 mg Lactated Ringer's (Lr) 1,000 mls @ 100 mls/hr IVCONT .Q10H [facility] Last Admin: 06/15/25 13:15 Dose: 100 mls/hr Magnesium Hydroxide (Milk Of Magnesia 30 Ml Oral.Susp) 30 ml PO DAILY PRN PRN Reason: Constipation Metoprolol Tartrate (Metoprolol Tartrate 25 Mg Tablet) 25 mg PO BID [facility]; Protocol Last Admin: 06/15/25 08:52 Dose: 25 mg Multivitamins/Vitamin C (Multivitamin Tablet) 1 tab PO DAILY [facility] Last Admin: 06/15/25 08:53 Dose: 1 tab Ondansetron HCl (Ondansetron Hcl 4 Mg/2 Ml Vial) 4 mg IVPUSH Q8H PRN PRN Reason: Nausea and Vomiting Oseltamivir Phosphate (Oseltamivir Phosphate 75 Mg Capsule) 75 mg PO Q12H [facility] Stop: 06/20/25 00:01 Last Admin: 06/15/25 13:14 Dose: 75 mg Polyethylene Glycol (Polyethylene Glycol 3350 17 Gm Powd.Pack) 17 gm PO DAILY PRN PRN Reason: Constipation Potassium Chloride (Potassium Chloride Er 20 Meq Tab.Er.Prt) 40 meq PO ONCE ONE Stop: 06/15/25 17:34 Last Admin: 06/15/25 17:04 Dose: 40 meq Ropinirole HCl (Ropinirole Hcl 1 Mg Tablet) 1 mg PO BEDTIME [facility] Sertraline HCl (Sertraline Hcl 50 Mg Tablet) 150 mg PO DAILY [facility] Last Admin: 06/15/25 08:52 Dose: 150 mg Sodium Chloride (0.9 % Sodium Chloride Flush 3 Ml Syringe) 3 ml IVFLUSH QSHIFT [facility] Last Admin: 06/15/25 15:39 Dose: Not Given Vancomycin HCl (Vancomycin Hcl 125 Mg Capsule) 125 mg PO Q6H [facility] Last Admin: 06/15/25 17:04 Dose: 125 mg Home Medications ?Medication ?Instructions ?Recorded ?Confirmed ?Last Taken ?Type tirzepatide (weight loss) 2.5 2.5 mg subcut MO 06/09/25 06/14/25 05/30/25 History mg/0.5 mL subcutaneous pen injector (Zepbound) Physical Exam Vital Signs: Vital Signs: Last Vital Signs Temp 98.4 F 06/15/25 16:00 Pulse 94 06/15/25 16:00 Resp 20 06/15/25 16:00 BP 129/70 06/15/25 16:00 Pulse Ox 93 06/15/25 16:00 O2 Del Method Room Air 06/15/25 16:00 BMI result Body Mass Index 37.9 Const: General: cooperative HEENT: Head: Yes normal to inspection Face and sinus: Yes normal facial exam Mouth: Normal oral and palatal mucosa present Teeth and gingiva: dentition normal Eyes: General: appearance normal, both eyes and all related structures Pupils: Equal, round and reactive pupils present Resp: Effort & Inspection: normal respiratory effort Cardio: Rate: regular rate Rhythm: regular rhythm GI: Palpation (GI): Soft to palpation and nontender : General: Yes no CVA tenderness Back/Spine/Pelvis: Back: no CVA tenderness Skin: General skin exam: no rashes or lesions noted Neuro: General: moves all extremities Cranial nerves: Yes Equal, round and reactive pupils present Extrem: General: Yes normal to inspection Psych: Other: confused Results Labs 06/15/25 07:01 06/15/25 07:01 Labs: Short CBC 06/15/25 Range/Units 07:01 WBC 7.1 (4.8-10.8) X10*3/uL Hgb 12.8 (12.0-16.0) g/dl Hct 38.3 (37.0-47.0) % Plt Count 234 (160-400) X10*3/uL BMP 06/14/25 06/15/25 19:45 07:01 Sodium 138 139 Potassium 3.3 2.8 L* Chloride 107 107 Carbon Dioxide 20 L 23 BUN 10 11 Creatinine 0.60 0.56 Calcium 8.5 8.2 L Liver Function 06/15/25 Range/Units 07:01 Total Bilirubin 0.3 (0.0-1.0) mg/dL AST 47 H (5-31) U/L ALT 26 (0-31) U/L Alkaline Phosphatase 77 (39-117) U/L Albumin 3.5 (3.5-5.0) g/dL Assessment and Plan (1) C. difficile colitis: Status: Acute (2) Influenza A: Status: Acute Plan Cdifficile colitis There is no specific antibiotic risk at this time Influenza A is circulating in the community. Contact and droplet precautions. Can give vancomycin or fidaxomicin at this time for 10 days. Also Tamiflu 5 days.
[2025-06-16] VITALS (8 sets, daily range): BP systolic 105–143; BP diastolic 60–88; PULSE 75–83; RESP 16–18; TEMP 36.7–39.4; O2SAT 92–94
[2025-06-16] MEDS: Lactated Ringers 1,000 ML 100 ML IVCONT ×3 (00:09→18:15)
[2025-06-16 06:21] LABS: Hematocrit 38.0 % (37.0-47.0); Hemoglobin 12.5 g/dl (12.0-16.0); Mean Corpuscular HGB Conc 32.9 g/dl (31.0-35.0); Mean Corpuscular Hemoglobin 28.9 pg (27.0-33.0); Mean Corpuscular Volume 87.8 fL (80.0-98.0); NRBC Abs Auto 0.000 X10*3/uL (0.0-0.012); NRBC Pct Auto 0.0 /100WBC (0.0-0.2); Platelet Count 199 X10*3/uL (160-400); Red Blood Count 4.33 X10*6/uL (4.20-5.50); White Blood Count 4.2 X10*3/uL (4.8-10.8)
[2025-06-16 06:55] LABS: Anion Gap 13 (12-20); Blood Urea Nitrogen 8 mg/dL (9-16); Calcium 8.0 mg/dL (8.4-10.2); Carbon Dioxide 22 mmol/L (22-29); Chloride 107 mmol/L (96-108); Creatinine Clr Calc Pharmacy 124.1; Estimated Glomerular Filt Rate > 60; Magnesium 2.0 mg/dL (1.6-2.6); Potassium 3.9 mmol/L (3.3-5.1); Sodium 138 mmol/L (135-145)
[2025-06-16] MEDS: Ferrous Sulfate 324 MG TABLET.DR PO (07:46)
--- NOTE | 2025-06-16 10:21 | HO.PM.IMPN ---
Subjective Subjective Date of Service: 06/16/25 Interval History: Ongoing weakness, diarrhea Physical Exam Vital Signs: Vital Signs: Last Vital Signs Temp 98.4 F 06/16/25 07:39 Pulse 77 06/16/25 07:39 Resp 18 06/16/25 07:39 BP 135/88 06/16/25 07:39 Pulse Ox 92 06/16/25 07:39 O2 Del Method Room Air 06/16/25 03:39 BMI result Body Mass Index 37.9 Const: General: cooperative HEENT: Head: Yes normal to inspection Face and sinus: Yes normal facial exam Mouth: Normal oral and palatal mucosa present Teeth and gingiva: dentition normal Eyes: General: appearance normal, both eyes and all related structures Pupils: Equal, round and reactive pupils present Resp: Effort & Inspection: normal respiratory effort Cardio: Rate: regular rate Rhythm: regular rhythm GI: Palpation (GI): Soft to palpation and nontender : General: Yes no CVA tenderness Back/Spine/Pelvis: Back: no CVA tenderness Skin: General skin exam: no rashes or lesions noted Neuro: General: moves all extremities Cranial nerves: Yes Equal, round and reactive pupils present Extrem: General: Yes normal to inspection Psych: Other: confused Objective Data Active Medications Acetaminophen (Acetaminophen Supp 650 Mg Supp.Rect) 650 mg [place] Q6H PRN PRN Reason: Pain, Mild 1-3,fever,headache Acetaminophen (Acetaminophen 325 Mg Tablet) 650 mg PO Q6H PRN PRN Reason: Pain, Mild 1-3,fever,headache Last Admin: 06/16/25 00:55 Dose: 650 mg Documented By: ALLISON Albuterol/Ipratropium (Albuterol/Iprat 2.5/0.5mg 3 Ml Ampul.Neb) 3 ml INHALE RQ4H WHILE AWAKE PRN PRN Reason: sob Baclofen (Baclofen 20 Mg Tablet) 20 mg PO BID [facility] Last Admin: 06/16/25 07:46 Dose: 20 mg Documented By: CONNIE Calcium Carbonate (Calcium Carbonate 750 Mg Tab.Chew) 750 mg PO Q4H PRN PRN Reason: Heartburn Clopidogrel Bisulfate (Clopidogrel Bisulfate 75 Mg Tablet) 75 mg PO DAILY [facility] Last Admin: 06/16/25 07:46 Dose: 75 mg Documented By: CONNIE Cyanocobalamin (Cyanocobalamin (Vitamin B-12) 1,000 Mcg Tablet) 1,000 mcg PO DAILY [facility] Last Admin: 06/16/25 07:46 Dose: 1,000 mcg Documented By: CONNIE Diazepam (Diazepam 2 Mg Tablet) 2 mg PO TID [facility] Last Admin: 06/16/25 07:47 Dose: Not Given Documented By: CONNIE Non-Admin Reason: See Note Docusate Sodium (Docusate Sodium 100 Mg Capsule) 100 mg PO BID [facility] Last Admin: 06/16/25 07:47 Dose: Not Given Documented By: CONNIE Non-Admin Reason: See Note Enoxaparin Sodium (Enoxaparin Sodium 40 Mg/0.4 Ml Syringe) 40 mg SUBCUT Q24H [facility] Last Admin: 06/15/25 13:15 Dose: 40 mg Documented By: CONNIE Ferrous Sulfate (Ferrous Sulfate 324 Mg Tablet.Dr) 324 mg PO DAILY [facility] Last Admin: 06/16/25 07:46 Dose: 324 mg Documented By: CONNIE Lactated Ringer's (Lr) 1,000 mls @ 100 mls/hr IVCONT .Q10H [facility] Last Admin: 06/16/25 07:45 Dose: 100 mls/hr Documented By: CONNIE Magnesium Hydroxide (Milk Of Magnesia 30 Ml Oral.Susp) 30 ml PO DAILY PRN PRN Reason: Constipation Metoprolol Tartrate (Metoprolol Tartrate 25 Mg Tablet) 25 mg PO BID [facility]; Protocol Last Admin: 06/16/25 07:46 Dose: 25 mg Documented By: CONNIE Multivitamins/Vitamin C (Multivitamin Tablet) 1 tab PO DAILY [facility] Last Admin: 06/16/25 07:46 Dose: 1 tab Documented By: CONNIE Ondansetron HCl (Ondansetron Hcl 4 Mg/2 Ml Vial) 4 mg IVPUSH Q8H PRN PRN Reason: Nausea and Vomiting Oseltamivir Phosphate (Oseltamivir Phosphate 75 Mg Capsule) 75 mg PO Q12H [facility] Stop: 06/20/25 00:01 Last Admin: 06/16/25 00:09 Dose: 75 mg Documented By: ALLISON Polyethylene Glycol (Polyethylene Glycol 3350 17 Gm Powd.Pack) 17 gm PO DAILY PRN PRN Reason: Constipation Ropinirole HCl (Ropinirole Hcl 1 Mg Tablet) 1 mg PO BEDTIME [facility] Last Admin: 06/15/25 20:33 Dose: 1 mg Documented By: ALLISON Sertraline HCl (Sertraline Hcl 50 Mg Tablet) 150 mg PO DAILY [facility] Last Admin: 06/16/25 07:45 Dose: 150 mg Documented By: CONNIE Sodium Chloride (0.9 % Sodium Chloride Flush 3 Ml Syringe) 3 ml IVFLUSH QSHIFT [facility] Last Admin: 06/16/25 07:46 Dose: Not Given Documented By: CONNIE Non-Admin Reason: IV Running Vancomycin HCl (Vancomycin Hcl 125 Mg Capsule) 125 mg PO Q6H [facility] Last Admin: 06/16/25 05:46 Dose: 125 mg Documented By: ALLISON Labs 06/16/25 06:03 06/16/25 06:03 Labs: Laboratory Results - last 24 hr 06/14/25 06/16/25 23:34 06:03 MCV 87.8 MCH 28.9 MCHC 32.9 RDW 15.8 Plt Count 199 MPV 9.1 L Absolute Nucleated RBC 0.000 Nucleated RBC % (auto) 0.0 Anion Gap 13 Estim Creat Clear Calc 124.1 Estimated GFR > 60 Random Glucose 74 Calcium 8.0 L Magnesium 2.0 Respiratory Panel Castellanos See Note Adenovirus (Rapid PCR) Not Detected B.pert (TEM-PCR) Not Detected B.parapertussis DNA PCR Not Detected C. pneumoniae DNA (PCR) Not Detected Coronavirus OC43 (PCR) Not Detected Coronavirus HKU1 (PCR) Not Detected Coronavirus 229E (PCR) Not Detected Coronavirus NL63 (PCR) Not Detected Human Metapneumovir PCR Not Detected Influenza A (RT-PCR) Detected A Influenza A (H1) PCR Not Detected Influ A (H1/09) PCR Detected A Influenza A (H3) PCR Not Detected Influenza B (RT-PCR) Not Detected M. pneumoniae (PCR) Not Detected Parainfluenza 1 (PCR) Not Detected Parainfluenza 2 (PCR) Not Detected Parainfluenza 3 (PCR) Not Detected Parainfluenza 4 (PCR) Not Detected RSV (PCR) Not Detected Entero/Rhino (PCR) Not Detected SARS-CoV-2 RNA (RT-PCR) Not Detected Microbiology Microbiology Results: Microbiology 06/14/25 16:31 Blood Culture - Preliminary Blood - Venous No growth after 24 hours. 06/14/25 16:31 Blood Culture - Preliminary Blood - Venous No growth after 24 hours. Assessment and Plan (1) Takotsubo cardiomyopathy: Status: Acute Plan 65F PMH bipolar disorder, multiple sclerosis admitted from inpatient psychiatry for fevers, multiple loose stools found to be positive C diff and potassium of 2.4 sepsis ( not severe) due to C diff colitis and flu A 10 days p.o. vancomycin until 06/23/25, Tamiflu day 2 severe acute hypokalemia replaced hypomagnesemia replaced bipolar continue sertraline, diazepam multiple sclerosis continue baclofen takotsubo cardiomyopathy continue metoprolol, outpatient follow up with Cardiology CLAUS CPAP at night DVT prophylaxis with Lovenox full code reason for continued hospitalization: diarrhea Quality Stroke Does the patient have a stroke diagnosis?: No VTE Prior VTE?: No VTE Risk Level:: Medical - moderate - high VTE Device Contraindication: Treatment Not Indicated VTE Drug Contraindication: N/A - Med Ordered
[2025-06-17] VITALS (7 sets, daily range): BP systolic 110–131; BP diastolic 55–78; PULSE 77–96; RESP 17–18; TEMP 36.7–37.7; O2SAT 90–97
[2025-06-17] MEDS: Lactated Ringers 1,000 ML 100 ML IVCONT (04:02)
[2025-06-17 07:17] LABS: Hematocrit 36.8 % (37.0-47.0); Hemoglobin 12.4 g/dl (12.0-16.0); Mean Corpuscular HGB Conc 33.7 g/dl (31.0-35.0); Mean Corpuscular Hemoglobin 29.2 pg (27.0-33.0); Mean Corpuscular Volume 86.6 fL (80.0-98.0); NRBC Abs Auto 0.000 X10*3/uL (0.0-0.012); NRBC Pct Auto 0.0 /100WBC (0.0-0.2); Platelet Count 202 X10*3/uL (160-400); Red Blood Count 4.25 X10*6/uL (4.20-5.50); White Blood Count 2.9 X10*3/uL (4.8-10.8)
[2025-06-17 07:31] LABS: Anion Gap 13 (12-20); Blood Urea Nitrogen 6 mg/dL (9-16); Calcium 8.2 mg/dL (8.4-10.2); Carbon Dioxide 24 mmol/L (22-29); Chloride 106 mmol/L (96-108); Creatinine Clr Calc Pharmacy 126.5; Estimated Glomerular Filt Rate > 60; Magnesium 1.7 mg/dL (1.6-2.6); Potassium 3.2 mmol/L (3.3-5.1); Sodium 140 mmol/L (135-145)
[2025-06-17] MEDS: Potassium Chloride ER 20 MEQ TAB.ER.PRT 40 MEQ PO (08:14)
[2025-06-17] MEDS: Ferrous Sulfate 324 MG TABLET.DR PO (08:15)
[2025-06-17] MEDS: 0.9 % Sodium Chloride Flush 3 ML SYRINGE IVFLUSH ×3 (08:21→21:08)
--- NOTE | 2025-06-17 10:39 | P.PNIM_ITS ---
Subjective Subjective Date of Service: 06/17/25 Interval History: Reports some improvement but still with fevers and diarrhea Physical Exam 2 Vital Signs: Vital Signs: Last Vital Signs Temp 99.2 F 06/17/25 07:48 Pulse 81 06/17/25 09:26 Resp 17 06/17/25 07:48 BP 131/71 06/17/25 07:48 Pulse Ox 90 L 06/17/25 07:48 O2 Del Method Room Air 06/17/25 07:48 BMI result Body Mass Index 37.9 Const: General: cooperative HEENT: Head: Yes normal to inspection Face and sinus: Yes normal facial exam Mouth: Normal oral and palatal mucosa present Teeth and gingiva: d entition normal Eyes: General: appearance normal, both eyes and all related structures P upils: Equal, round and reactive pupils present Resp: Effort & Inspection: normal respiratory effort Cardio: Rate: regular rate Rhythm: regular rhythm GI: Palpation (GI): Soft to palpation and nontender : General: Yes no CVA tenderness Back/Spine/Pelvis: Back: no CVA tenderness Skin: General skin exam: no rashes or lesions noted Neuro: General: moves all extremities Cranial nerves: Yes Equal, round and reactive pupils present Extrem: General: Yes normal to inspection Psych: Other: confused Objective Data Active Medications Acetaminophen (Acetaminophen Supp 650 Mg Supp.Rect) 650 mg [place] Q6H PRN PRN Reason: Pain, Mild 1-3,fever,headache Acetaminophen (Acetaminophen 325 Mg Tablet) 650 mg PO Q6H PRN PRN Reason: Pain, Mild 1-3,fever,headache Last Admin: 06/16/25 21:25 Dose: 650 mg Documented By: ALLISON Albuterol/Ipratropium (Albuterol/Iprat 2.5/0.5mg 3 Ml Ampul.Neb) 3 ml INHALE RQ4H WHILE AWAKE PRN PRN Reason: sob Baclofen (Baclofen 20 Mg Tablet) 20 mg PO BID [facility] Last Admin: 06/17/25 08:12 Dose: 20 mg Documented By: THEO Calcium Carbonate (Calcium Carbonate 750 Mg Tab.Chew) 750 mg PO Q4H PRN PRN Reason: Heartburn Clopidogrel Bisulfate (Clopidogrel Bisulfate 75 Mg Tablet) 75 mg PO DAILY [facility] Last Admin: 06/17/25 08:11 Dose: 75 mg Documented By: THEO Cyanocobalamin (Cyanocobalamin (Vitamin B-12) 1,000 Mcg Tablet) 1,000 mcg PO DAILY [facility] Last Admin: 06/17/25 08:12 Dose: 1,000 mcg Documented By: THEO Diazepam (Diazepam 2 Mg Tablet) 2 mg PO TID [facility] Last Admin: 06/17/25 08:16 Dose: 2 mg Documented By: THEO Docusate Sodium (Docusate Sodium 100 Mg Capsule) 100 mg PO BID [facility] Last Admin: 06/17/25 08:16 Dose: Not Given Documented By: THEO Non-Admin Reason: diarrhea Enoxaparin Sodium (Enoxaparin Sodium 40 Mg/0.4 Ml Syringe) 40 mg SUBCUT Q24H [facility] Last Admin: 06/16/25 14:01 Dose: 40 mg Documented By: CONNIE Ferrous Sulfate (Ferrous Sulfate 324 Mg Tablet.Dr) 324 mg PO DAILY [facility] Last Admin: 06/17/25 08:15 Dose: 324 mg Documented By: THEO Loperamide HCl (Loperamide Hcl 2 Mg Capsule) 2 mg PO Q4H PRN PRN Reason: Diarrhea Magnesium Hydroxide (Milk Of Magnesia 30 Ml Oral.Susp) 30 ml PO DAILY PRN PRN Reason: Constipation Metoprolol Tartrate (Metoprolol Tartrate 25 Mg Tablet) 25 mg PO BID [facility]; Protocol Last Admin: 06/17/25 09:26 Dose: 25 mg Documented By: THEO Multivitamins/Vitamin C (Multivitamin Tablet) 1 tab PO DAILY [facility] Last Admin: 06/17/25 08:15 Dose: 1 tab Documented By: THEO Ondansetron HCl (Ondansetron Hcl 4 Mg/2 Ml Vial) 4 mg IVPUSH Q8H PRN PRN Reason: Nausea and Vomiting Oseltamivir Phosphate (Oseltamivir Phosphate 75 Mg Capsule) 75 mg PO Q12H [facility] Stop: 06/20/25 00:01 Last Admin: 06/17/25 00:44 Dose: 75 mg Documented By: ALLISON Polyethylene Glycol (Polyethylene Glycol 3350 17 Gm Powd.Pack) 17 gm PO DAILY PRN PRN Reason: Constipation Ropinirole HCl (Ropinirole Hcl 1 Mg Tablet) 1 mg PO BEDTIME [facility] Last Admin: 06/16/25 20:07 Dose: 1 mg Documented By: ALLISON Sertraline HCl (Sertraline Hcl 50 Mg Tablet) 150 mg PO DAILY [facility] Last Admin: 06/17/25 08:13 Dose: 150 mg Documented By: THEO Sodium Chloride (0.9 % Sodium Chloride Flush 3 Ml Syringe) 3 ml IVFLUSH QSHIFT [facility] Last Admin: 06/17/25 08:21 Dose: 3 ml Documented By: THEO Vancomycin HCl (Vancomycin Hcl 125 Mg Capsule) 125 mg PO Q6H [facility] Last Admin: 06/17/25 06:10 Dose: 125 mg Documented By: ALLISON Labs 06/17/25 07:04 06/17/25 07:04 Labs: Laboratory Results - last 24 hr 06/17/25 07:04 MCV 86.6 MCH 29.2 MCHC 33.7 RDW 15.7 Plt Count 202 MPV 9.1 L Absolute Nucleated RBC 0.000 Nucleated RBC % (auto) 0.0 Anion Gap 13 Estim Creat Clear Calc 126.5 Estimated GFR > 60 Random Glucose 80 Calcium 8.2 L Magnesium 1.7 Microbiology Microbiology Results: Microbiology 06/14/25 16:31 Blood Culture - Preliminary Blood - Venous No growth after 48 hours. 06/14/25 16:31 Blood Culture - Preliminary Blood - Venous No growth after 48 hours. Assessment and Plan (1) Takotsubo cardiomyopathy: Status: Acute Plan 65F PMH bipolar disorder, multiple sclerosis admitted from inpatient psychiatry for fevers, multiple loose stools found to be positive C diff and potassium of 2.4 sepsis ( not severe) due to C diff colitis and flu A 10 days p.o. vancomycin until 06/23/25, Tamiflu day 3 Has had several days of p.o. vancomycin, can use Imodium for diarrhea severe acute hypokalemia replace and monitor hypomagnesemia replace and monitor bipolar continue sertraline, diazepam multiple sclerosis continue baclofen takotsubo cardiomyopathy continue metoprolol, outpatient follow up with Cardiology CLAUS CPAP at night DVT prophylaxis with Lovenox full code reason for continued hospitalization: diarrhea, fevers Quality Stroke Does the patient have a stroke diagnosis?: No VTE Prior VTE?: No VTE Risk Level:: Medical - moderate - high VTE Device Contraindication: Treatment Not Indicated VTE Drug Contraindication: N/A - Med Ordered
--- NOTE | 2025-06-17 14:12 | MHC.CM.PN ---
EMR REVIEWED AND PER MD ROUNDS, PATIENT IS NOT MEDICALLY CLEARED FOR DISCHARGE DUE TO MANAGEMENT OF SEPSIS/C.DIFF.
[2025-06-18] VITALS (7 sets, daily range): BP systolic 98–115; BP diastolic 55–69; PULSE 75–92; RESP 12–18; TEMP 36.4–37.9; O2SAT 89–95
[2025-06-18 08:00] LABS: Hematocrit 35.8 % (37.0-47.0); Hemoglobin 11.9 g/dl (12.0-16.0); Mean Corpuscular HGB Conc 33.2 g/dl (31.0-35.0); Mean Corpuscular Hemoglobin 28.6 pg (27.0-33.0); Mean Corpuscular Volume 86.1 fL (80.0-98.0); NRBC Abs Auto 0.000 X10*3/uL (0.0-0.012); NRBC Pct Auto 0.0 /100WBC (0.0-0.2); Platelet Count 215 X10*3/uL (160-400); Red Blood Count 4.16 X10*6/uL (4.20-5.50); White Blood Count 3.1 X10*3/uL (4.8-10.8)
[2025-06-18 08:09] LABS: Anion Gap 14 (12-20); Blood Urea Nitrogen 6 mg/dL (9-16); Calcium 8.4 mg/dL (8.4-10.2); Carbon Dioxide 27 mmol/L (22-29); Chloride 101 mmol/L (96-108); Creatinine Clr Calc Pharmacy 117.3; Estimated Glomerular Filt Rate > 60; Magnesium 1.7 mg/dL (1.6-2.6); Potassium 3.1 mmol/L (3.3-5.1); Sodium 139 mmol/L (135-145)
[2025-06-18] MEDS: Potassium Chloride ER 20 MEQ TAB.ER.PRT 40 MEQ PO (08:59)
[2025-06-18] MEDS: Ferrous Sulfate 324 MG TABLET.DR PO (09:01)
[2025-06-18] MEDS: 0.9 % Sodium Chloride Flush 3 ML SYRINGE IVFLUSH ×3 (09:04→20:49)
--- NOTE | 2025-06-18 10:17 | P.PNIM_ITS ---
Subjective Subjective Date of Service: 06/18/25 Interval History: Reports some improvement but still with fevers and diarrhea Physical Exam 2 Vital Signs: Vital Signs: Last Vital Signs Temp 97.6 F 06/18/25 08:00 Pulse 84 06/18/25 08:00 Resp 18 06/18/25 08:00 BP 115/69 06/18/25 08:00 Pulse Ox 92 06/18/25 08:00 O2 Del Method Room Air 06/18/25 08:00 BMI result Body Mass Index 37.9 Const: General: cooperative HEENT: Head: Yes normal to inspection Face and sinus: Yes normal facial exam Mouth: Normal oral and palatal mucosa present Teeth and gingiva: d entition normal Eyes: General: appearance normal, both eyes and all related structures P upils: Equal, round and reactive pupils present Resp: Effort & Inspection: normal respiratory effort Cardio: Rate: regular rate Rhythm: regular rhythm GI: Palpation (GI): Soft to palpation and nontender : General: Yes no CVA tenderness Back/Spine/Pelvis: Back: no CVA tenderness Skin: General skin exam: no rashes or lesions noted Neuro: General: moves all extremities Cranial nerves: Yes Equal, round and reactive pupils present Extrem: General: Yes normal to inspection Psych: Other: confused Objective Data Active Medications Acetaminophen (Acetaminophen Supp 650 Mg Supp.Rect) 650 mg [place] Q6H PRN PRN Reason: Pain, Mild 1-3,fever,headache Acetaminophen (Acetaminophen 325 Mg Tablet) 650 mg PO Q6H PRN PRN Reason: Pain, Mild 1-3,fever,headache Last Admin: 06/18/25 05:47 Dose: 650 mg Documented By: GALINA Albuterol/Ipratropium (Albuterol/Iprat 2.5/0.5mg 3 Ml Ampul.Neb) 3 ml INHALE RQ4H WHILE AWAKE PRN PRN Reason: sob Baclofen (Baclofen 20 Mg Tablet) 20 mg PO BID [facility] Last Admin: 06/18/25 09:03 Dose: 20 mg Documented By: THEO Calcium Carbonate (Calcium Carbonate 750 Mg Tab.Chew) 750 mg PO Q4H PRN PRN Reason: Heartburn Clopidogrel Bisulfate (Clopidogrel Bisulfate 75 Mg Tablet) 75 mg PO DAILY [facility] Last Admin: 06/18/25 09:02 Dose: 75 mg Documented By: THEO Cyanocobalamin (Cyanocobalamin (Vitamin B-12) 1,000 Mcg Tablet) 1,000 mcg PO DAILY [facility] Last Admin: 06/18/25 09:00 Dose: 1,000 mcg Documented By: THEO Diazepam (Diazepam 2 Mg Tablet) 2 mg PO TID [facility] Last Admin: 06/18/25 09:02 Dose: 2 mg Documented By: THEO Docusate Sodium (Docusate Sodium 100 Mg Capsule) 100 mg PO BID [facility] Last Admin: 06/18/25 09:05 Dose: Not Given Documented By: THEO Non-Admin Reason: Wrong Patient Enoxaparin Sodium (Enoxaparin Sodium 40 Mg/0.4 Ml Syringe) 40 mg SUBCUT Q24H [facility] Last Admin: 06/17/25 15:00 Dose: 40 mg Documented By: THEO Ferrous Sulfate (Ferrous Sulfate 324 Mg Tablet.Dr) 324 mg PO DAILY [facility] Last Admin: 06/18/25 09:01 Dose: 324 mg Documented By: THEO Loperamide HCl (Loperamide Hcl 2 Mg Capsule) 2 mg PO Q4H PRN PRN Reason: Diarrhea Last Admin: 06/17/25 21:11 Dose: 2 mg Documented By: GLAINA Magnesium Hydroxide (Milk Of Magnesia 30 Ml Oral.Susp) 30 ml PO DAILY PRN PRN Reason: Constipation Metoprolol Tartrate (Metoprolol Tartrate 25 Mg Tablet) 25 mg PO BID [facility]; Protocol Last Admin: 06/18/25 09:02 Dose: 25 mg Documented By: THOE Multivitamins/Vitamin C (Multivitamin Tablet) 1 tab PO DAILY [facility] Last Admin: 06/18/25 09:56 Dose: 1 tab Documented By: THEO Ondansetron HCl (Ondansetron Hcl 4 Mg/2 Ml Vial) 4 mg IVPUSH Q8H PRN PRN Reason: Nausea and Vomiting Oseltamivir Phosphate (Oseltamivir Phosphate 75 Mg Capsule) 75 mg PO Q12H [facility] Stop: 06/20/25 00:01 Last Admin: 06/18/25 00:08 Dose: 75 mg Documented By: GALINA Polyethylene Glycol (Polyethylene Glycol 3350 17 Gm Powd.Pack) 17 gm PO DAILY PRN PRN Reason: Constipation Ropinirole HCl (Ropinirole Hcl 1 Mg Tablet) 1 mg PO BEDTIME [facility] Last Admin: 06/17/25 21:06 Dose: 1 mg Documented By: GALINA Sertraline HCl (Sertraline Hcl 50 Mg Tablet) 150 mg PO DAILY [facility] Last Admin: 06/18/25 09:06 Dose: 150 mg Documented By: THEO Sodium Chloride (0.9 % Sodium Chloride Flush 3 Ml Syringe) 3 ml IVFLUSH QSHIFT [facility] Last Admin: 06/18/25 09:04 Dose: 3 ml Documented By: THEO Vancomycin HCl (Vancomycin Hcl 125 Mg Capsule) 125 mg PO Q6H [facility] Last Admin: 06/18/25 05:47 Dose: 125 mg Documented By: GALINA Labs 06/18/25 07:00 06/18/25 07:00 Labs: Laboratory Results - last 24 hr 06/18/25 07:00 MCV 86.1 MCH 28.6 MCHC 33.2 RDW 15.2 Plt Count 215 MPV 9.2 L Absolute Nucleated RBC 0.000 Nucleated RBC % (auto) 0.0 Anion Gap 14 Estim Creat Clear Calc 117.3 Estimated GFR > 60 Random Glucose 88 Calcium 8.4 Magnesium 1.7 Assessment and Plan (1) Takotsubo cardiomyopathy: Status: Acute Plan 65F PMH bipolar disorder, multiple sclerosis admitted from inpatient psychiatry for fevers, multiple loose stools found to be positive C diff and potassium of 2.4 sepsis ( not severe) due to C diff colitis and flu A 10 days p.o. vancomycin until 06/23/25, Tamiflu day 4 Has had several days of p.o. vancomycin, can use Imodium for diarrhea severe acute hypokalemia replace and monitor hypomagnesemia replace and monitor bipolar continue sertraline, diazepam multiple sclerosis continue baclofen takotsubo cardiomyopathy continue metoprolol, outpatient follow up with Cardiology CLAUS CPAP at night DVT prophylaxis with Lovenox full code reason for continued hospitalization: diarrhea, fevers Quality Stroke Does the patient have a stroke diagnosis?: No VTE Prior VTE?: No VTE Risk Level:: Medical - moderate - high VTE Device Contraindication: Treatment Not Indicated VTE Drug Contraindication: N/A - Med Ordered
[2025-06-19] VITALS (10 sets, daily range): BP systolic 112–135; BP diastolic 59–83; PULSE 18–102; RESP 16–18; TEMP 36.5–37.3; O2SAT 93–96
[2025-06-19 06:42] LABS: Hematocrit 36.9 % (37.0-47.0); Hemoglobin 12.0 g/dl (12.0-16.0); Mean Corpuscular HGB Conc 32.5 g/dl (31.0-35.0); Mean Corpuscular Hemoglobin 28.4 pg (27.0-33.0); Mean Corpuscular Volume 87.4 fL (80.0-98.0); NRBC Abs Auto 0.000 X10*3/uL (0.0-0.012); NRBC Pct Auto 0.0 /100WBC (0.0-0.2); Platelet Count 206 X10*3/uL (160-400); Red Blood Count 4.22 X10*6/uL (4.20-5.50); White Blood Count 3.2 X10*3/uL (4.8-10.8)
[2025-06-19 06:59] LABS: Anion Gap 15 (12-20); Blood Urea Nitrogen 7 mg/dL (9-16); Calcium 8.5 mg/dL (8.4-10.2); Carbon Dioxide 31 mmol/L (22-29); Chloride 103 mmol/L (96-108); Creatinine Clr Calc Pharmacy 105.7; Estimated Glomerular Filt Rate > 60; Magnesium 1.9 mg/dL (1.6-2.6); Potassium 3.4 mmol/L (3.3-5.1); Sodium 146 mmol/L (135-145)
--- NOTE | 2025-06-19 08:30 | P.PNIM_ITS ---
Subjective Subjective Date of Service: 06/19/25 Interval History: formed stool, no further fevers Physical Exam 2 Vital Signs: Vital Signs: Last Vital Signs Temp 97.7 F 06/19/25 08:00 Pulse 98 06/19/25 08:00 Resp 18 06/19/25 08:00 BP 135/72 06/19/25 08:00 Pulse Ox 94 06/19/25 08:00 O2 Del Method Nasal Cannula 06/19/25 08:00 O2 Flow Rate 2 06/19/25 08:00 BMI result Body Mass Index 37.9 Const: General: cooperative HEENT: Head: Yes normal to inspection Face and sinus: Yes normal facial exam Mouth: Normal oral and palatal mucosa present Teeth and gingiva: d entition normal Eyes: General: appearance normal, both eyes and all related structures P upils: Equal, round and reactive pupils present Resp: Effort & Inspection: normal respiratory effort Cardio: Rate: regular rate Rhythm: regular rhythm GI: Palpation (GI): Soft to palpation and nontender : General: Yes no CVA tenderness Back/Spine/Pelvis: Back: no CVA tenderness Skin: General skin exam: no rashes or lesions noted Neuro: General: moves all extremities Cranial nerves: Yes Equal, round and reactive pupils present Extrem: General: Yes normal to inspection Psych: Other: confused Objective Data Active Medications Acetaminophen (Acetaminophen Supp 650 Mg Supp.Rect) 650 mg [place] Q6H PRN PRN Reason: Pain, Mild 1-3,fever,headache Acetaminophen (Acetaminophen 325 Mg Tablet) 650 mg PO Q6H PRN PRN Reason: Pain, Mild 1-3,fever,headache Last Admin: 06/18/25 05:47 Dose: 650 mg Documented By: GALINA Albuterol/Ipratropium (Albuterol/Iprat 2.5/0.5mg 3 Ml Ampul.Neb) 3 ml INHALE RQ4H WHILE AWAKE PRN PRN Reason: sob Baclofen (Baclofen 20 Mg Tablet) 20 mg PO BID [facility] Last Admin: 06/18/25 20:49 Dose: 20 mg Documented By: HEATHER Calcium Carbonate (Calcium Carbonate 750 Mg Tab.Chew) 750 mg PO Q4H PRN PRN Reason: Heartburn Clopidogrel Bisulfate (Clopidogrel Bisulfate 75 Mg Tablet) 75 mg PO DAILY [facility] Last Admin: 06/18/25 09:02 Dose: 75 mg Documented By: THEO Cyanocobalamin (Cyanocobalamin (Vitamin B-12) 1,000 Mcg Tablet) 1,000 mcg PO DAILY [facility] Last Admin: 06/18/25 09:00 Dose: 1,000 mcg Documented By: THEO Diazepam (Diazepam 2 Mg Tablet) 2 mg PO TID PRN PRN Reason: agitation Docusate Sodium (Docusate Sodium 100 Mg Capsule) 100 mg PO BID [facility] Last Admin: 06/18/25 21:45 Dose: Not Given Documented By: HEATHER Non-Admin Reason: loose stools Enoxaparin Sodium (Enoxaparin Sodium 40 Mg/0.4 Ml Syringe) 40 mg SUBCUT Q24H [facility] Last Admin: 06/18/25 13:08 Dose: 40 mg Documented By: THEO Ferrous Sulfate (Ferrous Sulfate 324 Mg Tablet.Dr) 324 mg PO DAILY [facility] Last Admin: 06/18/25 09:01 Dose: 324 mg Documented By: THEO Loperamide HCl (Loperamide Hcl 2 Mg Capsule) 2 mg PO Q4H PRN PRN Reason: Diarrhea Last Admin: 06/17/25 21:11 Dose: 2 mg Documented By: GALINA Magnesium Hydroxide (Milk Of Magnesia 30 Ml Oral.Susp) 30 ml PO DAILY PRN PRN Reason: Constipation Metoprolol Tartrate (Metoprolol Tartrate 25 Mg Tablet) 25 mg PO BID [facility]; Protocol Last Admin: 06/18/25 20:49 Dose: 25 mg Documented By: HEATHER Multivitamins/Vitamin C (Multivitamin Tablet) 1 tab PO DAILY [facility] Last Admin: 06/18/25 09:56 Dose: 1 tab Documented By: THEO Ondansetron HCl (Ondansetron Hcl 4 Mg/2 Ml Vial) 4 mg IVPUSH Q8H PRN PRN Reason: Nausea and Vomiting Oseltamivir Phosphate (Oseltamivir Phosphate 75 Mg Capsule) 75 mg PO Q12H [facility] Stop: 06/20/25 00:01 Last Admin: 06/19/25 00:16 Dose: 75 mg Documented By: HEATHER Polyethylene Glycol (Polyethylene Glycol 3350 17 Gm Powd.Pack) 17 gm PO DAILY PRN PRN Reason: Constipation Ropinirole HCl (Ropinirole Hcl 1 Mg Tablet) 1 mg PO BEDTIME [facility] Last Admin: 06/18/25 20:49 Dose: 1 mg Documented By: HEATHER Sertraline HCl (Sertraline Hcl 50 Mg Tablet) 150 mg PO DAILY [facility] Last Admin: 06/18/25 09:06 Dose: 150 mg Documented By: THEO Sodium Chloride (0.9 % Sodium Chloride Flush 3 Ml Syringe) 3 ml IVFLUSH QSHIFT [facility] Last Admin: 06/18/25 20:49 Dose: 3 ml Documented By: HEATHER Vancomycin HCl (Vancomycin Hcl 125 Mg Capsule) 125 mg PO Q6H [facility] Last Admin: 06/19/25 05:38 Dose: 125 mg Documented By: HEATHER Labs 06/19/25 06:32 06/19/25 06:32 Labs: Laboratory Results - last 24 hr 06/19/25 06:32 MCV 87.4 MCH 28.4 MCHC 32.5 RDW 15.5 Plt Count 206 MPV 9.2 L Absolute Nucleated RBC 0.000 Nucleated RBC % (auto) 0.0 Anion Gap 15 Estim Creat Clear Calc 105.7 Estimated GFR > 60 Random Glucose 91 Calcium 8.5 Magnesium 1.9 Assessment and Plan (1) Takotsubo cardiomyopathy: Status: Acute Plan 65F PMH bipolar disorder, multiple sclerosis admitted from inpatient psychiatry for fevers, multiple loose stools found to be positive C diff and potassium of 2.4 sepsis ( not severe) due to C diff colitis and flu A 10 days p.o. vancomycin until 06/23/25, Tamiflu day 5 stools now formed severe acute hypokalemia replaced hypomagnesemia replaced bipolar continue sertraline, diazepam care team eval multiple sclerosis continue baclofen takotsubo cardiomyopathy continue metoprolol, outpatient follow up with Cardiology CLAUS CPAP at night DVT prophylaxis with Lovenox full code reason for continued hospitalization: care team [employer] Quality Stroke Does the patient have a stroke diagnosis?: No VTE Prior VTE?: No VTE Risk Level:: Medical - moderate - high VTE Device Contraindication: Treatment Not Indicated VTE Drug Contraindication: N/A - Med Ordered
[2025-06-19] MEDS: Potassium Chloride ER 20 MEQ TAB.ER.PRT 40 MEQ PO (10:00)
[2025-06-19] MEDS: 0.9 % Sodium Chloride Flush 3 ML SYRINGE IVFLUSH ×3 (10:00→20:36)
[2025-06-19] MEDS: Ferrous Sulfate 324 MG TABLET.DR PO (10:01)
[2025-06-19] MEDS: Albuterol/Iprat 2.5/0.5MG 3 ML AMPUL.NEB INHALE (12:44)
--- NOTE | 2025-06-19 13:13 | MHC.CARE ---
Pt will be a psychiatry consult to assist in determining disposition
--- NOTE | 2025-06-19 23:20 | PM.EVENT ---
Event Note Date of Service: 06/19/25 Event Note: Received inquiry from nursing to order home CPAP for pt. DId find confimation documentation that pt does use CPAP at home. Orders placed. Time Spent With Patient Time: Total time managing care of this patient today ____ minutes.
[2025-06-20 02:59] VITALS: BP 132/82; PULSE 87; RESP 18; TEMP 36.8; O2SAT 95
--- NOTE | 2025-06-20 03:43 | PC.NURSE ---
Pt seen asleep on bed, awaken when called, oriented x3, flat affect but compliant to care, denies any pain nor SOB, tolerating O2 at2L/min via NC, maintained on droplet and contact isolation, noted with stage II on left buttock, cleansed and foam applied. Daughter and called, concerns addressed. RT called to set up CPAP, pt tolerated all night.
--- NOTE | 2025-06-20 07:34 | HO.SKINPHOTO ---
Location: Category: Stage: Length: Width: Depth: cm Location: Category: Stage: Length: Width: Depth: cm Location: Category: Stage: Length: Width: Depth: cm Location: Category: Stage: Length: Width: Depth: cm Location: Category: Stage: Length: Width: Depth: cm Location: Category: Stage: Length: Width: Depth: cm
--- NOTE | 2025-06-20 07:37 | HO.PM.IMPN ---
Subjective Subjective Date of Service: 06/20/25 Interval History: Medically optimized/cleared. Care team to evaluate the patient to return to [facility] where she came from. Review of Systems Review of Systems: Yes Unobtainable due to mental condition and Unobtainable due to mental status Physical Exam Exam: Exam: General: AOx3, no acute distress, has 1-1 sitter and CVM Resp: CTA bilaterally CVS: S1, S2, RRR Skin: Warm, dry Psych: Confused-her baseline Vital Signs: Vital Signs: Last Vital Signs Temp 98.2 F 06/20/25 02:59 Pulse 87 06/20/25 02:59 Resp 18 06/20/25 02:59 BP 132/82 06/20/25 02:59 Pulse Ox 95 06/20/25 02:59 O2 Del Method CPAP 06/20/25 02:59 O2 Flow Rate 2 06/19/25 20:00 BMI result Body Mass Index 37.9 Objective Data Active Medications Acetaminophen (Acetaminophen Supp 650 Mg Supp.Rect) 650 mg [place] Q6H PRN PRN Reason: Pain, Mild 1-3,fever,headache Acetaminophen (Acetaminophen 325 Mg Tablet) 650 mg PO Q6H PRN PRN Reason: Pain, Mild 1-3,fever,headache Last Admin: 06/18/25 05:47 Dose: 650 mg Documented By: GALINA Albuterol/Ipratropium (Albuterol/Iprat 2.5/0.5mg 3 Ml Ampul.Neb) 3 ml INHALE RQ4H WHILE AWAKE PRN PRN Reason: sob Last Admin: 06/19/25 12:44 Dose: 3 ml Documented By: MAKAYLA Baclofen (Baclofen 20 Mg Tablet) 20 mg PO BID [facility] Last Admin: 06/19/25 20:35 Dose: 20 mg Documented By: CASTILCosta Calcium Carbonate (Calcium Carbonate 750 Mg Tab.Chew) 750 mg PO Q4H PRN PRN Reason: Heartburn Clopidogrel Bisulfate (Clopidogrel Bisulfate 75 Mg Tablet) 75 mg PO DAILY [facility] Last Admin: 06/19/25 10:01 Dose: 75 mg Documented By: BARRERA Cyanocobalamin (Cyanocobalamin (Vitamin B-12) 1,000 Mcg Tablet) 1,000 mcg PO DAILY [facility] Last Admin: 06/19/25 10:02 Dose: 1,000 mcg Documented By: BARRERA Diazepam (Diazepam 2 Mg Tablet) 2 mg PO TID PRN PRN Reason: agitation Docusate Sodium (Docusate Sodium 100 Mg Capsule) 100 mg PO BID [facility] Last Admin: 06/19/25 20:35 Dose: 100 mg Documented By: GIGI Enoxaparin Sodium (Enoxaparin Sodium 40 Mg/0.4 Ml Syringe) 40 mg SUBCUT Q24H [facility] Last Admin: 06/19/25 13:41 Dose: 40 mg Documented By: JAIR Ferrous Sulfate (Ferrous Sulfate 324 Mg Tablet.Dr) 324 mg PO DAILY [facility] Last Admin: 06/19/25 10:01 Dose: 324 mg Documented By: BARRERA Loperamide HCl (Loperamide Hcl 2 Mg Capsule) 2 mg PO Q4H PRN PRN Reason: Diarrhea Last Admin: 06/17/25 21:11 Dose: 2 mg Documented By: GALINA Magnesium Hydroxide (Milk Of Magnesia 30 Ml Oral.Susp) 30 ml PO DAILY PRN PRN Reason: Constipation Metoprolol Tartrate (Metoprolol Tartrate 25 Mg Tablet) 25 mg PO BID [facility]; Protocol Last Admin: 06/19/25 20:35 Dose: 25 mg Documented By: GIGI Multivitamins/Vitamin C (Multivitamin Tablet) 1 tab PO DAILY [facility] Last Admin: 06/19/25 10:04 Dose: 1 tab Documented By: BARRERA Ondansetron HCl (Ondansetron Hcl 4 Mg/2 Ml Vial) 4 mg IVPUSH Q8H PRN PRN Reason: Nausea and Vomiting Polyethylene Glycol (Polyethylene Glycol 3350 17 Gm Powd.Pack) 17 gm PO DAILY PRN PRN Reason: Constipation Ropinirole HCl (Ropinirole Hcl 1 Mg Tablet) 1 mg PO BEDTIME [facility] Last Admin: 06/19/25 20:35 Dose: 1 mg Documented By: GIGI Sertraline HCl (Sertraline Hcl 50 Mg Tablet) 150 mg PO DAILY [facility] Last Admin: 06/19/25 10:12 Dose: 150 mg Documented By: BARRERA Sodium Chloride (0.9 % Sodium Chloride Flush 3 Ml Syringe) [address] [facility] Last Admin: 06/19/25 20:36 Dose: 3 ml Documented By: GIGI Vancomycin HCl (Vancomycin Hcl 125 Mg Capsule) 125 mg PO Q6H [facility] Last Admin: 06/20/25 06:16 Dose: 125 mg Documented By: GIGI Labs 06/19/25 06:32 06/19/25 06:32 Microbiology Microbiology Results: Microbiology 06/14/25 16:31 Blood Culture - Final Blood - Venous No growth after 5 days. 06/14/25 16:31 Blood Culture - Final Blood - Venous No growth after 5 days. Assessment and Plan (1) Bipolar affective, manic, severe w/ psych: Status: Acute (2) C. difficile colitis: Status: Acute Plan 65F PMH bipolar disorder, multiple sclerosis admitted from inpatient psychiatry for fevers, multiple loose stools found to be positive C diff and potassium of 2.4 05/20/2025: Patient is medically cleared to go back to [facility] psych, care team consult placed, awaiting input, has 1-1 sitter, pleasantly confused her baseline sepsis ( not severe) due to C diff colitis and flu A Continue 10 days p.o. vancomycin until 06/23/25, completed 5 days of Tamiflu stools now formed severe acute hypokalemia replaced hypomagnesemia replaced bipolar continue sertraline, diazepam care team eval multiple sclerosis continue baclofen takotsubo cardiomyopathy continue metoprolol, outpatient follow up with Cardiology CLAUS CPAP at night DVT prophylaxis with Lovenox full code reason for continued hospitalization: Patient is medically cleared to go back to [facility] psych, care team consult placed, awaiting input, has 1-1 sitter, pleasantly confused her baseline Quality Stroke Does the patient have a stroke diagnosis?: No VTE Prior VTE?: No VTE Risk Level:: Medical - moderate - high VTE Device Contraindication: Treatment Not Indicated VTE Drug Contraindication: N/A - Med Ordered
[2025-06-20 08:00] VITALS: BP 130/84; PULSE 92; RESP 18; TEMP 36.4; O2SAT 94
[2025-06-20] MEDS: 0.9 % Sodium Chloride Flush 3 ML SYRINGE IVFLUSH ×3 (09:03→20:10)
[2025-06-20] MEDS: Ferrous Sulfate 324 MG TABLET.DR PO (09:03)
[2025-06-20 09:11] VITALS: BP 126/81; PULSE 86
[2025-06-20 11:56] VITALS: BP 114/70; PULSE 71; RESP 18; TEMP 36.6; O2SAT 92
--- NOTE | 2025-06-20 13:20 | HO.WOUND ---
Wound Consult: Initial 65yr old?[place] [facility] [place] - See progress notes and H&P for detailed history.? Wound consult placed for Buttock wound.? Patient agreeable to assessment and photo documentation.? Left Buttock and Gluteal slit base of fold Etiology: ??MASD Measurements: Left buttock - 2cm x 2cm x 0.1cm Wound Bed: red moist wound bed clean - GLuteal slit with epidermal lifting pink blanchable tissue Drainage / Odor: difficult to assess due to large volume stool incontinence Edges: ? well defined Betsey wound: ?MASD - red pink irritated tissue No Induration, Fluctuance or Warmth noted Pain: denies Goals of Treatment: ? Triad cream to protect from liquid stool and irritation and allow for healing Perineal area noted for MASD as well - barrier cream applied after incontinence care provided. Recommendations: 1. Turn and Reposition every 2 hours and as needed for patient comfort.? Use pillows or wedges to support off loading positions. 2. Off Load all bony prominences with use of pillows and heel boots if needed.? Apply Preventative foams where needed. ? 3. Monitor for incontinence and moisture control, use barrier creams when needed for prevention and treatment. 4. Provide adequate and supplemental nutrition.? 5. Order low air loss mattress. 6. When applicable maintain blood glucose levels per Providers order. Buttock - Off Load Pressure with Q2 hr turns and use of pillows - Cleanse with PH balance spray or wipes, pat dry. ?Apply thin layer of Triad to wound bed - only pat and dab no scrub and rub when soiling occurs. Reapply thin layer PRN after each episode of incontinence. Re-consult wound care Nurse for wound deterioration or wound changes.
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
--- NOTE | 2025-06-20 13:42 | MHC.CLN ---
CONSULT PER WOUND RN, SKIN WITH MASD TO LEFT BUTTOCK AND GLUTEAL SLIT. DIET RX: 2 GRAM SODIUM. ENSURE BID TO PROMOTE NUTRITIONAL INTAKE. SUPPLEMENT PROVIDES 700 KCALS, 40 G PROTEIN. PO INTAKE VARIABLE 0-100%. RD TO MONITOR WEEKLY.
--- NOTE | 2025-06-20 13:48 | MHC.CM.PN ---
CM RECEVIED A CALL FROM PT'S SON.HCP YRN ADEN [phone] LOOKING FOR AN UPDATE HE HAS NOT BEEN ABLE TO GET THR[place] [facility] [place], HSOPITALIST NOTIFIED VIA [email or web address].
[2025-06-20 15:22] VITALS: BP 107/60; PULSE 76; RESP 18; TEMP 37.4; O2SAT 94
--- NOTE | 2025-06-20 16:39 | MHC.CM.PN ---
PER PSYCH NOTE, PT IS AT HER BASELINE AND WILL NOT NEED IPLOC FAMILY TO BE CONTACTED TOMORROW TO COORDINATE DC HOME
--- NOTE | 2025-06-20 18:19 | PC.NURSE ---
Pt drowsy all shift but arousable. Answers questions but difficulty finding words at times. Denies pain, SOB, nausea or vomiting. Utilizing CPAP most of day as she is sleeping. O2 1L NC while awake- O2 sat 91%. Poor po intake today. Was able to take small amount of applesauce and sips of water for breakfast. Small sips of protein water brought in by family. Incontinent of pasty stool x2 this shift- cleaned and repositioned. Pt skin evaluated by car supervisor Aziza- see wound care note. Triad applied to buttocks. Inc urine- purewick in place. 2 person reposition in bed, pt weak and with difficulty keeping eyes open for long periods of time. PT consult placed this afternoon. Daughter at bedside earlier in the day. present at this time and stated he called unit and requested physician callback but had not received any call back. This RN tigered message to Dr Durpee whom was not aware of this. Daughter Gissel's phone number given to Dr Dupree to call family to discuss concerns. Pt presently eating a banana and hamburg- self feeding with assistance of set up. Continues to deny nausea or pain at this time.
[2025-06-20 20:00] VITALS: BP 119/56; PULSE 79; RESP 18; TEMP 36.9; O2SAT 93
[2025-06-21] VITALS (10 sets, daily range): BP systolic 101–132; BP diastolic 55–83; PULSE 81–103; RESP 15–18; TEMP 36.3–37.2; O2SAT 86–93
--- NOTE | 2025-06-21 | EEG_ITS ---
History: H/O Influenza A, obesity, bipolar, overactive bladder, gerd MS - pt was noted by staff to be have increaed confusion- recent EEG was performed which was normal- recent MRI pending Medication:Ocrevus, Acetaminophen, Albuterol/Ipratropium, Baclofen, Calcium Carbonate, Clopidogrel Bisulfate, Cyanocobalamin, Diazepam, Docusate Sodium, Enoxaparin Sodium, Ferrous Sulfate, Loperamide, Magnesium Hydroxide, Metoprolol Tartrate, Multivitamins/Vitamin C, Ondansetron, Ropinirole, Sertraline HCl, Vancomycin Technical description: Photic stimulation: Completed Hyperventilation: Omitted- on O2 Behavioral state: during this study pt keeps moving jaw in a chewing motion- but is able to resolve when asked - b/l eye movement is noted under eye lids State of Consciousness: awake and drowsy Skull defect: no Sedation:no Handedness: Right Duration of study: 31 min 46 sec Description: The waking background activity consists of a [id number] voltage 7.5-8 hertz slow alpha seen posteriorly intermixed with low-voltage fast frequencies and an abundance of muscle artifact throughout the record. Intermittent periods of bitemporal theta at 6 hertz at moderate voltage are also noted. Photic stimulation is without activation. Hyperventilation was omitted. Impression: This EEG is considered borderline abnormal due to mild generalized background slowing more noticeable in the temporal regions that suggests mild cerebral dysfunction. No paroxysmal features or focal abnormalities were noted. MTDD
[2025-06-21 07:01] LABS: MANUAL DIFF FLAG NO
[2025-06-21 07:13] LABS: Hematocrit 37.7 % (37.0-47.0); Hemoglobin 12.4 g/dl (12.0-16.0); Imm Gran Abs Auto 0.07 X10*3/uL (0.00-0.03); Imm Gran Pct Auto 1.5 % (0.0-0.4); Lymphocytes Absolute Auto 0.7 X10*3/uL (1.2-4.9); Mean Corpuscular HGB Conc 32.9 g/dl (31.0-35.0); Mean Corpuscular Hemoglobin 29.2 pg (27.0-33.0); Mean Corpuscular Volume 88.7 fL (80.0-98.0); NRBC Abs Auto 0.000 X10*3/uL (0.0-0.012); NRBC Pct Auto 0.0 /100WBC (0.0-0.2); Platelet Count 280 X10*3/uL (160-400); Red Blood Count 4.25 X10*6/uL (4.20-5.50); White Blood Count 4.8 X10*3/uL (4.8-10.8)
[2025-06-21 07:32] LABS: Alanine Aminotransferase 30 U/L (0-31); Albumin Level 3.5 g/dL (3.5-5.0); Alkaline Phosphatase 74 U/L (39-117); Anion Gap 13 (12-20); Aspartate Amino Transferase 46 U/L (5-31); Blood Urea Nitrogen 11 mg/dL (9-16); Calcium 8.8 mg/dL (8.4-10.2); Carbon Dioxide 29 mmol/L (22-29); Chloride 104 mmol/L (96-108); Creatinine Clr Calc Pharmacy 126.5; Estimated Glomerular Filt Rate > 60; Magnesium 2.1 mg/dL (1.6-2.6); Potassium 3.7 mmol/L (3.3-5.1); Sodium 142 mmol/L (135-145); Total Protein 5.6 g/dL (6.5-8.0)
[2025-06-21] MEDS: Ferrous Sulfate 324 MG TABLET.DR PO (09:05)
[2025-06-21] MEDS: 0.9 % Sodium Chloride Flush 3 ML SYRINGE IVFLUSH ×3 (09:05→22:14)
--- NOTE | 2025-06-21 10:49 | P.CNNE_ITS ---
History of Present Illness Data of Consult Service Date: 06/21/25 Primary Care Provider: Festus Multani MD [facility] Reason for consult: Altered mental status with a background of bipolar disorder and chronic MS This is a 65 year old female with history of MS on Ocrevus every 6 months , GERD, overactive bladder, vitamin d deficiency, chronic constipation, Bipolar disorder with ecent worsening depression, now admitted for altered mental status. She was admitted also on 06/09/25 with a period of reduced responsiveness and was seen by Neurology, Dr Ronaldo Poe. She is now back with altered mental status. Her last EEG was normal, and last Brain MRI here on 02/17/24 was stable , c/w Chr MS with no enhancing lesions. She has chronic weakness of the right upper and lower extremities from her MS. She is cared for at [facility] in [place] and sees Evelina England for her care. She is not sure of the date of her last infusion or of her MRI. At this time the patient offers no complaints. She prefers to keep her eyes closed and is somewhat slow in responding but responds well other than the fact that she is disoriented to time. She does appear to have some baseline dementia. [facility] Past Medical History Medical History Influenza A Obesity Bipolar 1 disorder, manic, moderate Overactive bladder GERD (gastroesophageal reflux disease) Multiple sclerosis Family History Family history: reviewed and not pertinent Social History Social History Household Members: Family Household Members Other:: daughter Housing: House Do you presently have visiting nurse or other home services: Yes ([facility]) Comment: 5 minute checks Patient Tobacco Use Status: Former Tobacco user e-Cigarette/Vaping Use: Currently Using Second Hand Smoke Exposure: No (n/a) Substance Use Type: Marijuana Advance Directives Date on File: 03/03/24 service: No Sexual orientation: Straight/Heterosexual Meds Allergies Allergy/AdvReac Type Severity Reaction Status Date / Time aspirin Allergy Unknown Verified 06/09/25 10:52 citalopram (From Celexa) Allergy Unknown Verified 06/09/25 10:52 lamotrigine (From Lamictal) Allergy Unknown Verified 06/09/25 10:52 Penicillins Allergy Unknown Verified 06/09/25 10:52 Active Medications: Current Medications Acetaminophen (Acetaminophen Supp 650 Mg Supp.Rect) 650 mg NM Q6H PRN PRN Reason: Pain, Mild 1-3,fever,headache Acetaminophen (Acetaminophen 325 Mg Tablet) 650 mg PO Q6H PRN PRN Reason: Pain, Mild 1-3,fever,headache Last Admin: 06/18/25 05:47 Dose: 650 mg Albuterol/Ipratropium (Albuterol/Iprat 2.5/0.5mg 3 Ml Ampul.Neb) 3 ml INHALE RQ4H WHILE AWAKE PRN PRN Reason: sob Last Admin: 06/19/25 12:44 Dose: 3 ml Baclofen (Baclofen 20 Mg Tablet) 20 mg PO BID [facility] Last Admin: 06/21/25 09:05 Dose: 20 mg Calcium Carbonate (Calcium Carbonate 750 Mg Tab.Chew) 750 mg PO Q4H PRN PRN Reason: Heartburn Clopidogrel Bisulfate (Clopidogrel Bisulfate 75 Mg Tablet) 75 mg PO DAILY [facility] Last Admin: 06/21/25 09:05 Dose: 75 mg Cyanocobalamin (Cyanocobalamin (Vitamin B-12) 1,000 Mcg Tablet) 1,000 mcg PO DAILY [facility] Last Admin: 06/21/25 09:05 Dose: 1,000 mcg Diazepam (Diazepam 2 Mg Tablet) 2 mg PO TID PRN PRN Reason: agitation Docusate Sodium (Docusate Sodium 100 Mg Capsule) 100 mg PO BID [facility] Last Admin: 06/21/25 09:05 Dose: 100 mg Enoxaparin Sodium (Enoxaparin Sodium 40 Mg/0.4 Ml Syringe) 40 mg SUBCUT Q24H [facility] Last Admin: 06/20/25 13:16 Dose: 40 mg Ferrous Sulfate (Ferrous Sulfate 324 Mg Tablet.Dr) 324 mg PO DAILY [facility] Last Admin: 06/21/25 09:05 Dose: 324 mg Loperamide HCl (Loperamide Hcl 2 Mg Capsule) 2 mg PO Q4H PRN PRN Reason: Diarrhea Last Admin: 06/17/25 21:11 Dose: 2 mg Magnesium Hydroxide (Milk Of Magnesia 30 Ml Oral.Susp) 30 ml PO DAILY PRN PRN Reason: Constipation Metoprolol Tartrate (Metoprolol Tartrate 25 Mg Tablet) 25 mg PO BID [facility]; Protocol Last Admin: 06/21/25 09:05 Dose: 25 mg Multivitamins/Vitamin C (Multivitamin Tablet) 1 tab PO DAILY [facility] Last Admin: 06/21/25 09:05 Dose: 1 tab Ondansetron HCl (Ondansetron Hcl 4 Mg/2 Ml Vial) 4 mg IVPUSH Q8H PRN PRN Reason: Nausea and Vomiting Ropinirole HCl (Ropinirole Hcl 1 Mg Tablet) 1 mg PO BEDTIME [facility] Last Admin: 06/20/25 20:10 Dose: 1 mg Sertraline HCl (Sertraline Hcl 50 Mg Tablet) 150 mg PO DAILY [facility] Last Admin: 06/21/25 09:05 Dose: 150 mg Sodium Chloride (0.9 % Sodium Chloride Flush 3 Ml Syringe) 3 ml IVFLUSH QSHIFT [facility] Last Admin: 06/21/25 09:05 Dose: 3 ml Vancomycin HCl (Vancomycin Hcl 125 Mg Capsule) 125 mg PO Q6H [facility] Last Admin: 06/21/25 05:06 Dose: 125 mg Home Medications ?Medication ?Instructions ?Recorded ?Confirmed ?Last Taken ?Type tirzepatide (weight loss) 2.5 2.5 mg subcut MO 5 06/14/25 05/30/25 History mg/0.5 mL subcutaneous pen injector (Zepbound) Physical Exam 2 Vital Signs: Vital Signs: Last Vital Signs Temp 99.0 F 06/21/25 08:39 Pulse 103 H 06/21/25 09:52 Resp 15 06/21/25 08:39 BP 128/83 06/21/25 09:52 Pulse Ox 86 L 06/21/25 09:52 O2 Del Method Nasal Cannula 06/21/25 08:39 O2 Flow Rate 2 06/21/25 08:39 BMI result Body Mass Index 37.9 Neuro: Other: She is easily arousable but at baseline keeps her eyes closed and does not talk spontaneously unless she has a dressed. She makes eye contact. She responds appropriately although slowly after latent. . She told me that she felt tired but had no headache or any other specific complaint. She was aware of the fact that she is in the hospital and gave me her history of about her doctor and her treatment at the [facility] in [place]. She was disoriented to time. She has slight left angle of the mouth droop. Strength in the upper extremities are normal. She has weakness in the right lower extremity which is chronic with an upgoing plantar response. Gait was not tested. She is easily arousable but then goes back to sleep fairly promptly. Or at least keeps her eyes closed but will respond to normal volume of voice. Results Labs 06/21/25 06:06 06/21/25 06:06 Labs: Short CBC 06/21/25 Range/Units 06:06 WBC 4.8 (4.8-10.8) X10*3/uL Hgb 12.4 (12.0-16.0) g/dl Hct 37.7 (37.0-47.0) % Plt Count 280 D (160-400) X10*3/uL BMP 06/21/25 06:06 Sodium 142 Potassium 3.7 Chloride 104 Carbon Dioxide 29 BUN 11 Creatinine 0.51 Calcium 8.8 Liver Function 06/21/25 Range/Units 06:06 Total Bilirubin 0.3 (0.0-1.0) mg/dL AST 46 H (5-31) U/L ALT 30 (0-31) U/L Alkaline Phosphatase 74 (39-117) U/L Albumin 3.5 (3.5-5.0) g/dL Microbiology Microbiology Results: Microbiology 06/14/25 16:31 Blood - Venous Blood Culture - Final No growth after 5 days. 06/14/25 16:31 Blood - Venous Blood Culture - Final No growth after 5 days. Assessment and Plan (1) Acute alteration in mental status: Status: Acute She appears to have chronic stable multiple sclerosis as best as we can determine and is cared for at the [facility] in [place]. She is in Ocrevus infusions. She does appear to have some baseline dementia which could be related to a chronic MS. This can be verified through her MS doctor at [facility] for MS. She is easily arousable and answers appropriately although slowly. It is unclear if some of her mental status changes related to medications superimposed on a mild chronic dementia related to her MS. There are no obvious metabolic abnormalities to account for her mental state. Recommendation: Follow-up MRI of the brain with and without gadolinium to see if there is any new enhancing lesions. EEG (2) Multiple sclerosis: Status: Acute Procedures Date of Service Date of Service: 06/21/25
--- NOTE | 2025-06-21 16:54 | P.PNIM_ITS ---
Subjective Subjective Date of Service: 06/21/25 Interval History: Had extensive discussion with daughter over the phone who expressed great deal of frustration regarding her current decline in mental status - bedside RN and staff a witness/area captain for the entire conversation. I tried to explain that sometimes it might be a mind-body disconnect which is unclear given her underlying psychiatric conditions I happened to see the pt 1st time yesterday, and she is appropriate to respond, but is slow and takes time. She is unfortunately as poor historian at baseline No obv metabolic etiology noted in imaging or labs to explain this Hence consulted Neuro to request any input regarding MS ?flare CT head -ve acute changes MRI w and wo gadolinium , EEG to be done tomorrow (limited availability at our facility today) Psych reconsulted about medication adjustments -was cleared by CARE team and Psych yesterday Review of Systems Review of Systems: Yes all other systems are reviewed and are negative Physical Exam 2 Vital Signs: Vital Signs: Last Vital Signs Temp 98.2 F 06/21/25 16:08 Pulse 96 06/21/25 16:08 Resp 15 06/21/25 16:08 BP 110/55 L 06/21/25 16:08 Pulse Ox 91 L 06/21/25 16:08 O2 Del Method Nasal Cannula 06/21/25 16:08 O2 Flow Rate 2 06/21/25 16:08 BMI result Body Mass Index 37.9 Objective Data Active Medications Acetaminophen (Acetaminophen Supp 650 Mg Supp.Rect) 650 mg [place] Q6H PRN PRN Reason: Pain, Mild 1-3,fever,headache Acetaminophen (Acetaminophen 325 Mg Tablet) 650 mg PO Q6H PRN PRN Reason: Pain, Mild 1-3,fever,headache Last Admin: 06/18/25 05:47 Dose: 650 mg Documented By: GALINA Albuterol/Ipratropium (Albuterol/Iprat 2.5/0.5mg 3 Ml Ampul.Neb) 3 ml INHALE RQ4H WHILE AWAKE PRN PRN Reason: sob Last Admin: 06/19/25 12:44 Dose: 3 ml Documented By: MAKAYLA Baclofen (Baclofen 20 Mg Tablet) 20 mg PO BID [facility] Last Admin: 06/21/25 09:05 Dose: 20 mg Documented By: CASI Calcium Carbonate (Calcium Carbonate 750 Mg Tab.Chew) 750 mg PO Q4H PRN PRN Reason: Heartburn Clopidogrel Bisulfate (Clopidogrel Bisulfate 75 Mg Tablet) 75 mg PO DAILY [facility] Last Admin: 06/21/25 09:05 Dose: 75 mg Documented By: CASI Cyanocobalamin (Cyanocobalamin (Vitamin B-12) 1,000 Mcg Tablet) 1,000 mcg PO DAILY [facility] Last Admin: 06/21/25 09:05 Dose: 1,000 mcg Documented By: CASI Diazepam (Diazepam 2 Mg Tablet) 2 mg PO TID PRN PRN Reason: agitation Docusate Sodium (Docusate Sodium 100 Mg Capsule) 100 mg PO BID [facility] Last Admin: 06/21/25 09:05 Dose: 100 mg Documented By: CASI Enoxaparin Sodium (Enoxaparin Sodium 40 Mg/0.4 Ml Syringe) 40 mg SUBCUT Q24H [facility] Last Admin: 06/21/25 12:45 Dose: 40 mg Documented By: CASI Ferrous Sulfate (Ferrous Sulfate 324 Mg Tablet.Dr) 324 mg PO DAILY [facility] Last Admin: 06/21/25 09:05 Dose: 324 mg Documented By: CASI Loperamide HCl (Loperamide Hcl 2 Mg Capsule) 2 mg PO Q4H PRN PRN Reason: Diarrhea Last Admin: 06/17/25 21:11 Dose: 2 mg Documented By: GALINA Magnesium Hydroxide (Milk Of Magnesia 30 Ml Oral.Susp) 30 ml PO DAILY PRN PRN Reason: Constipation Metoprolol Tartrate (Metoprolol Tartrate 25 Mg Tablet) 25 mg PO BID [facility]; Protocol Last Admin: 06/21/25 09:05 Dose: 25 mg Documented By: CASI Multivitamins/Vitamin C (Multivitamin Tablet) 1 tab PO DAILY [facility] Last Admin: 06/21/25 09:05 Dose: 1 tab Documented By: CASI Ondansetron HCl (Ondansetron Hcl 4 Mg/2 Ml Vial) 4 mg IVPUSH Q8H PRN PRN Reason: Nausea and Vomiting Ropinirole HCl (Ropinirole Hcl 1 Mg Tablet) 1 mg PO BEDTIME [facility] Last Admin: 06/20/25 20:10 Dose: 1 mg Documented By: ROSALIA Sertraline HCl (Sertraline Hcl 50 Mg Tablet) 150 mg PO DAILY [facility] Last Admin: 06/21/25 09:05 Dose: 150 mg Documented By: CASI Sodium Chloride (0.9 % Sodium Chloride Flush 3 Ml Syringe) 3 ml IVFLUSH QSHIFT [facility] Last Admin: 06/21/25 09:05 Dose: 3 ml Documented By: CASI Vancomycin HCl (Vancomycin Hcl 125 Mg Capsule) 125 mg PO Q6H [facility] Last Admin: 06/21/25 12:43 Dose: 125 mg Documented By: CASI Labs 06/21/25 06:06 06/21/25 06:06 Labs: Laboratory Results - last 24 hr 06/21/25 06:06 MCV 88.7 MCH 29.2 MCHC 32.9 RDW 15.0 Plt Count 280 D MPV 9.2 L Immature Gran % (Auto) 1.5 H Neut % (Auto) 70.1 Lymph % (Auto) 15.2 L Shelby % (Auto) 11.5 H Eos % (Auto) 1.5 Baso % (Auto) 0.2 Lymph # (Auto) 0.7 L [place] # (Auto) 0.6 Eos # (Auto) 0.1 Baso # (Auto) 0.0 Abs Immat Gran (auto) 0.07 H Absolute Neuts (auto) 3.4 Absolute Nucleated RBC 0.000 Nucleated RBC % (auto) 0.0 Anion Gap 13 Estim Creat Clear Calc 126.5 Estimated GFR > 60 Random Glucose 97 Calcium 8.8 Magnesium 2.1 Total Bilirubin 0.3 AST 46 H ALT 30 Alkaline Phosphatase 74 Total Protein 5.6 L Albumin 3.5 Assessment and Plan (1) Bipolar affective, manic, severe w/ psych: Status: Acute (2) C. difficile colitis: Status: Acute Plan 65F PMH bipolar disorder, multiple sclerosis admitted from inpatient psychiatry for fevers, multiple loose stools found to be positive C diff and potassium of 2.4 AMS - unclear etiology MF - psych component cannot be excluded 05/21/2025: Had extensive discussion with daughter over the phone who expressed great deal of frustration regarding her current decline in mental status - bedside RN and staff a witness/area captain for the entire conversation. I happened to see the pt 1st time yesterday, and she is appropriate to respond, but is slow and takes time. She is unfortunately as poor historian at baseline No obv metabolic etiology noted in imaging or labs to explain this Hence consulted Neuro to request any input regarding MS ?flare CT head -ve acute changes MRI w and wo gadolinium , EEG to be done tomorrow (limited availability at our facility today) Psych reconsulted about medication adjustments -was cleared by CARE team and Psych yesterday C diff colitis - to complete 10 days of po vanc on 06/23/25 Flu A - s/p Tamiflu severe acute hypokalemia- replaced hypomagnesemia- replaced bipolar- continue sertraline, diazepam, prn ativan per home [facility] , care team and psych cleared the pt multiple sclerosis - will ask family to get consent to reach out to continue baclofen takotsubo cardiomyopathy - continue metoprolol, outpatient follow up with Cardiology CLAUS- CPAP at night DVT prophylaxis with Lovenox full code reason for continued hospitalization: needs workup for AMS - unclear baseline , need to r/o organic causes Quality Stroke Does the patient have a stroke diagnosis?: No VTE Prior VTE?: No VTE Risk Level:: Medical - moderate - high VTE Device Contraindication: Treatment Not Indicated VTE Drug Contraindication: N/A - Med Ordered
--- NOTE | 2025-06-21 18:03 | PC.NURSE ---
Pt drowsy throughout the day but arousable. Drifts off and closes her eyes often when in middle of conversation. As the day goes on pt seems to be answering questions quicker and with a little more energy. O2 sats dropped to 86% on room air and have maintained 90-93% on 2l nc. Pt denies pain, n/v. No BM this shift. PT consult this morning and pt sat up in chair for about 2 hours. Need much encouragement and cueing with her meals. skin tear to buttock- foam applied and pt positioned onto side. EEG and head CT done with pending results. Pt brushed own teeth this morning. moisturizer cream to lips. Dr Dupree spoke with daughter Gissel this morning on phone with updates and plan of care for pt. MRI screenign form complete over the phone with pt (HCP) and daughter Gissel
[2025-06-21] MEDS: diazePAM 10 MG/2 ML CARTRIDGE 5 MG IVPUSH (18:24)
[2025-06-22] VITALS (7 sets, daily range): BP systolic 104–132; BP diastolic 57–76; PULSE 81–108; RESP 16–18; TEMP 36.1–37.2; O2SAT 90–94
[2025-06-22 06:04] LABS: MANUAL DIFF FLAG NO
[2025-06-22 06:08] LABS: Hematocrit 37.2 % (37.0-47.0); Hemoglobin 12.1 g/dl (12.0-16.0); Imm Gran Abs Auto 0.07 X10*3/uL (0.00-0.03); Imm Gran Pct Auto 1.3 % (0.0-0.4); Lymphocytes Absolute Auto 0.7 X10*3/uL (1.2-4.9); Mean Corpuscular HGB Conc 32.5 g/dl (31.0-35.0); Mean Corpuscular Hemoglobin 28.7 pg (27.0-33.0); Mean Corpuscular Volume 88.2 fL (80.0-98.0); NRBC Abs Auto 0.000 X10*3/uL (0.0-0.012); NRBC Pct Auto 0.0 /100WBC (0.0-0.2); Platelet Count 299 X10*3/uL (160-400); Red Blood Count 4.22 X10*6/uL (4.20-5.50); White Blood Count 5.4 X10*3/uL (4.8-10.8)
[2025-06-22 06:34] LABS: Alanine Aminotransferase 29 U/L (0-31); Albumin Level 3.6 g/dL (3.5-5.0); Alkaline Phosphatase 75 U/L (39-117); Anion Gap 14 (12-20); Aspartate Amino Transferase 40 U/L (5-31); Blood Urea Nitrogen 9 mg/dL (9-16); Calcium 8.8 mg/dL (8.4-10.2); Carbon Dioxide 28 mmol/L (22-29); Chloride 104 mmol/L (96-108); Creatinine Clr Calc Pharmacy 117.3; Estimated Glomerular Filt Rate > 60; Magnesium 2.1 mg/dL (1.6-2.6); Potassium 3.5 mmol/L (3.3-5.1); Sodium 142 mmol/L (135-145); Total Protein 5.8 g/dL (6.5-8.0)
--- NOTE | 2025-06-22 07:41 | P.PNIM_ITS ---
Subjective Subjective Date of Service: 06/22/25 Interval History: MRI EEG CT scan essentially negative Psych, neuro and care team consulted yesterday negative no changes in medications Patient was evaluated by PT-suggesting rehab Spoke to the daughter and explained that we do not have an obvious medical explanation to the patient's presentation and altered mental status Review of Systems Review of Systems: Yes all other systems are reviewed and are negative Physical Exam 2 Exam: Exam: General: AOx3, very slow to respond, awakens to verbal stimulation Resp: CTA bilaterally CVS: S1, S2, RRR Skin: Warm, dry Psych: Confused-her baseline Vital Signs: Vital Signs: Last Vital Signs Temp 98 F 06/22/25 07:06 Pulse 88 06/22/25 07:06 Resp 18 06/22/25 07:06 BP 125/76 06/22/25 07:06 Pulse Ox 90 L 06/22/25 07:06 O2 Del Method CPAP 06/22/25 03:34 O2 Flow Rate 2 06/22/25 07:06 BMI result Body Mass Index 37.9 Objective Data Active Medications Acetaminophen (Acetaminophen Supp 650 Mg Supp.Rect) 650 mg CA Q6H PRN PRN Reason: Pain, Mild 1-3,fever,headache Acetaminophen (Acetaminophen 325 Mg Tablet) 650 mg PO Q6H PRN PRN Reason: Pain, Mild 1-3,fever,headache Last Admin: 06/18/25 05:47 Dose: 650 mg Documented By: GALINA Albuterol/Ipratropium (Albuterol/Iprat 2.5/0.5mg 3 Ml Ampul.Neb) 3 ml INHALE RQ4H WHILE AWAKE PRN PRN Reason: sob Last Admin: 06/19/25 12:44 Dose: 3 ml Documented By: MAKAYLA Baclofen (Baclofen 20 Mg Tablet) 20 mg PO BID [facility] Last Admin: 06/21/25 22:09 Dose: 20 mg Documented By: ROSALIA Calcium Carbonate (Calcium Carbonate 750 Mg Tab.Chew) 750 mg PO Q4H PRN PRN Reason: Heartburn Clopidogrel Bisulfate (Clopidogrel Bisulfate 75 Mg Tablet) 75 mg PO DAILY [facility] Last Admin: 06/21/25 09:05 Dose: 75 mg Documented By: CASI Cyanocobalamin (Cyanocobalamin (Vitamin B-12) 1,000 Mcg Tablet) 1,000 mcg PO DAILY [facility] Last Admin: 06/21/25 09:05 Dose: 1,000 mcg Documented By: CASI Diazepam (Diazepam 2 Mg Tablet) 2 mg PO TID PRN PRN Reason: agitation Docusate Sodium (Docusate Sodium 100 Mg Capsule) 100 mg PO BID [facility] Last Admin: 06/21/25 22:14 Dose: Not Given Documented By: ROSALIA Non-Admin Reason: FREQUENT STOOLS Enoxaparin Sodium (Enoxaparin Sodium 40 Mg/0.4 Ml Syringe) 40 mg SUBCUT Q24H [facility] Last Admin: 06/21/25 12:45 Dose: 40 mg Documented By: CASI Ferrous Sulfate (Ferrous Sulfate 324 Mg Tablet.Dr) 324 mg PO DAILY [facility] Last Admin: 06/21/25 09:05 Dose: 324 mg Documented By: CASI Loperamide HCl (Loperamide Hcl 2 Mg Capsule) 2 mg PO Q4H PRN PRN Reason: Diarrhea Last Admin: 06/17/25 21:11 Dose: 2 mg Documented By: GALINA Magnesium Hydroxide (Milk Of Magnesia 30 Ml Oral.Susp) 30 ml PO DAILY PRN PRN Reason: Constipation Metoprolol Tartrate (Metoprolol Tartrate 25 Mg Tablet) 25 mg PO BID [facility]; Protocol Last Admin: 06/21/25 22:10 Dose: 25 mg Documented By: ROSALIA Multivitamins/Vitamin C (Multivitamin Tablet) 1 tab PO DAILY [facility] Last Admin: 06/21/25 09:05 Dose: 1 tab Documented By: CASI Ondansetron HCl (Ondansetron Hcl 4 Mg/2 Ml Vial) 4 mg IVPUSH Q8H PRN PRN Reason: Nausea and Vomiting Ropinirole HCl (Ropinirole Hcl 1 Mg Tablet) 1 mg PO BEDTIME [facility] Last Admin: 06/21/25 22:09 Dose: 1 mg Documented By: ROSALIA Sertraline HCl (Sertraline Hcl 50 Mg Tablet) 150 mg PO DAILY [facility] Last Admin: 06/21/25 09:05 Dose: 150 mg Documented By: CASI Sodium Chloride (0.9 % Sodium Chloride Flush 3 Ml Syringe) 3 ml IVFLUSH QSHIFT [facility] Last Admin: 06/21/25 22:14 Dose: 3 ml Documented By: ROSALIA Vancomycin HCl (Vancomycin Hcl 125 Mg Capsule) 125 mg PO Q6H [facility] Last Admin: 06/22/25 04:54 Dose: 125 mg Documented By: ROSALIA Labs 06/22/25 05:15 06/22/25 05:15 Labs: Laboratory Results - last 24 hr 06/22/25 05:15 MCV 88.2 MCH 28.7 MCHC 32.5 RDW 14.9 Plt Count 299 MPV 9.1 L Immature Gran % (Auto) 1.3 H Neut % (Auto) 73.8 H Lymph % (Auto) 12.2 L [place] % (Auto) 10.7 Eos % (Auto) 1.8 Baso % (Auto) 0.2 Lymph # (Auto) 0.7 L [place] # (Auto) 0.6 Eos # (Auto) 0.1 Baso # (Auto) 0.0 Abs Immat Gran (auto) 0.07 H Absolute Neuts (auto) 4.0 Absolute Nucleated RBC 0.000 Nucleated RBC % (auto) 0.0 Anion Gap 14 Estim Creat Clear Calc 117.3 Estimated GFR > 60 Random Glucose 89 Calcium 8.8 Magnesium 2.1 Total Bilirubin 0.3 AST 40 H ALT 29 Alkaline Phosphatase 75 Total Protein 5.8 L Albumin 3.6 Assessment and Plan (1) Bipolar affective, manic, severe w/ psych: Status: Acute (2) C. difficile colitis: Status: Acute Plan 65F PMH bipolar disorder, multiple sclerosis admitted from inpatient psychiatry for fevers, multiple loose stools found to be positive C diff and potassium of 2.4 AMS - unclear etiology MF - psych component cannot be excluded 05/22/2025: Had extensive discussion with daughter over the phone who expressed great deal of frustration regarding her current decline in mental status - bedside RN and staff a witness/heel seat filler for the entire conversation. Patient had MRI, EEG, all infectious workup, and CT scan EKG tomorrow, labs thus far unable to explain altered mental status or excessive somnolence Spoke to the daughter over the phone extensively Essentially the patient is medically optimized and PT recommends short-term rehab C diff colitis - to complete 10 days of po vanc on 06/23/25 Flu A - s/p Tamiflu severe acute hypokalemia- replaced hypomagnesemia- replaced bipolar- continue sertraline, diazepam, prn ativan per home [facility] , care team and psych cleared the pt multiple sclerosis - will ask family to get consent to reach out to continue baclofen takotsubo cardiomyopathy - continue metoprolol, outpatient follow up with Cardiology [facility]- CPAP at night DVT prophylaxis with Lovenox full code reason for continued hospitalization:patient is medically optimized and PT recommends short-term rehab This note is constructed using voice recognition software. While every effort has been made to ensure accuracy, fireboat operator errors may have been included. Total time managing care of this patient today: 105 minutes. Quality Stroke Does the patient have a stroke diagnosis?: No VTE Prior VTE?: No VTE Risk Level:: Medical - moderate - high VTE Device Contraindication: Treatment Not Indicated VTE Drug Contraindication: N/A - Med Ordered
[2025-06-22] MEDS: Ferrous Sulfate 324 MG TABLET.DR PO (08:13)
[2025-06-22] MEDS: 0.9 % Sodium Chloride Flush 3 ML SYRINGE IVFLUSH ×3 (08:13→19:46)
--- NOTE | 2025-06-22 08:27 | PC.NURSE ---
A&Ox 2, Person and Place, Stated June 14 for the date (). Unaware of Why she is in the hospital, educated for CDIFF and flu +. Took medications as order orally. Will sit up to Chair after breakfast. Call adamson within reach. Triad applied to Left Buttock.
--- NOTE | 2025-06-22 12:42 | MHC.CM.PN ---
IMM 06/22/25 a PT eval recommendation is STR. Patient is agreeable to STR. Referrals have been sent out close to home, [facility].
--- NOTE | 2025-06-22 13:30 | PC.NURSE ---
Plan d/c to STR pending Auth
--- NOTE | 2025-06-22 14:24 | MHC.CLN ---
F/U SUPPLEMENT CHANGED TO ENSURE CLEAR TID PER PATIENT PREFERENCE. PROVIDES 720 KCALS, 24 G PROTEIN.
--- NOTE | 2025-06-22 16:10 | P.PNID_ITS ---
Subjective Subjective Date of Service: 06/22/25 Critical Care Time (minutes): 15 Comment: She has sleepiness but alert when aroused Seen by Neurology,MRI no active plaques,similar to previous Objective Data Labs 06/22/25 05:15 06/22/25 05:15 Labs: Laboratory Results - last 24 hr 06/22/25 05:15 WBC 5.4 RBC 4.22 Hgb 12.1 Hct 37.2 MCV 88.2 MCH 28.7 MCHC 32.5 RDW 14.9 Plt Count 299 MPV 9.1 L Immature Gran % (Auto) 1.3 H Neut % (Auto) 73.8 H Lymph % (Auto) 12.2 L [place] % (Auto) 10.7 Eos % (Auto) 1.8 Baso % (Auto) 0.2 Lymph # (Auto) 0.7 L [place] # (Auto) 0.6 Eos # (Auto) 0.1 Baso # (Auto) 0.0 Abs Immat Gran (auto) 0.07 H Absolute Neuts (auto) 4.0 Absolute Nucleated RBC 0.000 Nucleated RBC % (auto) 0.0 Sodium 142 Potassium 3.5 Chloride 104 Carbon Dioxide 28 Anion Gap 14 BUN 9 Creatinine 0.55 Estim Creat Clear Calc 117.3 Estimated GFR > 60 Random Glucose 89 Calcium 8.8 Magnesium 2.1 Total Bilirubin 0.3 AST 40 H ALT 29 Alkaline Phosphatase 75 Total Protein 5.8 L Albumin 3.6 Microbiology Microbiology Results: Microbiology 06/14/25 16:31 Blood - Venous Blood Culture - Final No growth after 5 days. 06/14/25 16:31 Blood - Venous Blood Culture - Final No growth after 5 days. Physical Exam 2 Vital Signs: Vital Signs: Last Vital Signs Temp 99 F 06/22/25 15:35 Pulse 90 06/22/25 15:35 Resp 17 06/22/25 15:35 BP 104/57 L 06/22/25 15:35 Pulse Ox 90 L 06/22/25 15:35 O2 Del Method Nasal Cannula 06/22/25 15:35 O2 Flow Rate 2 06/22/25 15:35 BMI result Body Mass Index 37.9 Const: General: cooperative HEENT: Head: Yes normal to inspection Face and sinus: Yes normal facial exam Mouth: Normal oral and palatal mucosa present Teeth and gingiva: d entition normal Eyes: General: appearance normal, both eyes and all related structures P upils: Equal, round and reactive pupils present Resp: Effort & Inspection: normal respiratory effort Cardio: Rate: regular rate Rhythm: regular rhythm GI: Palpation (GI): Soft to palpation and nontender : General: Yes no CVA tenderness Back/Spine/Pelvis: Back: no CVA tenderness Skin: General skin exam: no rashes or lesions noted Neuro: General: moves all extremities Cranial nerves: Yes Equal, round and reactive pupils present Extrem: General: Yes normal to inspection Psych: Appearance: grossly normal Assessment and Plan Assessment and plan (1) Influenza A: Status: Acute Assessment and Plan: Metabolic encephalopathy may be related to bipolar,marijuana use,benzo acute illness with flu, also seen by Neurology for MS Would continue vancomycin one more day 04/06 Cdiff Done with Tamiful Time Spent With Patient Time: Total time managing care of this patient today ____ minutes.
[2025-06-23] VITALS (7 sets, daily range): BP systolic 104–133; BP diastolic 64–82; PULSE 84–106; RESP 16–20; TEMP 36.1–36.9; O2SAT 90–96
[2025-06-23 06:36] LABS: MANUAL DIFF FLAG NO
[2025-06-23 06:45] LABS: Hematocrit 36.2 % (37.0-47.0); Hemoglobin 11.9 g/dl (12.0-16.0); Imm Gran Abs Auto 0.08 X10*3/uL (0.00-0.03); Imm Gran Pct Auto 1.2 % (0.0-0.4); Lymphocytes Absolute Auto 0.7 X10*3/uL (1.2-4.9); Mean Corpuscular HGB Conc 32.9 g/dl (31.0-35.0); Mean Corpuscular Hemoglobin 28.6 pg (27.0-33.0); Mean Corpuscular Volume 87.0 fL (80.0-98.0); NRBC Abs Auto 0.000 X10*3/uL (0.0-0.012); NRBC Pct Auto 0.0 /100WBC (0.0-0.2); Platelet Count 339 X10*3/uL (160-400); Red Blood Count 4.16 X10*6/uL (4.20-5.50); White Blood Count 6.5 X10*3/uL (4.8-10.8)
[2025-06-23 06:58] LABS: Alanine Aminotransferase 25 U/L (0-31); Albumin Level 3.5 g/dL (3.5-5.0); Alkaline Phosphatase 73 U/L (39-117); Anion Gap 15 (12-20); Aspartate Amino Transferase 32 U/L (5-31); Blood Urea Nitrogen 10 mg/dL (9-16); Calcium 8.9 mg/dL (8.4-10.2); Carbon Dioxide 25 mmol/L (22-29); Chloride 105 mmol/L (96-108); Creatinine Clr Calc Pharmacy 121.7; Estimated Glomerular Filt Rate > 60; Magnesium 2.1 mg/dL (1.6-2.6); Potassium 3.5 mmol/L (3.3-5.1); Sodium 141 mmol/L (135-145); Total Protein 5.9 g/dL (6.5-8.0)
--- NOTE | 2025-06-23 07:20 | P.PNIM_ITS ---
Subjective Subjective Date of Service: 06/23/25 Interval History: No acute overnight events Still awaiting a Review of Systems Review of Systems: Yes Unobtainable due to mental condition and Unobtainable due to mental status Physical Exam 2 Exam: Exam: General: AOx3, very slow to respond, awakens to verbal stimulation Resp: CTA bilaterally CVS: S1, S2, RRR Skin: Warm, dry Psych: Confused-her baseline Vital Signs: Vital Signs: Last Vital Signs Temp 98.5 F 06/23/25 03:31 Pulse 93 06/23/25 03:31 Resp 17 06/23/25 03:31 BP 133/73 06/23/25 03:31 Pulse Ox 90 L 06/23/25 03:31 O2 Del Method Nasal Cannula 06/23/25 03:31 O2 Flow Rate 2 06/23/25 03:31 BMI result Body Mass Index 37.9 Objective Data Active Medications Acetaminophen (Acetaminophen Supp 650 Mg Supp.Rect) 650 mg AR Q6H PRN PRN Reason: Pain, Mild 1-3,fever,headache Acetaminophen (Acetaminophen 325 Mg Tablet) 650 mg PO Q6H PRN PRN Reason: Pain, Mild 1-3,fever,headache Last Admin: 06/18/25 05:47 Dose: 650 mg Documented By: GALINA Albuterol/Ipratropium (Albuterol/Iprat 2.5/0.5mg 3 Ml Ampul.Neb) 3 ml INHALE RQ4H WHILE AWAKE PRN PRN Reason: sob Last Admin: 06/19/25 12:44 Dose: 3 ml Documented By: MAKAYLA Baclofen (Baclofen 20 Mg Tablet) 20 mg PO BID [facility] Last Admin: 06/22/25 19:45 Dose: 20 mg Documented By: LEFEBCHRISTOPHER Calcium Carbonate (Calcium Carbonate 750 Mg Tab.Chew) 750 mg PO Q4H PRN PRN Reason: Heartburn Clopidogrel Bisulfate (Clopidogrel Bisulfate 75 Mg Tablet) 75 mg PO DAILY [facility] Last Admin: 06/22/25 08:12 Dose: 75 mg Documented By: CASTRO Cyanocobalamin (Cyanocobalamin (Vitamin B-12) 1,000 Mcg Tablet) 1,000 mcg PO DAILY [facility] Last Admin: 06/22/25 08:13 Dose: 1,000 mcg Documented By: CASTRO Diazepam (Diazepam 2 Mg Tablet) 2 mg PO TID PRN PRN Reason: agitation Docusate Sodium (Docusate Sodium 100 Mg Capsule) 100 mg PO BID [facility] Last Admin: 06/23/25 07:14 Dose: Not Given Documented By: CASTRO Non-Admin Reason: CDIFF Enoxaparin Sodium (Enoxaparin Sodium 40 Mg/0.4 Ml Syringe) 40 mg SUBCUT Q24H [facility] Last Admin: 06/22/25 13:11 Dose: 40 mg Documented By: CASTRO Ferrous Sulfate (Ferrous Sulfate 324 Mg Tablet.Dr) 324 mg PO DAILY [facility] Last Admin: 06/22/25 08:13 Dose: 324 mg Documented By: CASTRO Loperamide HCl (Loperamide Hcl 2 Mg Capsule) 2 mg PO Q4H PRN PRN Reason: Diarrhea Last Admin: 06/17/25 21:11 Dose: 2 mg Documented By: GALINA Magnesium Hydroxide (Milk Of Magnesia 30 Ml Oral.Susp) 30 ml PO DAILY PRN PRN Reason: Constipation Metoprolol Tartrate (Metoprolol Tartrate 25 Mg Tablet) 25 mg PO BID [facility]; Protocol Last Admin: 06/22/25 19:46 Dose: 25 mg Documented By: OUSMANE Multivitamins/Vitamin C (Multivitamin Tablet) 1 tab PO DAILY [facility] Last Admin: 06/22/25 08:13 Dose: 1 tab Documented By: CASTRO Ondansetron HCl (Ondansetron Hcl 4 Mg/2 Ml Vial) 4 mg IVPUSH Q8H PRN PRN Reason: Nausea and Vomiting Ropinirole HCl (Ropinirole Hcl 1 Mg Tablet) 1 mg PO BEDTIME [facility] Last Admin: 06/22/25 19:46 Dose: 1 mg Documented By: OUSMANE Sertraline HCl (Sertraline Hcl 50 Mg Tablet) 150 mg PO DAILY [facility] Last Admin: 06/22/25 08:12 Dose: 150 mg Documented By: CASTRO Sodium Chloride (0.9 % Sodium Chloride Flush 3 Ml Syringe) 3 ml IVFLUSH QSHIFT [facility] Last Admin: 06/22/25 19:46 Dose: 3 ml Documented By: OUSMANE Vancomycin HCl (Vancomycin Hcl 125 Mg Capsule) 125 mg PO Q6H [facility] Stop: 06/24/25 17:59 Last Admin: 06/23/25 05:23 Dose: 125 mg Documented By: OUSMANE Labs 06/23/25 05:46 06/23/25 05:46 Labs: Laboratory Results - last 24 hr 06/23/25 05:46 MCV 87.0 MCH 28.6 MCHC 32.9 RDW 14.7 Plt Count 339 MPV 9.0 L Immature Gran % (Auto) 1.2 H Neut % (Auto) 75.4 H Lymph % (Auto) 10.4 L [place] % (Auto) 10.0 Eos % (Auto) 2.8 Baso % (Auto) 0.2 Lymph # (Auto) 0.7 L [place] # (Auto) 0.7 Eos # (Auto) 0.2 Baso # (Auto) 0.0 Abs Immat Gran (auto) 0.08 H Absolute Neuts (auto) 4.9 Absolute Nucleated RBC 0.000 Nucleated RBC % (auto) 0.0 Anion Gap 15 Estim Creat Clear Calc 121.7 Estimated GFR > 60 Random Glucose 99 Calcium 8.9 Magnesium 2.1 Total Bilirubin 0.3 AST 32 H ALT 25 Alkaline Phosphatase 73 Total Protein 5.9 L Albumin 3.5 Assessment and Plan (1) Bipolar affective, manic, severe w/ psych: Status: Acute (2) C. difficile colitis: Status: Acute Plan 65F PMH bipolar disorder, multiple sclerosis admitted from inpatient psychiatry for fevers, multiple loose stools found to be positive C diff and potassium of 2.4. Patient is medically, psychiatrically and care team cleared. Awaiting for rehab placement. AMS very slow to respond deconditioned - unclear etiology Multifactorial - psych component cannot be excluded 06/23/2025: Extensive workup for infectious, stroke, seizure, neurological, workup has thus far been negative. This has been relayed to the daughter on 06/21/2025 and 06/22/2025. Psychiatry and care team was consulted and they had cleared the patient with no further medical adjustments. Currently awaiting rehab placement pending authorization. C diff colitis - to complete 10 days of po vanc on 06/23/25 Flu A - s/p Tamiflu severe acute hypokalemia- replaced hypomagnesemia- replaced bipolar- continue sertraline, diazepam, prn ativan per home donya , care team and psych cleared the pt multiple sclerosis - stable per Neurology without new plaques in MRI takotsubo cardiomyopathy - continue metoprolol, outpatient follow up with Cardiology CLAUS- CPAP at night DVT prophylaxis with Lovenox full code reason for continued hospitalization:patient is medically optimized and PT recommends short-term rehab This note is constructed using voice recognition software. While every effort has been made to ensure accuracy, him tech errors may have been included. Total time managing care of this patient today: 105 minutes. Quality Stroke Does the patient have a stroke diagnosis?: No VTE Prior VTE?: No VTE Risk Level:: Medical - moderate - high VTE Device Contraindication: Treatment Not Indicated VTE Drug Contraindication: N/A - Med Ordered
[2025-06-23] MEDS: Ferrous Sulfate 324 MG TABLET.DR PO (08:14)
[2025-06-23] MEDS: 0.9 % Sodium Chloride Flush 3 ML SYRINGE IVFLUSH ×2 (08:15→17:35)
--- NOTE | 2025-06-23 11:02 | PC.NURSE ---
Pt daughter called and requested another RN take care of patient. This parts data writer asked patient if she would prefer another RN and she said no. The patient HCP is not invoked. To appease the patient daughter this RN will switch with another RN on the floor.
--- NOTE | 2025-06-23 11:54 | PC.NURSE ---
Introduced myself to patient and daughter. Patient sitting up in chair, chair alarm on, call adamson within reach. Patient and family expressed no needs at this time, educated to call for staff if needed.
--- NOTE | 2025-06-23 14:15 | PC.NURSE ---
Patient's daughter was expressing concern regarding patient's sleepiness . Patient does seem to close eyes and stop talking mid conversation and closing eyes and stops eating during lunch. Patient easily follows commands to voice and is alert to self and did not provide answers when asked about location and year. Provider Joon notified of daughter's concern via [employer] and ABG ordered.
--- NOTE | 2025-06-23 14:26 | PC.NURSE ---
and daughter at bedside, expressing concerns for patient's condition in regards to her sleepiness and need for supplemental oxygen. Family also expressed concerns regarding previous Baclofen dosing, stating at home she takes 10mg twice a day . Family expressed overall frustration regarding patient's hospital stay, this nurse provided education regarding current care and plan and provider Joon informed via [employer] regarding family's concerns and request for family to talk to her in person for an update.
[2025-06-23 14:36] LABS: ABG HCO3 26 mmol/L (22-26); ABG O2 % Saturation 98.0 %
--- NOTE | 2025-06-23 17:15 | PC.RT ---
ABG ordered by Dr Dupree. Pt has an acute respiratory alkalosis with normal oxygenation. during procedure, pt was talking to me with her eyes closed and she also was answering question appropriately when I asked her and she also had her eyes closed. Pt in no resp distress. RR 16 BS: clear nathan Sats on 1 l n/c 96%. Dr. Dupree shown abg results as well as the RN.
--- NOTE | 2025-06-23 17:16 | PC.RT ---
called to administer bronchodilator treatment as requested. RN and RT at bedside. RN asked patient if patient felt short of breath, patient responded No . Asked patient if she was having difficulty breathing. Patient responded No . Asked patient if she felt she needed a breathing treatment, patient responded No . SpO2, HR and RR WNL.
--- NOTE | 2025-06-23 17:21 | PC.NURSE ---
RETAIL WAREHOUSE ASSOCIATE came to nurse reporting that family would like patient to get a breathing treatment, requesting pain medications and requesting for the doctor to call the daughter for an update. Respiratory called for PRN breathing treatment and pain medication retrieved from [employer]. When nursing went into room family had left, patient laying in bed with eyes closed, unlabored breathing, respiratory rate 14. Asked patient if she felt short of breathing, patient responding no , asked patient if she was having trouble breathing and patient responded no , asked patient if she would like a breathing treatment and patient responded no , RT at bedside and assessed patient as well. Nursing asked patient if she was in pain and she responded no , stated that her family was concerned she was in pain and nursing has Tylenol for her, patient said okay and took Tylenol with ease. Provider Joon told via [employer] for family's request for phone call for update.
--- NOTE | 2025-06-23 22:22 | PC.NURSE ---
RN entered room to find pt asleep. Easily arousable to name. Pt declined CPAP at this time. RN will attempt again later. Pt on 2L O2 via NC at this time. Plan of care ongoing.
[2025-06-24] VITALS (10 sets, daily range): BP systolic 107–1296; BP diastolic 51–68; PULSE 82–134; RESP 16–18; TEMP 36.2–37.1; O2SAT 85–94
[2025-06-24] MEDS: 0.9 % Sodium Chloride Flush 3 ML SYRINGE IVFLUSH ×4 (00:15→21:43)
--- NOTE | 2025-06-24 00:44 | PC.NURSE ---
Pt declined CPAP on 2nd attempt. Pt continues to wear 2L O2 via NC. Plan of care continues.
[2025-06-24 05:29] LABS: MANUAL DIFF FLAG NO
[2025-06-24 05:34] LABS: Hematocrit 37.5 % (37.0-47.0); Hemoglobin 12.0 g/dl (12.0-16.0); Imm Gran Abs Auto 0.11 X10*3/uL (0.00-0.03); Imm Gran Pct Auto 1.6 % (0.0-0.4); Lymphocytes Absolute Auto 0.6 X10*3/uL (1.2-4.9); Mean Corpuscular HGB Conc 32.0 g/dl (31.0-35.0); Mean Corpuscular Hemoglobin 28.2 pg (27.0-33.0); Mean Corpuscular Volume 88.2 fL (80.0-98.0); NRBC Abs Auto 0.000 X10*3/uL (0.0-0.012); NRBC Pct Auto 0.0 /100WBC (0.0-0.2); Platelet Count 380 X10*3/uL (160-400); Red Blood Count 4.25 X10*6/uL (4.20-5.50); White Blood Count 6.8 X10*3/uL (4.8-10.8)
[2025-06-24 05:47] LABS: Alanine Aminotransferase 25 U/L (0-31); Albumin Level 3.5 g/dL (3.5-5.0); Alkaline Phosphatase 77 U/L (39-117); Anion Gap 15 (12-20); Aspartate Amino Transferase 28 U/L (5-31); Blood Urea Nitrogen 10 mg/dL (9-16); Calcium 8.9 mg/dL (8.4-10.2); Carbon Dioxide 23 mmol/L (22-29); Chloride 107 mmol/L (96-108); Creatinine Clr Calc Pharmacy 126.5; Estimated Glomerular Filt Rate > 60; Magnesium 2.2 mg/dL (1.6-2.6); Potassium 3.3 mmol/L (3.3-5.1); Sodium 142 mmol/L (135-145); Total Protein 6.0 g/dL (6.5-8.0)
--- NOTE | 2025-06-24 07:44 | P.PNIM_ITS ---
Subjective Subjective Date of Service: 06/24/25 Interval History: ABG Physical Exam 2 Vital Signs: Vital Signs: Last Vital Signs Temp 97.2 F 06/24/25 07:16 Pulse 88 06/24/25 07:16 Resp 16 06/24/25 07:16 BP 115/60 06/24/25 07:16 Pulse Ox 93 06/24/25 07:16 O2 Del Method Nasal Cannula 06/24/25 07:16 O2 Flow Rate 2 06/24/25 07:16 BMI result Body Mass Index 37.9 Objective Data Active Medications Acetaminophen (Acetaminophen Supp 650 Mg Supp.Rect) 650 mg CO Q6H PRN PRN Reason: Pain, Mild 1-3,fever,headache Acetaminophen (Acetaminophen 325 Mg Tablet) 650 mg PO Q6H PRN PRN Reason: Pain, Mild 1-3,fever,headache Last Admin: 06/23/25 17:15 Dose: 650 mg Documented By: TIEN Albuterol/Ipratropium (Albuterol/Iprat 2.5/0.5mg 3 Ml Ampul.Neb) 3 ml INHALE RQ4H WHILE AWAKE PRN PRN Reason: sob Last Admin: 06/19/25 12:44 Dose: 3 ml Documented By: MAKAYLA Calcium Carbonate (Calcium Carbonate 750 Mg Tab.Chew) 750 mg PO Q4H PRN PRN Reason: Heartburn Clopidogrel Bisulfate (Clopidogrel Bisulfate 75 Mg Tablet) 75 mg PO DAILY [facility] Last Admin: 06/23/25 08:14 Dose: 75 mg Documented By: CASTRO Cyanocobalamin (Cyanocobalamin (Vitamin B-12) 1,000 Mcg Tablet) 1,000 mcg PO DAILY [facility] Last Admin: 06/23/25 08:14 Dose: 1,000 mcg Documented By: CASTRO Docusate Sodium (Docusate Sodium 100 Mg Capsule) 100 mg PO BID [facility] Last Admin: 06/23/25 22:03 Dose: 100 mg Documented By: TI Enoxaparin Sodium (Enoxaparin Sodium 40 Mg/0.4 Ml Syringe) 40 mg SUBCUT Q24H [facility] Last Admin: 06/23/25 14:03 Dose: 40 mg Documented By: TIEN Ferrous Sulfate (Ferrous Sulfate 324 Mg Tablet.) 324 mg PO DAILY [facility] Last Admin: 06/23/25 08:14 Dose: 324 mg Documented By: CASTRO Loperamide HCl (Loperamide Hcl 2 Mg Capsule) 2 mg PO Q4H PRN PRN Reason: Diarrhea Last Admin: 06/17/25 21:11 Dose: 2 mg Documented By: GALINA Magnesium Hydroxide (Milk Of Magnesia 30 Ml Oral.Susp) 30 ml PO DAILY PRN PRN Reason: Constipation Metoprolol Tartrate (Metoprolol Tartrate 25 Mg Tablet) 25 mg PO BID [facility]; Protocol Last Admin: 06/23/25 22:03 Dose: 25 mg Documented By: TI Multivitamins/Vitamin C (Multivitamin Tablet) 1 tab PO DAILY [facility] Last Admin: 06/23/25 08:14 Dose: 1 tab Documented By: CASTRO Ondansetron HCl (Ondansetron Hcl 4 Mg/2 Ml Vial) 4 mg IVPUSH Q8H PRN PRN Reason: Nausea and Vomiting Ropinirole HCl (Ropinirole Hcl 1 Mg Tablet) 1 mg PO BEDTIME [facility] Last Admin: 06/23/25 22:03 Dose: 1 mg Documented By: TI Sertraline HCl (Sertraline Hcl 50 Mg Tablet) 150 mg PO DAILY [facility] Last Admin: 06/23/25 08:14 Dose: 150 mg Documented By: CASTRO Sodium Chloride (0.9 % Sodium Chloride Flush 3 Ml Syringe) 3 ml IVFLUSH QSHIFT [facility] Last Admin: 06/24/25 00:15 Dose: 3 ml Documented By: TI Vancomycin HCl (Vancomycin Hcl 125 Mg Capsule) 125 mg PO Q6H [facility] Stop: 06/24/25 17:59 Last Admin: 06/24/25 06:14 Dose: 125 mg Documented By: TI Labs 06/24/25 05:01 06/24/25 05:01 Labs: Laboratory Results - last 24 hr 06/23/25 06/24/25 14:32 05:01 MCV 88.2 MCH 28.2 MCHC 32.0 RDW 14.6 Plt Count 380 MPV 9.0 L Immature Gran % (Auto) 1.6 H Neut % (Auto) 77.5 H Lymph % (Auto) 8.3 L [place] % (Auto) 9.7 Eos % (Auto) 2.6 Baso % (Auto) 0.3 Lymph # (Auto) 0.6 L [place] # (Auto) 0.7 Eos # (Auto) 0.2 Baso # (Auto) 0.0 Abs Immat Gran (auto) 0.11 H Absolute Neuts (auto) 5.3 Absolute Nucleated RBC 0.000 Nucleated RBC % (auto) 0.0 O2 Saturation 98.0 ABG pH at Pt Temp 7.55 H ABG pCO2 at Pt Temp 29 L ABG pO2 at Pt Temp 90 ABG HCO3 26 ABG Base Excess (Actual) 4.7 Anion Gap 15 Estim Creat Clear Calc 126.5 Estimated GFR > 60 Random Glucose 96 Calcium 8.9 Magnesium 2.2 Total Bilirubin 0.3 AST 28 ALT 25 Alkaline Phosphatase 77 Total Protein 6.0 L Albumin 3.5 Quality Stroke Does the patient have a stroke diagnosis?: No VTE Prior VTE?: No VTE Risk Level:: Medical - moderate - high VTE Device Contraindication: Treatment Not Indicated VTE Drug Contraindication: N/A - Med Ordered
--- NOTE | 2025-06-24 09:20 | MHC.CM.PN ---
Addendum entered by Caroline Nava 06/25/25 08:46: [facility] APPEAL CASE # [id number] APPEAL CURRENTLY IN CLINICAL REVIEW PER CASE STATUS TOOL ([facility] NetworkSellig[facility]/CASESTATUS) Addendum entered by Caroline Nava 06/24/25 15:49: PTS /HCP DID APPEAL THE DC. RECORDS SENT TO [facility] FOR REVIEW Addendum entered by Caroline Nava 06/24/25 12:00: CM CALLED PTS , YRN TO DISCUSS DCP, HE THEN PUT IT ON SPEAKER SO HIS DAUGHTER, KISHOR, COULD PARTICIPATE. THEY STATED THEY NEED TO SCHEDULE AN IN PERSON MEETING WITH CM AND PROVIDER BEFORE PT DISCHARGES CM EXPLAINED THEY CAN COME IN TODAY, HOWEVER PT HAS BEEN MEDICALLY CLEARED SINCE FRIDAY HOWEVER DID NOT HAVE A BED OFFER FOR STR THEY INDICATED THEY CANNOT COME IN TODAY THE DAUGHTER HAS A CHILD SHE IS WATCHING CM REVIEWED THE IMM AND RIGHT TO APPEAL AND REITERATED THE PT HAS BEEN MEDICALLY CLEARED THEY INITIALLY STATED THEY WERE NOT GOING TO DO THEY APPEAL. THEY ASKED WHERE THE STR BED OFFER WAS, CM INFORMED THEM IT IS [facility] THEY BOTH STARTED YELLIING SHE IS NOT GOING THERE CM EXPLAINED IT IS THE ONLY BED OFFER DESPITE MANY REFERRALS THEY AGAIN STATED SHE IS NOT GOING THERE, CM AGAIN STATED THERE ARE NO OTHER BED OFFERS. THEY STATED SINCE THEY ARE NOT AGREEING, IT WOULD BE ILLEGAL FOR HER TO DC THERE CM EXPLAINED THIS IS A SAFE DC PLAN SINCE THERE IS A BED OFFER PTS DAUGHTER CONTINUED TO SWEAR AT AND YELL THAT PT WOULD NOT BE GOING THERE THEY THEN HUNG UP Addendum entered by Caroline Nava 06/24/25 11:50: [facility] IS OFFERING A BED THEY ARE THE ONLY BED OFFER. Original Note: INITIAL REFERRAL SENT ON 06/22/25, NO BED OFFERS RECEIVED REFERRAL EXPANDED TO WITHIN 40 MILES [facility] [place] AND [facility] FOLLOWING UPDATES SENT, THEY WILL NEED AN UPDATED PT EVAL AND ARE AWARE PT HAS BEEN READY TO DC
[2025-06-24] MEDS: Ferrous Sulfate 324 MG TABLET.DR PO (09:25)
--- NOTE | 2025-06-24 13:22 | P.DS_ITS ---
DS: Providers Provider Date of Service: 06/24/25 Date of admission: 06/14/25 15:13 Date of discharge: 06/24/25 Primary care physician: Festus Multani MD Consults: 06/14/25 15:47 Consult to Infectious Diseases Routine Consulting Provider: [facility] Reason for consultation: c diff colitis Has provider been notified: No 06/19/25 08:30 Inpt CARE Team Crisis Consult Routine Comment: Reason for consultation: medically clear, came from [facility] (bipolar with psychosis) 06/19/25 12:49 Consult to Psychiatry Routine Consulting Provider: [facility] Psych Covering Reason for consultation: requested by care team, ?dispo 06/20/25 00:21 Consult to Wound Care Routine Consulting Provider: [facility] Reason for consultation: right buttock stage II 06/21/25 10:18 Consult to Neurology Routine Consulting Provider: [facility] Reason for consultation: family thinks she is likely having neuro disconnect , not psych etiology, 06/21/25 10:19 Consult to Psychiatry Routine Consulting Provider: [facility] Psych [facility] Reason for consultation: family not receptive of psych meds adjustment and w ant more input DS: Diagnosis Discharge Diagnosis (1) Bipolar affective, manic, severe w/ psych: Status: Acute (2) C. difficile colitis: Status: Acute DS: Summary Hospital Course Hospital Course: Per H&P: 65-year-old female with a past medical history of bipolar disorder, multiple sclerosis, recently brought to the emergency department for mental status changes. Patient was tachypneic and tachycardic on arrival to the ED, her chest x-ray demonstrated atelectasis, her brain CT was with no acute changes she was found to have metabolic encephalopathy secondary to anion gap metabolic acidosis secondary to starvation ketosis. She was treated with IV fluids, her mental status was improved. Her EKG was negative, she had a CTA of her head that was negative, she was seen by Neurology and felt that her presentation was unlikely due to an MS exacerbation. Possibly dementia related to the MS. An MRI was not done due to likelihood that it would not provide clinically useful information. She was seen by Cardiology due to elevated troponin, who added Plavix, beta- scottie and continue the statin. Patient continued with behavioral outbursts, subsequently admitted inpatient [facility] for further care and treatment. Upon admission to [facility] patient reportedly multiple loose stools, stool specimen revealed a positive C diff infection. Labs revealed potassium level of 2.4. On exam patient denies any discomfort, her abdominal exam is benign. Hospital course 65F PMH bipolar disorder, multiple sclerosis admitted from inpatient psychiatry for fevers, multiple loose stools found to be positive C diff and potassium of 2.4. Resolved completed treatment. Patient is medically, psychiatrically and care team cleared. Short-term rehab was recommended by PT jose. AMS very slow to respond deconditioned - unclear etiology Multifactorial - psych component cannot be excluded 06/23/2025: Extensive workup for infectious, stroke, seizure, neurological, metabolic, electrolyte, blood gases workup has thus far been negative. This has been relayed to the daughter on 06/21/2025 and 06/22/2025 and 06/24/2025. Psychiatry and care team was consulted and they had cleared the patient with no further medical adjustments. ID and Neurology was also consulted and they also believe based on workup that this is likely more baseline psychiatric more than organic causes given extensive workup. C diff colitis - complete a 10 day course of p.o. vancomycin as of 06/24/2025 Flu A - s/p Tamiflu severe acute hypokalemia- replaced hypomagnesemia- replaced bipolar- continue sertraline, diazepam, prn ativan per home donya , discontinued baclofen per family's recommendation and request care team and psych cleared the pt multiple sclerosis - stable per Neurology without new plaques in MRI takotsubo cardiomyopathy - continue metoprolol, outpatient follow up with Cardiology CLAUS- CPAP at night, patient unable to tolerate DVT prophylaxis with Lovenox full code Disposition: Patient to discharged to a rehab, extensive discussion was held with patient's daughter. Medically optimized. This note is constructed using voice recognition software. While every effort has been made to ensure accuracy, rehabilitation assistant errors may have been included. Total time managing care of this patient today: 105 minutes. Time spent discussing smoking cessation with patient: more than 10 minutes Status at Discharge Functional status at discharge: independent ambulation Time Attestation Discharge Coordination Time (in mins): 106 Quality: Safe Use of Opioids Does Pt have an Active Cancer Diagnosis on the Problem List?: No Quality: Stroke Does the patient have a stroke diagnosis?: No Physical Exam Vital Signs: Vital Signs: Last Vital Signs Temp 98.4 F 06/24/25 11:51 Pulse 86 06/24/25 13:15 Resp 16 06/24/25 11:51 BP 107/51 L 06/24/25 13:15 Pulse Ox 94 06/24/25 13:15 O2 Del Method Nasal Cannula, Bi PAP 06/24/25 11:51 O2 Flow Rate 2 06/24/25 07:16 BMI result Body Mass Index 37.9 DS: Data Data Completed and Pending Labs on day of discharge: Laboratory Results - last 24 hr 06/23/25 06/24/25 14:32 05:01 WBC 6.8 RBC 4.25 Hgb 12.0 Hct 37.5 MCV 88.2 MCH 28.2 MCHC 32.0 RDW 14.6 Plt Count 380 MPV 9.0 L Immature Gran % (Auto) 1.6 H Neut % (Auto) 77.5 H Lymph % (Auto) 8.3 L [place] % (Auto) 9.7 Eos % (Auto) 2.6 Baso % (Auto) 0.3 Lymph # (Auto) 0.6 L [place] # (Auto) 0.7 Eos # (Auto) 0.2 Baso # (Auto) 0.0 Abs Immat Gran (auto) 0.11 H Absolute Neuts (auto) 5.3 Absolute Nucleated RBC 0.000 Nucleated RBC % (auto) 0.0 O2 Saturation 98.0 ABG pH at Pt Temp 7.55 H ABG pCO2 at Pt Temp 29 L ABG pO2 at Pt Temp 90 ABG HCO3 26 ABG Base Excess (Actual) 4.7 Sodium 142 Potassium 3.3 Chloride 107 Carbon Dioxide 23 Anion Gap 15 BUN 10 Creatinine 0.51 Estim Creat Clear Calc 126.5 Estimated GFR > 60 Random Glucose 96 Calcium 8.9 Magnesium 2.2 Total Bilirubin 0.3 AST 28 ALT 25 Alkaline Phosphatase 77 Total Protein 6.0 L Albumin 3.5 Discharge Plan Discharge Anticipated Discharge Date/Time: 06/24/25 12:34 Patient Disposition: Xfer SNF Discharge Diagnosis: AMS multifactorial metabolic, MS , psychiatric, baseline dementia, prior SI, IP admissions ,deconditioning,Bipolar disorder, current episode manic without psychotic features, moderate, status post flu and C diff Referrals: Marcelo Cunningham MD [Physician, Psychiatry] - 1 Week Tyler Klein MD [Physician, Psychology] - 1 Week Emma Ramírez MD [Physician, Infectious Disease] - 1 Week Festus Multani MD [Primary Care Provider, Internal Medicine] - 1 Week Physician,Daniel J [Physician, Medical] - 1 Week Discharge Medications: Continued Zepbound 2.5 mg/0.5 mL pen injector 2.5 mg subcut MO acetaminophen 325 mg Tablet 650 mg PO Q6H PRN (Reason: Headache/Pain, Scale 1-10) Qty: 0 0RF ropinirole 1 mg Tablet 1 mg PO BEDTIME Qty: 0 0RF cyanocobalamin (vitamin B-12) [Vitamin B-12] 1,000 mcg Tablet 1,000 mcg PO DAILY Qty: 0 0RF Antacid Ext Str (calcium carb) 300 mg (750 mg) Tablet,Chewable 2.5 tab PO QID PRN (Reason: Indigestion) Qty: 0 0RF melatonin 3 mg Tablet 9 mg PO BEDTIME Qty: 0 0RF clopidogrel 75 mg Tablet 75 mg PO DAILY Qty: 0 0RF diazepam 2 mg Tablet 2 mg PO TID Qty: 0 0RF nystatin [Nyamyc] 100,000 unit/gram Powder 1 appl topical BID Qty: 0 0RF Protocol: Apply to: Apply to: affect area sertraline 50 mg Tablet 150 mg PO DAILY Qty: 0 0RF metoprolol tartrate 25 mg Tablet 25 mg PO BID Qty: 0 0RF Protocol: Hold for SBP/HR < HOLD for SBP < : 90 HOLD for HR < : 60 ferrous sulfate 324 mg (65 mg iron) Tablet,Delayed Release (Dr/Ec) 324 mg PO DAILY Qty: 0 0RF multivitamin [Daily-Kourtney] Tablet 1 tab PO DAILY Qty: 0 0RF Discontinued metoprolol tartrate 25 mg Tablet 25 mg PO BID Qty: 1 0RF Protocol: Hold for SBP/HR < HOLD for SBP < : 90 HOLD for HR < : 60 vancomycin 125 mg Capsule 125 mg PO Q6H Qty: 0 0RF baclofen 20 mg Tablet 20 mg PO BID Qty: 0 0RF Discharge Orders: Discharge Order (Routine); Ordered 06/24/25 Ordered By: Marina Dupree Diet: Low salt diet Activity on Discharge: As tolerated Stand Alone Forms: Patient Portal Discharge page Print Language: Hebrew Care Plan Goals: Patient had extensive workup for her family's concern of acute altered mental status and deconditioning Significant metabolic and organic causes were ruled out with imaging CT scan, MRI, EEG, multispecialty input from ID, neuro, psychiatry, care team medicine team and respiratory therapy. Her psychiatric medications-per patient's family's concerns, baclofen was discontinued as they were concerned it might be contributing to her somnolence, without any effect. PT evaluated the patient and recommended short-term rehab given her deconditioning Patient completed treatment for flu with oseltamivir Patient completed C diff treatment with vancomycin p.o. 10 day course during this hospitalization Metoprolol was a duplicate hence it has been discontinued Health Concerns: Family had significant concerns and I have answered their questions every day over the phone and explained to them the pathophysiology and the workup in detail about any reversible causes of altered mental status. Family still not accepting about her status. Plan of Treatment: Discontinued baclofen per family's request PTOT Follow up with outpatient psychiatry for medication titration Assessment: See above
[2025-06-24] MEDS: Albuterol/Iprat 2.5/0.5MG 3 ML AMPUL.NEB INHALE (22:22)
[2025-06-25] VITALS (11 sets, daily range): BP systolic 119–130; BP diastolic 62–77; PULSE 84–124; RESP 15–17; TEMP 36.1–37.1; O2SAT 90–95
--- NOTE | 2025-06-25 | ECG_ITS ---
Test Reason : Fast heart rate Blood Pressure : */* mmHG Vent. Rate : 106 BPM Atrial Rate : 107 BPM P-R Int : 124 ms QRS Dur : 84 ms QT Int : 402 ms P-R-T Axes : 64 33 -65 degrees QTcB Int : 533 ms Sinus tachycardia T wave abnormality, consider inferior ischemia T wave abnormality, consider anterolateral ischemia Prolonged QT Abnormal ECG When compared with ECG of 25-Jun-2025 00:49, No significant change was found Referred By: Marina Dupree Electronically Signed By: TRISHA OLEA
--- NOTE | 2025-06-25 00:29 | ECG_ITS ---
Test Reason : Tachycardia Blood Pressure : */* mmHG Vent. Rate : 108 BPM Atrial Rate : 108 BPM P-R Int : 132 ms QRS Dur : 86 ms QT Int : 414 ms P-R-T Axes : 48 11 267 degrees QTcB Int : [address] & T wave abnormality, consider inferior ischemia ST & T wave abnormality, consider anterolateral ischemia Prolonged QT Abnormal ECG When compared with ECG of 09-Jun-2025 11:18, T wave inversion now evident in Inferior leads T wave inversion now evident in Anterolateral leads QT has lengthened Referred By: Yazmin Geronimo Electronically Signed By: TRISHA OLEA
[2025-06-25 02:03] LABS: Anion Gap 16 (12-20); Blood Urea Nitrogen 10 mg/dL (9-16); Calcium 9.0 mg/dL (8.4-10.2); Carbon Dioxide 24 mmol/L (22-29); Chloride 105 mmol/L (96-108); Creatinine Clr Calc Pharmacy 119.5; Estimated Glomerular Filt Rate > 60; Magnesium 2.1 mg/dL (1.6-2.6); Potassium 3.0 mmol/L (3.3-5.1); Sodium 142 mmol/L (135-145)
[2025-06-25 02:04] LABS: Troponin-I High Sensitivity 10.7 ng/L (<3.5-17.0)
[2025-06-25 02:12] LABS: NT Pro B Type Natriuretic Pept 703.0 pg/mL (<300)
[2025-06-25] MEDS: Furosemide 20 MG/2 ML VIAL 10 MG IVPUSH (02:38)
[2025-06-25] MEDS: Potassium Chloride ER 20 MEQ TAB.ER.PRT PO ×2 (02:51→07:40)
--- NOTE | 2025-06-25 05:36 | PC.NURSE ---
Addendum entered by Carmina Lovell RN 06/25/25 07:17: New antibiotics ordered around 6am, Pharmacy called to verify, Ceftriaxone IV started when able. Original Note: Pt seeno n bed alert and oriented x2 , denies any discomforts. Noted on routine vitals for 1999 with O2 sats at 85% with 2L/min via NC, pt denies any SOB, LS with scattered coarse crackles, instructed to do some deep breathing, and coughing exercise O2 sats went up to 93%. Noted on routine vitals at 12mn with HR on the 130s, vitals rechecked at 0030, HR now at 120s, rest of vitals WNL, pt awake and denies any pain, Piper Juanpablo updated, port CXR and stat EKG done, tracing forwarded, labs drawn, pt ordered on tele monitor with initial reading on ST on low 100s, labs with low K=3.0 and BNP= 703, results relayed to Piper, po K ordered and Lasix 10mg IV given.
--- NOTE | 2025-06-25 05:51 | PM.EVENT ---
Event Note Date of Service: 06/25/25 Event Note: Notified by nursing 0015 AM pt having hr 130, 124 ST, no chest pain, with some noted crackles upper respiratory. BP 122/64, pt afebrile. CXR and ECG ordered. Pt has echo 06/10 which noted EF 55-60% and stress ICM with inability to rule out LAD ischmia. ECG ST, QTC prolonged 554, ST and T wave abnormaliies inferior and anterolateral. Troponin 10.7 and BNP 703. K 3.0. Mg 2.1. CXR notes opacities vs infiltrates R.L and pt has been dependent on oxygen, 2L NC. Pt received 10 mg of IV lasix, potassium 20 MEQ once and daily ordered. Will start pt on IV ABX for suspected PNA, noting pt completed tx for the flu with tamiflu, and report in sign out to day shift. HR down to 95 after lasix. Time Spent With Patient Time: Total time managing care of this patient today ____ minutes.
--- NOTE | 2025-06-25 07:18 | HO.PM.IMPN ---
Subjective Subjective Date of Service: 06/25/25 Interval History: Overnight there was a concern of superimposed bacterial pneumonia Extensive workup revealed that she likely has pulmonary edema for which she was given Lasix with which she responded well CXR pulmonary edema Lab work including venous lactate negative/unremarkable for any sepsis Hence discontinued antibiotics given that she is just recovering from C diff She received magnesium 1 g and I repeated the EKG for which still shows persistent QTC prolongation and hence I am giving her 2 mg of magnesium She has takotsubo cardiomyopathy which will take time to [id number] inversions appear to be secondary to that QTC prolongation-holding Zofran, consulted psych again-they believe sertraline has low QTC prolonging factors. Review of Systems Review of Systems: Yes all other systems are reviewed and are negative Physical Exam Exam: Exam: General: AOx3, significantly more awake and alert today Resp: CTA bilaterally CVS: S1, S2, RRR Skin: Warm, dry Psych: Confused-her baseline Vital Signs: Vital Signs: Last Vital Signs Temp 96.9 F 06/25/25 03:15 Pulse 95 06/25/25 03:15 Resp 17 06/25/25 03:15 BP 124/77 06/25/25 03:15 Pulse Ox 94 06/25/25 03:15 O2 Del Method Nasal Cannula 06/25/25 03:15 O2 Flow Rate 2 06/25/25 03:15 BMI result Body Mass Index 37.9 Objective Data Active Medications Acetaminophen (Acetaminophen Supp 650 Mg Supp.Rect) [address] Q6H PRN PRN Reason: Pain, Mild 1-3,fever,headache Acetaminophen (Acetaminophen 325 Mg Tablet) 650 mg PO Q6H PRN PRN Reason: Pain, Mild 1-3,fever,headache Last Admin: 06/24/25 21:40 Dose: 650 mg Documented By: GIGI Calcium Carbonate (Calcium Carbonate 750 Mg Tab.Chew) 750 mg PO Q4H PRN PRN Reason: Heartburn Clopidogrel Bisulfate (Clopidogrel Bisulfate 75 Mg Tablet) 75 mg PO DAILY [facility] Last Admin: 06/24/25 09:25 Dose: 75 mg Documented By: LISA Cyanocobalamin (Cyanocobalamin (Vitamin B-12) 1,000 Mcg Tablet) 1,000 mcg PO DAILY [facility] Last Admin: 06/24/25 09:25 Dose: 1,000 mcg Documented By: LISA Docusate Sodium (Docusate Sodium 100 Mg Capsule) 100 mg PO BID [facility] Last Admin: 06/24/25 21:39 Dose: 100 mg Documented By: GIGI Doxycycline Monohydrate (Doxycycline Monohydrate 100 Mg Capsule) 100 mg PO Q12H [facility] Enoxaparin Sodium (Enoxaparin Sodium 40 Mg/0.4 Ml Syringe) 40 mg SUBCUT Q24H [facility] Last Admin: 06/24/25 12:31 Dose: 40 mg Documented By: LISA Ferrous Sulfate (Ferrous Sulfate 324 Mg Tablet.Dr) 324 mg PO DAILY [facility] Last Admin: 06/24/25 09:25 Dose: 324 mg Documented By: LISA Furosemide (Furosemide 40 Mg/4 Ml Vial) 40 mg IVPUSH ONCE ONE; Protocol Stop: 06/25/25 07:12 Ceftriaxone Sodium 1 gm/ (Sodium Chloride) 50 mls @ 100 mls/hr IV Q24H [facility] Last Admin: 06/25/25 06:39 Dose: 100 mls/hr Documented By: GIGI Magnesium Sulfate (Magnesium Sulfate/H2o) 2 gm in 50 mls @ 25 mls/hr IV ONCE ONE Stop: 06/25/25 09:06 Levalbuterol HCl (Levalbuterol Hcl 1.25 Mg/3 Ml Vial.Neb) 1.25 mg INHALE Q4H PRN PRN Reason: Shortness of Breath/Wheezing Loperamide HCl (Loperamide Hcl 2 Mg Capsule) 2 mg PO Q4H PRN PRN Reason: Diarrhea Last Admin: 06/17/25 21:11 Dose: 2 mg Documented By: GALINA Magnesium Hydroxide (Milk Of Magnesia 30 Ml Oral.Susp) 30 ml PO DAILY PRN PRN Reason: Constipation Metoprolol Tartrate (Metoprolol Tartrate 25 Mg Tablet) 25 mg PO BID [facility]; Protocol Last Admin: 06/24/25 21:40 Dose: 25 mg Documented By: GIGI Multivitamins/Vitamin C (Multivitamin Tablet) 1 tab PO DAILY [facility] Last Admin: 06/24/25 09:25 Dose: 1 tab Documented By: LISA Ondansetron HCl (Ondansetron Hcl 4 Mg/2 Ml Vial) 4 mg IVPUSH Q8H PRN PRN Reason: Nausea and Vomiting Potassium Chloride (Potassium Chloride Er 20 Meq Tab.Er.Prt) 20 meq PO DAILY [facility] Ropinirole HCl (Ropinirole Hcl 1 Mg Tablet) 1 mg PO BEDTIME [facility] Last Admin: 06/24/25 21:39 Dose: 1 mg Documented By: GIGI Sertraline HCl (Sertraline Hcl 50 Mg Tablet) 150 mg PO DAILY [facility] Last Admin: 06/24/25 09:25 Dose: 150 mg Documented By: LISA Sodium Chloride (0.9 % Sodium Chloride Flush 3 Ml Syringe) 3 ml IVFLUSH QSHIFT [facility] Last Admin: 06/24/25 21:43 Dose: 3 ml Documented By: GIGI Labs 06/25/25 07:35 06/25/25 07:35 Labs: Laboratory Results - last 24 hr 06/25/25 01:21 Anion Gap 16 Estim Creat Clear Calc 119.5 Estimated GFR > 60 Random Glucose 93 Calcium 9.0 Magnesium 2.1 Troponin I High Sens 10.7 D NT-Pro-B Natriuret Pep 703.0 H TSH 3.27 Assessment and Plan (1) Bipolar affective, manic, severe w/ psych: Status: Acute (2) C. difficile colitis: Status: Acute Plan 65F PMH bipolar disorder, multiple sclerosis admitted from inpatient psychiatry for fevers, multiple loose stools found to be positive C diff and potassium of 2.4. Patient is medically, psychiatrically and care team cleared. Family appealing discharge. Medically Optimized. Pulmonary edema - started on Lasix 20 po bid , inf work up unremarakable, quick recovery with lasix. AMS more awake today - unclear etiology of her altered mental status overall as extensive workup thus far has been unremarkable Multifactorial - psych component cannot be excluded 06/25/2025: Extensive workup for infectious, stroke, seizure, neurological, workup has thus far been negative. This has been relayed to the daughter on 06/21/2025 and 06/22/2025, 06/24/25. Psychiatry and care team was consulted and they had cleared the patient with no further medical adjustments. QTC prolongation - A/C - she is on many Psych meds - DC Zofran-use ativan prn for nausea (which she hasn't had), Reach out to Psych given her extensive complicated Psych history - awaiting input- they believe Sertraline has low QTC prolonging effect and doesnt need to be discontinued. We need Psych input for medication adjustment as discontinuing her home meds which have been challenging itself would cause her to have further destabilizing features. She will be DC'd on Mg 400 BID and OP mx with Cardiology C diff colitis - to complete 10 days of po vanc on 06/23/25 Flu A - s/p Tamiflu severe acute hypokalemia- replaced hypomagnesemia- replaced, will be dc;d with Mg 400mg bid bipolar- continue sertraline, diazepam, prn ativan per home donya , care team and psych cleared the pt multiple sclerosis - stable per Neurology without new plaques in MRI takotsubo cardiomyopathy - continue metoprolol, outpatient follow up with Cardiology CLAUS- CPAP at night DVT prophylaxis with Lovenox full code reason for continued hospitalization:patient is medically optimized and PT recommends short-term rehab. This is after reviewing her overnight events. No inf etiology noted Family would want Psych input as the medical team has told them that there is no further medical mx indicated from medical standpoint. This note is constructed using voice recognition software. While every effort has been made to ensure accuracy, streetcar operator errors may have been included. Total time managing care of this patient today: 105 minutes. Quality Stroke Does the patient have a stroke diagnosis?: No VTE Prior VTE?: No VTE Risk Level:: Medical - moderate - high VTE Device Contraindication: Treatment Not Indicated VTE Drug Contraindication: N/A - Med Ordered
[2025-06-25] MEDS: Ferrous Sulfate 324 MG TABLET.DR PO (07:39)
[2025-06-25] MEDS: Magnesium Sulfate/H2O 2 GM/50 ML PIGGYBACK IV (07:40)
[2025-06-25] MEDS: Furosemide 40 MG/4 ML VIAL IVPUSH (07:40)
[2025-06-25] MEDS: 0.9 % Sodium Chloride Flush 3 ML SYRINGE IVFLUSH ×2 (07:42→20:02)
[2025-06-25 07:57] LABS: MANUAL DIFF FLAG NO
[2025-06-25 08:05] LABS: Hematocrit 39.1 % (37.0-47.0); Hemoglobin 12.8 g/dl (12.0-16.0); Imm Gran Abs Auto 0.07 X10*3/uL (0.00-0.03); Imm Gran Pct Auto 1.3 % (0.0-0.4); Lymphocytes Absolute Auto 0.8 X10*3/uL (1.2-4.9); Mean Corpuscular HGB Conc 32.7 g/dl (31.0-35.0); Mean Corpuscular Hemoglobin 28.1 pg (27.0-33.0); Mean Corpuscular Volume 85.7 fL (80.0-98.0); NRBC Abs Auto 0.000 X10*3/uL (0.0-0.012); NRBC Pct Auto 0.0 /100WBC (0.0-0.2); Platelet Count 476 X10*3/uL (160-400); Red Blood Count 4.56 X10*6/uL (4.20-5.50); White Blood Count 5.5 X10*3/uL (4.8-10.8)
[2025-06-25 08:28] LABS: Alanine Aminotransferase 27 U/L (0-31); Albumin Level 3.9 g/dL (3.5-5.0); Alkaline Phosphatase 82 U/L (39-117); Aspartate Amino Transferase 27 U/L (5-31); Blood Urea Nitrogen 10 mg/dL (9-16); Calcium 9.2 mg/dL (8.4-10.2); Creatinine Clr Calc Pharmacy 121.7; Estimated Glomerular Filt Rate > 60; Magnesium 2.1 mg/dL (1.6-2.6); Total Protein 6.4 g/dL (6.5-8.0)
[2025-06-25 09:04] LABS: Anion Gap 17 (12-20); Carbon Dioxide 25 mmol/L (22-29); Chloride 104 mmol/L (96-108); Potassium 3.7 mmol/L (3.3-5.1); Sodium 142 mmol/L (135-145)
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
--- NOTE | 2025-06-25 11:31 | MHC.CM.PN ---
Addendum entered by Caroline Nava 06/25/25 14:22: DISCHARGE APPEAL RESULTS RECEIVED. LEONOR ANDERSEN WITH NOTICE OF DC, PTS FINANCIAL LIABILITY WILL BEGIN 06/26/25 AT 1201 HOURS. PT WILL HAVE TO REMAIN UNTIL FRIDAY MORNING FOR PASRR LEVEL 2 EVAL Original Note: CM, HOSPITALIST AND [employer]PERVISOR [employer] MET WITH PTS /HCP AT BEDSIDE. SUPER[employer]OR [employer] SUMMARIZED ADMISSION AND TREATMENT WITH THEM, PTS REPORTED UNDERSTANDING AND DENIED HE HAD ANY FURTHER QUESTIONS FOR HER. HE HAD SEVERAL QUESTIONS FOR MD WHO ANSWERED ALL OF THEM AND REITERATED THE IMPORTANCE OF MOVING TO THE NEXT PHASE OF TREATMENT/RECOVERY, STR HE ASKED CM ABOUT STR OPTIONS, CM AGAIN EXPLAINED THERE IS ONLY ONE AT THIS TIME,. [facility], HOWEVER ALSO INFORMED HIM THAT THE PT WOULD LIKELY DC FRIDAY, AND IF THERE WERE OTHER BED OFFERS AT THAT TIME, HE WOULD BE ABLE TO CHOOSE ONE. HE REPORTED UNDERSTANDING. HE THEN PROCEEDED TO ASK ABOUT PT BEING PUT BACK ON WELLBUTRIN AND SERTRALINE, HE WAS REMINDED THOSE WOULD BE QUESTIONS FOR PSYCHIATRY. HE WAS ENCOURAGED TO DISCUSS THESE ISSUES FURTHER WITH PTS OUTPATIENT MH PROVIDERS. HE STATES HE WILL UPDATE THE FAMILY PT HAS BEEN CLEAR FOR DC, FAMILY HAS APPEALED DC AND APPEAL IS CURRENTLY IN CLINICAL REVIEW. PT WILL NEED A LEVEL II PASRR, WHICH WILL NOT BE COMPLETED BEFORE FRIDAY PT WILL DC TO STR PENDING APPEAL RESULTS AND LEVEL II APPROVAL
--- NOTE | 2025-06-25 12:19 | PM.EVENT ---
Event Note Date of Service: 06/25/25 Event Note: Spoke at length with the case loader operator present for the entirety of the conversation with the at bedside Explained to him that patient is deconditioned and hence the reason for her not responding , given age and other medical and psychiatric comorbidities Patient less likely pneumonia as evidenced by quick resolution with Lasix, venous lactate 1.4, no leukocytosis. Also we are testing MRSA nasal swab and rapid respiratory panel- she will likely be positive for flu A as she has been recovering from that which will take time to clear plus this is a flu season Antibiotics are being used very judiciously-she does not need it at this moment as she is not hypoxic on room air , explained to the that overnight most of the patients tend to get oxygen and not necessarily because she is desaturating but she needs to be compliant with CPAP Explained to the that he needs to encourage her to use Acapella valve and incentive spirometer to help her recovery from the flu infection Pulmonary edema because we have been transfusing the patient Electrolyte abnormalities-we will be supplementing with potassium and magnesium which can also be done outpatient, does not need to be inpatient for that She needs to use CPAP at night or when sleeping, refrain from using oxygen overnight-she is a CO2 retainer hence her goal O2 if 88-92 Restful sleep at night Continue to monitor on tele while she is in the hospital Cont daily EKGs while in hosp Encouraged the to help her to use the Acapella valve Again multiple time extensive explanation was given to the that medically her heart, lungs and GI and neuro are all addressed and she has been optimized. He is accepting that over the weekend, we'll have less answers and STR placements. The Discharge that was done yesterday still stands. CM and (HCP) updated and in agreement that we are awaiting their acceptance of a bed and medically and psychiatrically she is optimzed and needs rehab. Explained to the that medications have been optimized and that we are still electing that the patient is medically cleared, and have no further medical management to offer Time Spent With Patient Time: Total time managing care of this patient today ____ minutes.
[2025-06-25 12:20] LABS: MRSA Nasal PCR NEGATIVE (Negative); SA Nasal PCR NEGATIVE (Negative)
[2025-06-25 12:25] LABS: Chlamydia pneumoniae PCR Not Detected (Not Detect.); Coronavirus 229E PCR Not Detected (Not Detect.); Coronavirus HKU1 PCR Not Detected (Not Detect.); Coronavirus NL63 PCR Not Detected (Not Detect.); Coronavirus OC43 PCR Not Detected (Not Detect.); RSV PCR Not Detected (Not Detect.); Rhino/Enterovirus PCR Not Detected (Not Detect.)
[2025-06-25 12:38] LABS: Influenza A H1 PCR Not Detected (Not Detect.); Influenza A H1-2009 PCR Not Detected (Not Detect.); Influenza A H3 PCR Not Detected (Not Detect.); SARS-CoV-2 PCR Not Detected (Not Detect.)
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
[2025-06-26] VITALS (10 sets, daily range): BP systolic 112–131; BP diastolic 62–81; PULSE 95–120; RESP 16–18; TEMP 36.1–37.3; O2SAT 90–94
--- NOTE | 2025-06-26 | ECG_ITS ---
Test Reason : chest pain Blood Pressure : */* mmHG Vent. Rate : 123 BPM Atrial Rate : 123 BPM P-R Int : 134 ms QRS Dur : 82 ms QT Int : 324 ms P-R-T Axes : 47 17 246 degrees QTcB Int : 463 ms Sinus tachycardia T wave abnormality, consider inferior ischemia T wave abnormality, consider anterolateral ischemia Abnormal ECG When compared with ECG of 25-Jun-2025 08:34, No significant changes seen Referred By: Paula Cruz Electronically Signed By: TRISHA OLEA
[2025-06-26 06:22] LABS: MANUAL DIFF FLAG NO
[2025-06-26 06:29] LABS: Hematocrit 40.8 % (37.0-47.0); Hemoglobin 13.5 g/dl (12.0-16.0); Imm Gran Abs Auto 0.08 X10*3/uL (0.00-0.03); Imm Gran Pct Auto 1.4 % (0.0-0.4); Lymphocytes Absolute Auto 0.9 X10*3/uL (1.2-4.9); Mean Corpuscular HGB Conc 33.1 g/dl (31.0-35.0); Mean Corpuscular Hemoglobin 28.8 pg (27.0-33.0); Mean Corpuscular Volume 87.0 fL (80.0-98.0); NRBC Abs Auto 0.000 X10*3/uL (0.0-0.012); NRBC Pct Auto 0.0 /100WBC (0.0-0.2); Platelet Count 541 X10*3/uL (160-400); Red Blood Count 4.69 X10*6/uL (4.20-5.50); White Blood Count 5.5 X10*3/uL (4.8-10.8)
[2025-06-26 06:47] LABS: Alanine Aminotransferase 28 U/L (0-31); Albumin Level 4.1 g/dL (3.5-5.0); Alkaline Phosphatase 90 U/L (39-117); Anion Gap 15 (12-20); Aspartate Amino Transferase 30 U/L (5-31); Blood Urea Nitrogen 14 mg/dL (9-16); Calcium 9.5 mg/dL (8.4-10.2); Carbon Dioxide 25 mmol/L (22-29); Chloride 104 mmol/L (96-108); Creatinine Clr Calc Pharmacy 105.7; Estimated Glomerular Filt Rate > 60; Magnesium 2.3 mg/dL (1.6-2.6); Potassium 3.4 mmol/L (3.3-5.1); Sodium 141 mmol/L (135-145); Total Protein 6.7 g/dL (6.5-8.0)
--- NOTE | 2025-06-26 07:22 | HO.PM.IMPN ---
Subjective Subjective Date of Service: 06/26/25 Interval History: No overnight events Patient is still technically discharged Awaiting a bed as of Friday Review of Systems Review of Systems: Yes all other systems are reviewed and are negative Physical Exam Exam: Exam: General: AOx3, significantly more awake and alert today Resp: CTA bilaterally CVS: S1, S2, RRR Skin: Warm, dry Psych: Confused-her baseline Vital Signs: Vital Signs: Last Vital Signs Temp 98.3 F 06/26/25 03:19 Pulse 95 06/26/25 03:19 Resp 16 06/26/25 03:19 BP 117/81 06/26/25 03:19 Pulse Ox 91 L 06/26/25 03:19 O2 Del Method Room Air 06/26/25 03:19 O2 Flow Rate 2 06/25/25 07:25 BMI result Body Mass Index 37.9 Objective Data Active Medications Acetaminophen (Acetaminophen Supp 650 Mg Supp.Rect) 650 mg AK Q6H PRN PRN Reason: Pain, Mild 1-3,fever,headache Acetaminophen (Acetaminophen 325 Mg Tablet) 650 mg PO Q6H PRN PRN Reason: Pain, Mild 1-3,fever,headache Last Admin: 06/24/25 21:40 Dose: 650 mg Documented By: CASTILCosta Calcium Carbonate (Calcium Carbonate 750 Mg Tab.Chew) 750 mg PO Q4H PRN PRN Reason: Heartburn Clopidogrel Bisulfate (Clopidogrel Bisulfate 75 Mg Tablet) 75 mg PO DAILY [facility] Last Admin: 06/25/25 07:39 Dose: 75 mg Documented By: RADHA Cyanocobalamin (Cyanocobalamin (Vitamin B-12) 1,000 Mcg Tablet) 1,000 mcg PO DAILY [facility] Last Admin: 06/25/25 07:39 Dose: 1,000 mcg Documented By: RADHA Docusate Sodium (Docusate Sodium 100 Mg Capsule) 100 mg PO BID [facility] Last Admin: 06/25/25 20:00 Dose: 100 mg Documented By: BA Enoxaparin Sodium (Enoxaparin Sodium 40 Mg/0.4 Ml Syringe) 40 mg SUBCUT Q24H [facility] Last Admin: 06/25/25 12:59 Dose: 40 mg Documented By: RADHA Ferrous Sulfate (Ferrous Sulfate 324 Mg Tablet.) 324 mg PO DAILY [facility] Last Admin: 06/25/25 07:39 Dose: 324 mg Documented By: RADHA Furosemide (Furosemide 20 Mg Tablet) 20 mg PO BID@0800,1400 [facility]; Protocol Last Admin: 06/25/25 12:59 Dose: 20 mg Documented By: RADHA Levalbuterol HCl (Levalbuterol Hcl 1.25 Mg/3 Ml Vial.Neb) 1.25 mg INHALE Q4H PRN PRN Reason: Shortness of Breath/Wheezing Magnesium Hydroxide (Milk Of Magnesia 30 Ml Oral.Susp) 30 ml PO DAILY PRN PRN Reason: Constipation Magnesium Oxide (Magnesium Oxide 400 Mg Tablet) 800 mg PO DAILY [facility] Last Admin: 06/25/25 12:59 Dose: 800 mg Documented By: RADHA Metoprolol Tartrate (Metoprolol Tartrate 25 Mg Tablet) 25 mg PO BID [facility]; Protocol Last Admin: 06/25/25 19:59 Dose: 25 mg Documented By: BA Multivitamins/Vitamin C (Multivitamin Tablet) 1 tab PO DAILY [facility] Last Admin: 06/25/25 07:40 Dose: 1 tab Documented By: RADHA Potassium Chloride (Potassium Chloride Er 20 Meq Tab.Er.Prt) 20 meq PO DAILY [facility] Last Admin: 06/25/25 07:40 Dose: 20 meq Documented By: RADHA Ropinirole HCl (Ropinirole Hcl 1 Mg Tablet) 1 mg PO BEDTIME [facility] Last Admin: 06/25/25 19:59 Dose: 1 mg Documented By: BA Sertraline HCl (Sertraline Hcl 50 Mg Tablet) 150 mg PO DAILY [facility] Last Admin: 06/25/25 07:39 Dose: 150 mg Documented By: RADHA Sodium Chloride (0.9 % Sodium Chloride Flush 3 Ml Syringe) 3 ml IVFLUSH QSHIFT [facility] Last Admin: 06/25/25 20:02 Dose: 3 ml Documented By: BA Labs 06/26/25 05:55 06/26/25 05:55 Labs: Laboratory Results - last 24 hr 06/25/25 06/25/25 06/25/25 07:35 08:53 10:53 MCV 85.7 MCH 28.1 MCHC 32.7 RDW 14.5 Plt Count 476 H D MPV 8.8 L Immature Gran % (Auto) 1.3 H Neut % (Auto) 67.6 Lymph % (Auto) 14.1 L Cuming % (Auto) 13.4 H Eos % (Auto) 2.9 Baso % (Auto) 0.7 Lymph # (Auto) 0.8 L Cuming # (Auto) 0.7 Eos # (Auto) 0.2 Baso # (Auto) 0.0 Abs Immat Gran (auto) 0.07 H Absolute Neuts (auto) 3.7 Absolute Nucleated RBC 0.000 Nucleated RBC % (auto) 0.0 Anion Gap 17 Estim Creat Clear Calc 121.7 Estimated GFR > 60 Random Glucose 100 Lactic Acid 1.4 Calcium 9.2 Magnesium 2.1 Total Bilirubin 0.4 AST 27 ALT 27 Alkaline Phosphatase 82 Total Protein 6.4 L Albumin 3.9 Nasal Screen MRSA (PCR) NEGATIVE Nasal S. aureus Screen NEGATIVE Nasal MRSA/S.aureus Interp SEE NOTE Respiratory Panel Castellanos See Note Adenovirus (Rapid PCR) Not Detected B.pert (TEM-PCR) Not Detected B.parapertussis DNA PCR Not Detected C. pneumoniae DNA (PCR) Not Detected Coronavirus OC43 (PCR) Not Detected Coronavirus HKU1 (PCR) Not Detected Coronavirus 229E (PCR) Not Detected Coronavirus NL63 (PCR) Not Detected Human Metapneumovir PCR Not Detected Influenza A (RT-PCR) Not Detected Influenza A (H1) PCR Not Detected Influ A (H1/09) PCR Not Detected Influenza A (H3) PCR Not Detected Influenza B (RT-PCR) Not Detected M. pneumoniae (PCR) Not Detected Parainfluenza 1 (PCR) Not Detected Parainfluenza 2 (PCR) Not Detected Parainfluenza 3 (PCR) Not Detected Parainfluenza 4 (PCR) Not Detected RSV (PCR) Not Detected Entero/Rhino (PCR) Not Detected SARS-CoV-2 RNA (RT-PCR) Not Detected 06/26/25 05:55 MCV 87.0 MCH 28.8 MCHC 33.1 RDW 14.6 Plt Count 541 H MPV 8.8 L Immature Gran % (Auto) 1.4 H Neut % (Auto) 63.9 Lymph % (Auto) 15.9 L Cuming % (Auto) 15.0 H Eos % (Auto) 3.4 Baso % (Auto) 0.4 Lymph # (Auto) 0.9 L Cuming # (Auto) 0.8 Eos # (Auto) 0.2 Baso # (Auto) 0.0 Abs Immat Gran (auto) 0.08 H Absolute Neuts (auto) 3.5 Absolute Nucleated RBC 0.000 Nucleated RBC % (auto) 0.0 Anion Gap 15 Estim Creat Clear Calc 105.7 Estimated GFR > 60 Random Glucose 97 Lactic Acid Calcium 9.5 Magnesium 2.3 Total Bilirubin 0.4 AST 30 ALT 28 Alkaline Phosphatase 90 Total Protein 6.7 Albumin 4.1 Nasal Screen MRSA (PCR) Nasal S. aureus Screen Nasal MRSA/S.aureus Interp Respiratory Panel Castellanos Adenovirus (Rapid PCR) B.pert (TEM-PCR) B.parapertussis DNA PCR C. pneumoniae DNA (PCR) Coronavirus OC43 (PCR) Coronavirus HKU1 (PCR) Coronavirus 229E (PCR) Coronavirus NL63 (PCR) Human Metapneumovir PCR Influenza A (RT-PCR) Influenza A (H1) PCR Influ A (H1/09) PCR Influenza A (H3) PCR Influenza B (RT-PCR) M. pneumoniae (PCR) Parainfluenza 1 (PCR) Parainfluenza 2 (PCR) Parainfluenza 3 (PCR) Parainfluenza 4 (PCR) RSV (PCR) Entero/Rhino (PCR) SARS-CoV-2 RNA (RT-PCR) Assessment and Plan (1) Bipolar affective, manic, severe w/ psych: Status: Acute (2) C. difficile colitis: Status: Acute Plan 65F PMH bipolar disorder, multiple sclerosis admitted from inpatient psychiatry for fevers, multiple loose stools found to be positive C diff and potassium of 2.4. Patient is medically, psychiatrically and care team cleared. Family lost the discharge appeal. Medically Optimized. Pulmonary edema - continue Lasix 20 po bid , inf work up unremarakable, quick recovery with lasix. AMS more awake today - unclear etiology of her altered mental status overall as extensive workup thus far has been unremarkable Multifactorial - psych component cannot be excluded 06/25/2025: Extensive workup for infectious, stroke, seizure, neurological, workup has thus far been negative. This has been relayed to the daughter on 06/21/2025 and 06/22/2025, 06/24/25 and in person with CM Caroline with HCP on 06/25/25. Spoke at length with the casework specialist present for the entirety of the conversation with the at bedside Explained to him that patient is deconditioned and hence the reason for her not responding , given age and other medical and psychiatric comorbidities Sepsis less likely as infectious workup unremarkable as of 06/25/2025 Nasal MRSA and viral panel negative-further confirming that there is no pneumonia or any viral infection Her hypoxia-is secondary to CLAUS and she needs to use CPAP Limit antibiotics given high-risk of C diff as she just is recovering from C diff and she completed treatment for C diff Limit fluids IV Patient less likely pneumonia as evidenced by quick resolution with Lasix, venous lactate 1.4, no leukocytosis. Patient does not have an obvious infectious etiology as she is not oxygen dependent, it gets placed on overnight for comfort and the family bili that she now oxygen dependent which we have demonstrated in his presents for over 30 minutes she does not need oxygen Again multiple time extensive explanation was given to the that medically her heart, lungs and GI and neuro are all addressed and she has been optimized. He is accepting that over the weekend, we'll have less answers and STR placements. The Discharge that was done yesterday still stands. CM and (HCP) updated and in agreement that we are awaiting their acceptance of a bed and medically and psychiatrically she is optimzed and needs rehab. Psychiatry and care team was consulted and they had cleared the patient with no further medical adjustments since Friday06/20/25. QTC prolongation - A/C - she is on many Psych meds - DC Zofran-use ativan prn for nausea (which she hasn't had), Reach out to Psych given her extensive complicated Psych history - awaiting input- they believe Sertraline has low QTC prolonging effect and doesnt need to be discontinued. We need Psych input for medication adjustment as discontinuing her home meds which have been challenging itself would cause her to have further destabilizing features. C diff colitis - s/p po vanc on 06/23/25 Flu A - s/p Tamiflu, repeat testing -ve for all viral panel severe acute hypokalemia- replaced hypomagnesemia- replaced, will be dc;d with Mg 400mg bid, She will be DC'd on Mg 400 BID and OP mx with Cardiology bipolar- continue sertraline, diazepam, prn ativan per home donya , care team and psych cleared the pt multiple sclerosis - stable per Neurology without new plaques in MRI takotsubo cardiomyopathy - continue metoprolol, outpatient follow up with Cardiology CLAUS- CPAP at night DVT prophylaxis with Lovenox full code reason for continued hospitalization:patient is medically optimized and PT recommends short-term rehab. Family lost the discharge appeal, currently waiting for state level logistics for short-term rehab placement. Medically Optimized. This note is constructed using voice recognition software. While every effort has been made to ensure accuracy, radio control crane operator errors may have been included. Total time managing care of this patient today: 105 minutes. Quality Stroke Does the patient have a stroke diagnosis?: No VTE Prior VTE?: No VTE Risk Level:: Medical - moderate - high VTE Device Contraindication: Treatment Not Indicated VTE Drug Contraindication: N/A - Med Ordered
[2025-06-26] MEDS: Potassium Chloride ER 20 MEQ TAB.ER.PRT PO (08:33)
[2025-06-26] MEDS: Ferrous Sulfate 324 MG TABLET.DR PO (08:34)
[2025-06-26] MEDS: 0.9 % Sodium Chloride Flush 3 ML SYRINGE IVFLUSH ×3 (08:34→20:02)
--- NOTE | 2025-06-26 10:21 | PC.NURSE ---
Dr. Dupree made aware pt HR up into the 140s ST, sustaining in 120s. Pt asymptomatic, no new orders at this time.
--- NOTE | 2025-06-26 12:12 | PC.NURSE ---
Family notified this RN that pt states she is feeling SOB. Upon assessment Temp 97.5, HR 114, RR 20, o2 99-94% on room air, pt respiratory effort even and non-labored. LS noted to have crackles in right LL but improved from yesterdays assessment. Per MD telephone order Lasix 40mg IVP.
[2025-06-26] MEDS: Furosemide 40 MG/4 ML VIAL IVPUSH (12:31)
--- NOTE | 2025-06-26 21:00 | PC.NURSE ---
2100: On initial assessment pt is able to tell me name and birthday, but is unable to explain where she is and why, pt reassured and reminded that she is in the hospital. pt is tachy on tele monitor satting around 120-130s, is reporting some CP and SOB. She unable to determine a number for CP. Paula SHAW made aware, orders placed. 2200: EKG taken, Rectal temp checked: Afebrile, LSC slightly diminished in the bases. O2 noted to be fluctuating while on CPAP, between high 80s & low 90s, Continuos O2 monitoring order and placed on patient. Appears to be stable at this time around 95%, Pt does report some mild anxiety at this time. 0030: CT scan taken, awaiting results, pt tolerated well. Ativan given to treat mild anxiety. 0200: HR at 97, O2 at 93% will continue to monitor. Paula SHAW made aware.
[2025-06-26 21:26] LABS: Venous Blood Gas Refer to POC result
[2025-06-26 21:27] LABS: VBG HCO3 24 mmol/L (22-26); VBG O2 % Saturation 98.0 %
[2025-06-26 21:29] LABS: Anion Gap 19 (12-20); Blood Urea Nitrogen 16 mg/dL (9-16); Calcium 10.0 mg/dL (8.4-10.2); Carbon Dioxide 22 mmol/L (22-29); Chloride 103 mmol/L (96-108); Creatinine Clr Calc Pharmacy 109.4; Estimated Glomerular Filt Rate > 60; Potassium 3.2 mmol/L (3.3-5.1); Sodium 141 mmol/L (135-145)
[2025-06-26 21:37] LABS: NT Pro B Type Natriuretic Pept 350.8 pg/mL (<300); Troponin-I High Sensitivity 4.4 ng/L (<3.5-17.0)
[2025-06-27] VITALS (18 sets, daily range): BP systolic 123–158; BP diastolic 75–96; PULSE 95–129; RESP 14–30; TEMP 36–36.8; O2SAT 92–95
[2025-06-27] MEDS: iohexoL 350 MG/ML 100 ML INFUS..BTL IV (00:16)
--- NOTE | 2025-06-27 01:06 | PM.EVENT ---
Event Note Date of Service: 06/27/25 Event Note: pt with tachycardia in the 120s-130s, complaining of chest pain but unable to describle as well as SOB. O2 fluctuating into the mid 80s to low 90s on bedtime CPAP. CPAP was re-adjusted and O2 improved. due to tachycardia and chest pain labs and chest CTA ordered. BMP with mild hypokalemia, repleated. BNP and trop normal. no fever, rectal temp 99.2. pt reported anxiety and was given 0.5mg ativan. CTA as below: 1. Bilateral reticular opacities, interstitial edema or infiltrate versus chronic interstitial lung change. 2. Patchy bilateral ground-glass opacities are present, possible infiltrates. 3. Limited pulmonary angiogram. No central or proximal segmental pulmonary embolism. 4. Incidentally noted left breast nodule. Dedicated nonemergent follow-up diagnostic mammographic evaluation may be helpful for further characterization if clinically indicated. findings appear to be chronic upon chart review, a febrile, no leukocytosis. HR improved with ativan. Time Spent With Patient Time: Total time managing care of this patient today ____ minutes.
[2025-06-27 06:17] LABS: MANUAL DIFF FLAG NO
[2025-06-27 06:30] LABS: Hematocrit 43.6 % (37.0-47.0); Hemoglobin 14.5 g/dl (12.0-16.0); Imm Gran Abs Auto 0.07 X10*3/uL (0.00-0.03); Imm Gran Pct Auto 1.1 % (0.0-0.4); Lymphocytes Absolute Auto 1.2 X10*3/uL (1.2-4.9); Mean Corpuscular HGB Conc 33.3 g/dl (31.0-35.0); Mean Corpuscular Hemoglobin 28.8 pg (27.0-33.0); Mean Corpuscular Volume 86.7 fL (80.0-98.0); NRBC Abs Auto 0.000 X10*3/uL (0.0-0.012); NRBC Pct Auto 0.0 /100WBC (0.0-0.2); Platelet Count 628 X10*3/uL (160-400); Red Blood Count 5.03 X10*6/uL (4.20-5.50); White Blood Count 6.2 X10*3/uL (4.8-10.8)
[2025-06-27 06:37] LABS: Alanine Aminotransferase 36 U/L (0-31); Albumin Level 4.3 g/dL (3.5-5.0); Alkaline Phosphatase 95 U/L (39-117); Anion Gap 18 (12-20); Aspartate Amino Transferase 37 U/L (5-31); Blood Urea Nitrogen 18 mg/dL (9-16); Calcium 9.9 mg/dL (8.4-10.2); Carbon Dioxide 24 mmol/L (22-29); Chloride 103 mmol/L (96-108); Creatinine Clr Calc Pharmacy 104.0; Estimated Glomerular Filt Rate > 60; Magnesium 2.2 mg/dL (1.6-2.6); Potassium 3.4 mmol/L (3.3-5.1); Sodium 142 mmol/L (135-145); Total Protein 7.1 g/dL (6.5-8.0)
--- NOTE | 2025-06-27 07:49 | PM.DS ---
DS: Providers Provider Date of Service: 06/27/25 Date of admission: 06/14/25 15:13 Date of discharge: 06/27/25 Primary care physician: Festus Multani MD Consults: 06/14/25 15:47 Consult to Infectious Diseases Routine Consulting Provider: [facility] [place] Infectious Disease Center Reason for consultation: c diff colitis Has provider been notified: No 06/19/25 08:30 Inpt CARE Team Crisis Consult Routine Comment: Reason for consultation: medically clear, came from geripsych (bipolar with psychosis) 06/19/25 12:49 Consult to Psychiatry Routine Consulting Provider: [facility] [place] Psych Covering Reason for consultation: requested by care team, ?dispo 06/20/25 00:21 Consult to Wound Care Routine Consulting Provider: [facility] [place] Wound Care Management Reason for consultation: right buttock stage II 06/21/25 10:18 Consult to Neurology Routine Consulting Provider: [facility] [place] [place] Reason for consultation: family thinks she is likely having neuro disconnect , not psych etiology, 06/21/25 10:19 Consult to Psychiatry Routine Consulting Provider: [facility] [place] Psych Covering Reason for consultation: family not receptive of psych meds adjustment and want more input 06/25/25 10:17 Consult to Psychiatry Routine Consulting Provider: [facility] [place] Psych Covering Reason for consultation: Med adjustment and family would like to consult with Psych DS: Diagnosis Discharge Diagnosis (1) Bipolar affective, manic, severe w/ psych: Status: Acute (2) C. difficile colitis: Status: Acute DS: Summary Hospital Course Hospital Course: Per H&P: 65-year-old female with a past medical history of bipolar disorder, multiple sclerosis, recently brought to the emergency department for mental status changes. Patient was tachypneic and tachycardic on arrival to the ED, her chest x-ray demonstrated atelectasis, her brain CT was with no acute changes she was found to have metabolic encephalopathy secondary to anion gap metabolic acidosis secondary to starvation ketosis. She was treated with IV fluids, her mental status was improved. Her EKG was negative, she had a CTA of her head that was negative, she was seen by Neurology and felt that her presentation was unlikely due to an MS exacerbation. Possibly dementia related to the MS. An MRI was not done due to likelihood that it would not provide clinically useful information. She was seen by Cardiology due to elevated troponin, who added Plavix, beta-scottie and continue the statin. Patient continued with behavioral outbursts, subsequently admitted inpatient [facility] for further care and treatment. Upon admission to [facility] patient reportedly multiple loose stools, stool specimen revealed a positive C diff infection. Labs revealed potassium level of 2.4. On exam patient denies any discomfort, her abdominal exam is benign. Hospital course 65F PMH bipolar disorder, multiple sclerosis admitted from inpatient psychiatry for fevers, multiple loose stools found to be positive C diff and potassium of 2.4. Resolved completed treatment. Patient is medically, psychiatrically and care team cleared. Short-term rehab was recommended by CALLIE garcia. 06/25/2025: Extensive workup for infectious, stroke, seizure, neurological, workup has thus far been negative. This has been relayed to the daughter on 06/21/2025 and 06/22/2025, 06/24/25 and in person with CM Caroline with HCP on 06/25/25. Spoke at length with the case filler present for the entirety of the conversation with the at bedside Explained to him that patient is deconditioned and hence the reason for her not responding , given age and other medical and psychiatric comorbidities Sepsis less likely as infectious workup unremarkable as of 06/25/2025 PE r/o given -ve CTA PE protocol done on 06/16/25, blood gases unremarkable Nasal MRSA and viral panel negative-further confirming that there is no pneumonia or any viral infection Her hypoxia-is secondary to CLAUS and she needs to use CPAP Limit antibiotics given high-risk of C diff as she just is recovering from C diff and she completed treatment for C diff Limit fluids IV as she is high risk of developing Pulm edema Patient less likely pneumonia as evidenced by quick resolution with Lasix, venous lactate 1.4, no leukocytosis. Patient does not have an obvious infectious etiology as she is not oxygen dependent, it gets placed on overnight for comfort and the family bili that she now oxygen dependent which we have demonstrated in his presents for over 30 minutes she does not need oxygen Again multiple time extensive explanation was given to the that medically her heart, lungs and GI and neuro are all addressed and she has been optimized. He is accepting that over the weekend, we'll have less answers and STR placements. The Discharge that was done Friday still stands. Expected length of stay <30 days at the rehab CM and (HCP) updated and in agreement that we are awaiting their acceptance of a bed and medically and psychiatrically she is optimzed and needs rehab. Psychiatry and care team was consulted and they had cleared the patient with no further medical adjustments since Friday06/20/25. QTC prolongation - A/C - she is on many Psych meds - DC Zofran-use ativan prn for nausea (which she hasn't had), Reach out to Psych given her extensive complicated Psych history - awaiting input- they believe Sertraline has low QTC prolonging effect and doesnt need to be discontinued. We need Psych input for medication adjustment as discontinuing her home meds which have been challenging itself would cause her to have further destabilizing features. Pulm edema - Takotsubo cardiomyopathy - Lasix 40 po bid , facility to check electrolytes and repleted C diff colitis - s/p po vanc on 06/23/25 Flu A - s/p Tamiflu, repeat testing -ve for all viral panel severe acute hypokalemia- replaced hypomagnesemia- replaced, will be dc;d with Mg 400mg bid, She will be DC'd on Mg 400 BID and OP mx with Cardiology bipolar- continue sertraline, diazepam, prn ativan per home donya , care team and psych cleared the pt multiple sclerosis - stable per Neurology without new plaques in MRI takotsubo cardiomyopathy - continue metoprolol, outpatient follow up with Cardiology CLAUS- CPAP at night- she doesnt toleate it well Incidentally noted left breast nodule. Dedicated nonemergent follow-up diagnostic mammographic evaluation may be helpful for further characterization if clinically indicated. DVT prophylaxis with Lovenox full code reason for continued hospitalization:patient is medically optimized and PT recommends short-term rehab. Family lost the discharge appeal, currently waiting for state level logistics for short-term rehab placement. Medically Optimized. This note is constructed using voice recognition software. While every effort has been made to ensure accuracy, mathematics education professor errors may have been included. Time spent discussing smoking cessation with patient: more than 10 minutes Status at Discharge Functional status at discharge: bed bound Overall status at discharge: patient is progressing back to baseline Time Attestation Discharge Coordination Time (in mins): 105 Quality: Safe Use of Opioids Does Pt have an Active Cancer Diagnosis on the Problem List?: No Quality: Stroke Does the patient have a stroke diagnosis?: No Physical Exam Vital Signs: Vital Signs: Last Vital Signs Temp 98.1 F 06/27/25 07:07 Pulse 116 H 06/27/25 07:07 Resp 18 06/27/25 07:07 BP 145/88 H 06/27/25 07:07 Pulse Ox 93 06/27/25 07:07 O2 Del Method Room Air 06/27/25 07:07 O2 Flow Rate 2 06/25/25 07:25 BMI result Body Mass Index 37.9 DS: Data Data Completed and Pending Labs on day of discharge: Laboratory Results - last 24 hr 06/26/25 06/26/25 06/27/25 21:12 21:16 05:53 WBC 6.2 RBC 5.03 Hgb 14.5 Hct 43.6 MCV 86.7 MCH 28.8 MCHC 33.3 RDW 14.5 Plt Count 628 H MPV 8.8 L Immature Gran % (Auto) 1.1 H Neut % (Auto) 61.6 Lymph % (Auto) 19.0 L Whitley % (Auto) 15.6 H Eos % (Auto) 2.1 Baso % (Auto) 0.6 Lymph # (Auto) 1.2 Whitley # (Auto) 1.0 Eos # (Auto) 0.1 Baso # (Auto) 0.0 Abs Immat Gran (auto) 0.07 H Absolute Neuts (auto) 3.8 Absolute Nucleated RBC 0.000 Nucleated RBC % (auto) 0.0 VBG pH 7.61 H* VBG pCO2 23 VBG pO2 88 VBG HCO3 24 VBG O2 Saturation 98.0 VBG Base Excess 4.6 Sodium 141 142 Potassium 3.2 L 3.4 Chloride 103 103 Carbon Dioxide 22 24 Anion Gap 19 18 BUN 16 18 H Creatinine 0.59 0.62 Estim Creat Clear Calc 109.4 104.0 Estimated GFR > 60 > 60 Random Glucose 114 104 Calcium 10.0 9.9 Magnesium 2.2 Total Bilirubin 0.4 AST 37 H ALT 36 H Alkaline Phosphatase 95 Troponin I High Sens 4.4 D NT-Pro-B Natriuret Pep 350.8 H Total Protein 7.1 Albumin 4.3 Discharge Plan Discharge Anticipated Discharge Date/Time: 06/24/25 12:34 Patient Disposition: Xfer SNF Discharge Diagnosis: AMS multifactorial metabolic, MS , psychiatric, baseline dementia, prior SI, IP admissions ,deconditioning,Bipolar disorder, current episode manic without psychotic features, moderate, status post flu and C diff Referrals: Marcelo Cunningham MD [Physician, Psychiatry] - 1 Week yTler Klein MD [Physician, Psychology] - 1 Week Emma Ramírez MD [Physician, Infectious Disease] - 1 Week Festus Multani MD [Primary Care Provider, Internal Medicine] - 1 Week Physician,Daniel J [Physician, Medical] - 1 Week Discharge Medications: Continued Zepbound 2.5 mg/0.5 mL pen injector 2.5 mg subcut MO acetaminophen 325 mg Tablet 650 mg PO Q6H PRN (Reason: Headache/Pain, Scale 1-10) Qty: 0 0RF ropinirole 1 mg Tablet 1 mg PO BEDTIME Qty: 0 0RF cyanocobalamin (vitamin B-12) [Vitamin B-12] 1,000 mcg Tablet 1,000 mcg PO DAILY Qty: 0 0RF Antacid Ext Str (calcium carb) 300 mg (750 mg) Tablet,Chewable 2.5 tab PO QID PRN (Reason: Indigestion) Qty: 0 0RF melatonin 3 mg Tablet 9 mg PO BEDTIME Qty: 0 0RF clopidogrel 75 mg Tablet 75 mg PO DAILY Qty: 0 0RF diazepam 2 mg Tablet 2 mg PO TID Qty: 0 0RF nystatin [Nyamyc] 100,000 unit/gram Powder 1 appl topical BID Qty: 0 0RF Protocol: Apply to: Apply to: affect area sertraline 50 mg Tablet 150 mg PO DAILY Qty: 0 0RF metoprolol tartrate 25 mg Tablet 25 mg PO BID Qty: 0 0RF Protocol: Hold for SBP/HR < HOLD for SBP < : 90 HOLD for HR < : 60 ferrous sulfate 324 mg (65 mg iron) Tablet,Delayed Release (Dr/Ec) 324 mg PO DAILY Qty: 0 0RF multivitamin [Daily-Kourtney] Tablet 1 tab PO DAILY Qty: 0 0RF Discontinued metoprolol tartrate 25 mg Tablet 25 mg PO BID Qty: 1 0RF Protocol: Hold for SBP/HR < HOLD for SBP < : 90 HOLD for HR < : 60 vancomycin 125 mg Capsule 125 mg PO Q6H Qty: 0 0RF baclofen 20 mg Tablet 20 mg PO BID Qty: 0 0RF Discharge Orders: Discharge Order (Routine); Ordered 06/24/25 Ordered By: Marina Dupree Diet: Low salt diet Activity on Discharge: As tolerated Stand Alone Forms: Patient Portal Discharge page Print Language: Latvian Care Plan Goals: Patient had extensive workup for her family's concern of acute altered mental status and deconditioning Significant metabolic and organic causes were ruled out with imaging CT scan, MRI, EEG, multispecialty input from ID, neuro, psychiatry, care team medicine team and respiratory therapy. Her psychiatric medications-per patient's family's concerns, baclofen was discontinued as they were concerned it might be contributing to her somnolence, without any effect. PT evaluated the patient and recommended short-term rehab given her deconditioning Patient completed treatment for flu with oseltamivir Patient completed C diff treatment with vancomycin p.o. 10 day course during this hospitalization Metoprolol was a duplicate hence it has been discontinued Health Concerns: Family had significant concerns and I have answered their questions every day over the phone and explained to them the pathophysiology and the workup in detail about any reversible causes of altered mental status. Family still not accepting about her status. Plan of Treatment: Discontinued baclofen per family's request PTOT Follow up with outpatient psychiatry for medication titration Assessment: See above
[2025-06-27] MEDS: Potassium Chloride ER 20 MEQ TAB.ER.PRT PO (09:34)
[2025-06-27] MEDS: Ferrous Sulfate 324 MG TABLET.DR PO (09:35)
[2025-06-27] MEDS: 0.9 % Sodium Chloride Flush 3 ML SYRINGE IVFLUSH ×3 (09:37→21:06)
[2025-06-27 13:21] LABS: Glucose, Whole Blood 111 mg/dL (60-115)
--- NOTE | 2025-06-27 13:27 | PC.RT ---
Rapid response called. Pt SATs 98% on RA, RR 30's. MD ordered ABG, RTs attempted x2, MD requested VBG instead. VBG drawn by phlebotomy, ran by RT an results given to .
--- NOTE | 2025-06-27 13:28 | ECG_ITS ---
Test Reason : Sinus tach. Blood Pressure : */* mmHG Vent. Rate : 125 BPM Atrial Rate : 125 BPM P-R Int : 120 ms QRS Dur : 80 ms QT Int : 336 ms P-R-T Axes : 57 15 221 degrees QTcB Int : 484 ms Sinus tachycardia T wave abnormality, consider inferior ischemia T wave abnormality, consider anterolateral ischemia Abnormal ECG When compared with ECG of 26-Jun-2025 21:07, No significant changes seen Referred By: Marina Dupree Electronically Signed By: TRISHA OLEA
[2025-06-27 13:30] LABS: VBG HCO3 23 mmol/L (22-26); VBG O2 % Saturation 59.0 %
[2025-06-27 13:48] LABS: Hematocrit 45.6 % (37.0-47.0); Hemoglobin 15.4 g/dl (12.0-16.0); Mean Corpuscular HGB Conc 33.8 g/dl (31.0-35.0); Mean Corpuscular Hemoglobin 28.8 pg (27.0-33.0); Mean Corpuscular Volume 85.2 fL (80.0-98.0); NRBC Abs Auto 0.000 X10*3/uL (0.0-0.012); NRBC Pct Auto 0.0 /100WBC (0.0-0.2); Platelet Count 786 X10*3/uL (160-400); Red Blood Count 5.35 X10*6/uL (4.20-5.50); White Blood Count 8.8 X10*3/uL (4.8-10.8)
[2025-06-27 13:59] LABS: Alanine Aminotransferase 39 U/L (0-31); Albumin Level 4.6 g/dL (3.5-5.0); Alkaline Phosphatase 103 U/L (39-117); Anion Gap 21 (12-20); Aspartate Amino Transferase 37 U/L (5-31); Blood Urea Nitrogen 19 mg/dL (9-16); Calcium 10.4 mg/dL (8.4-10.2); Carbon Dioxide 22 mmol/L (22-29); Chloride 104 mmol/L (96-108); Creatinine Clr Calc Pharmacy 92.1; Estimated Glomerular Filt Rate > 60; Magnesium 2.1 mg/dL (1.6-2.6); Potassium 3.6 mmol/L (3.3-5.1); Sodium 143 mmol/L (135-145); Total Protein 7.6 g/dL (6.5-8.0)
[2025-06-27 14:00] LABS: Troponin-I High Sensitivity 5.8 ng/L (<3.5-17.0)
--- NOTE | 2025-06-27 14:53 | MHC.CM.PN ---
mitch coming on site for a review
--- NOTE | 2025-06-27 15:00 | PC.NURSE ---
Addendum entered by Darwin Bernard RN 06/27/25 20:45: No further complaints of chest pain. Repeat vitals signs improved. Respirations even and unlabored. Patient stable on RA. No transfer necessary per MD. Patient alert and oriented to self, place, and time. Calm and cooperative with medications and care. See provider's event note for further details. Original Note: Approximately 1312, patient's family member alerted staff to patient being lethargic and unresponsive. This RN arrived to bedside where MADISON Quigley was verbally calling out the patient's name and shaking her arm to which the patient did not respond. This RN then performed sternal rubs while verbally calling out patient's name without success. 1315: Rapid response was initiated. Providers Dr. Dupree, Dr. Alcala, OPHTHALMIC NURSE April Nur, and PA Elmer Mcgraw arrived to bedside along with HOT DIP PLATER July Joshi and Med-telephone betting clerk Jessica Chavira, and RT Jonah Caraballo. Vital signs obtained- and stable. Patient was hyperventilating, but no difficulty breathing noted. Eyes were closed and patient was not alert. Upon arrival to bedside, COLIN Nur began assessing the patient. Patient opened eyes and began verbally responding to questions, answering appropriately. Patient endorsed chest pain. Multiple lab tests and EKG ordered and obtained. POC obtained. Patient stable and resting in bed. Lab and EKG results reviewed with Dr. Dupree. One time dose of IV push Lopressor and once time dose of PO lorazepam ordered. Discussed medications with patient who expressed verbal understanding. Patient reported positive effect previous shift with lorazepam decreasing her anxiety. Patient was agreeable to take this medications. Medications administered- see MAR for details. Patient reported positive effect after administration of lorazepam.
[2025-06-27 15:36] LABS: Reflex Lactate? Lactic Acid Added
--- NOTE | 2025-06-27 15:38 | P.EN_ITS ---
Event Note Date of Service: 06/27/25 Event Note: WHITE LEAD FILTERER was called for unresponsiveness Vitals stable-not hypoxic on room air When I went to see the patient the was recording with his camera We did a VBG which showed hyperventilation Labs suggestive of lactic acidosis likely in the setting of hyperventilation EKG QTC prolongation resolved, thus far overnight she also had a CTA PE protocol which ruled out a PE Patient continues to endorse intermittent chest pain and ACS has been ruled out multiple times Patient within an hour was sitting up and interactive and was able to take Ativan without any difficulty Patient's stated ?I have been here since 11:00 and no one has fed my , this is an acceptable Patient's when I addressed him and asked if he had any questions in the presence of the entire clinical team I do not even know what to ask, she needs to go to ICU should she go to ICU? Was told that the family is appealing again (they had a pill and apparently lost last Friday), please refer to the lining caser's note Unsure if the patient's continue to record as it was facing the patient and her was sitting on the chair behind me. We have ruled out any organic causes cardiac, pulmonary, neuro, infectious. I have explained at length that patient does not need oxygen as evidenced by multiple investive workup-sepsis, imaging We believe it is still psychiatric in etiology as the patient has extensive psychiatric history with waxing waning degree of participation without a medical etiology Explained again that her needing oxygen is more to do with comfort overnight rather than her actually needing oxygen as we have had repeated similar episodes Cardiology-curb sided-patient has takotsubo, the T-wave inversions we will be chronic and we will take time to resolve Patient does endorse occasional intermittent chest pain and thus far multiple almost daily workup has been negative for ACS No medical explanation for patient's and family's presentation as she has been treated for flu a and C diff colitis for which she was transferred from [facility] as of last Friday06/20/2025 Time Spent With Patient Time: Total time managing care of this patient today ____ minutes.
[2025-06-27 16:42] LABS: ~Lactic Acid-LAB USE ONLY 2.2 mmol/L (0.5-2.0)
[2025-06-27 17:52] LABS: Reflex Lactate? 2 Y
[2025-06-27 18:56] LABS: ~Lactic Acid-LAB USE ONLY 2.3 mmol/L (0.5-2.0)
--- NOTE | 2025-06-27 21:46 | PC.NURSE ---
During 20:00 vitals pts HR noted to be 124. BP 124/77. Temp 97.8. O2 sat 93% on CPAP. LINSEY Cruz notified via [facility]. LINSEY ordered one time dose of PO Ativan. Administered. Scheduled metoprolol administered as well. Pt currently resting in bed w/ CPAP on. Call adamson within reach and safety measures in place.
--- NOTE | 2025-06-27 23:04 | PC.NURSE ---
PO Ativan had good effect, pt's HR is 96. NSR. CPAP on. Respirations even and unlabored. Resting in bed. Call adamson within reach. Safety measures in place.
[2025-06-28] VITALS (9 sets, daily range): BP systolic 123–148; BP diastolic 63–83; PULSE 99–143; RESP 16–18; TEMP 36.1–36.8; O2SAT 91–97
[2025-06-28 05:41] LABS: MANUAL DIFF FLAG NO
[2025-06-28 05:44] LABS: Hematocrit 42.7 % (37.0-47.0); Hemoglobin 14.2 g/dl (12.0-16.0); Imm Gran Abs Auto 0.07 X10*3/uL (0.00-0.03); Imm Gran Pct Auto 1.1 % (0.0-0.4); Lymphocytes Absolute Auto 1.2 X10*3/uL (1.2-4.9); Mean Corpuscular HGB Conc 33.3 g/dl (31.0-35.0); Mean Corpuscular Hemoglobin 28.3 pg (27.0-33.0); Mean Corpuscular Volume 85.1 fL (80.0-98.0); NRBC Abs Auto 0.000 X10*3/uL (0.0-0.012); NRBC Pct Auto 0.0 /100WBC (0.0-0.2); Platelet Count 611 X10*3/uL (160-400); Red Blood Count 5.02 X10*6/uL (4.20-5.50); White Blood Count 6.2 X10*3/uL (4.8-10.8)
[2025-06-28 06:14] LABS: Alanine Aminotransferase 41 U/L (0-31); Albumin Level 4.3 g/dL (3.5-5.0); Alkaline Phosphatase 93 U/L (39-117); Anion Gap 16 (12-20); Aspartate Amino Transferase 37 U/L (5-31); Blood Urea Nitrogen 20 mg/dL (9-16); Calcium 9.7 mg/dL (8.4-10.2); Carbon Dioxide 26 mmol/L (22-29); Chloride 100 mmol/L (96-108); Creatinine Clr Calc Pharmacy 96.3; Estimated Glomerular Filt Rate > 60; Magnesium 2.3 mg/dL (1.6-2.6); Potassium 2.8 mmol/L (3.3-5.1); Sodium 139 mmol/L (135-145); Total Protein 6.9 g/dL (6.5-8.0)
[2025-06-28] MEDS: Potassium Chloride ER 20 MEQ TAB.ER.PRT PO ×2 (06:19→09:09)
--- NOTE | 2025-06-28 07:29 | P.PNIM_ITS ---
Subjective Subjective Date of Service: 06/28/25 Interval History: Pt HDS , no acute events overnight Physical Exam 2 Vital Signs: Vital Signs: Last Vital Signs Temp 97.7 F 06/28/25 04:00 Pulse 109 H 06/28/25 04:00 Resp 18 06/28/25 04:00 BP 128/65 06/28/25 04:00 Pulse Ox 94 06/28/25 04:00 O2 Del Method CPAP 06/28/25 04:00 O2 Flow Rate 2 06/25/25 07:25 BMI result Body Mass Index 37.9 Objective Data Current Medications Acetaminophen (Acetaminophen Supp 650 Mg Supp.Rect) 650 mg AK Q6H PRN PRN Reason: Pain, Mild 1-3,fever,headache Acetaminophen (Acetaminophen 325 Mg Tablet) 650 mg PO Q6H PRN PRN Reason: Pain, Mild 1-3,fever,headache Last Admin: 06/24/25 21:40 Dose: 650 mg Calcium Carbonate (Calcium Carbonate 750 Mg Tab.Chew) 750 mg PO Q4H PRN PRN Reason: Heartburn Clopidogrel Bisulfate (Clopidogrel Bisulfate 75 Mg Tablet) 75 mg PO DAILY [facility] Last Admin: 06/27/25 09:35 Dose: 75 mg Cyanocobalamin (Cyanocobalamin (Vitamin B-12) 1,000 Mcg Tablet) 1,000 mcg PO DAILY [facility] Last Admin: 06/27/25 09:35 Dose: 1,000 mcg Docusate Sodium (Docusate Sodium 100 Mg Capsule) 100 mg PO BID [facility] Last Admin: 06/27/25 21:06 Dose: 100 mg Enoxaparin Sodium (Enoxaparin Sodium 40 Mg/0.4 Ml Syringe) 40 mg SUBCUT Q24H [facility] Last Admin: 06/27/25 16:44 Dose: 40 mg Ferrous Sulfate (Ferrous Sulfate 324 Mg Tablet.) 324 mg PO DAILY [facility] Last Admin: 06/27/25 09:35 Dose: 324 mg Furosemide (Furosemide 40 Mg Tablet) 40 mg PO BID@0800,1400 [facility]; Protocol Last Admin: 06/27/25 16:45 Dose: 40 mg Potassium Chloride (Potassium Chloride/H20) 10 meq in 100 mls @ 100 mls/hr IV Q1H [facility] Stop: 06/28/25 11:29 Levalbuterol HCl (Levalbuterol Hcl 1.25 Mg/3 Ml Vial.Neb) 1.25 mg INHALE Q4H PRN PRN Reason: Shortness of Breath/Wheezing Magnesium Hydroxide (Milk Of Magnesia 30 Ml Oral.Susp) 30 ml PO DAILY PRN PRN Reason: Constipation Magnesium Oxide (Magnesium Oxide 400 Mg Tablet) 800 mg PO DAILY [facility] Last Admin: 06/27/25 09:35 Dose: 800 mg Metoprolol Tartrate (Metoprolol Tartrate 25 Mg Tablet) 25 mg PO BID [facility]; Protocol Last Admin: 06/27/25 21:06 Dose: 25 mg Multivitamins/Vitamin C (Multivitamin Tablet) 1 tab PO DAILY [facility] Last Admin: 06/27/25 09:35 Dose: 1 tab Potassium Chloride (Potassium Chloride Er 20 Meq Tab.Er.Prt) 20 meq PO DAILY [facility] Last Admin: 06/27/25 09:34 Dose: 20 meq Potassium Chloride (Potassium Chloride Er 20 Meq Tab.Er.Prt) 40 meq PO ONCE ONE Stop: 06/28/25 07:28 Ropinirole HCl (Ropinirole Hcl 1 Mg Tablet) 1 mg PO BEDTIME [facility] Last Admin: 06/27/25 21:06 Dose: 1 mg Sertraline HCl (Sertraline Hcl 50 Mg Tablet) 150 mg PO DAILY [facility] Last Admin: 06/27/25 09:35 Dose: 150 mg Sodium Chloride (0.9 % Sodium Chloride Flush 3 Ml Syringe) 3 ml IVFLUSH QSHIFT [facility] Last Admin: 06/27/25 21:06 Dose: 3 ml Labs 06/28/25 05:27 06/28/25 05:27 Labs: Laboratory Results - last 24 hr 06/27/25 06/27/25 06/27/25 13:17 13:27 13:30 MCV 85.2 MCH 28.8 MCHC 33.8 RDW 14.5 Plt Count 786 H D MPV 8.9 L Immature Gran % (Auto) Neut % (Auto) Lymph % (Auto) Osborne % (Auto) Eos % (Auto) Baso % (Auto) Lymph # (Auto) Osborne # (Auto) Eos # (Auto) Baso # (Auto) Abs Immat Gran (auto) Absolute Neuts (auto) Absolute Nucleated RBC 0.000 Nucleated RBC % (auto) 0.0 Hold Blue Top SEE NOTE VBG pH 7.68 H* VBG pCO2 19 VBG pO2 35 VBG HCO3 23 VBG O2 Saturation 59.0 VBG Base Excess 5.6 Anion Gap 21 H Estim Creat Clear Calc 92.1 Estimated GFR > 60 POC Glucose 111 Random Glucose 108 Lactic Acid 3.4 H* Lactic Acid F/U @ 2Hr Lactic Acid F/U @ 4Hr Calcium 10.4 H Magnesium 2.1 Total Bilirubin 0.5 AST 37 H ALT 39 H Alkaline Phosphatase 103 Troponin I High Sens 5.8 Total Protein 7.6 Albumin 4.6 06/27/25 06/27/25 06/28/25 15:49 18:17 05:27 MCV 85.1 MCH 28.3 MCHC 33.3 RDW 14.3 Plt Count 611 H MPV 8.8 L Immature Gran % (Auto) 1.1 H Neut % (Auto) 63.8 Lymph % (Auto) 18.7 L Osborne % (Auto) 14.0 H Eos % (Auto) 1.8 Baso % (Auto) 0.6 Lymph # (Auto) 1.2 Osborne # (Auto) 0.9 Eos # (Auto) 0.1 Baso # (Auto) 0.0 Abs Immat Gran (auto) 0.07 H Absolute Neuts (auto) 4.0 Absolute Nucleated RBC 0.000 Nucleated RBC % (auto) 0.0 Hold Blue Top VBG pH VBG pCO2 VBG pO2 VBG HCO3 VBG O2 Saturation VBG Base Excess Anion Gap 16 Estim Creat Clear Calc 96.3 Estimated GFR > 60 POC Glucose Random Glucose 105 Lactic Acid Lactic Acid F/U @ 2Hr 2.2 H* Lactic Acid F/U @ 4Hr 2.3 H* Calcium 9.7 D Magnesium 2.3 Total Bilirubin 0.5 AST 37 H ALT 41 H Alkaline Phosphatase 93 Troponin I High Sens Total Protein 6.9 Albumin 4.3 Microbiology Microbiology Results: Microbiology 06/14/25 16:31 Blood - Venous Blood Culture - Final No growth after 5 days. 06/14/25 16:31 Blood - Venous Blood Culture - Final No growth after 5 days. Quality Stroke Does the patient have a stroke diagnosis?: No VTE Prior VTE?: No VTE Risk Level:: Medical - moderate - high VTE Device Contraindication: Treatment Not Indicated VTE Drug Contraindication: N/A - Med Ordered
--- NOTE | 2025-06-28 07:34 | HO.PM.IMPN ---
Subjective Subjective Date of Service: 06/28/25 Physical Exam Exam: Exam: General: AOx3, significantly more awake and alert today Resp: CTA bilaterally CVS: S1, S2, RRR Skin: Warm, dry Psych: Confused-her baseline Vital Signs: Vital Signs: Last Vital Signs Temp 97.7 F 06/28/25 04:00 Pulse 109 H 06/28/25 04:00 Resp 18 06/28/25 04:00 BP 128/65 06/28/25 04:00 Pulse Ox 94 06/28/25 04:00 O2 Del Method CPAP 06/28/25 04:00 O2 Flow Rate 2 06/25/25 07:25 BMI result Body Mass Index 37.9 Objective Data Active Medications Acetaminophen (Acetaminophen Supp 650 Mg Supp.Rect) 650 mg GA Q6H PRN PRN Reason: Pain, Mild 1-3,fever,headache Acetaminophen (Acetaminophen 325 Mg Tablet) 650 mg PO Q6H PRN PRN Reason: Pain, Mild 1-3,fever,headache Last Admin: 06/24/25 21:40 Dose: 650 mg Documented By: GIGI Calcium Carbonate (Calcium Carbonate 750 Mg Tab.Chew) 750 mg PO Q4H PRN PRN Reason: Heartburn Clopidogrel Bisulfate (Clopidogrel Bisulfate 75 Mg Tablet) 75 mg PO DAILY [facility] Last Admin: 06/27/25 09:35 Dose: 75 mg Documented By: KAILA Cyanocobalamin (Cyanocobalamin (Vitamin B-12) 1,000 Mcg Tablet) 1,000 mcg PO DAILY [facility] Last Admin: 06/27/25 09:35 Dose: 1,000 mcg Documented By: KAILA Docusate Sodium (Docusate Sodium 100 Mg Capsule) 100 mg PO BID [facility] Last Admin: 06/27/25 21:06 Dose: 100 mg Documented By: REBECCA Enoxaparin Sodium (Enoxaparin Sodium 40 Mg/0.4 Ml Syringe) 40 mg SUBCUT Q24H [facility] Last Admin: 06/27/25 16:44 Dose: 40 mg Documented By: KAILA Ferrous Sulfate (Ferrous Sulfate 324 Mg Tablet.) 324 mg PO DAILY [facility] Last Admin: 06/27/25 09:35 Dose: 324 mg Documented By: KAILA Furosemide (Furosemide 40 Mg Tablet) 40 mg PO BID@0800,1400 [facility]; Protocol Last Admin: 06/27/25 16:45 Dose: 40 mg Documented By: KAILA Potassium Chloride (Potassium Chloride/H20) 10 meq in 100 mls @ 100 mls/hr IV Q1H [facility] Stop: 06/28/25 11:29 Levalbuterol HCl (Levalbuterol Hcl 1.25 Mg/3 Ml Vial.Neb) 1.25 mg INHALE Q4H PRN PRN Reason: Shortness of Breath/Wheezing Magnesium Hydroxide (Milk Of Magnesia 30 Ml Oral.Susp) 30 ml PO DAILY PRN PRN Reason: Constipation Magnesium Oxide (Magnesium Oxide 400 Mg Tablet) 800 mg PO DAILY [facility] Last Admin: 06/27/25 09:35 Dose: 800 mg Documented By: KAILA Metoprolol Tartrate (Metoprolol Tartrate 25 Mg Tablet) 25 mg PO BID [facility]; Protocol Last Admin: 06/27/25 21:06 Dose: 25 mg Documented By: REBECCA Multivitamins/Vitamin C (Multivitamin Tablet) 1 tab PO DAILY [facility] Last Admin: 06/27/25 09:35 Dose: 1 tab Documented By: KAILA Potassium Chloride (Potassium Chloride Er 20 Meq Tab.Er.Prt) 20 meq PO DAILY [facility] Last Admin: 06/27/25 09:34 Dose: 20 meq Documented By: KAILA Ropinirole HCl (Ropinirole Hcl 1 Mg Tablet) 1 mg PO BEDTIME [facility] Last Admin: 06/27/25 21:06 Dose: 1 mg Documented By: REBECCA Sertraline HCl (Sertraline Hcl 50 Mg Tablet) 150 mg PO DAILY [facility] Last Admin: 06/27/25 09:35 Dose: 150 mg Documented By: KAILA Sodium Chloride (0.9 % Sodium Chloride Flush 3 Ml Syringe) 3 ml IVFLUSH QSHIFT [facility] Last Admin: 06/27/25 21:06 Dose: 3 ml Documented By: REBECCA Labs 06/28/25 05:27 06/28/25 05:27 Labs: Laboratory Results - last 24 hr 06/27/25 06/27/25 06/27/25 13:17 13:27 13:30 MCV 85.2 MCH 28.8 MCHC 33.8 RDW 14.5 Plt Count 786 H D MPV 8.9 L Immature Gran % (Auto) Neut % (Auto) Lymph % (Auto) Jack % (Auto) Eos % (Auto) Baso % (Auto) Lymph # (Auto) Jack # (Auto) Eos # (Auto) Baso # (Auto) Abs Immat Gran (auto) Absolute Neuts (auto) Absolute Nucleated RBC 0.000 Nucleated RBC % (auto) 0.0 Hold Blue Top SEE NOTE VBG pH 7.68 H* VBG pCO2 19 VBG pO2 35 VBG HCO3 23 VBG O2 Saturation 59.0 VBG Base Excess 5.6 Anion Gap 21 H Estim Creat Clear Calc 92.1 Estimated GFR > 60 POC Glucose 111 Random Glucose 108 Lactic Acid 3.4 H* Lactic Acid F/U @ 2Hr Lactic Acid F/U @ 4Hr Calcium 10.4 H Magnesium 2.1 Total Bilirubin 0.5 AST 37 H ALT 39 H Alkaline Phosphatase 103 Troponin I High Sens 5.8 Total Protein 7.6 Albumin 4.6 06/27/25 06/27/25 06/28/25 15:49 18:17 05:27 MCV 85.1 MCH 28.3 MCHC 33.3 RDW 14.3 Plt Count 611 H MPV 8.8 L Immature Gran % (Auto) 1.1 H Neut % (Auto) 63.8 Lymph % (Auto) 18.7 L Jack % (Auto) 14.0 H Eos % (Auto) 1.8 Baso % (Auto) 0.6 Lymph # (Auto) 1.2 Jack # (Auto) 0.9 Eos # (Auto) 0.1 Baso # (Auto) 0.0 Abs Immat Gran (auto) 0.07 H Absolute Neuts (auto) 4.0 Absolute Nucleated RBC 0.000 Nucleated RBC % (auto) 0.0 Hold Blue Top VBG pH VBG pCO2 VBG pO2 VBG HCO3 VBG O2 Saturation VBG Base Excess Anion Gap 16 Estim Creat Clear Calc 96.3 Estimated GFR > 60 POC Glucose Random Glucose 105 Lactic Acid Lactic Acid F/U @ 2Hr 2.2 H* Lactic Acid F/U @ 4Hr 2.3 H* Calcium 9.7 D Magnesium 2.3 Total Bilirubin 0.5 AST 37 H ALT 41 H Alkaline Phosphatase 93 Troponin I High Sens Total Protein 6.9 Albumin 4.3 Assessment and Plan (1) Bipolar affective, manic, severe w/ psych: Status: Acute (2) C. difficile colitis: Status: Acute Plan 65F PMH bipolar disorder, multiple sclerosis admitted from inpatient psychiatry for fevers, multiple loose stools found to be positive C diff and potassium of 2.4. Patient is medically, psychiatrically and care team cleared. Family lost the discharge appeal, appealing again. Medically Optimized since 06/20/25. Date of Service: 06/27/25 Event Note: DEPUTY MANAGER was called for unresponsiveness Vitals stable-not hypoxic on room air When I went to see the patient the was recording with his camera We did a VBG which showed hyperventilation Labs suggestive of lactic acidosis likely in the setting of hyperventilation EKG QTC prolongation resolved, thus far overnight she also had a CTA PE protocol which ruled out a PE Patient continues to endorse intermittent chest pain and ACS has been ruled out multiple times Patient within an hour was sitting up and interactive and was able to take Ativan without any difficulty Patient's stated ?I have been here since 11:00 and no one has fed my , this is an acceptable Patient's when I addressed him and asked if he had any questions in the presence of the entire clinical team I do not even know what to ask, she needs to go to ICU should she go to ICU? Was told that the family is appealing again (they had a pill and apparently lost last Friday), please refer to the welfare case worker's note Unsure if the patient's continue to record as it was facing the patient and her was sitting on the chair behind me. We have ruled out any organic causes cardiac, pulmonary, neuro, infectious. I have explained at length that patient does not need oxygen as evidenced by multiple investive workup-sepsis, imaging We believe it is still psychiatric in etiology as the patient has extensive psychiatric history with waxing waning degree of participation without a medical etiology Explained again that her needing oxygen is more to do with comfort overnight rather than her actually needing oxygen as we have had repeated similar episodes Cardiology-curb sided-patient has takotsubo, the T-wave inversions we will be chronic and we will take time to resolve Patient does endorse occasional intermittent chest pain and thus far multiple almost daily workup has been negative for ACS No medical explanation for patient's and family's presentation as she has been treated for flu a and C diff colitis for which she was transferred from [facility] as of last Friday06/20/2025 Pulmonary edema - continue Lasix 20 po bid , inf work up unremarakable, quick recovery with lasix. AMS more awake today - unclear etiology of her altered mental status overall as extensive workup thus far has been unremarkable Multifactorial - psych component cannot be excluded 06/28/25: Extensive workup for infectious, stroke, seizure, neurological, workup has thus far been negative. This has been relayed to the daughter on 06/21/2025 and 06/22/2025, 06/24/25 Spoke at length with the welfare case worker present for the entirety of the conversation with the at bedside CM Caroline with HCP on 06/25/25 and 06/28/25 Explained to him that patient is deconditioned and hence the reason for her not responding , given age and other medical and psychiatric comorbidities Sepsis less likely as infectious workup unremarkable as of 06/25/2025 Nasal MRSA and viral panel negative-further confirming that there is no pneumonia or any viral infection CTA PE protocol -ve for PE Is nonhypoxic on RA-she needs to use CPAP Limit antibiotics given high-risk of C diff as she just is recovering from C diff and she completed treatment for C diff Limit fluids IV Patient less likely pneumonia as evidenced by quick resolution with Lasix, venous lactate 1.4, no leukocytosis. Patient does not have an obvious infectious etiology as she is not oxygen dependent, it gets placed on overnight for comfort and the family bili that she now oxygen dependent which we have demonstrated in his presents for over 30 minutes she does not need oxygen Again multiple time extensive explanation was given to the that medically her heart, lungs and GI and neuro are all addressed and she has been optimized. The Discharge that was done last Friday still stands. CM and (HCP) updated and in agreement that we are awaiting their acceptance of a bed and medically and psychiatrically she is optimzed and needs rehab. Psychiatry and care team was consulted and they had cleared the patient with no further medical adjustments since Friday06/20/25. QTC prolongation - resolved s/p Mg A/C - she is on many Psych meds - DC Zofran-use ativan prn for nausea (which she hasn't had), Reach out to Psych given her extensive complicated Psych history - awaiting input- they believe Sertraline has low QTC prolonging effect and doesnt need to be discontinued. We need Psych input for medication adjustment as discontinuing her home meds which have been challenging itself would cause her to have further destabilizing features. C diff colitis - s/p po vanc on 06/23/25 Flu A - s/p Tamiflu, repeat testing -ve for all viral panel severe acute hypokalemia- replaced hypomagnesemia- replaced, will be dc;d with Mg 400mg bid, She will be DC'd on Mg 400 BID and OP mx with Cardiology bipolar- continue sertraline, diazepam, prn ativan per home donya , care team and psych cleared the pt multiple sclerosis - stable per Neurology without new plaques in MRI takotsubo cardiomyopathy - continue metoprolol, outpatient follow up with Cardiology CLAUS- CPAP at night DVT prophylaxis with Lovenox full code reason for continued hospitalization:patient is medically optimized and PT recommends short-term rehab. Family lost the discharge appeal last friday06/24/25, appealing again, currently waiting for state level logistics for short-term rehab placement. Medically Optimized. This note is constructed using voice recognition software. While every effort has been made to ensure accuracy, fittings finisher errors may have been included. Total time managing care of this patient today: 105 minutes. Quality Stroke Does the patient have a stroke diagnosis?: No VTE Prior VTE?: No VTE Risk Level:: Medical - moderate - high VTE Device Contraindication: Treatment Not Indicated VTE Drug Contraindication: N/A - Med Ordered
[2025-06-28] MEDS: Potassium Chloride/H20 10 MEQ/100 ML PIGGYBACK 100 MEQ IV ×4 (07:47→11:42)
[2025-06-28] MEDS: Potassium Chloride ER 20 MEQ TAB.ER.PRT 40 MEQ PO (08:16)
[2025-06-28] MEDS: Ferrous Sulfate 324 MG TABLET.DR PO (08:16)
[2025-06-28] MEDS: 0.9 % Sodium Chloride Flush 3 ML SYRINGE IVFLUSH ×3 (08:17→19:22)
--- NOTE | 2025-06-28 14:43 | MHC.CM.PN ---
[facility] accepted, transfer to [facility] is approved. Permission granted for transfer tomorrow via BLS. [facility] is aware of the approval for admission at the [facility] 06/29/25.
--- NOTE | 2025-06-28 14:46 | HO.WOUND ---
Wound Consult: Follow up 65yr old?female admitted to [facility] on 06/14/25 - See progress notes and H&P for detailed history.? Wound consult placed for Buttock wound.? Patient agreeable to assessment and photo documentation.? Buttocks Etiology: ??MASD Wound Bed: buttocks/gluteal intact with scattered intact blanchable red areas. left buttock with superficial epidermal peeling Drainage / Odor: none Edges: ? well defined Betsey wound: ?MASD - red pink irritated tissue No Induration, Fluctuance or Warmth noted Pain: denies Goals of Treatment: ? Triad cream to protect from liquid stool and irritation and allow for healing - once stooling decreases may use foam Perineal area noted for MASD as well - barrier cream applied after incontinence care provided. Recommendations: 1. Turn and Reposition every 2 hours and as needed for patient comfort.? Use pillows or wedges to support off loading positions. 2. Off Load all bony prominences with use of pillows and heel boots if needed.? Apply Preventative foams where needed. ? 3. Monitor for incontinence and moisture control, use barrier creams when needed for prevention and treatment. 4. Provide adequate and supplemental nutrition.? 5. Order low air loss mattress. 6. When applicable maintain blood glucose levels per Providers order. Buttock - Off Load Pressure with Q2 hr turns and use of pillows - Cleanse with PH balance spray or wipes, pat dry. ?Apply thin layer of Triad to wound bed - only pat and dab no scrub and rub when soiling occurs. Reapply thin layer PRN after each episode of incontinence. Re-consult wound care Nurse for wound deterioration or wound changes.
--- NOTE | 2025-06-28 19:17 | PM.EVENT ---
Event Note Date of Service: 06/28/25 Event Note: Rapid response called for initial concerns over hypoxia into the 50s. Pt seen and evaluated where she is seen with nasal cannula on and mildly anxious. Respiratory re-evaluated patient's O2 saturation and she was found to be satting at 100%. Hypoxia likely secondary to device malfunction. Will get CXR of chest as well as administer 1 mg morphine for anxiety/mild respiratory distress. Time Spent With Patient Time: Total time managing care of this patient today ____ minutes.
--- NOTE | 2025-06-28 19:23 | PC.NURSE ---
RUMPER called d/t pt being hypoxic, initially pulse ox was reading in the 50s. Pt experiencing increased respiratory effort. RT discovered that her O2 sat satting at 100, and that the initial reading was likely secondary to device malfunction. Morphine was ordered to relieve anxiety/respiratory effort. CXR ordered. Pt is currently lying in bed. Pt is arousable to name and voice. CPAP on. Call adamson within reach. Safety measures in place.
[2025-06-29 04:00] VITALS: BP 153/87; PULSE 87; RESP 14; TEMP 36.2; O2SAT 93
[2025-06-29 05:59] LABS: MANUAL DIFF FLAG NO
[2025-06-29 06:18] LABS: Hematocrit 42.8 % (37.0-47.0); Hemoglobin 13.9 g/dl (12.0-16.0); Imm Gran Abs Auto 0.12 X10*3/uL (0.00-0.03); Imm Gran Pct Auto 1.6 % (0.0-0.4); Lymphocytes Absolute Auto 1.4 X10*3/uL (1.2-4.9); Mean Corpuscular HGB Conc 32.5 g/dl (31.0-35.0); Mean Corpuscular Hemoglobin 28.3 pg (27.0-33.0); Mean Corpuscular Volume 87.0 fL (80.0-98.0); NRBC Abs Auto 0.000 X10*3/uL (0.0-0.012); NRBC Pct Auto 0.0 /100WBC (0.0-0.2); Platelet Count 601 X10*3/uL (160-400); Red Blood Count 4.92 X10*6/uL (4.20-5.50); White Blood Count 7.6 X10*3/uL (4.8-10.8)
[2025-06-29 06:39] LABS: Alanine Aminotransferase 42 U/L (0-31); Albumin Level 4.3 g/dL (3.5-5.0); Alkaline Phosphatase 89 U/L (39-117); Anion Gap 17 (12-20); Aspartate Amino Transferase 33 U/L (5-31); Blood Urea Nitrogen 22 mg/dL (9-16); Calcium 9.7 mg/dL (8.4-10.2); Carbon Dioxide 24 mmol/L (22-29); Chloride 104 mmol/L (96-108); Creatinine Clr Calc Pharmacy 97.8; Estimated Glomerular Filt Rate > 60; Magnesium 2.3 mg/dL (1.6-2.6); Potassium 3.7 mmol/L (3.3-5.1); Sodium 141 mmol/L (135-145); Total Protein 6.6 g/dL (6.5-8.0)
[2025-06-29 07:47] VITALS: BP 151/73; PULSE 103; RESP 20; TEMP 36; O2SAT 100
[2025-06-29] MEDS: Ferrous Sulfate 324 MG TABLET.DR PO (08:22)
[2025-06-29] MEDS: Potassium Chloride ER 20 MEQ TAB.ER.PRT PO (08:22)
[2025-06-29] MEDS: 0.9 % Sodium Chloride Flush 3 ML SYRINGE IVFLUSH (08:23)
--- NOTE | 2025-06-29 08:34 | PM.DS ---
DS: Providers Provider Date of Service: 06/29/25 Date of admission: 06/14/25 15:13 Date of discharge: 06/29/25 Primary care physician: Festus Multani MD Consults: 06/14/25 15:47 Consult to Infectious Diseases Routine Consulting Provider: [facility] Reason for consultation: c diff colitis Has provider been notified: No 06/19/25 08:30 Inpt CARE Team Crisis Consult Routine Comment: Reason for consultation: medically clear, came from geripsych (bipolar with psychosis) 06/19/25 12:49 Consult to Psychiatry Routine Consulting Provider: [facility] Psych Covering Reason for consultation: requested by care team, ?dispo 06/20/25 00:21 Consult to Wound Care Routine Consulting Provider: [facility] Wound Care Management Reason for consultation: right buttock stage II 06/21/25 10:18 Consult to Neurology Routine Consulting Provider: [facility] Reason for consultation: family thinks she is likely having neuro disconnect , not psych etiology, 06/21/25 10:19 Consult to Psychiatry Routine Consulting Provider: [facility] Psych Covering Reason for consultation: family not receptive of psych meds adjustment and want more input 06/25/25 10:17 Consult to Psychiatry Routine Consulting Provider: [facility] Psych Covering Reason for consultation: Med adjustment and family would like to consult with Psych 06/27/25 22:02 Consult to Wound Care Routine Consulting Provider: [facility] Wound Care Management Reason for consultation: stage 2 to left buttocks, DTI to R buttocks DS: Diagnosis Discharge Diagnosis (1) Bipolar affective, manic, severe w/ psych: Status: Acute (2) C. difficile colitis: Status: Acute DS: Summary Hospital Course Hospital Course: Per H&P: 65-year-old female with a past medical history of bipolar disorder, multiple sclerosis, recently brought to the emergency department for mental status changes. Patient was tachypneic and tachycardic on arrival to the ED, her chest x-ray demonstrated atelectasis, her brain CT was with no acute changes she was found to have metabolic encephalopathy secondary to anion gap metabolic acidosis secondary to starvation ketosis. She was treated with IV fluids, her mental status was improved. Her EKG was negative, she had a CTA of her head that was negative, she was seen by Neurology and felt that her presentation was unlikely due to an MS exacerbation. Possibly dementia related to the MS. An MRI was not done due to likelihood that it would not provide clinically useful information. She was seen by Cardiology due to elevated troponin, who added Plavix, beta-scottie and continue the statin. Patient continued with behavioral outbursts, subsequently admitted inpatient [facility] for further care and treatment. Upon admission to [facility] patient reportedly multiple loose stools, stool specimen revealed a positive C diff infection. Labs revealed potassium level of 2.4. On exam patient denies any discomfort, her abdominal exam is benign. Hospital course 65F PMH bipolar disorder, multiple sclerosis previously admitted to inpatient [facility] for management of Psychiatric issues. She developped fevers, multiple loose stools found to be positive C diff and influeza, and potassium of 2.4. She has completed treatment for Cdif with no further symptoms. Hypokalemia has been corrected. She has been deconditioned, weak and has has extensive work up including ruling out infection, seizure, stroke and neurological assessment and having nothing revealing. Physical therapy had recommended short term rehab. Psychiatry followed her on the medical floor and at this time doesn't think she need Psychiatric admission. Workups Infections work up Initial UA was negative Blood cultures negative WBC has been within normal. C dif + treated with vanco x 10 days Flu--Tamiflu x 5 days Stroke/Neuro work: negative head CT, and MRI requested by Psych EEG x2 on Jun 10 and , No seizure activity Seen by Neur twice on Jun 10 and with this She appears to have chronic stable multiple sclerosis as best as we can determine and is cared for at the [facility] in [place]. She is in Ocrevus infusions. She does appear to have some baseline dementia which could be related to a chronic MS. This can be verified through her MS doctor at [facility] for MS. She is easily arousable and answers appropriately although slowly. It is unclear if some of her mental status changes related to medications superimposed on a mild chronic dementia related to her MS. There are no obvious metabolic abnormalities to account for her mental state. Recommendation: Follow-up MRI of the brain with and without gadolinium to see if there is any new enhancing lesions. EEG Concern of Hypoxia, thought to be related to be device malfuction, as O2 sat read very low and momentarly went up without intervention She has had CT of chest with contrast with no PE, Blood gas has been unremarkable. She is breatthing comfortably on room air. She has underlying CLAUS and should continue to use CPAP at night. Recent CXR show atelectasis and no convincing evidence of pneumonia QTC prolongation - A/C - she is on many Psych meds - DC Zofran-use ativan prn for nausea (which she hasn't had), Reach out to Psych given her extensive complicated Psych history - awaiting input- they believe Sertraline has low QTC prolonging effect and doesnt need to be discontinued. We need Psych input for medication adjustment as discontinuing her home meds which have been challenging itself would cause her to have further destabilizing features. Most recent QTC is 483 Pulm edema - believed to be Takotsubo cardiomyopathy, to continue Lasix 40 mg bid and to follow up with cardiology on outpatient basis. akotsubo cardiomyopathy - continue metoprolol severe acute hypokalemia- replaced, K is 3.7 today hypomagnesemia- replaced, replaced and to continue oral supplement bipolar- continue sertraline, diazepam, prn ativan per home donya , care team and psych cleared the pt multiple sclerosis - stable per Neurology without new plaques in MRI and should followed with her neurologist CLAUS- CPAP at night- she doesnt toleate it well Incidentally noted left breast nodule. Dedicated nonemergent follow-up diagnostic mammographic evaluation may be helpful for further characterization if clinically indicated. Time Attestation Discharge Coordination Time (in mins): 45 Quality: Safe Use of Opioids Does Pt have an Active Cancer Diagnosis on the Problem List?: No Quality: Stroke Does the patient have a stroke diagnosis?: No Physical Exam Vital Signs: Vital Signs: Last Vital Signs Temp 96.8 F 06/29/25 07:47 Pulse 103 H 06/29/25 07:47 Resp 20 06/29/25 07:47 BP 151/73 H 06/29/25 07:47 Pulse Ox 100 06/29/25 07:47 O2 Del Method Room Air 06/29/25 07:47 O2 Flow Rate 2 06/25/25 07:25 BMI result Body Mass Index 37.9 DS: Data Data Completed and Pending Labs on day of discharge: Laboratory Results - last 24 hr 06/28/25 06/29/25 08:33 05:21 WBC 7.6 RBC 4.92 Hgb 13.9 Hct 42.8 MCV 87.0 MCH 28.3 MCHC 32.5 RDW 14.5 Plt Count 601 H MPV 9.0 L Immature Gran % (Auto) 1.6 H Neut % (Auto) 60.3 Lymph % (Auto) 18.9 L Davison % (Auto) 16.8 H Eos % (Auto) 1.6 Baso % (Auto) 0.8 Lymph # (Auto) 1.4 Davison # (Auto) 1.3 H Eos # (Auto) 0.1 Baso # (Auto) 0.1 Abs Immat Gran (auto) 0.12 H Absolute Neuts (auto) 4.6 Absolute Nucleated RBC 0.000 Nucleated RBC % (auto) 0.0 Sodium 141 Potassium 3.7 D Chloride 104 Carbon Dioxide 24 Anion Gap 17 BUN 22 H Creatinine 0.66 Estim Creat Clear Calc 97.8 Estimated GFR > 60 Random Glucose 95 Lactic Acid 1.2 Calcium 9.7 Magnesium 2.3 Total Bilirubin 0.4 AST 33 H ALT 42 H Alkaline Phosphatase 89 Total Protein 6.6 Albumin 4.3 Discharge Plan Discharge Anticipated Discharge Date/Time: 06/29/25 08:40 Patient Disposition: Xfer SNF Discharge Diagnosis: AMS multifactorial metabolic, MS , psychiatric, baseline dementia, prior SI, IP admissions ,deconditioning,Bipolar disorder, current episode manic without psychotic features, moderate, status post flu and C diff Referrals: [facility] [Outside] - 1 Week Marcelo Cunningham MD [Physician, Psychiatry] - 1 Week Tyler Klein MD [Physician, Psychology] - 1 Week Emma Ramírez MD [Physician, Infectious Disease] - 1 Week Festus Multani MD [Primary Care Provider, Internal Medicine] - 1 Week Physician,Unknown J [Physician, Medical] - 1 Week Discharge Medications: New furosemide 40 mg Tablet 40 mg PO BID@0800,1400 30 Days Qty: 60 3RF Protocol: Hold for SBP< HOLD for SBP < : 90 potassium chloride 20 mEq Tablet,Er Particles/Crystals 20 meq PO DAILY 30 Days Qty: 30 3RF magnesium oxide 400 mg (241.3 mg magnesium) Tablet 800 mg PO DAILY 30 Days Qty: 60 3RF Continued Zepbound 2.5 mg/0.5 mL pen injector 2.5 mg subcut MO acetaminophen 325 mg Tablet 650 mg PO Q6H PRN (Reason: Headache/Pain, Scale 1-10) Qty: 0 0RF ropinirole 1 mg Tablet 1 mg PO BEDTIME Qty: 0 0RF cyanocobalamin (vitamin B-12) [Vitamin B-12] 1,000 mcg Tablet 1,000 mcg PO DAILY Qty: 0 0RF Antacid Ext Str (calcium carb) 300 mg (750 mg) Tablet,Chewable 2.5 tab PO QID PRN (Reason: Indigestion) Qty: 0 0RF melatonin 3 mg Tablet 9 mg PO BEDTIME Qty: 0 0RF clopidogrel 75 mg Tablet 75 mg PO DAILY Qty: 0 0RF nystatin [Nyamyc] 100,000 unit/gram Powder 1 appl topical BID Qty: 0 0RF Protocol: Apply to: Apply to: affect area sertraline 50 mg Tablet 150 mg PO DAILY Qty: 0 0RF metoprolol tartrate 25 mg Tablet 25 mg PO BID Qty: 0 0RF Protocol: Hold for SBP/HR < HOLD for SBP < : 90 HOLD for HR < : 60 ferrous sulfate 324 mg (65 mg iron) Tablet,Delayed Release (Dr/Ec) 324 mg PO DAILY Qty: 0 0RF multivitamin [Daily-Kourtney] Tablet 1 tab PO DAILY Qty: 0 0RF Discontinued metoprolol tartrate 25 mg Tablet 25 mg PO BID Qty: 1 0RF Protocol: Hold for SBP/HR < HOLD for SBP < : 90 HOLD for HR < : 60 vancomycin 125 mg Capsule 125 mg PO Q6H Qty: 0 0RF baclofen 20 mg Tablet 20 mg PO BID Qty: 0 0RF diazepam 2 mg Tablet 2 mg PO TID Qty: 0 0RF Discharge Orders: Discharge Order (Routine); Ordered 06/29/25 Ordered By: Haresh Ramon Diet: Low salt diet Activity on Discharge: As tolerated Stand Alone Forms: Patient Portal Discharge page Print Language: Chinese Other Ambulatory Orders: MM diagnostic mammo BI (Routine) Timeframe: 2 Weeks Facility: [facility] - Location: Mammography Ordered By: Haresh [facility] Care Plan Goals: Patient had extensive workup for her family's concern of acute altered mental status and deconditioning Significant metabolic and organic causes were ruled out with imaging CT scan, MRI, EEG, multispecialty input from ID, neuro, psychiatry, care team medicine team and respiratory therapy. Her psychiatric medications-per patient's family's concerns, baclofen was discontinued as they were concerned it might be contributing to her somnolence, without any effect. PT evaluated the patient and recommended short-term rehab given her deconditioning . Expected length of stay is less than 30 days Patient completed treatment for flu with oseltamivir Patient completed C diff treatment with vancomycin p.o. 10 day course during this hospitalization Metoprolol was a duplicate hence it has been discontinued Started you on magnesium pills twice a day Started you on water pill called Lasix 40 mg twice a day Please ask the facility to check labs weekly Health Concerns: Family had significant concerns and I have answered their questions every day over the phone and explained to them the pathophysiology and the workup in detail about any reversible causes of altered mental status. Family still not accepting about her status. Plan of Treatment: Discontinued baclofen per family's request PTOT Follow up with outpatient psychiatry for medication titration furosemide 40 mg p.o. b.i.d. Magnesium 400 mg p.o. b.i.d. Potassium 20 mg p.o. daily Assessment: See above
--- NOTE | 2025-06-29 09:00 | MHC.CLN ---
F/U DIET RX: 2 GRAM SODIUM. SUPPLEMENT ENSURE CLEAR TID PROVIDES 720 KCALS, 24 G PROTEIN. PO USUALLY LEAVES >50% AT MEALS. SKIN PER WOUND RN SHOWS MASD TO BUTTOCKS. CONTINUE TO FOLLOW UP WEEKLY FOR PO INTAKE.
[2025-06-29 11:56] VITALS: BP 119/69; PULSE 91; RESP 16; TEMP 36.6; O2SAT 98
--- NOTE | 2025-06-29 12:36 | PC.NURSE ---
Patient agreeable to STR, paperwork for d/c was placed in the folder for EMS
--- NOTE | 2025-06-29 12:54 | PC.NURSE ---
this RN , , case management , patient experience , involved with family meeting at bedside to answer questions and concerned .
--- NOTE | 2025-06-30 09:16 | MHC.CM.PN ---
Addendum entered by Radha Carvalho 06/30/25 09:29: An Elder abuse mandated retirement assistant form has been completed electronically, and sent to [facility]. Original Note: 06/30/25 Late charting. Patient discharged yesterday to [facility]. The day prior to discharge T/W noticed a striking change in the patient's behavior. When the spouse is in the room, patients eyes remain closed. She rarely speaks or opens her eyes. T/W met with the patient 06/28/15 PM. The 1st time that the patient was alone. She had her eyes open. She was excited to go to rehab the next day. She was conversational. Nursing and Physical therapy stated that they saw the same behavior. Once the spouse was gone, she responded as a normal person. I was not able to speak with the patient alone prior to discharge . I was not able to ask if she felt safe ect. I was concerned for the patient. Questions needed to be asked, but there was no opportunity to have the conversation. This behavior was observed late PM evening prior to discharge to short term rehab. Patient transported via BLS.
--- NOTE | 2025-07-16 16:19 | P.CDIM_ITS ---
PROVIDER RESPONSE TEXT: To clarify, the appropriate diagnosis supported by the clinical indicators: Sepsis is/was present and is a clinical diagnosis based on QUERY TEXT: PHYSICIAN'S DOCUMENTATION REQUEST Date of Query: 07/14/2025 05:41 AM EST Patient Name: Rayna Gorman Admit Date: 06/14/2025 Dear Haresh Pike MD, RETROSPECTIVE QUERY A review of the medical record indicates additional documentation may be needed. Please review below and update the documentation accordingly. Clinical indicators: Progress notes: 06/15 - 06/19/25 - Sepsis (not severe) due to Cdiff colitis and flu A - Temp 104 HR 102 10 p.o. Vancomycin until 06/23/25, Tamiflu day 5. Progress note 06/23/25 - AMS very slow to respond deconditioning. Extensive workup for infectious, stroke, seizure, neurological thus far been negative. Progress note 06/26/25 - Sepsis less likely as infectious workup unremarkable as of 06/25/25. Limit antibiotics given high risk for C diff as she is just recovering from. Event note 06/27/25 - I have explained at length that patient does not need oxygen as evidenced by multiple investive workup-Sepsis, imaging. Discharge summary 06/29/25 - Workups-UA negative, B/C negative, WBC wnl, Cdiff and treated with vanco x 10 days. Discharge diagnosis: AMS multifactorial metabolic, MS, psychiatric, baseline dementia, bipolar. Sepsis Systemic manifestations of infection, with 2 or more SIRS criteria which include: Fever > 100.4?F or hypothermia < 96.8?F Leukocytosis - WBC > 12,000 or leukopenia, WBC < 4,000, or > 10% bands Tachycardia- > 90 beats/minute Tachypnea- RR > 20 breaths/minute or PaCO2 < 32mmHg Based on the above information and the recognized standard for sepsis, could you please clarify if this diagnoses is still accurate and reflective of the patient's condition to ensure quality of the medical record. Sepsis is/was present and is a clinical diagnosis based on After study Sepsis has been ruled out Other (explain) Clinically unable to determine (explain) Thank you, Jessica Cheema, CCS, CDIS Use of terms such as suspected, likely, concern for, or probable (associated with a specific diagnosis that is being evaluated, monitored, or treated as if it exists) are acceptable and can be coded in the inpatient setting, when documented at the time of discharge. Please use your independent medical judgment in providing your response. THIS QUERY IS PART OF THE PERMANENT MEDICAL RECORD
== END 2025-06-29 13:01 | disposition skilled nursing facility (03) | DRG 872 ==
LOC: HO.IMC 06-15 15:47 → HO.S3 06-18 13:10
PROVIDERS: Hospitalist; Internal Medicine; Nurse Practitioner Family; Physician Assistant; Student in an Organized Health Care Education/Training Program; Admitting Provider Nurse Practitioner Acute Care; PCP Internal Medicine; Visit Provider Internal Medicine
DX: A41.9 Sepsis, unspecified organism (principal); I51.81 Takotsubo syndrome; A04.72 Enterocolitis due to Clostridium difficile, not specified as recurrent; E87.6 Hypokalemia; J10.1 Influenza due to other identified influenza virus with other respiratory manifestations; G35.D Multiple sclerosis, unspecified; F31.9 Bipolar disorder, unspecified; R53.81 Other malaise; R94.31 Abnormal electrocardiogram [ECG] [EKG]; F03.90 Unspecified dementia, unspecified severity, without behavioral disturbance, psychotic disturbance, mood disturbance, and anxiety; G47.33 Obstructive sleep apnea (adult) (pediatric); Z63.4 Disappearance and death of family member; Z91.51 Personal history of suicidal behavior; Z87.891 Personal history of nicotine dependence; Z79.02 Long term (current) use of antithrombotics/antiplatelets; Z79.899 Other long term (current) drug therapy
CPT/HCPCS: 36415; 36600; 70450; 70553; 71045; 71275; 74176; 80048; 80053; 82803; 82947; 83605; 83735; 83880; 84132; 84443; 84484; 85025; 85027; 87040; 87633; 87640; 87641; 93005; 94640; 95816; 97162; 97530; A9585; J0616; J0696; J1650; J1836; J1938; J2270; J3360; J3475; J3480; J7120; Q9967; S9485

== ENCOUNTER 2025-06-14 15:13 | Outpatient (BNV) | payer MEDICARE, MEDICAID, SELFPAY | END 2025-06-25 00:26 | PROVIDERS: Admitting Provider Nurse Practitioner Acute Care; PCP Internal Medicine; Visit Provider General Practice | DX: R91.8 Other nonspecific abnormal finding of lung field (principal) | CPT/HCPCS: 71045 ==

== ENCOUNTER 2025-06-14 15:13 | Outpatient (BNV) | payer MEDICARE, MEDICAID, SELFPAY | END 2025-06-25 00:29 | PROVIDERS: Admitting Provider Nurse Practitioner Acute Care; PCP Internal Medicine; Visit Provider Internal Medicine | DX: R00.0 Tachycardia, unspecified (principal) | CPT/HCPCS: 93010 ==

== ENCOUNTER 2025-06-14 15:13 | Outpatient (BNV) | payer MEDICARE, MEDICAID, SELFPAY | END 2025-06-28 19:28 | PROVIDERS: Admitting Provider Nurse Practitioner Acute Care; PCP Internal Medicine; Visit Provider Radiology Diagnostic Radiology | DX: R91.8 Other nonspecific abnormal finding of lung field (principal) | CPT/HCPCS: 71045 ==

== ENCOUNTER 2025-06-14 15:13 | Outpatient (BNV) | payer MEDICARE, MEDICAID, SELFPAY | END 2025-06-27 | PROVIDERS: Admitting Provider Nurse Practitioner Acute Care; PCP Internal Medicine; Visit Provider General Practice | DX: R91.8 Other nonspecific abnormal finding of lung field (principal) | CPT/HCPCS: 71275 ==

== ENCOUNTER → 2025-06-14 15:13 | Outpatient (BNV) | payer MEDICARE, MEDICAID, SELFPAY | PROVIDERS: Admitting Provider Nurse Practitioner Acute Care; PCP Internal Medicine; Visit Provider Psychiatry & Neurology Neurology | DX: R41.82 Altered mental status, unspecified (principal); G35.D Multiple sclerosis, unspecified | CPT/HCPCS: 99222 ==

== ENCOUNTER → 2025-06-14 15:13 | Outpatient (BNV) | payer MEDICARE, MEDICAID, SELFPAY | PROVIDERS: Admitting Provider Nurse Practitioner Acute Care; Visit Provider Social Worker | DX: F31.12 Bipolar disorder, current episode manic without psychotic features, moderate (principal) | CPT/HCPCS: 99233 ==

== ENCOUNTER → 2025-06-14 15:13 | Outpatient (BNV) | payer MEDICARE, MEDICAID, SELFPAY | PROVIDERS: Admitting Provider Nurse Practitioner Acute Care; Visit Provider Internal Medicine | DX: F31.2 Bipolar disorder, current episode manic severe with psychotic features (principal); A04.72 Enterocolitis due to Clostridium difficile, not specified as recurrent | CPT/HCPCS: 99222; 99232; 99233; 99499 ==

== ENCOUNTER → 2025-06-14 15:13 | Outpatient (BNV) | payer MEDICARE, MEDICAID, SELFPAY | PROVIDERS: Admitting Provider Nurse Practitioner Acute Care; Visit Provider Internal Medicine | DX: A04.72 Enterocolitis due to Clostridium difficile, not specified as recurrent (principal); J10.1 Influenza due to other identified influenza virus with other respiratory manifestations | CPT/HCPCS: 99222 ==